=== PATIENT | male | born 1960 | race Caucasian/White ===

== ENCOUNTER 2022-11-08 20:50 | Inpatient (IN) | payer OTHER, SELFPAY ==
[2022-11-08] VITALS (20 sets, daily range): BP systolic 112–135; BP diastolic 86–90; PULSE 88–111; RESP 9–20; TEMP 36.7; O2SAT 94; BMI 31.0
--- NOTE | 2022-11-08 21:04 | ECG_ITS ---
The [facility] Test Date: 2022-11-08 Pat Name: JOCELYNN DANG Department: Room: - Gender: Male Manager Asset: : 1960 Requested By: SHAHRZAD NUNEZ Order Number: [id number] Reading MD: SHAHRZAD NUNEZ Measurements Intervals [place] Rate: 98 P: 52 LA: 148 QRS: -84 QRSD: 116 T: 73 QT: 344 QTc: 399 Interpretive Statements 1100 Sinus rhythm 2450 Right bundle branch block 2630 Left anterior fascicular block 9150 abnormal ECG No previous ECG available for comparison Electronically Signed On 11-09-2022 6:59:31 EDT by SHAHRZAD NUNEZ
--- NOTE | 2022-11-08 21:04 | XR_ITS ---
The [address] [address] Patient Name: JOCELYNN DANG MRN: [id number] date: 1960 Sex: M Assigned Patient Location: ED.MAIN Current Patient Location: ER Accession/Order Number: [id number] Exam Date: 11/08/2022 19:20 Report Date: 11/08/2022 21:54 At the request of: SUDARSHAN JARVIS Procedure: XR chest 1V EXAMINATION: XR chest 1V, , 11/08/2022 7:20 PM EDT INDICATION: CP HISTORY: Ordering Provider Reason for Exam: CP Technologist Note: Additional: COMPARISON: None. TECHNIQUE: Chest x-ray: One view. FINDINGS: No pneumothorax, pleural effusion or focal airspace consolidation. Heart is normal in size. Bony thorax is unremarkable. XR/XR chest 1V IMPRESSION: No acute cardiopulmonary process. Electronically authenticated by: YAKOV GALEAS Date: 11/08/2022 21:54
--- NOTE | 2022-11-08 21:05 | ED_ITS ---
HPI - Chest Pain General Chief Complaint: Chest Pain Stated Complaint: CHEST PAIN Time Seen by Provider: 11/08/22 20:56 History of Present Illness HPI narrative: 61-year-old male presents to the emergency department for chest pain. It started forty-five minutes ago and it's across his chest and it doesn't seem to radiate. He was out in the garage doing some minor work when it started. He didn't have any nitroglycerin at home and doesn't take an aspirin every day. He had two cardiac stents placed in two thousand eleven. His last stress test was in 2020. The pressure has been continuous and he is not short of breath. No back pain. Related Data Home Medications Medication Instructions Recorded Confirmed diclofenac sodium 75 mg mg PO 11/08/22 tablet,delayed release ezetimibe 10 mg tablet mg 11/08/22 metoprolol tartrate 50 mg tablet mg 11/08/22 rosuvastatin 5 mg tablet (Crestor) 5 mg PO DAILY 11/08/22 11/08/22 tamsulosin 0.4 mg capsule mg PO 11/08/22 venlafaxine 150 mg mg PO 11/08/22 capsule,extended release 24 hr Allergies Allergy/AdvReac Type Severity Reaction Status Date / Time No Known Drug Allergies Allergy Verified 11/08/22 21:07 Review of Systems ROS Narrative A ten point review of systems is negative except as noted above. The last time he had chest pain with three or four months ago. [facility] Social History Smoking status: Current every day smoker Exam Narrative Exam Narrative: Nurses note and vital signs reviewed and patient is not hypoxic. General: The patient appears well and in no apparent distress. Patient is resting comfortably on cart. Skin: Warm, dry, no pallor noted. There is no rash noted. Head: Normocephalic, atraumatic Eye: Normal conjunctiva, no drainage Ears, Nose, Mouth, and Throat: oral mucosa is moist. Nares patent. Cardiovascular: Regular Rate and Rhythm Respiratory: Patient is in no distress, no accessory muscle use, lungs are clear to auscultation, no wheezing, rales or rhonchi Back: non-tender GI: soft and nontender Musculoskeletal: The patient has no evidence of calf tenderness, no pitting edema, symmetrical pulses noted bilaterally Neurological: A&O, normal speech Psychiatric: Cooperative Constitutional Vital Signs, click to edit/add: Last Vital Signs Temp 98.1 F 11/08/22 20:58 Pulse 91 H 11/08/22 23:22 Resp 17 11/08/22 23:22 BP 114/88 11/08/22 23:22 Pulse Ox 94 L 11/08/22 21:06 O2 Del Method Room Air 11/08/22 20:58 Course Vital Signs Vital signs: Vital Signs Temperature 98.1 F 11/08/22 20:58 Pulse Rate 108 H 11/08/22 20:58 Respiratory Rate 14 11/08/22 20:58 Blood Pressure 135/90 11/08/22 20:58 Pulse Oximetry 94 L 11/08/22 20:58 Oxygen Delivery Method Room Air 11/08/22 20:58 Temperature 98.1 F 11/08/22 20:58 Pulse Rate 91 H 11/08/22 23:22 Respiratory Rate 17 11/08/22 23:22 Blood Pressure 114/88 11/08/22 23:22 Pulse Oximetry 94 L 11/08/22 21:06 Oxygen Delivery Method Room Air 11/08/22 20:58 MDM - Chest Pain MDM Narrative Medical decision making narrative: the patient's initial troponin was 27 and the repeat 51. he has been having intermittent pain here but EKG shows no acute findings. Case discussed with Dr. Calhoun and the patient will be admitted here. Findings are discussed with the patient. Differential Diagnosis Differential diagnosis: Likely pneumothorax, unstable angina pectoris, atypical chest pain, st elevation myocardial infarction, costochondritis and chest pain Lab Data Attestation: I reviewed the patient's lab results. Labs: Lab Results 11/08/22 11/08/22 Range/Units 21:24 22:30 WBC 10.6 (4.0-11.0) 10^3/uL RBC 5.45 (4.70-6.10) 10^6/uL Hgb 17.0 (14.0-18.0) g/dL Hct 49.7 (42.0-54.0) % MCV 91.2 (80.0-94.0) fL MCH 31.2 (25.9-34.0) pg MCHC 34.2 (29.9-35.2) g/dL RDW 12.1 (11.0-15.0) % Plt Count 177 (150-450) 10^3/uL MPV 10.1 (9.5-13.5) fL Neut % (Auto) 66.7 (43.0-75.0) % Lymph % (Auto) 26.0 (20.5-60.0) % Rice % (Auto) 5.0 (1.7-12.0) % Eos % (Auto) 1.4 (0.9-7.0) % Baso % (Auto) 0.6 (0.2-2.0) % Neut # (Auto) 7.1 H (1.4-6.5) 10^3/uL Lymph # (Auto) 2.8 (1.2-3.8) 10^3/uL Rice # (Auto) 0.5 (0.3-0.8) 10^3/uL Eos # (Auto) 0.2 (0.0-0.7) 10^3/uL Baso # (Auto) 0.1 (0.0-0.1) 10^3/uL Abs Immat Gran (auto) 0.03 (0.00-0.03) 10^3/uL Imm/Tot Granulo (auto) 0.3 (0.0-0.5) % Sodium 138 (136-145) mmol/L Potassium 4.0 (3.5-5.1) mmol/L Chloride 104 (98-107) mmol/L Carbon Dioxide 28.9 (21.0-32.0) mmol/L Anion Gap 9.1 BUN 14.0 (7.0-18.0) mg/dL Creatinine 0.96 (0.70-1.30) mg/dL Est GFR ( Amer) >60 (>=60) Est GFR (Non-Af Amer) >60 (>=60) BUN/Creatinine Ratio 14.6 Glucose 207 H (74-106) mg/dL Calcium 9.6 (8.5-10.1) mg/dL Troponin I High Sens 27.0 51.3 (4.0-76.1) pg/mL Imaging Data Chest x-ray: Radiologist's impression: Procedure: XR chest 1V EXAMINATION: XR chest 1V, , 11/08/2022 7:20 PM EDT INDICATION: CP HISTORY: Ordering Provider Reason for Exam: CP Technologist Note: Additional: COMPARISON: None. TECHNIQUE: Chest x-ray: One view. FINDINGS: No pneumothorax, pleural effusion or focal airspace consolidation. Heart is normal in size. Bony thorax is unremarkable. IMPRESSION: No acute cardiopulmonary process. Electronically authenticated by: YAKOV GALEAS Date: 11/08/2022 21:54 Heart Score History: Highly Suspicious ECG: NS Repolarization Age: >45-<65 years Risk Factors: >3 Risk Factors/ HX of CAD:2 Troponin: <Normal Limit Total Heart Score Recommendations & Risks:: 6 Discharge Plan Discharge Chief Complaint: Chest Pain Clinical Impression: Chest pain Patient Disposition: Admitted as Observation Time of Disposition Decision: 00:37 Condition: Good Prescriptions / Home Meds: No Action venlafaxine 150 mg capsule,extended release 24hr PO tamsulosin 0.4 mg capsule PO metoprolol tartrate 50 mg tablet diclofenac sodium 75 mg tablet,delayed release (DR/EC) PO ezetimibe 10 mg tablet rosuvastatin [Crestor] 5 mg tablet 5 mg PO DAILY Referrals: Physician,Non-Staff, MD [Physician] - 1 week
[2022-11-08 21:31] LABS: Basophils Absolute Auto 0.1 10^3/uL (0.0-0.1); Basophils Percent Auto 0.6 % (0.2-2.0); Eosinophils Absolute Auto 0.2 10^3/uL (0.0-0.7); Eosinophils Percent Auto 1.4 % (0.9-7.0); Hematocrit 49.7 % (42.0-54.0); Immature Granulocytes Abs Auto 0.03 10^3/uL (0.00-0.03); Immature Granulocytes Pct Auto 0.3 % (0.0-0.5); Lymphocytes Absolute Auto 2.8 10^3/uL (1.2-3.8); Mean Corpuscular HGB Conc 34.2 g/dL (29.9-35.2); Mean Corpuscular Hemoglobin 31.2 pg (25.9-34.0); Mean Corpuscular Volume 91.2 fL (80.0-94.0); Mean Platelet Volume 10.1 fL (9.5-13.5); Monocytes Absolute Auto 0.5 10^3/uL (0.3-0.8); Neutrophils Absolute Auto 7.1 10^3/uL (1.4-6.5); Neutrophils Percent Auto 66.7 % (43.0-75.0); Platelet Count 177 10^3/uL (150-450); Red Blood Count 5.45 10^6/uL (4.70-6.10); Red Cell Distribution Width 12.1 % (11.0-15.0); White Blood Count 10.6 10^3/uL (4.0-11.0)
--- NOTE | 2022-11-08 21:33 | PC.NURSE ---
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 states he has had similar episodes but has not had one in about 3 month. 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 2 cardiac stents in 2010. denies nausea, vomiting and any recent illness. chest pain does not radiate. ekg obtained and given to physician
[2022-11-08] MEDS: ASPIRIN 81 MG TAB.CHEW 324 MG PO (21:39)
[2022-11-08] MEDS: NITROGLYCERIN 0.4 MG BOTTLE PO (21:41)
[2022-11-08 21:54] LABS: Anion Gap 9.1; BUN Creatinine Ratio 14.6; Calcium 9.6 mg/dL (8.5-10.1); Carbon Dioxide 28.9 mmol/L (21.0-32.0); Chloride 104 mmol/L (98-107); Estimated GFR (African America >60 (>=60); Estimated GFR (Non-African Ame >60 (>=60); Glucose 207 mg/dL (74-106); Sodium 138 mmol/L (136-145)
[2022-11-08 23:10] LABS: Troponin I High Sensitivity 51.3 pg/mL (4.0-76.1)
[2022-11-09] VITALS (13 sets, daily range): BP systolic 95–131; BP diastolic 62–84; PULSE 69–93; RESP 16–18; TEMP 36.4–36.7; O2SAT 93–94; BMI 30.6
--- NOTE | 2022-11-09 02:32 | P.PN_ITS ---
Progress Note: Subjective Subjective Interval history: CC: Retrosternal pressure-like chest pain not associated with exertion HPI:: This is a very pleasant 61 years old male with known history of coronary artery disease, status post PCI and stents in 2010 who presents with above complaints. Patient stating that he has been working in the garage, but not lifting anything heavy when he developed above-mentioned symptoms. On presentation to emergency room patient found to have elevated troponin which continued to rise not dramatically. Patient's pain currently controlled. Patient stating that he is followed by his speech language pathologist travel and doing a stress test as scheduled. According to the patient all stress test has been normal. Patient stating that he is compliant with his medical regimen. ER physician discussed the case over the phone with Dr. Calhoun, cardiology who recommended hospital stay, continue monitoring with consultation in the morning and decision regarding stress test Exam Narrative Exam Narrative: ROS: 1.General: no fever, chills, not in distress 2.HEENT: no CARLOS, no blurry vision, no swallow problems, no nasal congestion, no sore throat 3.Pulmonary: no cough, SOB, wheezes 4.CVS: See above 5.GI: no nausea, vomiting or diarrhea, no abdominal pain, no constipation, no hematemesis or hematochezia 6.: no renal colic, no hematuria, urinary frequency or urgency 7.Extremities: no edema 8.Neurological: no dizziness, vertigo, double or blurry vision, no no focal weakness, no paresthesia, no swallow or speech problems 9.Musculosceletal: no joint pains, no joint swelling, no back pain 10.Dermatological: no skin rashes, no lesions, no pruritus 11.Hematological: no bleeding, no hx/o clots 12.Endocrinological: no heat/cold intolerance, no hx/o diabetes 13.Psychiatric: no suicidal or homicidal thoughts Physical Exam: Not in distress, pleasant, lucid, cooperative, Head - atraumatic, eyes - pupils equal, round, reactive to light, extra ocular movement intact, MMM Neck - supple, thyroid not enlarged, LN not palpated Lungs - clear to auscultation, no dullness on percussion CVS - heart sounds S1, S2, no additional murmurs gallop, regular rate and rhythm Gastrointestinal?abdomen is soft, non-tender, non-distended, no organomegaly, positive bowel sounds Extremities no clubbing, cyanosis or edema Neurological?cranial nerve II?XII grossly intact, no meningeal signs, no cerebellar signs, no sensory deficit Musculoskeletal - joints, no effusions, ROM preserved Dermatological - the skin dry, warm, no rashes Psychiatric?patient is AAO X3, patient has normal affect Constitutional Vital Signs, click to edit/add: Last Vital Signs Temp 98.0 F 11/09/22 01:40 Pulse 93 H 11/09/22 02:00 Resp 18 11/09/22 01:40 BP 131/84 11/09/22 01:40 Pulse Ox 94 L 11/09/22 01:40 O2 Del Method Room Air 11/09/22 01:40 Progress Note: Objective Labs Labs: Short CBC 11/08/22 Range/Units 21:24 WBC 10.6 (4.0-11.0) 10^3/uL Hgb 17.0 (14.0-18.0) g/dL Hct 49.7 (42.0-54.0) % Plt Count 177 (150-450) 10^3/uL BMP 11/08/22 21:24 Sodium 138 Potassium 4.0 Chloride 104 Carbon Dioxide 28.9 BUN 14.0 Creatinine 0.96 Glucose 207 H Calcium 9.6 Progress Note: A&P Assessment and Plan (1) Chest pain: Assessment and Plan: CAD - patient's condition is guarded and requires admission to telemetry floor for close monitoring and medical management - continue to trend Man to r/u possibility of acute coronary event - will make sure that patient is on at least moderate potency dose of Atorvastatin, full dose of EC ASA (for now), BBs and ACEI if not contraindicated - will order an ECHO to look for wall motion abnormalities and evaluate valvular structures - Follow-up with Dr. Calhoun in the morning. I am going to keep patient n.p.o. in case stress test going to be ordered (2) CAD (coronary artery disease): Assessment and Plan: See above (3) History of PTCA: Assessment and Plan: As above (4) Dyslipidemia: Assessment and Plan: Started on statin Plan END: As the provider for the telehealth service, I attest that I introduced myself to the patient, provided my credentials, disclosed by location and determined that based on a review of the patient's chart and discussion with members of the patient's treatment team, telemedicine via real-time, 2 way, and interactive audio and video platform is an appropriate and effective means of providing the service. ?The patient and I mutually agree this visit is appropriate for telemedicine. ?The virtual encounter was taken place from? [place], [place]. ?The encounter took approximately 35 minutes. ?The nurse was present during the entire time and I was able to move the stethoscope in appropriate directions. ?T he patient was evaluated at the Hospital ? Portions of this note may be dictated using [employer] voice recognition software. Variances in spelling and vocabulary are possible and unintentional. Not all e rrors may be caught and/or corrected. Please notify the author if any discrepancies are noted and/or if the meaning of any statement is unclear.? ? Patient verbally consented for treatment via video visit with patient currently located at the [facility] and provider located in [place]. Telemedicine Attestation Telemedicine Attestation I conducted this encounter from [[place]] via secure live, [id number] video conference with the patient, located at [facility] with [chest pain]. Prior to the interview, the risks and benefits of telemedicine were discussed with the patient and verbal consent was obtained.
[2022-11-09 06:34] LABS: Alanine Aminotransferase 49 U/L (16-63); Albumin Globulin Ratio 1.1; Albumin Level 3.3 g/dL (3.4-5.0); Alkaline Phosphatase 111 U/L (46-116); Anion Gap 8.5; Aspartate Amino Transferase 38 U/L (15-37); BUN Creatinine Ratio 16.3; Bilirubin Total 0.3 mg/dL (0.2-1.0); Calcium 8.8 mg/dL (8.5-10.1); Carbon Dioxide 27.4 mmol/L (21.0-32.0); Chloride 106 mmol/L (98-107); Estimated GFR (African America >60 (>=60); Estimated GFR (Non-African Ame >60 (>=60); Globulin 2.9 g/dL; Glucose 243 mg/dL (74-106); Potassium 3.9 mmol/L (3.5-5.1); Sodium 138 mmol/L (136-145); Total Protein 6.2 g/dL (6.4-8.2)
[2022-11-09 06:35] LABS: Chol HDL Ratio 3.8; Cholesterol 114 mg/dL (<=200); HDL Cholesterol 30 mg/dL (40-60); Triglycerides 356 mg/dL (<=150); VLDL CHOLESTEROL 71.2 mg/dL
[2022-11-09 07:23] LABS: Troponin I High Sensitivity 373.5 pg/mL (4.0-76.1)
--- NOTE | 2022-11-09 07:56 | P.HP_ITS ---
H&P: HPI History of Present Illness Chief complaint: CHEST PAIN Narrative: Patient with a head of coronary artery disease, status post stenting 12 years ago, had recurrence of his chest pain that was similar to then. Pressure type chest pain with diaphoresis, no shortness of breath no radiation of pain. In the room he does state maybe a little bit of shortness of breath is now persisting. Patient was admitted for work-up and treatment of same Review of Systems ROS Constitutional Denies: fever Eyes Denies: change in vision Cardiovascular Reports: chest pain and palpitations Respiratory Reports: shortness of breath Gastrointestinal Denies: abdominal pain Genitourinary Denies: painful urination Musculoskeletal Denies: back pain [facility] Medical History (Updated 11/09/22 @ 02:38 by Christopher Pepper MD) Hernia ?K46.9 - Unspecified abdominal hernia without obstruction or gangrene (ICD- 10) Surgical History (Updated 11/09/22 @ 02:38 by Christopher Pepper MD) History of appendectomy ?Z90.49 - Acquired absence of other specified parts of digestive tract (ICD- 10) History of colon resection ?Z90.49 - Acquired absence of other specified parts of digestive tract (ICD- 10) History of heart artery stent ?Z95.5 - Presence of coronary angioplasty implant and graft (ICD-10) Family History (Updated 11/09/22 @ 01:38 by Samantha Elizabeth) Grandmother Family history of hypertension Mother Family history of hypertension Social History (Updated 11/09/22 @ 01:46 by Samantha Elizabeth) Within the past year, how often did you have a drink containing alcohol: monthly or less Within the past year, how many standard drinks containing alcohol did you have on a typical day: 1 or 2 Within the past year, how often did you have six or more drinks on one occasion: never Total score: 0 Score interpretation: A score less than 4 is consistent with normal alcohol consumption. 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 Highest level of school completed/degree received: GED or equivalent Are you now , , , , never or living with a partner: In a typical week, how many times do you talk on the telephone with family, friends, or neighbors: 3 or more times per week How often do you get together with friends or relatives: 3 or more times per week How often do you attend faith or christian services: 1-3 times per year Do you belong to any clubs or organizations such as faith groups unions, fraternal or athletic groups, or school groups: no Total score: 2 Score interpretation: A score of greater than or equal to 2 indicates the lowest level of social isolation. Little interest or pleasure in doing things: not at all Feeling down, depressed, or hopeless: not at all Feel stressed/tense/nervous/anxious/difficulty sleeping: not at all Life stressors: recent of family or friend Life stressor details: Son 1 yr ago Due to disability, difficulty making decisions: No Do you think of yourself as: straight/heterosexual Gender Identity: male Meds Home Medications and Allergies Home Medications Medication Instructions Recorded Confirmed Type diclofenac sodium 75 mg 75 mg PO Q12H PRN pain 11/08/22 11/09/22 History tablet,delayed release ezetimibe 10 mg tablet 10 mg PO DAILY 11/08/22 11/09/22 History metoprolol tartrate 50 mg tablet 50 mg PO DAILY 11/08/22 11/09/22 History rosuvastatin 5 mg tablet (Crestor) 5 mg PO DAILY 11/08/22 11/09/22 History tamsulosin 0.4 mg capsule 0.4 mg PO DAILY 11/08/22 11/09/22 History venlafaxine 150 mg 150 mg PO DAILY 11/08/22 11/09/22 History capsule,extended release 24 hr Allergies Allergy/AdvReac Type Severity Reaction Status Date / Time No Known Drug Allergies Allergy Verified 11/08/22 21:07 Exam Constitutional Vital Signs, click to edit/add: Last Vital Signs Temp 97.5 F L 11/09/22 07:28 Pulse 82 11/09/22 07:28 Resp 16 11/09/22 07:28 BP 116/73 11/09/22 07:28 Pulse Ox 94 L 11/09/22 07:28 O2 Del Method Room Air 11/09/22 07:28 Documenting provider has reviewed patient's vital signs: yes Common normals: no apparent distress Chest Common normals: inspection of chest normal Respiratory Common normals: normal respiratory effort, no retractions and clear to auscultation bilaterally Cardio Common normals: regular rate, regular rhythm and no murmurs GI Common normals: Normal to inspection, nondistended, normoactive bowel sounds present Results Labs Labs: Short CBC 11/08/22 Range/Units 21:24 WBC 10.6 (4.0-11.0) 10^3/uL Hgb 17.0 (14.0-18.0) g/dL Hct 49.7 (42.0-54.0) % Plt Count 177 (150-450) 10^3/uL BMP 11/08/22 11/09/22 21:24 05:40 Sodium 138 138 Potassium 4.0 3.9 Chloride 104 106 Carbon Dioxide 28.9 27.4 BUN 14.0 14.0 Creatinine 0.96 0.86 Glucose 207 H 243 H Calcium 9.6 8.8 Liver Function 11/09/22 Range/Units 05:40 Total Bilirubin 0.3 (0.2-1.0) mg/dL AST 38 H (15-37) U/L ALT 49 (16-63) U/L Alkaline Phosphatase 111 (46-116) U/L Albumin 3.3 L (3.4-5.0) g/dL Assessment and Plan Assessment and Plan (1) Chest pain: (2) CAD (coronary artery disease): (3) History of PTCA: (4) Dyslipidemia: Plan Sinus tachycardia with chest pain, pressure type with diaphoresis-history of stenting 12 years ago, similar pain to previous, third troponin is positive, so NSTEMI - start patient on heparin drip, maintain nitroglycerin topically, patient already received an aspirin, increase beta-tomeka to twice daily, discussed case with cardiology who agreed to accept patient for transfer. If has any recurrence of pain he will need to be transferred straight to the [facility]. Hypercholesterolemia with hypertriglyceridemia-maintain current medications Hypertension-maintain medication but increase beta-tomeka to twice daily Hyperglycemia-not on currently on any medications for that. Monitor daily- Bed not likely available later today. With an acute NSTEMI, starting intensive medical therapy, change patient to inpatient status
[2022-11-09] MEDS: NITROGLYCERIN 2% 1 GRAM PACKET 1 GM TD ×2 (08:26→13:34)
[2022-11-09] MEDS: HEPARIN SODIUM (PORCINE) 5,000 UNIT/ML VIAL 4000 UNIT IV (08:29)
[2022-11-09] MEDS: HEPARIN SODIUM,PORCINE/D5W 25,000 UNIT/500 ML IV.SOLN 20 UNIT IV (08:30)
[2022-11-09 08:41] LABS: Troponin I High Sensitivity 417.6 pg/mL (4.0-76.1)
[2022-11-09] MEDS: METOPROLOL TARTRATE 50 MG TABLET PO (09:19)
--- NOTE | 2022-11-09 09:46 | PC.NURSE ---
educated patient and to immediately notify staff if he feels any chest pain. that patient will be transferred directly to the screedman/laborer if he begins having symptoms. patient voiced understanding.
[2022-11-09 11:04] LABS: INR 1.03; Prothrombin Time 10.9 sec (9.0-11.6)
[2022-11-09 11:08] LABS: Troponin I High Sensitivity 429.2 pg/mL (4.0-76.1)
[2022-11-09 11:53] LABS: Partial Thromboplastin Time 62.2 sec (22.3-36.2)
--- NOTE | 2022-11-09 14:19 | PC.NURSE ---
called report to [facility] to nurse barlow. patient going to room 3174 and chart picker is at 1510 by [employer].
[2022-11-09 14:30] LABS: Troponin I High Sensitivity 365.9 pg/mL (4.0-76.1)
[2022-11-09 14:34] LABS: PTT Heparin Monitor 45.4 sec (39.5-54.2)
[2022-11-09] MEDS: ACETAMINOPHEN 500 MG TABLET 1000 MG PO (15:01)
== END 2022-11-09 16:14 | disposition short-term general hospital (02) | DRG 282 ==
LOC: ER 11-09 00:37 → MS 11-09 01:00
PROVIDERS: Admitting Provider Internal Medicine; Emergency Provider Emergency Medicine; PCP Family Medicine; Visit Provider Family Medicine
DX: I21.4 Non-ST elevation (NSTEMI) myocardial infarction (principal); I10 Essential (primary) hypertension; R00.0 Tachycardia, unspecified; I25.10 Atherosclerotic heart disease of native coronary artery without angina pectoris; E78.2 Mixed hyperlipidemia; F17.200 Nicotine dependence, unspecified, uncomplicated; R73.9 Hyperglycemia, unspecified; I25.2 Old myocardial infarction; Z95.5 Presence of coronary angioplasty implant and graft; Z90.49 Acquired absence of other specified parts of digestive tract; Z79.899 Other long term (current) drug therapy; Z82.49 Family history of ischemic heart disease and other diseases of the circulatory system
CPT/HCPCS: 36415; 71045; 80048; 80053; 80061; 84484; 85025; 85610; 85730; 93005; 96365; 96366; 96376; 99285; Q3014

== ENCOUNTER 2022-12-09 18:04 | Outpatient (OUT) | payer OTHER, SELFPAY ==
--- NOTE | 2022-12-09 | US_ITS ---
The [address] [address] Patient Name: JOCELYNN DANG MRN: [id number] date: 1960 Sex: M Assigned Patient Location: US Current Patient Location: Accession/Order Number: [id number] Exam Date: 12/09/2022 18:00 Report Date: 12/10/2022 00:27 At the request of: SHAHRZAD NUNEZ Procedure: US right upper quadrant EXAMINATION: US right upper quadrant HISTORY: UNSPECIFIED ABDOMINAL PAIN R10.9 ; right upper quadrant pain COMPARISON: Ultrasound right upper quadrant 02/21/2022 TECHNIQUE: Transabdominal evaluation of the right upper quadrant. FINDINGS: LIVER: Fatty infiltration. Color Doppler demonstrates patent hepatic veins. PORTAL VEIN: Duplex Doppler demonstrates normal hepatopetal flow pattern with flow velocity averaging 28 cm/s. GALLBLADDER: No visible gallstones, wall thickening, or pericholecystic free fluid. Negative sonographic Fuchs's sign. BILIARY: No abnormal dilation or stones. Common bile duct diameter is within normal limits. PANCREASE: No visible mass, abnormal atrophy, or duct dilation. KIDNEY: Contains a nonobstructing 13 mm stone. Size: 12.6 x 5.3 x 6.7 cm US/US right upper quadrant IMPRESSION: 1. No acute right upper quadrant findings to account for patient's symptoms. 2. Fatty infiltration of liver. 3. Grossly stable nonobstructing right nephrolithiasis. Electronically authenticated by: ALVARADO CLARK Date: 12/10/2022 00:27
== END 2022-12-09 18:05 | disposition home or self-care (01) ==
LOC: US 18:04
PROVIDERS: PCP Family Medicine; Visit Provider Family Medicine
DX: R10.9 Unspecified abdominal pain (principal); N20.0 Calculus of kidney
CPT/HCPCS: 76705

== ENCOUNTER 2022-12-19 09:33 | Outpatient (OUT) | payer OTHER, SELFPAY ==
--- NOTE | 2022-12-19 | CT_ITS ---
[address] [address] Patient Name: JOCELYNN DANG MRN: [id number] date: 1960 Sex: M Assigned Patient Location: LAB Current Patient Location: LAB Accession/Order Number: [id number] Exam Date: 12/19/2022 10:20 Report Date: 12/19/2022 16:21 At the request of: EVAN LARA Procedure: CT angio abdomen pelvis EXAM: CT angio abdomen pelvis HISTORY: I71.40 ABDOMINAL AORTIC ANEURYSM, WITHOUT RUPTURE COMPARISON: 01/24/2022 TECHNIQUE: CTA was performed through the abdomen and pelvis with intravenous contrast. Multiplanar reformats were performed. Dose reduction techniques were achieved by using automated exposure control and/or adjustment of mA and/or kV according to patient size and/or use of iterative reconstruction technique. FINDINGS: Lung bases: Lung bases are clear. No pleural effusion. GI upper: Unremarkable. Liver: Hepatic steatosis. Normal size and contour. Gallbladder: No significant abnormality. No cholelithiasis. Biliary system: No intra or extrahepatic biliary ductal dilatation. Spleen: Normal size. Pancreas: Unremarkable. Adrenal glands: Normal adrenal glands. Kidneys/ureters: Normal contours. No hydronephrosis. No nephrolithiasis or ureterolithiasis. Lymph Nodes: No lymphadenopathy. Small bowel: No wall thickening or dilatation. Colon: No wall thickening or dilatation. There are colonic diverticulosis without evidence of acute diverticulitis. Appendix: No findings of appendicitis. Peritoneal cavity: No free fluid or pneumoperitoneum. Lower : Prostatomegaly, measuring 4.6 cm, containing coarse calcification. Correlation with PSA is recommended. Bones: No acute bony abnormality. Soft tissues: No acute finding. Additional findings: None. VASCULAR FINDINGS: CTA ABDOMEN PELVIS: Aorta: Stable infrarenal abdominal aortic aneurysm measuring 3 cm with intraluminal thrombus. No evidence of dissection, or occlusion. No significant stenosis. Right renal artery: No evidence of aneurysm, dissection, or occlusion. No significant stenosis. Left renal artery: There are 2 renal arteries. No evidence of aneurysm, dissection, or occlusion. No significant stenosis. Celiac artery: No evidence of aneurysm, dissection, or occlusion. No significant stenosis. Superior mesenteric artery: No evidence of aneurysm, dissection, or occlusion. No significant stenosis. Inferior mesenteric artery: No evidence of aneurysm, dissection, or occlusion. No significant stenosis. PELVIC ARTERIES: Right: Common iliac artery: Measures 1.9 cm with intraluminal thrombus, resulting in 20-30 % stenosis, unchanged. No evidence of dissection, or occlusion. No significant stenosis. External iliac artery: No evidence of aneurysm, dissection, or occlusion. No significant stenosis. Internal iliac artery: No evidence of aneurysm, dissection, or occlusion. No significant stenosis. Left: Common iliac artery: No evidence of aneurysm, dissection, or occlusion. No significant stenosis. External iliac artery: No evidence of aneurysm, dissection, or occlusion. No significant stenosis. Internal iliac artery: No evidence of aneurysm, dissection, or occlusion. No significant stenosis. CT/CT angio abdomen pelvis IMPRESSION: 1. Stable infrarenal abdominal aortic aneurysm measuring 3 cm with intraluminal thrombus. Unchanged 1.9 cm right common iliac artery ectasia with intraluminal thrombus, resulting in 20-30% stenosis. No evidence of dissection, or occlusion. 2. No acute abnormality. Electronically authenticated by: SANDIE LEWIS Date: 12/19/2022 16:21
[2022-12-19 10:32] LABS: Estimated GFR (African America >60 (>=60); Estimated GFR (Non-African Ame >60 (>=60)
== END 2022-12-19 09:34 | disposition home or self-care (01) ==
LOC: LAB 09:34
PROVIDERS: PCP Family Medicine; Visit Provider Internal Medicine Interventional Cardiology
DX: Z01.812 Encounter for preprocedural laboratory examination (principal); I71.40 Abdominal aortic aneurysm, without rupture, unspecified; I71.43 Infrarenal abdominal aortic aneurysm, without rupture
CPT/HCPCS: 36415; 74174; 82565

== ENCOUNTER 2023-04-19 16:22 | Outpatient (OUT) | payer OTHER, SELFPAY ==
--- NOTE | 2023-04-19 16:26 | XR_ITS ---
The [address] [address] Patient Name: JOCELYNN DANG MRN: [id number] date: 1960 Sex: M Assigned Patient Location: [facility] Current Patient Location: Accession/Order Number: [id number] Exam Date: 04/19/2023 16:30 Report Date: 04/20/2023 07:10 At the request of: SHAHRZAD NUNEZ Procedure: XR cervical spine 5V EXAMINATION: XR cervical spine 5V HISTORY: Radiculopathy, Cervical Region M54.12 COMPARISON: No relevant comparison available. FINDINGS: BONES: Normal alignment with no acute fracture or spondylolisthesis. Mild to moderate degenerative spondylosis and facet osteoarthropathy most significant C5-C7 DISC SPACES: Moderate disc space narrowing C5-C7 with endplate sclerosis PARASPINOUS: Negative. No paraspinous abnormality is seen. OTHER: Negative. XR/XR cervical spine 5V IMPRESSION: Moderate degenerative changes C5-C7 Electronically authenticated by: ANMOL KHAN Date: 04/20/2023 07:10
--- OUTSIDE RECORDS SUMMARY | 2023-04-19 16:28 | XMS_ITS | CCD ---
Author Name Unknown Address [address] [facility] [address] [place] [address] Organization [facility] Care Team Providers Care Oracle Etl Developer Name Role Phone SANJUANITA, DR MARKHAM Admitting Unavailable SANJUANITA, DR MARKHAM Attending Unavailable SANJUANITA, DR MARKHAM Primary Care Unavailable SANJUANITA, DR MARKHAM Consulting Unavailable AMBER, DR ALVARADO Kee Consulting Unavailable SELWYN UPTON Consulting Unavailable LIZZIE JONES Admitting Unavailable LIZZIE JONES Attending Unavailable SANJUANITA, DR MARKHAM Primary Care Unavailable AMBER, DR ALVARADO Kee Consulting Unavailable LIZZIE JONES Consulting Unavailable SANJUANITA, DR MARKHAM Admitting Unavailable SANJUANITA, DR MARKHAM Attending Unavailable SANJUANITA, DR MARKHAM Primary Care Unavailable ELTASHREYAS, DR GORDON Admitting Unavailable ELTAHAWAngelia, DR GORDON Attending Unavailable SANJUANITA, DR MARKHAM Primary Care Unavailable SANJUANITA, DR MARKHAM Consulting Unavailable ELTAHAWY, DR GORDON Consulting Unavailable ZIEBER, DR ALVARADO Kee Consulting Unavailable SANJUANITA, DR MARKHAM Admitting Unavailable SANJUANITA, DR MARKHAM Attending Unavailable SANJUANITA, DR MARKHAM Primary Care Unavailable SANJUANITA, DR MARKHAM Consulting Unavailable BILL, DR ANMOL Barron Consulting Unavailable SANJUANITA, DR MARKHAM Admitting Unavailable SANJUANITA, DR MARKHAM Attending Unavailable SANJUANITA, DR MARKHAM Primary Care Unavailable SANJUANITA, DR MARKHAM Consulting Unavailable MINNIE COY Consulting Unavailable SANJUANITA, DR MARKHAM Admitting Unavailable SANJUANITA, DR MARKHAM Attending Unavailable SANJUANITA, DR MARKHAM Primary Care Unavailable SANJUANITA, DR MARKHAM Consulting Unavailable BILL, DR ANMOL Barron Consulting Unavailable ELTAYLOR MITCHELL Attending Unavailable AMALIA JONES Referring UnavailAMALIA Ulloa Referring Unavailabl GRACIELA Rodriguez Referring Unavailable GRACIELA ROBB Referring Unavailable SHAHRZAD NUNEZ Referring Unavailable ANDREIA, HANI Admitting Unavailable GRACIELA ROBB Attending Unavailable TAYLOR BONDS Attending Unavailable Problems Active Problems Problem Classification Problem Date Documented Date Episodic/Chronic Acute myocardial infarction (2 sources) Non-ST elevation (NSTEMI) myocardial infarction; Translations: [Non-ST elevation (NSTEMI) myocardial infarction] Onset: 11-09-2022 Chronic Coronary atherosclerosis and other heart disease (8 sources) Atherosclerotic heart disease of douglas coronary artery without angina pectoris; Translations: [Atherosclerotic heart disease of douglas coronary artery with other forms of angina pectoris] Onset: 01-24-2022 Chronic Essential hypertension (2 sources) Essential (primary) hypertension; Translations: [Essential (primary) hypertension] Onset: 11-05-2021 Chronic Unclassified (4 sources) ABDOMINAL AA W/O RUPTURE UNSPCIFIED; Translations: [ABDOMINAL AA W/O RUPTURE UNSPCIFIED] Onset: 01-28-2022 Unclassified (1 source) Abdominal aortic aneurysm, without rupture, unspecified; Translations: [Abdominal aortic aneurysm, without rupture, unspecified] Onset: 03-29-2023 Past or Other Problems Problem Classification Problem Date Documented Da te Episodic/Chronic Other connective tissue disease (4 sources) Pain in left hand; Translations: [PAIN IN LEFT HAND] Onset: 08-12-2021 Episodic Unclassified (1 source) ABDOMINAL AA W/O RUPTURE UNSPCIFIED; Translations: [ABDOMINAL AA W/O RUPTURE UNSPCIFIED] Onset: 01-24-2022 Unclassified (1 source) Abdominal aortic aneurysm, without rupture, unspecified; Translations: [Abdominal aortic aneurysm, without rupture, unspecified] Onset: 03-29-2023 Results Test Name Value Interpretation Reference Range Facility Office Visiton 03-29-2023 Follow-up visit [id number] Jocelynn Auguste 1960 M Date Provider Department Center 03/29/2023 271-TAYLOR BONDS [facility] Leidy Llamas Family History Problem Relation Age of Onset Coronary artery disease Mother Other Mother Hypertension Mother Coronary artery disease Sister Other Sister Hypertension Sister Family Status - Relation Status Age at Mother Sister Level of Service:89022 NE OFFICE/OUTPATIENT ESTABLISHED MOD MDM 30 MIN Normal [facility] Office Visiton 11-26-2022 Follow-up visit [id number] Jocelynn Auguste 1960 M Date Provider Department Center 11/26/2022 Sukhjinder-TAYLOR BONDS [facility] Leidy Hos Family History Problem Relation Age of Onset Coronary artery disease Mother Other Mother Hypertension Mother Coronary artery disease Sister Other Sister Hypertension Sister Family Status - Relation Status Age at Mother Sister Level of Service:21528 NE OFFICE/OUTPATIENT ESTABLISHED MOD MDM 30-39 MIN Normal [facility] 30on 11-11-2022 30 The patient is Moderately Stable - Low risk of patient condition declining or worsening The patient's goals for the shift include comfort The clinical goals for the shift include vss Normal [facility] ANTI-XA (HEPARIN LEVEL)on HEPARIN UNFRACTIONATED (U/ML) IN PPP BY CHROMOGENIC METHOD <0.10 Invalid Interpretation Code 0.3-0.7 [facility] Comment on above: Order Comment: Check anti-Xa level every 6 hours while on heparin infusion, or per protocol. Result Comment: [place] roxaban and Apixaban will interfere with the anti Xa assay used to monitor UFH and LMWH. Performed By: #### L [id number] #### [facility] ([facility]) [address] [place] [address] HEPARIN UNFRACTIONATED (U/ML) IN PPP BY CHROMOGENIC METHOD <0.10 Invalid Interpretation Code 0.3-0.7 [facility] Comment on above: Order Comment: Check anti-Xa level every 6 hours while on heparin infusion, or per protocol. Result Comment: [place] roxaban and Apixaban will interfere with the anti Xa assay used to monitor UFH and LMWH. Performed By: #### L [id number] #### [facility] ([facility]) [address] [place] [address] BASIC METABOLIC PANELon 10-0 Anion gap [Moles/Vol] 10 mmol/L Normal 7-20 [facility] Comment on above: Performed By: #### L [id number] #### [facility] ([facility]) [address] [place] [address] Calcium [Mass/Vol] 8.8 mg/dL Normal 8.6-10.3 [facility] Comment on above: Performed By: #### L [id number] #### [facility] ([facility] [address] [place] [address] Chloride [Moles/Vol] 105 mmol/L Normal 98-107 [facility] Comment on above: Performed By: #### L [id number] #### [facility] ([facility]) [address] [place] [address] CO2 [Moles/Vol] 26 mmol/L Normal 21-31 [facility] Comment on above: Performed By: #### L [id number] #### [facility] ([facility]) [address] [address] Creatinine [Mass/Vol] 0.75 mg/dL Normal 0.70-1.30 [facility] Comment on above: Performed By: #### L [id number] #### [facility] ([facility]) [address] [place] [address] GLOMERULAR FILTRATION RATE ML/MIN/1.73 SQ M.PREDICTED 102.7 mL/min/1.73m*2 Normal >60.0 [facility] Comment on above: Result Comment: The [facility]???s estimated glomerular filtration rate (eGFR) will no longer include consideration of race in its calculation. The National Kidney Foundation???s eGFR Task Force developed new recommendations for the estimation of the glomerular filtration rate in the [place] They recommend immediate implementation of the new equation refit without the race variable in all laboratories because the calculation does not include race. In addition to not including race in the calculation and reporting, it included diversity in its development, and has acceptable performance characteristics and potential consequences that do not disproportionately affect any one group of individuals. Performed By: #### L [id number] #### [facility] ([facility]) [address] [place] [address] Glucose [Mass/Vol] 171 mg/dL High 70-100 [facility] Comment on above: Performed By: #### L [id number] #### [facility] ([facility]) [address] [facility] [place] [address] Potassium [Moles/Vol] 3.7 mmol/L Normal 3.5-5.1 [facility] Comment on above: Performed By: #### L [id number] #### [facility] ([facility]) [address] [place] [address] Sodium [Moles/Vol] 137 mmol/L Normal 136-145 [facility] Comment on above: Performed By: #### L [id number] #### [facility] ([facility]) [address] [place] [address] Urea nitrogen [Mass/Vol] 11 mg/dL Normal 7-25 [facility] Comment on above: Performed By: #### L [id number] #### [facility] ([facility]) [address] [place] [address] UREA NITROGEN/CREATININ E (MASS RATIO) IN SER/PLAS 14.7 Normal [facility] Comment on above: Performed By: #### L [id number] #### [facility] ([facility]) [address] [place] [address] LIPID PANELon 11-11-2022 CHOL/HDL 5.0 mg/dL Normal [facility] Comment on above: Performed By: #### L [id number] #### [facility] ([facility]) [address] [place] [address] Cholesterol [Mass/Vol] 131 mg/dL Normal 120-200 [facility] Comment on above: Performed By: #### L [id number] #### [facility] ([facility]) [address] [place] [address] CHOLESTEROL IN LDL (MG/DL) IN SERUM OR PLASMA BY CALCULATION Normal [facility] Comment on above: Result Comment: Calc ulated LDL invalid, triglycerides >400 mg/dl Performed By: #### L [id number] #### [facility] ([facility]) [address] [place] [address] Magnesium [Mass/Vol] 853 mg/dL High 40-149 [facility] Comment on above: Result Comment: TRIG LYCERIDE REFERENCE RANGE: 20 YEARS AND OLDER CARDIOVASCULAR RISK LESS THAN 150 mg/dL LOW RISK 150 TO 199 mg/dL BORDERLINE RISK 200 mg/dL AND GREATER HIGH RISK Performed By: #### L [id number] #### [facility] ([facility]) [address] [place] [address] Magnesium [Mass/Vol] 26 mg/dL Normal 23-92 [facility] Comment on above: Performed By: #### L [id number] #### [facility] ([facility]) [address] [place] [address] NON HDL CHOL. (LDL+VLDL) 105 Normal [facility] Comment on above: Performed By: #### L [id number] #### [facility] ([facility]) [address] [place] [address] TOTAL VLDL-C 171 mg/dL High 0-40 [facility] Comment on above: Performed By: #### L [id number] #### [facility] ([facility]) [address] [place] [address] Letter (Out)on 11-11-2022 Letter (Out) [id number] Jocelynn Auguste 1960 Date Provider Department [place] 11/11/2022 [id number], GENERIC PRO*INIT None Family History Problem Relation Age of Onset Coronary artery disease Mother Other Mother Hypertension Mother Coronary artery disease Sister Other Sister Hypertension Sister Family Status - Relation Status Age at Mother Sister Normal [facility] MAGNESIUMon 11-11-2022 Magnesium [Mass/Vol] 1.7 mg/dL Low 1.9-2.7 [facility] Comment on above: Performed By: #### L [id number] #### [facility] ([facility]) [address] [place] [address] 30on 11-10-2022 30 The patient is Moderately Stable - Low risk of patient condition declining or worsening The patient's goals for the shift include comfort The clinical goals for the shift include vss Normal [facility] 30 The patient is Moderately Stable - Low risk of patient condition declining or worsening The patient's goals for the shift include comfort The clinical goals for the shift include vss Over the shift, the patient did make progress toward the following goals. Problem: Pain - Adult Goal: Verbalizes/displays adequate comfort level or baseline comfort level 11/10/2022835 by Aníbal Lucas RN Outcome: Progressing 11/09/20221838 by Aníbal Lucas RN Outcome: Progressing Problem: Safety - Adult Goal: Free from fall injury 11/10/2022835 by Aníbal Lucas RN Outcome: Progressing 11/09/20221838 by Aníbal Lucas RN Outcome: Progressing Problem: Discharge Planning Goal: Discharge to home or other facility with appropriate resources 11/10/2022835 by Aníbal Lucas RN Outcome: Progressing 11/09/20221838 by Aníbal Lucas RN Outcome: Progressing Problem: Chronic Conditions and Co-morbidities Goal: Patient's chronic conditions and co-morbidity symptoms are monitored and maintained or improved 11/10/2022835 by Aníbal Lucas RN Outcome: Progressing 11/09/20221838 by Aníbal Lucas RN Outcome: Progressing Normal [facility] CBCon 11-10-2022 Erythrocyte distribution width (RBC) [Ratio] 12.6 % Normal 11.5-15.0 [facility] Comment on above: Performed By: #### L [id number] #### [facility] ([facility]) [address] [place] [address] ERYTHROCYTE MEAN CORPUSCULAR HEMOGLOBIN CONCENTRATION (G/DL) BY AUTOMATED 34.2 g/dL Normal 32.0-35.0 [facility] Comment on above: Performed By: #### L [id number] #### [facility] ([facility]) [address] [place] [address] Hematocrit (Bld) [Volume fraction] 46.5 % Normal 39.0-55.0 [facility] Comment on above: Performed By: #### L [id number] #### [facility] ([facility]) [address] [place] [address] Hemoglobin (Bld) [Mass/Vol] 15.9 g/dL Normal 13.0-17.0 [facility] Comment on above: Performed By: #### L [id number] #### [facility] ([facility]) [address] [place] [address] MCH (RBC) [Entitic mass] 31.2 pg Normal 27.0-33.0 [facility] Comment on above: Performed By: #### L [id number] #### [facility] ([facility]) [address] [place] [address] MCV (RBC) [Entitic vol] 91.2 fL Normal 82.0-98.0 [facility] Comment on above: Performed By: #### L [id number] #### [facility] ([facility]) [address] [place] [address] PLATELETS (10*3/UL) IN BLOOD AUTOMATED COUNT 190 10*3/uL Normal 150-400 [facility] Comment on above: Performed By: #### L [id number] #### [facility] ([facility]) [address] [place] [address] RBC (Bld) [#/Vol] 5.10 10*6/uL Normal 4.20-5.70 [facility] Comment on above: Performed By: #### L [id number] #### [facility] ([facility]) [address] [place] [address] WBC (Bld) [#/Vol] 7.15 10*3/uL Normal 4.00-10.60 [facility] Comment on above: Performed By: #### L [id number] #### [facility] ([facility]) [address] [place] [address] CONSULTon 11-10-2022 CONSULT --- Attestation signed by Zack Calhoun MD at 11/10/2022 9:36 PM By using the attestations below, the signing clinician agrees that I have read and verify that the documentation has been personally reviewed by me and ensure that the documentation accurately reflects the encounter. GC: I personally saw this patient on the day of the encounter, performed the ferreira portion(s) of the service and participated in the management and confirm the resident's documentation. Please note there may be an additional personal documentation from me. Pt underwent Cath for NSTEMI and is s/p PCI. Adv compliance to meds and tobacco cessation. Ct GDMT Reason for consult: NSTEMI Subjective Jocelynn Auguste is a 61 y.o. male presented to [facility] for chest pain, he was working in his garage, [employer] when he experienced the chest pain, patient had elevated troponins and transferred to [facility]. Patient has Hx of CAD with PCI and stent in 2010. Other risk factor include active smoking, hyperlipidemia, hypertension, PVD. EKG shows no ischemic changes, troponin peaked at 0.19, starting to go down 0.10 today The following portions of the chart were reviewed this encounter and updated as appropriate: Tobacco Allergies Problems Med Hx Surg Hx Fam Hx Past Medical History: Diagnosis Date Coronary artery disease Hyperlipidemia Hypertension Sinusitis Sleep apnea TIA (transient ischemic attack) Past Surgical History: Procedure Laterality Date APPENDECTOMY CHOLECYSTECTOMY CORONARY STENT PLACEMENT RCA in SARY FINGER SURGERY SHOULDER SURGERY N/A Current Facility-Administered Medications: acetaminophen (Tylenol) tablet 650 mg, 650 mg, oral, q6h PRN, Amalia Jones MD, 650 mg at 11/09/222025 aspirin EC tablet 81 mg, 81 mg, oral, q AM, Amalia Jones MD, 81 mg at 11/10/2228 bisacodyl (Dulcolax) suppository 10 mg, 10 mg, rectal, Daily PRN, Amalia Jones MD [START ON 11/11/2022] clopidogrel (Plavix) tablet 75 mg, 75 mg, oral, Daily, Annita Spence ezetimibe (Zetia) tablet 10 mg, 10 mg, oral, Daily, Amalia Jones MD, 10 mg at 11/10/22927 heparin (porcine) injection 5,000 Units, 5,000 Units, subcutaneous, q8h DANYA, Annita Spence hydrOXYzine pamoate (Vistaril) capsule 25 mg, 25 mg, oral, BID PRN, Amalia Jones MD melatonin tablet 5 mg, 5 mg, oral, Nightly PRN, Amalia Jones MD metoprolol tartrate (Lopressor) tablet 50 mg, 50 mg, oral, Daily, Amalia Jones MD, 50 mg at 11/10/22927 morphine injection 2 mg, 2 mg, intravenous, q6h PRN, Amalia Jones MD nitroglycerin (Nitrostat) SL tablet 0.4 mg, 0.4 mg, sublingual, q5 min PRN, Amalia Jones MD ondansetron ODT (Zofran-ODT) disintegrating tablet 4 mg, 4 mg, oral, q8h PRN OR ondansetron HCl (PF) (Zofran) injection 4 mg, 4 mg, intravenous, q6h PRN, Amalia Jones MD pantoprazole (ProtoNix) EC tablet 40 mg, 40 mg, oral, Daily, Amalia Jones MD, 40 mg at 11/10/22 05 rosuvastatin (Crestor) tablet 40 mg, 40 mg, oral, Daily, Amalia Jones MD, 40 mg at 11/10/22927 tamsulosin (Flomax) 24 hr capsule 0.4 mg, 0.4 mg, oral, Daily with evening meal, Amalia Jones MD venlafaxine XR (Effexor-XR) 24 hr capsule 150 mg, 150 mg, oral, Nightly, Amalia Jones MD, 150 mg at 11/09/222025 Family History Problem Relation Name Age of Onset Coronary artery disease Mother Other (CABG) Mother Hypertension Mother Coronary artery disease Sister Other (CABG) Sister Hypertension Sister Review of Systems Review of Systems Constitutional: Negative for activity change, appetite change, fever and unexpected weight change. HENT: Negative for congestion and sinus pain. Eyes: Negative for visual disturbance. Respiratory: Positive for chest tightness and shortness of breath. Negative for cough. Cardiovascular: Negative for chest pain and leg swelling. Gastrointestinal: Negative for abdominal pain, constipation, diarrhea and nausea. Genitourinary: Negative for difficulty urinating. Musculoskeletal: Negative for arthralgias and myalgias. Neurological: Negative for dizziness, light-headedness and headaches. Hematological: Negative for adenopathy. Psychiatric/Behavioral: Negative. Objective Vitals: 11/10/22 1237 11/10/22 1452 11/10/22 1453 11/10/22 1600 BP: 121/82 (!) 115/93 Pulse: 63 62 Resp: 19 19 Temp: 36.2 ???C (97.2 ???F) TempSrc: Temporal SpO2: 96% 97% 97% Weight: Height: Physical Exam Physical Exam Constitutional: General: He is not in acute distress. HENT: Mouth/Throat: Mouth: Mucous membranes are moist. Eyes: General: No scleral icterus. Cardiovascular: Rate and Rhythm: Normal rate and regular rhythm. Pulmonary: Effort: Pulmonary e (more content not included)... Normal [facility] HEPARIN LEVELon 11-10-2022 HEPARIN UNFRACTIONATED (U/ML) IN PPP BY CHROMOGENIC METHOD 0.45 IU/mL Normal 0.3-0.7 [facility] Comment on above: Order Comment: Check anti-Xa level every 6 hours while on heparin infusion, or per protocol. Result Comment: [place] roxaban and Apixaban will interfere with the anti Xa assay used to monitor UFH and LMWH. Performed By: #### L [id number] #### [facility] ([facility]) [address] [place] [address] HEPARIN UNFRACTIONATED (U/ML) IN PPP BY CHROMOGENIC METHOD 0.43 IU/mL Normal 0.3-0.7 [facility] Comment on above: Order Comment: Check anti-Xa level every 6 hours while on heparin infusion, or per protocol. Result Comment: [place] roxaban and Apixaban will interfere with the anti Xa assay used to monitor UFH and LMWH. Performed By: #### L [id number] #### [facility] ([facility]) [address] [place] [address] HEPARIN UNFRACTIONATED (U/ML) IN PPP BY CHROMOGENIC METHOD 0.33 IU/mL Normal 0.3-0.7 [facility] Comment on above: Order Comment: Check anti-Xa level every 6 hours while on heparin infusion, or per protocol. Result Comment: [place] roxaban and Apixaban will interfere with the anti Xa assay used to monitor UFH and LMWH. Performed By: #### L [id number] #### [facility] ([facility]) [address] [place] [address] HPon 11-10-2022 HP H&P reviewed. The patient was examined and there are no changes to the H&P. Will proceed with coronary angiogram for NSTEMI. Normal [facility] TROPONIN Ion 11-10-2022 Troponin I.cardiac [Mass/Vol] 0.10 ng/mL High 0.00-0.04 [facility] Comment on above: Performed By: #### L [id number] #### [facility] ([facility]) [address] [place] [address] 30on 11-09-2022 30 The patient is Moderately Stable - Low risk of patient condition declining or worsening The patient's goals for the shift include comfort The clinical goals for the shift include vss Normal [facility] 30 The patient is Moderately Stable - Low risk of patient condition declining or worsening The patient's goals for the shift include The clinical goals for the shift include Over the shift, the patient did make progress toward the following goals. Problem: Pain - Adult Goal: Verbalizes/displays adequate comfort level or baseline comfort level Outcome: Progressing Problem: Safety - Adult Goal: Free from fall injury Outcome: Progressing Problem: Discharge Planning Goal: Discharge to home or other facility with appropriate resources Outcome: Progressing Problem: Chronic Conditions and Co-morbidities Goal: Patient's chronic conditions and co-morbidity symptoms are monitored and maintained or improved Outcome: Progressing Normal [facility] APTTon 11-09-2022 ACTIVATED PARTIAL THROMBOPLASTIN TIME IN PPP BY COAGULATION ASSAY 33.8 Seconds Normal 25.0-35.0 [facility] Comment on above: Order Comment: Basel ine aPTT before initiating heparin infusion. Result Comment: Clin ical significance of the APTT is questionable in the presence of heparin. Performed By: #### L [id number] #### [facility] ([facility]) [address] [place] [address] B-TYPE NATRIURETIC PEPTIDEon 11-09-2022 Natriuretic peptide B (Bld) [Mass/Vol] 14 pg/mL Normal 0-100 [facility] Comment on above: Performed By: #### L [id number] #### [facility] ([facility]) [address] [place] [address] CBC WITH AUTO DIFFERENTIALon 11-09-2022 Basophils (Bld) [#/Vol] 0.06 10*3/uL Normal 0.00-0.20 [facility] Comment on above: Performed By: #### L [id number] #### [facility] ([facility]) [address] [place] [address] Basophils/100 WBC (Bld) 0.9 % Normal 0.0-1.0 [facility] Comment on above: Performed By: #### L [id number] #### [facility] ([facility]) [address] [place] [address] Eosinophils (Bld) [#/Vol] 0.21 10*3/uL Normal 0.00-0.50 [facility] Comment on above: Performed By: #### L [id number] #### [facility] ([facility]) [address] [place] [address] Eosinophils/100 WBC (Bld) 3.2 % Normal 0.0-6.0 [facility] Comment on above: Performed By: #### L [id number] #### [facility] ([facility]) [address] [place] [address] Erythrocyte distribution width (RBC) [Ratio] 12.5 % Normal 11.5-15.0 [facility] Comment on above: Performed By: #### L [id number] #### [facility] ([facility]) [address] [place] [address] ERYTHROCYTE MEAN CORPUSCULAR HEMOGLOBIN CONCENTRATION (G/DL) BY AUTOMATED 34.3 g/dL Normal 32.0-35.0 [facility] Comment on above: Performed By: #### L [id number] #### [facility] ([facility]) [address] [place] [address] Hematocrit (Bld) [Volume fraction] 47.5 % Normal 39.0-55.0 [facility] Comment on above: Performed By: #### L [id number] #### [facility] ([facility]) [address] [place] [address] Hemoglobin (Bld) [Mass/Vol] 16.3 g/dL Normal 13.0-17.0 [facility] Comment on above: Performed By: #### L [id number] #### [facility] ([facility]) [address] [place] [address] Immature granulocytes (Bld) [#/Vol] 0.01 10*3/uL Normal 0.00-0.20 [facility] Comment on above: Performed By: #### L [id number] #### [facility] ([facility]) [address] [place] [address] Immature granulocytes/100 WBC (Bld) 0.2 % Normal 0.0-1.0 [facility] Comment on above: Performed By: #### L [id number] #### [facility] ([facility]) [address] [place] [address] Lymphocytes (Bld) [#/Vol] 2.58 10*3/uL Normal 1.20-4.00 [facility] Comment on above: Performed By: #### L [id number] #### [facility] ([facility]) [address] [place] [address] Lymphocytes/100 WBC (Bld) 39.3 % Normal 20.0-45.0 [facility] Comment on above: Performed By: #### L [id number] #### [facility] ([facility]) [address] [place] [address] MCH (RBC) [Entitic mass] 30.7 pg Normal 27.0-33.0 [facility] Comment on above: Performed By: #### L [id number] #### [facility] ([facility]) [address] [place] [address] MCV (RBC) [Entitic vol] 89.5 fL Normal 82.0-98.0 [facility] Comment on above: Performed By: #### L [id number] #### [facility] ([facility]) [address] [place] [address] Monocytes (Bld) [#/Vol] 0.39 10*3/uL Normal 0.10-1.00 [facility] Comment on above: Performed By: #### L [id number] #### [facility] ([facility]) [address] [place] [address] Monocytes/100 WBC (Bld) 5.9 % Normal 5.0-12.0 [facility] Comment on above: Performed By: #### L [id number] #### [facility] ([facility]) [address] [place] [address] Neutrophils (Bld) [#/Vol] 3.31 10*3/uL Normal 1.60-7.60 [facility] Comment on above: Performed By: #### L [id number] #### [facility] ([facility]) [address] [place] [address] Neutrophils/100 WBC (Bld) 50.5 % Normal 40.0-72.0 [facility] Comment on above: Performed By: #### L [id number] #### [facility] ([facility] [address] [place] [address] NRBC (PER 100 WBCS) BY AUTOMATED COUNT 0.0 % Normal 0 [facility] Comment on above: Performed By: #### L [id number] #### [facility] ([facility]) [address] [place] [address] PLATELETS (10*3/UL) IN BLOOD AUTOMATED COUNT 182 10*3/uL Normal 150-400 [facility] Comment on above: Performed By: #### L [id number] #### [facility] ([facility]) [address] [place] [address] RBC (Bld) [#/Vol] 5.31 10*6/uL Normal 4.20-5.70 [facility] Comment on above: Performed By: #### L [id number] #### [facility] ([facility]) [address] [place] [address] WBC (Bld) [#/Vol] 6.56 10*3/uL Normal 4.00-10.60 [facility] Comment on above: Performed By: #### L [id number] #### [facility] ([facility]) [address] [place] [address] COMPREHENSIVE METABOLIC PANE Vincent 11-09-2022 Albumin [Mass/Vol] 4.1 g/dL Normal 3.5-5.7 [facility] Comment on above: Performed By: #### L [id number] #### [facility] ([facility]) [address] [place] [address] ALP [Catalytic activity/Vol] 104 U/L Normal 34-104 [facility] Comment on above: Performed By: #### L [id number] #### [facility] ([facility]) [address] [place] [address] ALT [Catalytic activity/Vol] 35 U/L Normal 7-52 [facility] Comment on above: Performed By: #### L [id number] #### [facility] ([facility]) [address] [place] [address] Anion gap [Moles/Vol] 13 mmol/L Normal 7-20 [facility] Comment on above: Performed By: #### L [id number] #### [facility] ([facility]) [address] [place] [address] Performed By: #### L [id number] #### [facility] ([facility]) [address] [place] [address] AST [Catalytic activity/Vol] 39 U/L Normal 13-39 [facility] Comment on above: Performed By: #### L [id number] #### [facility] ([facility]) [address] [place] [address] Bilirubin [Mass/Vol] 0.6 mg/dL Normal 0.3-1.0 [facility] Comment on above: Performed By: #### L [id number] #### [facility] ([facility]) [address] [place] [address] Calcium [Mass/Vol] 9.3 mg/dL Normal 8.6-10.3 [facility] Comment on above: Performed By: #### L [id number] #### [facility] ([facility]) [address] [place] [address] Performed By: #### L [id number] #### [facility] ([facility]) [address] [place] [address] Chloride [Moles/Vol] 104 mmol/L Normal 98-107 [facility] Comment on above: Performed By: #### L [id number] #### [facility] ([facility]) [address] [place] [address] Performed By: #### L [id number] #### [facility] ([facility]) [address] [place] [address] CO2 [Moles/Vol] 24 mmol/L Normal 21-31 [facility] Comment on above: Performed By: #### L [id number] #### [facility] ([facility]) [address] [place] [address] Performed By: #### L [id number] #### [facility] ([facility]) [address] [place] [address] Creatinine [Mass/Vol] 0.68 mg/dL Low 0.70-1.30 [facility] Comment on above: Performed By: #### L [id number] #### [facility] ([facility]) [address] [facility] [place] [address] Performed By: #### L [id number] #### [facility] ([facility]) [address] [facility] [place] [address] GLOMERULAR FILTRATION RATE ML/MIN/1.73 SQ M.PREDICTED 105.8 mL/min/1.73m*2 Normal >60.0 [facility] Comment on above: Result Comment: The [facility]???s estimated glomerular filtration rate (eGFR) will no longer include consideration of race in its calculation. The [employer]???s eGFR Task Force developed new recommendations for the estimation of the glomerular filtration rate in the [place] They recommend immediate implementation of the new equation refit without the race variable in all laboratories because the calculation does not include race. In addition to not including race in the calculation and reporting, it included diversity in its development, and has acceptable performance characteristics and potential consequences that do not disproportionately affect any one group of individuals. Performed By: #### L [id number] #### [facility] ([facility]) [address] [place] [address] Performed By: #### L [id number] #### [facility] ([facility]) [address] [place] [address] Glucose [Mass/Vol] 130 mg/dL High 70-100 [facility] Comment on above: Performed By: #### L [id number] #### [facility] ([facility]) [address] [place] [address] Performed By: #### L [id number] #### [facility] ([facility]) [address] [place] [address] Potassium [Moles/Vol] 3.8 mmol/L Normal 3.5-5.1 [facility] Comment on above: Performed By: #### L [id number] #### [facility] ([facility]) [address] [place] [address] Performed By: #### L [id number] #### [facility] ([facility]) [address] [place] [address] Protein [Mass/Vol] 6.2 g/dL Normal 6.0-8.3 [facility] Comment on above: Performed By: #### L [id number] #### [facility] ([facility]) [address] [place] [address] Sodium [Moles/Vol] 137 mmol/L Normal 136-145 [facility] Comment on above: Performed By: #### L [id number] #### [facility] ([facility]) [address] [place] [address] Performed By: #### L [id number] #### [facility] ([facility]) [address] [place] [address] Urea nitrogen [Mass/Vol] 13 mg/dL Normal 7-25 [facility] Comment on above: Performed By: #### L [id number] #### [facility] ([facility]) [address] [place] [address] Performed By: #### L [id number] #### [facility] ([facility]) [address] [place] [address] UREA NITROGEN/CREATININ E (MASS RATIO) IN SER/PLAS 19.1 Normal [facility] Comment on above: Performed By: #### L [id number] #### [facility] ([facility]) [address] [place] [address] Performed By: #### L [id number] #### [facility] ([facility]) [address] [place] [address] MAGNESIUMon 11-09-2022 Magnesium [Mass/Vol] 1.6 mg/dL Low 1.9-2.7 [facility] Comment on above: Performed By: #### L [id number] #### [facility] ([facility]) [address] [place] [address] PROTIME-INRon 11-09-2022 INR IN PPP BY COAGULATION ASSAY 0.95 Normal 0.90-1.10 [facility] Comment on above: Result Comment: ACCC P RECOMMENDED INR FOR WARFARIN THERAPY CONDITION INR PROPHYLAXIS OF VENOUS THROMBOSIS 2-3 (HIGH-RISK SURGERY) TREATMENT OF VENOUS THROMBOSIS 2-3 TREATMENT OF PULMONARY EMBOLISM 2-3 PREVENTION OF SYSTEMIC EMBOLISM: 2-3 ACUTE MYOCARDIAL INFARCTION TISSUE HEART VALVES VALVULAR HEART DISEASE ATRIAL FIBRILLATION RECURRENT SYSTEMIC EMBOLISM MECHANICAL HEART VALVE 2.5-3.5 FROM: ORAL ANTICOAGULANTS. MECHANISM OF ACTION, CLINICAL EFFECTIVENESS, AND OPTIMAL THERAPEUTIC RANGE. CHEST 1995;108:231S-246S. Performed By: #### L [id number] #### [facility] ([facility]) [address] [place] [address] PROTHROMBIN TIME (PT) IN PPP BY COAGULATION ASSAY 12.7 Seconds Normal 12.3-14.8 [facility] Comment on above: Performed By: #### L [id number] #### [facility] ([facility]) [address] [place] [address] TROPONIN Ion 11-09-2022 Troponin I.cardiac [Mass/Vol] 0.19 ng/mL Critically high 0.00-0.04 [facility] Comment on above: Result Comment: M-TR OPONIN INITIAL CRITICAL HIGH; RESPUN AND RETESTED Performed By: #### L [id number] #### [facility] [address] [place] [address] US SINGLE QUAD RT UPPERon US SINGLE QUAD RT UPPER EXAM: US SINGLE QUAD RT UPPER EXAM DATE: 02/21/2022 5:51 AM MST COMPARISON: CTA abdomen and pelvis 01/24/2022 INDICATION: Right upper quadrant pain TECHNIQUE: Limited ultrasound of the right upper quadrant of abdomen was performed. Images were reviewed on a separate workstation. FINDINGS: Hepatic parenchyma is echogenic to adjacent renal cortex. Hepatic length measures 16.4 cm. Focal fatty sparing is noted at the gallbladder fossa. Gallbladder is normally distended. No intraluminal echogenic abnormality seen. No gallbladder wall thickening or pericholecystic fluid noted. Gallbladder wall measures 1.7 mm. Sonographic Fuchs's sign is absent. No intrahepatic or extrahepatic biliary ductal dilatation noted. CBD measures 5 mm. Portal vein is patent with hepatopetal flow. Pancreas is obscured by bowel gas; visualized portions are unremarkable. Right kidney measures 11.3 x 7.3 x 6.4 cm; renal cortex measures 1.4 cm. No hydronephrosis noted. Renal cyst measures 1.3 x 1.2 x 1.3 cm. Echogenic area with twinkle artifact measures 0.9 x 0.6 x 0.9 cm. No free fluid noted in the right upper abdomen. IMPRESSION: 1. Hepatic steatosis with area of focal fatty sparing at the gallbladder fossa. 2. No gallstones or bile duct dilation. Sonographic Fuchs's sign is absent. 3. Right renal cyst and nonobstructive renal calculus. Electronically authenticated by: MINNIE COY Date: 2022-02-21 17:41 Normal [facility] CTA ABD/PELVIS WO W CONon CTA ABD/PELVIS WO W CON EXAMINATION: CTA ABD/PELVIS WO W CON HISTORY: Abdominal aortic aneurysm COMPARISON: Ultrasound abdominal aorta 01/03/2022, CTA abdomen/pelvis/lower extremity runoff 12/21/2020 TECHNIQUE: Axial, Coronal, and Sagittal CT images without and with IV contrast. Multi-planar/3-D imaging to optimize visualization of vascular anatomy. Dose reduction techniques were achieved by using automated exposure control and/or adjustment of mA and/or kV according to patient size and/or use of iterative reconstruction technique. FINDINGS: AORTA/VASCULAR: Fusiform dilation of the distal abdominal aorta, 3.5 x 2.9 cm. Dilation of the common iliac arteries, 1.8 cm bilaterally. CELIAC ARTERY: Normal celiac vessels. SMA: Normal mesenteric vessels. RENAL ARTERIES: Normal renal vessels. LUNG BASES: No visible pulmonary or pleural disease. LIVER: No enlargement, atrophy, abnormal density, or significant focal lesion. BILIARY: No visible dilatation or calcification. PANCREAS: No lesion, fluid collection, ductal dilatation, or atrophy. SPLEEN: No enlargement or focal lesion. ADRENALS: No mass or enlargement. KIDNEYS: A few small benign-appearing cysts and small nonobstructing kidney stones. BOWEL/MESENTERY: No visible mass, obstruction, or bowel wall thickening. Prior sigmoid resection and anastomosis. Small diverticula along the length of colon without acute inflammatory changes. RETROPERITONEUM: No mass or adenopathy. LYMPH NODES: No adenopathy. URINARY BLADDER: No visible focal wall thickening, lesion, or calculus. PELVIC ORGANS: No visible mass. Pelvic organs appropriate for patient age. ABDOMINAL WALL: No mass or hernia. BONES: L5-S1 marked degenerative disc disease. No bony lesion or fracture. OTHER: Negative. IMPRESSION: 1. Infrarenal fusiform abdominal aortic aneurysm. Direct comparison to prior CTA abdomen 12/21/2020 shows slight increase in size, 3.5 x 2.9 cm today versus 3.2 x 2.6 cm on prior study. 2. Nonobstructing nephrolithiasis. 3. Colonic diverticulosis. Electronically authenticated by: ALVARADO CLARK Date: 2022-01-26 07:57 Normal [facility] CBC AUTO DIFFon 01-24-2022 BASO # 0.0 103/ul Normal 0.0-0.1 [facility] Comment on above: Performed By: #### C BC #### [facility] [address] [place] [address] Dr. Pee Lomax Basophils/100 WBC (Bld) 0.5 % Normal 0.2-2.0 [facility] Comment on above: Performed By: #### C BC #### [facility] [address] [address] [address] Pee Lomax EO # 0.2 103/ul Normal 0.0-0.7 [facility] Comment on above: Performed By: #### C BC #### [facility] [address] [address] [address] Pee Lomax Eosinophils/100 WBC (Bld) 2.2 % Normal 0.9-7.0 [facility] Comment on above: Performed By: #### C BC #### [facility] [address] [address] [address] Pee Lomax Erythrocyte distribution width (RBC) [Ratio] 11.9 % Normal 11.0-15.0 [facility] Comment on above: Performed By: #### C BC #### [facility] [address] [place] [address] Dr. Pee Lomax Hematocrit (Bld) [Volume fraction] 48.4 % Normal 42.0-54.0 [facility] Comment on above: Performed By: #### C BC #### [facility] [address] [place] [address] Dr. Pee Lomax Hemoglobin (Bld) [Mass/Vol] 16.7 g/dL Normal 14.0-18.0 [facility] Comment on above: Performed By: #### C BC #### [facility] [address] [place] [address] Dr. Pee Lomax IG # 0.01 10e3/ul Normal 0.00-0.03 [facility] Comment on above: Performed By: #### C BC #### [facility] [address] [place] [address] Dr. Pee Lomax IG % 0.1 % Normal 0.0-0.5 [facility] Comment on above: Performed By: #### C BC #### [facility] [address] [place] [address] Dr. Pee Lomax LYMPH # 2.7 103/ul Normal 1.2-3.8 [facility] Comment on above: Performed By: #### C BC #### [facility] [address] [place] [address] Dr. Pee Lomax Lymphocytes/100 WBC (Bld) 36.1 % Normal 20.5-60.0 [facility] Comment on above: Performed By: #### C BC #### [facility] [address] [place] [address] Dr. Pee Lomax MANUAL DIFF REQ NO Normal [facility] Comment on above: Performed By: #### C BC #### [facility] [address] [place] [address] Dr. Pee Lomax MCH (RBC) [Entitic mass] 31.5 pg Normal 25.9-34.0 [facility] Comment on above: Performed By: #### C BC #### [facility] [address] [address] [address] Pee Lomax MCHC (RBC) [Mass/Vol] 34.5 g/dL Normal 29.9-35.2 [facility] Comment on above: Performed By: #### C BC #### [facility] [address] [address] [address] Pee Lomax MCV (RBC) [Entitic vol] 91.3 fL Normal 80.0-94.0 [facility] Comment on above: Performed By: #### C BC #### [facility] [address] [place] [address] Dr. Pee Lomax MONO # 0.4 103/ul Normal 0.3-0.8 [facility] Comment on above: Performed By: #### C BC #### [facility] [address] [place] [address] Dr. Pee Lomax Monocytes/100 WBC (Bld) 5.6 % Normal 1.7-12.0 [facility] Comment on above: Performed By: #### C BC #### [facility] [address] [place] [address] Dr. Pee Lomax NEUT # 4.1 103/ul Normal 1.4-6.5 [facility] Comment on above: Performed By: #### C BC #### [facility] [address] [place] [address] Dr. Pee Lomax Neutrophils/100 WBC (Bld) 55.5 % Normal 43.0-75.0 [facility] Comment on above: Performed By: #### C BC #### [facility] [address] [place] [address] Dr. Pee Lomax Platelet mean volume (Bld) [Entitic vol] 9.3 fL Critically low 9.5-13.5 [facility] Comment on above: Performed By: #### C BC #### [facility] [address] [place] [address] Dr. Pee Lomax PLT 206 103/ul Normal 150-450 [facility] Comment on above: Performed By: #### C BC #### [facility] [address] [address] [address] Pee Lomax RBC 5.30 106/ul Normal 4.70-6.10 [facility] Comment on above: Performed By: #### C BC #### [facility] [address] [address] [address] Pee Lomax WBC 7.4 103/ul Normal 4.0-11.0 [facility] Comment on above: Performed By: #### C BC #### [facility] [address] [address] [address] Pee Lomax LIPID PROFILEon 01-24-2022 CHOL-HDL RATIO NORM SEE BELOW Normal [facility] Comment on above: Result Comment: 3.3 - 4.4 LOW RISK 4.4 - 7.1 AVERAGE RISK 7.1 - 11.0 MODERATE RISK >11.0 HIGH RISK Performed By: #### L IPID #### [facility] [address] [place] [address] Dr. Pee Lomax Cholesterol [Mass/Vol] 93 mg/dL Normal <=200 [facility] Comment on above: Performed By: #### L IPID #### [facility] [address] [place] [address] Dr. Pee Lomax Cholesterol in HDL [Mass/Vol] 34 mg/dL Critically low 40-60 [facility] Comment on above: Performed By: #### L IPID #### [facility] [address] [address] [address] Pee Lomax Cholesterol in LDL [Mass/Vol] 33.4 mg/dL Normal [facility] Comment on above: Performed By: #### L IPID #### [facility] [address] [place] [address] Dr. Pee Lomax Cholesterol.total/ Cholesterol in HDL [Mass ratio] 2.7 {ratio} Normal [facility] Comment on above: Performed By: #### L IPID #### [facility] [address] [place] [address] Dr. Pee Lomax HDL NORMAL > or = 60 mg/dl - LO W CARDIOVASCULAR RISK <40 mg/dl - HIGH CARDIOVASCULAR RISK Normal [facility] Comment on above: Performed By: #### L IPID #### [facility] [address] [place] [address] Dr. Pee Lomax LDL CALC NORMAL SEE BELOW Normal [facility] Comment on above: Result Comment: <100 mg/dl OPTIMAL 100 - 129 mg/dl NEAR OR ABOVE OPTIMAL 130 - 159 mg/dl BORDERLINE HIGH 160 - 189 mg/dl HIGH >190 mg/dl VERY HIGH Performed By: #### L IPID #### [facility] [address] [address] [address] Pee Lomax Triglyceride [Mass/Vol] 128 mg/dL Normal <=150 [facility] Comment on above: Performed By: #### L IPID #### [facility] [address] [place] [address] Dr. Pee Lomax VLDL CALC 25.6 mg/dL Normal [facility] Comment on above: Performed By: #### L IPID #### [facility] [address] [place] [address] Dr. Pee Lomax PROF 14(COMP METB)on 022 Albumin [Mass/Vol] 3.4 g/dL Normal 3.4-5.0 [facility] Comment on above: Performed By: #### C MP #### [facility] [address] [place] [address] Dr. Pee Lomax Albumin/Globulin [Mass ratio] 1.0 {ratio} Normal [facility] Comment on above: Performed By: #### C MP #### [facility] [address] [place] [address] Dr. Pee Lomax ALP [Catalytic activity/Vol] 115 U/L Normal 46-116 [facility] Comment on above: Performed By: #### C MP #### [facility] [address] [place] [address] Dr. Pee Lomax ALT [Catalytic activity/Vol] 21 U/L Normal 16-63 [facility] Comment on above: Performed By: #### C MP #### [facility] [address] [address] [address] Pee Lomax Anion gap [Moles/Vol] 7.6 mmol/L Normal [facility] Comment on above: Performed By: #### C MP #### [facility] [address] [place] [address] Dr. Pee Lomax AST [Catalytic activity/Vol] 23 U/L Normal 15-37 [facility] Comment on above: Performed By: #### C MP #### [facility] [address] [address] [address] Pee Lomax Bilirubin [Mass/Vol] 0.4 mg/dL Normal 0.2-1.0 [facility] Comment on above: Performed By: #### C MP #### [facility] [address] [place] [address] Dr. Pee Lomax Calcium [Mass/Vol] 8.7 mg/dL Normal 8.5-10.1 [facility] Comment on above: Performed By: #### C MP #### [facility] [address] [place] [address] Dr. Pee Lomax Chloride [Moles/Vol] 106 mmol/L Normal 98-107 [facility] Comment on above: Performed By: #### C MP #### [facility] [address] [place] [address] Dr. Pee Lomax CO2 [Moles/Vol] 29.5 mmol/L Normal 21.0-32.0 [facility] Comment on above: Performed By: #### C MP #### [facility] [address] [address] [address] Pee Lomax Creatinine [Mass/Vol] 0.84 mg/dL Normal 0.70-1.30 [facility] Comment on above: Performed By: #### C MP #### [facility] [address] [place] [address] Dr. Pee Lomax EGFR-AF WALLISIAN >60 Normal >=60 [facility] Comment on above: Performed By: #### C MP #### [facility] [address] [place] [address] Dr. Pee Lomax EGFR-NON AF WALLISIAN >60 Normal >=60 [facility] Comment on above: Performed By: #### C MP #### [facility] [address] [address] [address] Pee Lomax Globulin (S) [Mass/Vol] 3.4 g/dL Normal [facility] Comment on above: Performed By: #### C MP #### [facility] [address] [address] [address] Pee Lomax Glucose [Mass/Vol] 112 mg/dL Critically high 74-106 [facility] Comment on above: Performed By: #### C MP #### [facility] [address] [address] [address] Pee Lomax Potassium [Moles/Vol] 4.1 mmol/L Normal 3.5-5.1 [facility] Comment on above: Performed By: #### C MP #### [facility] [address] [address] [address] Pee Lomax Protein [Mass/Vol] 6.8 g/dL Normal 6.4-8.2 [facility] Comment on above: Performed By: #### C MP #### [facility] [address] [address] [address] Pee Lomax Sodium [Moles/Vol] 139 mmol/L Normal 136-145 [facility] Comment on above: Performed By: #### C MP #### [facility] [address] [address] [address] Pee Lomax Urea nitrogen [Mass/Vol] 8.0 mg/dL Normal 7.0-18.0 [facility] Comment on above: Performed By: #### C MP #### [facility] [address] [address] [address] Pee Lomax Urea nitrogen/Creatinin e [Mass ratio] 9.5 mg/mg Normal [facility] Comment on above: Performed By: #### C MP #### [facility] [address] [address] [address] Pee Lomax US ABD AORTA SCREENINGon US ABD AORTA SCREENING EXAM: US ABD AORTA SCREENING HISTORY: Abdominal aortic aneurysm without rupture. TECHNIQUE: Ultrasound was performed of the abdominal aorta. COMPARISON: CTA abdominal aorta with lower extremity runoff 12/21/2020 FINDINGS: AORTA: Fusiform dilation of the distal aorta, approximately 4.1 x 3.6 cm in diameter. OTHER: Dilated common iliac arteries, 1.7 cm bilaterally. IMPRESSION: 1. Fusiform aneurysmal dilation of the distal abdominal aorta, estimated to be 4.1 cm in diameter (3.2 cm in maximum diameter on prior CT study). Evaluation is slightly limited by body habitus. Consider follow-up CTA abdomen and pelvis for direct comparison to prior study. Electronically authenticated by: ALVARADO CLARK Date: 2022-01-05 07:33 Normal [facility] MRI HAND LT WO CONon 022 MRI HAND LT WO CON EXAM: MRI HAND LT WO CON. HISTORY: Left hand pain. The third digit gets stuck in flexion. The patient felt a pop at the third MCP joint when grabbing a handle to step into a truck. COMPARISON: Left hand x-rays from 08/04/2021. TECHNIQUE: Multiplanar and multisequence imaging of the left hand was performed without contrast. FINDINGS: Motion artifact degrades evaluation on this study with series repeated. There is no acute fracture or dislocation. Mild degenerative change/osteoarthritis involves the first, second and third metacarpophalangeal joints with joint space narrowing, spurring and mild subarticular cystic change. There is also mild stent change of the IP joint of the thumb and moderate degenerative change of the first carpometacarpal joint seen on the edge of the [id number] for this study. A small to moderate amount of fluid tracks along the extensor digitorum tendon of the middle finger centered at the level of the third metacarpal head. This is consistent with mild to moderate tenosynovitis. There is intermediate signal and irregularity of the extensor digitorum tendon of the middle finger in this area consistent with mild tendinopathy and fraying. No well-defined flexor or extensor tendon tear is identified. There is no cystic or solid soft tissue mass in the hand. No focal muscle edema is identified. IMPRESSION: 1. A [id number] amount of fluid tracks along the extensor digitorum tendon of the middle finger most pronounced at the level of the third metacarpal head consistent with mild to moderate tenosynovitis. 2. There appears to be mild tendinopathy and fraying of the extensor digitorum tendon of the third finger in this area with no well-defined tendon tear. 3. No acute bony abnormality in the hand. 4. There is mild degenerative change/osteoarthritis involving the first, second and third metacarpophalangeal joints. Electronically authenticated by: SELWYN UPTON Date: 2021-08-13 12:04 Normal [facility] XR FOREIGN BODY EYEon 2021 XR FOREIGN BODY EYE EXAMINATION: XR FOREIGN BODY EYE HISTORY: Foreign body in eye COMPARISON: No relevant comparison available. FINDINGS: ORBITS: Negative for a metallic foreign body. OTHER: Negative. IMPRESSION: 1. No metallic foreign body within the orbits. Electronically authenticated by: ALVARADO CLARK Date: 2021-08-12 10:41 Normal [facility] Encounters Encounter Date Encounter Type Care Provider Facility Start: 03-29-2023 End: 03-29-2023 ambulatory [facility] Start: 11-26-2022 End: 11-26-2022 ambulatory [facility] Start: 11-10-2022 Evaluation and management of inpatient [facility] Start: 11-10-2022 Evaluation and management of inpatient GRACIELA [facility] Start: 11-10-2022 Evaluation and management of inpatient AMALIA M [facility] Start: 11-09-2022 Evaluation [facility] management [facility] Start: 11-09-2022 End: 11-11-2022 Evaluation and management of inpatient SHAHRZAD NUNEZ [facility] Start: 02-21-2022 End: 02-22-[address] SHAHRZAD NUNEZ Facility:[facility] Start: 01-24-2022 End: 01-25-[address] TAYLOR BONDS Facility:[facility] Start: 01-03-2022 End: 01-04-2022 ambulatory LIZZIE JONES Facility:[facility] Start: 08-12-2021 End: 08-13-[address] SHAHRZAD NUNEZ Facility:[facility] Start: 08-04-2021 End: 08-05-[address] SHAHRZAD NUNEZ Facility:[facility] Start: 07-14-2021 End: 07-15-[address] SHAHRZAD NUNEZ Facility:[facility] Payers Date Payer Category Payer Unknown [id number] 2.16.84 [id number] 1960 Unknown [id number] 2.16.84 [id number] 1960 Unknown [id number] 2.16.84 [id number] 1960 Unknown [id number] 2.16.84 [id number] 1960 Unknown [id number] 2.16.84 [id number] 1960 Unknown [id number] 2.16.84 [id number] 1960 Unknown [id number] 2.16.84 [id number] 1959 Private Health Insurance [id number] Clinical Notes 07-14-2021 to 03-29-2023 Note Date & Type Note Facility 03-29-2023 Note [facility] Note Chief Complaint: Patient here for 4 mo follow up CAD, AAA, PAD, hypertension, and dyslipidemia. Had CTA in Dec 2022. C/o intermittent chest pain with deep breath. 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 HPI: Jocelynn Auguste is a 62 y.o. male with a history of coronary artery disease, prior PCI/stent placement and recent non-ST elevation myocardial infarction. He is here in posthospital follow-up. He is doing very well and has no cardiovascular complaints. He has no bleeding or bruising from the radial access site. Update 03/29/2023: No angina. Has some intermittent chest discomfort with deep breaths. Also complaining of epigastric/mid abdominal discomfort on and off. Unrelated to exertion. Cardiology ROS: Review of Systems Cardiovascular: Positive for chest pain (intermittent, with inspiration). Musculoskeletal: Positive for neck pain. Neurological: Positive for loss of balance. All other systems reviewed and are negative. Past Medical History He has a past medical history of Coronary artery disease, Hyperlipidemia, Hypertension, Sinusitis, Sleep apnea, and TIA (transient ischemic attack). Surgical History He has a past surgical history that includes Shoulder surgery (N/A); Appendectomy; Cholecystectomy; Coronary stent placement; Finger surgery; and Cardiac catheterization. Social History He reports that he has quit smoking. His smoking use included cigarettes. He has never used smokeless tobacco. He reports current alcohol use. Drug use questions deferred to the physician. Family History Family History Problem Relation Name Age of Onset Coronary artery disease Mother Other (CABG) Mother Hypertension Mother Coronary artery disease Sister Other (CABG) Sister Hypertension Sister Allergies Patient has no known allergies. Medications Current Outpatient Medications: clopidogrel (Plavix) 75 mg tablet, Take 1 tablet (75 mg) by mouth in the morning. Do not start before November 12, 2022., Disp: 90 tablet, Rfl: 1 ezetimibe (Zetia) 10 mg tablet, Take 1 tablet by mouth in the morning., Disp: , Rfl: metoprolol succinate XL (Toprol-XL) 50 mg 24 hr tablet, Take 1 tablet (50 mg) by mouth in the morning. Do not crush or chew. Do not start before November 12, 2022., Disp: 90 tablet, Rfl: 1 nitroglycerin (Nitrostat) 0.4 mg SL tablet, Place 1 tablet (0.4 mg) under the tongue every 5 (five) minutes if needed for chest pain., Disp: 30 tablet, Rfl: 0 pantoprazole (ProtoNix) 40 mg EC tablet, Take 1 tablet (40 mg) by mouth if needed each day (acid reflux/heartburn) for up to 96 doses. Do not crush, chew, or split. (Patient not taking: Reported on 11/26/2022), Disp: 30 tablet, Rfl: 0 rosuvastatin (Crestor) 40 mg tablet, Take 1 tablet (40 mg) by mouth in the morning., Disp: 90 tablet, Rfl: 1 tamsulosin (Flomax) 0.4 mg 24 hr capsule, Take 1 tablet by mouth in the morning., Disp: , Rfl: venlafaxine XR (Effoxor-XR) 150 mg 24 hr capsule, Take 1 tablet by mouth in the morning., Disp: , Rfl: Last Recorded Vitals BP 117/82 (BP Location: Left arm, Patient Position: Sitting) Pulse 94 Ht 1.753 m (5' 9 ) Wt 93.9 kg (207 lb) SpO2 94% BMI 30.57 kg/m??? Physical Examination: GENERAL: alert and oriented x3, well developed, in no acute distress. HEAD: atraumatic, normocephalic. EYES: PIPPA, EOMI. NECK: trachea midline, no JVD present, no carotid bruits present. CARDIAC: S1, S2 present. RRR. No murmur, rubs, or gallops. RESPIRATORY: CTAB, no increased effort of breathing, no rales, rhonchi, or wheezing. ABDOMEN: soft, nontender, nondistended. EXTREMITIES: no lower extremity edema, peripheral pulses are 2+ bilaterally. No rash/skin discoloration present. NEURO: strength/sensation equal and symmetric in bilateral upper and lower extremities. PSYCH: appropriate mood, affect, and judgement. CTA abdominal aorta 01/26/2022: Impression: #1 infrarenal fusiform abdominal aortic aneurysm. Direct comparison to prior CTA 12/21/2020 shows slight increase in size 3.5 x 2.9 cm today versus 3.2 x 2.6 cm on prior study 2. Nonobstructive nephrolithiasis 3. Colonic diverticulosis PROCEDURE PHYSICIAN: Leonardo Mares MD 11/10/2022 Clinical Presentation: 61 y.o. Male with history of Hypertension, hyperlipidemia, former smoker, CAD status post prior PCI RCA 2010. Patient is admitted with chest pain and diagnosed with NSTEMI. He is referred for coronary angiogram. Final Impression: 1) Coronary angiogram shows severe stenosis of the mid RCA with adjacent in-stent restenosis of the previously placed stents. 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 2) Successful PCI proximal RCA with Papyrus 5.0 x 15 mm covered stent. 3) Successful PCI mid RCA with a Synergy 3.5 x 30 mm drug-eluting stent, post-dilated with a 4.0 mm noncompliant balloon. Plan: 1) optimal med therapy for secondary prevention CAD s/ (more content not included)... [facility] 11-26-2022 Note [facility] Note Chief Complaint: Patient here for follow up [facility] for NSTEMI and PCI. He is doing well s/p intervention. 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 Wants to know if he still needs this. Denies chest pain and SOB. HPI: Jocelynn Auguste is a 61 y.o. male With a history of coronary artery disease, prior PCI/stent placement and recent non-ST elevation myocardial infarction. He is here in posthospital follow-up. He is doing very well and has no cardiovascular complaints. He has no bleeding or bruising from the radial access site. 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 Past Medical History He has a past medical history of Coronary artery disease, Hyperlipidemia, Hypertension, Sinusitis, Sleep apnea, and TIA (transient ischemic attack). Surgical History He has a past surgical history that includes Shoulder surgery (N/A); Appendectomy; Cholecystectomy; Coronary stent placement; and Finger surgery. Social History He reports that he has quit smoking. His smoking use included cigarettes. He has never used smokeless tobacco. He reports current alcohol use. Drug use questions deferred to the physician. Family History Family History Problem Relation Name Age of Onset Coronary artery disease Mother Other (CABG) Mother Hypertension Mother Coronary artery disease Sister Other (CABG) Sister Hypertension Sister Allergies Patient has no known allergies. Medications Current Outpatient Medications: aspirin 81 mg EC tablet, Take 1 tablet (81 mg) by mouth in the morning., Disp: 30 tablet, Rfl: 0 clopidogrel (Plavix) 75 mg tablet, Take 1 tablet (75 mg) by mouth in the morning. Do not start before November 12, 2022., Disp: 90 tablet, Rfl: 1 ezetimibe (Zetia) 10 mg tablet, Take 1 tablet by mouth in the morning., Disp: , Rfl: metoprolol succinate XL (Toprol-XL) 50 mg 24 hr tablet, Take 1 tablet (50 mg) by mouth in the morning. Do not crush or chew. Do not start before November 12, 2022., Disp: 90 tablet, Rfl: 1 nitroglycerin (Nitrostat) 0.4 mg SL tablet, Place 1 tablet (0.4 mg) under the tongue every 5 (five) minutes if needed for chest pain., Disp: 30 tablet, Rfl: 0 pantoprazole (ProtoNix) 40 mg EC tablet, Take 1 tablet (40 mg) by mouth if needed each day (acid reflux/heartburn) for up to 96 doses. Do not crush, chew, or split., Disp: 30 tablet, Rfl: 0 rosuvastatin (Crestor) 40 mg tablet, Take 1 tablet (40 mg) by mouth in the morning., Disp: 90 tablet, Rfl: 1 tamsulosin (Flomax) 0.4 mg 24 hr capsule, Take 1 tablet by mouth in the morning., Disp: , Rfl: venlafaxine XR (Effoxor-XR) 150 mg 24 hr capsule, Take 1 tablet by mouth in the morning., Disp: , Rfl: Last Recorded Vitals BP 136/82 (BP Location: Left arm, Patient Position: Sitting) Pulse 77 Ht 1.753 m (5' 9 ) Wt 95.3 kg (210 lb) SpO2 95% BMI 31.01 kg/m??? Physical Examination: GENERAL: alert and oriented x3, well developed, in no acute distress. HEAD: atraumatic, normocephalic. EYES: PIPPA, EOMI. NECK: trachea midline, no JVD present, no carotid bruits present. CARDIAC: S1, S2 present. RRR. No murmur, rubs, or gallops. RESPIRATORY: CTAB, no increased effort of breathing, no rales, rhonchi, or wheezing. ABDOMEN: soft, nontender, nondistended. EXTREMITIES: no lower extremity edema, peripheral pulses are 2+ bilaterally. No rash/skin discoloration present. NEURO: strength/sensation equal and symmetric in bilateral upper and lower extremities. PSYCH: appropriate mood, affect, and judgement. CTA abdominal aorta 01/26/2022: Impression: #1 infrarenal fusiform abdominal aortic aneurysm. Direct comparison to prior CTA 12/21/2020 shows slight increase in size 3.5 x 2.9 cm today versus 3.2 x 2.6 cm on prior study 2. Nonobstructive nephrolithiasis 3. Colonic diverticulosis PROCEDURE PHYSICIAN: Leonardo Mares MD Clinical Presentation: 61 y.o. Male with history of Hypertension, hyperlipidemia, former smoker, CAD status post prior PCI RCA 2010. Patient is admitted with chest pain and diagnosed with NSTEMI. He is referred for coronary angiogram. Final Impression: 1) Coronary angiogram shows severe stenosis of the mid RCA with adjacent in-stent restenosis of the previously placed stents. 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 2) Successful PCI proximal RCA with Papyrus 5.0 x 15 mm covered stent. 3) Successful PCI mid RCA with a Synergy 3.5 x 30 mm drug-eluting stent, post-dilated with a 4.0 mm noncompliant balloon. Plan: 1) optimal med therapy for secondary prevention CAD s/p PCI and NSTEMI 2) Aspi (more content not included)... [facility] 11-11-2022 Note ------ Attestation signed by Zack Calhoun MD at 11/12/2022 9:21 AM By using the attestations below, the signing clinician agrees that I have read and verify that the documentation has been personally reviewed by me and ensure that the documentation accurately reflects the encounter. GC: I personally saw this patient on the day of the encounter, performed the ferreira portion(s) of the service and participated in the management and confirm the resident's documentation. Please note there may be an additional personal documentation from me. ------ Subjective No chest pain, SOB, palpitations, Patient di dwalk in the hallways without any difficulty. Objective Patient Vitals for the past 24 hrs: BP Temp Temp src Pulse Resp SpO2 Weight 11/11/22 0910 119/76 36.2 ???C (97.2 ???F) Temporal 80 -- 98 % -- 11/11/22 0409 109/69 -- -- 86 17 -- 82.1 kg (181 lb) 11/11/22 0000 95/63 -- -- 80 17 -- -- 11/10/22 2115 106/71 36.3 ???C (97.3 ???F) Temporal 78 15 -- -- 11/10/22 1600 (!) 115/93 36.2 ???C (97.2 ???F) Temporal 62 19 -- -- 11/10/22 1453 -- -- -- -- -- 97 % -- 11/10/22 1452 121/82 -- -- 63 19 97 % -- Physical Exam Constitutional: General: He is not in acute distress. HENT: Mouth/Throat: Mouth: Mucous membranes are moist. Eyes: General: No scleral icterus. Cardiovascular: Rate and Rhythm: Normal rate and regular rhythm. Pulmonary: Effort: Pulmonary effort is normal. Breath sounds: Normal breath sounds. Abdominal: Palpations: Abdomen is soft. Tenderness: There is no abdominal tenderness. Musculoskeletal: Cervical back: Normal range of motion. Right lower leg: No edema. Left lower leg: No edema. Lymphadenopathy: Cervical: No cervical adenopathy. Skin: Coloration: Skin is not jaundiced. Neurological: General: No focal deficit present. Mental Status: He is alert and oriented to person, place, and time. Psychiatric: Mood and Affect: Mood normal. Lab Results Component Value Date NA 137 11/11/2022 K 3.7 11/11/2022 CL 105 11/11/2022 ANIONGAP 10 11/11/2022 BUN 11 11/11/2022 CREATININE 0.75 11/11/2022 CALCIUM 8.8 11/11/2022 MG 1.7 (L) 11/11/2022 Lab Results Component Value Date BILITOT 0.6 11/09/2022 ALKPHOS 104 11/09/2022 AST 39 11/09/2022 ALT 35 11/09/2022 PROT 6.2 11/09/2022 ALBUMIN 4.1 11/09/2022 Lab Results Component Value Date WBC 7.15 11/10/2022 RBC 5.10 11/10/2022 HGB 15.9 11/10/2022 HCT 46.5 11/10/2022 MCV 91.2 11/10/2022 MCH 31.2 11/10/2022 MCHC 34.2 11/10/2022 RDW 12.6 11/10/2022 NEUTOPHILPCT 50.5 11/09/2022 LYMPHOPCT 39.3 11/09/2022 MONOPCT 5.9 11/09/2022 EOSPCT 3.2 11/09/2022 BASOPCT 0.9 11/09/2022 NEUTROABS 3.31 11/09/2022 LYMPHSABS 2.58 11/09/2022 MONOSABS 0.39 11/09/2022 EOSABS 0.21 11/09/2022 BASOSABS 0.06 11/09/2022 PLT 190 11/10/2022 NRBC 0.0 11/09/2022 No results found for this or any previous visit from the past 1 day. Assessment/Plan NSTEMI s/p Lt heart cath stent to proximal RCA and Mid RCA Patient tolerating guideline directed medical therapy, vitals are stable, telemetry reviewed. continue Plavix and actually had DAPT for 1 year Continue to monitor on telemetry Referral to cardiac rehab Counselled for smoking cessation, He tried Nictotine patches and Chantix in the past without but unsuccesssful. No objection to discharge. 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 male who came from home with past medical history of CAD, s/p stent in 2010, AGAPITO, on CPAP, hyperlipidemia, hypertension and BPH presented to to [facility] as a transfer from [facility] for NSTEMI. Patient reports that last night he was working in the garage and developed precordial chest pain that would not go away. He denies any diaphoresis or increased shortness of breath. He came to ER for evaluation and was found to have significantly elevated troponins that were trending up. Cardiology service at [facility] was reached out and they wanted patient to be transferred here for cardiac catheterization. Patient denies any chest pain or shortness of breath right now. Troponin returned .1 upon admission. He was maintained on heparin infusion. He was taking for [facility] on 11/10 which revealed the following: Final Impression: 1) Coronary angiogram shows severe stenosis of the mid RCA with adjacent in-stent restenosis of the previously placed stents. 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 2) Successful PCI proximal RCA with Papyrus 5.0 x 15 mm covered stent. 3) Successful PCI mid RCA with a Synergy 3.5 x 30 mm drug-eluting stent, post-dilated with a 4.0 mm noncompliant balloon. Plan: 1) optimal med therapy for secondary prevention CAD s/p PCI and NSTEMI 2) Aspirin 81 mg daily long-term 3) plavix 75 mg daily for at least 1 year or long-term for DAPT 4) high intensity statin therapy and ezetimibe as tolerated 5) LVEDP is elevated consistent with acute HFpEF. Consider adding spironolactone or other therapy as tolerated for HFpEF 6) referral to cardiac rehabilitation CT surgery were consulted regarding RCA aneurysm. They felt no further intervention was necessary beyond the covered stent. Patientw as discharged home on Aspirin/plavix and high intesnity statin. He will require close follow up with cardiology team. Dear Dr. Sanjuanita MD, Jocelynn is advised to follow up with you within 1-2 weeks. Follow-up with: Cardiology Scheduled appointments: Future Appointments Date Time Provider Department Center 11/26/2022 11:45 AM Taylor Bonds MD [facility] Your medication list START taking these medications Instructions Last Dose Given Next Dose Due clopidogrel 75 mg tablet Commonly known as: Plavix Start taking on: November 12, 2022 Take 1 tablet (75 mg) by mouth in the morning. Do not start before November 12, 2022. metoprolol succinate XL 50 mg 24 hr tablet Commonly known as: Toprol-XL Start taking on: November 12, 2022 Take 1 tablet (50 mg) by mouth in the morning. Do not crush or chew. Do not start before November 12, 2022. nitroglycerin 0.4 mg SL tablet Commonly known as: Nitrostat Place 1 tablet (0.4 mg) under the tongue every 5 (five) minutes if needed for chest pain. pantoprazole 40 mg EC tablet Commonly known as: ProtoNix Take 1 tablet (40 mg) by mouth if needed each day (acid reflux/heartburn) for up to 96 doses. Do not crush, chew, or split. CHANGE how you take these medications Instructions Last Dose Given Next Dose Due rosuvastatin 40 mg tablet Commonly known as: Crestor What changed: Another medication with the same name was removed. Continue taking this medication, and follow the directions you see here. Take 1 tablet (40 mg) by mouth in the morning. CONTINUE taking these medications Instructions Last Dose Given Next Dose Due aspirin 81 mg EC tablet Take 1 tablet (81 mg) by mouth in the morning. ezetimibe 10 mg tablet Commonly known as: Zetia tamsulosin 0.4 mg 24 hr capsule Commonly known as: Flomax venlafaxine XR 150 mg 24 hr capsule Commonly known as: Effexor-XR STOP taking these medications diclofenac 75 mg EC tablet Commonly known as: Voltaren metoprolol tartrate 50 mg tablet Commonly known as: Lopressor Where to Get Your Medications These medications were sent to [facility] [address] [place] [address] [address] [facility] [place] [address], [facility] [address] aspirin 81 mg EC tablet clopidogrel 75 mg tablet metoprolol succinate XL 50 mg 24 hr tablet nitroglycerin 0.4 mg SL tablet pantoprazole 40 mg EC tablet rosuvastatin 40 mg tablet Jocelynn has No Known Allergies. Disposition: Home or Self Care Discharge Condition: Stable Code Status: Full Code Diagnostic Results Hematology: Results from last 7 days Lab Units 11/10/22 0539 11/09/22 1815 WBC AUTO 10*3/uL 7.15 6.56 HEMOGLOBIN g/dL 15.9 16.3 HEMATOCRIT % 46.5 47.5 MCV fL 91.2 89.5 PLATELETS AUTO 10*3/uL 190 182 I (more content not included)... [facility] 11-10-2022 Note Interventional Cardi ology Coronary angiogram showed large proximal RCA aneurysm and severe stenosis mid RCA Both treated with PCI: Papyrus covered stent for proximal RCA and Synergy SARY for mid RCA. Findings reviewed with Cardiac surgery. Procedure was IVUS guided See my procedure report under the cardiology tab for my full recommendations. Discharge on aspirin and plavix DAPT, high intensity statin, etc. Refer to cardiac rehab Leonardo Mares MD [place] [facility] 11-10-2022 Note [facility] Cardiothoracic Surgery Consultation Reason for consultation: Proximal RCA aneurysm History of Present Illness: Jocelynn Auguste is a 61 y.o. male with PMH of CAD s/p RCA SARY stenting in 2010, AGAPITO on CPAP, HLD, HTN, BPH, TIA and PSH of appendectomy, sigmoidectomy with primary anastomosis who presented as a transfer from [place] for NSTEMI. Pt reports that he was working in his garage and developed dull chest pain which went away, but returned the next day. Pt denies increased SOB, but does report diaphoresis. Pt presented to ER for evaluation and was found to have elevated troponin. Pt was transferred to [facility] for cardiac catheretization. Intra-procedure, pt was found to have mid RCA stenosis, proximal RCA aneurysm, mid and distal LAD stenosis. Pt underwent stenting of mid RCA and covered stenting of proximal RCA aneurysm. Pt is currently resting comfortably in PACU. EF is 55% without any regurgitation in any of the valves. Troponin downtrending from 0.19 to 0.1, BNP 14. Review of Systems Constitutional: Negative for chills and fever. HENT: Negative for sneezing and sore throat. Respiratory: Positive for chest tightness (now resolved). Negative for shortness of breath. Cardiovascular: Positive for chest pain (now resolved). Gastrointestinal: Negative for abdominal pain, diarrhea, nausea and vomiting. Genitourinary: Negative for dysuria. Musculoskeletal: Negative for neck pain. Neurological: Negative for headaches. Past Medical History: Diagnosis Date Coronary artery disease Hyperlipidemia Hypertension Sinusitis Sleep apnea TIA (transient ischemic attack) Past Surgical History: Procedure Laterality Date APPENDECTOMY CHOLECYSTECTOMY CORONARY STENT PLACEMENT RCA in SARY FINGER SURGERY SHOULDER SURGERY N/A No Known Allergies Current Facility-Administered Medications: acetaminophen (Tylenol) tablet 650 mg, 650 mg, oral, q6h PRN, Amalia M Zhukivska, MD, 650 mg at 11/09/222025 aspirin EC tablet 81 mg, 81 mg, oral, q AM, Amalia Jones MD, 81 mg at 11/10/22 0928 bisacodyl (Dulcolax) suppository 10 mg, 10 mg, rectal, Daily PRN, Amalia Jones MD ezetimibe (Zetia) tablet 10 mg, 10 mg, oral, Daily, Amalia Jones MD, 10 mg at 11/10/22 0928 fentaNYL (Sublimaze) injection, , , PRN, Leonardo Mares MD, 25 mcg at 11/10/22 1341 heparin (porcine) injection 6,500 Units, 70 Units/kg, intravenous, Once, Amalia Jones MD heparin (porcine) injection, , , PRN, Leonardo Mares MD, 4,700 Units at 11/10/22 1341 heparin infusion 100 units/mL in D5W, 0-28 Units/kg/hr, intravenous, Continuous, Amalia Jones MD, Last Rate: 14 mL/hr at 11/10/22 1117, 15 Units/kg/hr at 11/10/22 1117 heparin irrigation 2 units/mL in NS, , , PRN, Leonardo Mares MD, 2,000 mL at 11/10/22 1334 hydrOXYzine pamoate (Vistaril) capsule 25 mg, 25 mg, oral, BID PRN, Amalia Jones MD lidocaine PF (Xylocaine) 10 mg/mL (1 %) injection, , , PRN, Leonardo Mares MD, 10 mL at 11/10/22 1334 melatonin tablet 5 mg, 5 mg, oral, Nightly PRN, Amalia Jones MD metoprolol tartrate (Lopressor) tablet 50 mg, 50 mg, oral, Daily, Amalia Jones MD, 50 mg at 11/10/22 0928 midazolam (Versed) injection, , , PRN, Leonardo Mares MD, 1 mg at 11/10/22 1341 morphine injection 2 mg, 2 mg, intravenous, q6h PRN, Amalia Jones MD nitroglycerin (Nitrostat) SL tablet 0.4 mg, 0.4 mg, sublingual, q5 min PRN, Amalia Jones MD nitroglycerin 100 mcg/mL 25ml CVL soln, , , PRN, Leonardo Mares MD, 100 mcg at 11/10/22 1336 ondansetron ODT (Zofran-ODT) disintegrating tablet 4 mg, 4 mg, oral, q8h PRN OR ondansetron HCl (PF) (Zofran) injection 4 mg, 4 mg, intravenous, q6h PRN, Amalia Jones MD pantoprazole (ProtoNix) EC tablet 40 mg, 40 mg, oral, Daily, Amalia Jones MD, 40 mg at 11/10/22 0520 rosuvastatin (Crestor) tablet 40 mg, 40 mg, oral, Daily, Amalia Jones MD, 40 mg at 11/10/22 0928 sodium chloride 0.9 % infusion, , , Continuous PRN, Leonardo Mares MD, Last Rate: 50 mL/hr at 11/10/22 1334, 50 mL/hr at 11/10/22 1334 tamsulosin (Flomax) 24 hr capsule 0.4 mg, 0.4 mg, oral, Daily with evening meal, Amalia Jones MD venlafaxine XR (Effexor-XR) 24 hr capsule 150 mg, 150 mg, oral, Nightly, Amalia Jones MD, 150 mg at 11/09/22 2026 verapamil (Isoptin) injection, , , PRN, Leonardo Mares MD, 1.25 mg at 11/10/22 1336 Social History Socioeconomic History Marital status: Spouse name: Not on file Number of children: Not on file Years of education: Not on file Highest education level: Not on file Occupational History Not on file Tobacco Use Smoking status: Former Types: Cigarettes Smokeless tobacco: Never Substance and Sexual Activity Alcohol use: Yes Drug use: Defer Sexual activity: Not on file Other Topics Concern Not on file Social History Narrative Not on file S (more content not included)... [facility] 11-10-2022 Note Patient: Jocelynn Auguste Procedure Information Date/Time: 11/10/22 1212 Procedure: Coronary angiography Location: [facility] / [facility] (Cath) Providers: Leonardo Mares MD Clinical information reviewed: Tobacco Allergies Problems Med Hx Surg Hx Fam Hx Physical Exam Airway Mallampati: III Cardiovascular Rhythm: regular Rate: normal Dental Pulmonary Abdominal Anesthesia Plan ASA 3 other (Conscious sedation.) Additional Equipment Requests [facility] 11-10-2022 Note Hospital Medicine Daily Progress Note - 11/10/2022 8:18 AM; Room: [address] [place] [address] Admission: 11/09/2022 5:47 PM; Length of stay: 1 days THE HOSPITALIST TEAM PREFERS TO USE [email or web address] CHAT FOR COMMUNICATION 7AM-7PM. IF I DO NOT RESPOND WITHIN 15 MINUTES, PLEASE PAGE ME/CALL THROUGH THE CHANNEL TURNER. FROM 7PM-7AM, PLEASE PAGE [phone](COVR) Code Status: Full Code Discharge Destination: home Discharge planning: Anticipate tomorrow, observing overnight s/p stent Overview Patient is seen for evaluation and management of chest pain, CAD. Subjective Jocelynn Auguste was seen and examined at bedside. No current nursing concerns or overnight events. Patient denies CP, SOB, N/V/D/C, fever, chills, or abdominal pain. RCA aneurysm noted on cath. CT surgery w no plans to intervene beyond covered stent that was placed. Physical Exam Visit Vitals BP 107/76 Pulse 68 Temp 36.3 ???C (97.3 ???F) (Temporal) Resp 16 Intake/Output Summary (Last 24 hours) at 11/10/2022 0818 Last data filed at 11/10/2022 0512 Gross per 24 hour Intake 782.83 ml Output -- Net 782.83 ml Physical Exam Vitals and nursing note reviewed. Constitutional: Appearance: Normal appearance. He is normal weight. HENT: Head: Normocephalic. Nose: Nose normal. Mouth/Throat: Mouth: Mucous membranes are moist. Eyes: Pupils: Pupils are equal, round, and reactive to light. Cardiovascular: Rate and Rhythm: Normal rate and regular rhythm. Pulses: Normal pulses. Heart sounds: Normal heart sounds. No murmur heard. No friction rub. No gallop. Pulmonary: Effort: Pulmonary effort is normal. Breath sounds: Normal breath sounds. Abdominal: General: Abdomen is flat. Bowel sounds are normal. Palpations: Abdomen is soft. Musculoskeletal: General: Normal range of motion. Cervical back: Normal range of motion. Skin: General: Skin is warm. Capillary Refill: Capillary refill takes less than 2 seconds. Neurological: General: No focal deficit present. Mental Status: He is alert and oriented to person, place, and time. Psychiatric: Mood and Affect: Mood normal. Behavior: Behavior normal. Judgment: Judgment normal. Estimated body mass index is 30.7 kg/m??? as calculated from the following: Height as of this encounter: 1.753 m (5' 9 ). Weight as of this encounter: 94.3 kg (207 lb 14.3 oz). Active Inpatient Problems Principal Problem: NSTEMI (non-ST elevated myocardial infarction) ([facility]) Active Problems: Coronary atherosclerosis Assessment and Plan NSTEMI RCA aneurysm CAD, s/p stent in 2010 AGAPITO, on CPAP Hyperlipidemia Hypertension BPH Went for cath today. Coronary angiogram shows severe stenosis of the mid RCA with adjacent in-stent restenosis of the previously placed stents. 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 - Successful PCI proximal RCA with Papyrus 5.0 x 15 mm covered stent. - Successful PCI mid RCA with a Synergy 3.5 x 30 mm drug-eluting stent, post-dilated with a 4.[address] surgery with no further plans. Continue current medications. Anticipate DC tomorrow VTE Prophylaxis: Heparin subcutaneous Scheduled Meds aspirin, 81 mg, oral, q AM ezetimibe, 10 mg, oral, Daily heparin (porcine), 70 Units/kg, intravenous, Once metoprolol tartrate, 50 mg, oral, Daily pantoprazole, 40 mg, oral, Daily rosuvastatin, 40 mg, oral, Daily tamsulosin, 0.4 mg, oral, Daily with evening meal venlafaxine XR, 150 mg, oral, Nightly heparin, 0-28 Units/kg/hr, Last Rate: 15 Units/kg/hr (11/10/22 0512) sodium chloride, 75 mL/hr, Last Rate: 75 mL/hr (11/10/22 0512) Pertinent Investigations Hematology: Results from last 7 days Lab Units 11/10/22 0539 11/09/22 1815 WBC AUTO 10*3/uL 7.15 6.56 HEMOGLOBIN g/dL 15.9 16.3 HEMATOCRIT % 46.5 47.5 MCV fL 91.2 89.5 PLATELETS AUTO 10*3/uL 190 182 INR -- 0.95 Chemistry: Results from last 7 days Lab Units 11/09/22 1815 SODIUM mmol/L 137 137 POTASSIUM mmol/L 3.8 3.8 CHLORIDE mmol/L 104 104 CO2 mmol/L 24 24 BUN mg/dL 13 13 CREATININE mg/dL 0.68* 0.68* GLUCOSE mg/dL 130* 130* MAGNESIUM mg/dL 1.6* CALCIUM mg/dL 9.3 9.3 Results from last 7 days Lab Units 11/09/22 1815 AST U/L 39 ALT U/L 35 ALK PHOS U/L 104 BILIRUBIN TOTAL mg/dL 0.6 Historical Values: (Includes values prior to this admission) No results found for: PREALBUMIN, TSH, T3FREE, FREET4, CORTISOL, FEV1, OZK3NBC, DLCO, RVSP, HDL, LDL No results found for: FIYDXHKX82, IRON, TIBC, C3, C4, BENSON, CANCA, ASO, PSA, CEA, CA125, CA199, AFP, CA153 Imaging Electrocardiogram, 12-lead Normal sinus rhythm Left axis deviation Right bundle branch block Inferior infarct , age undetermined Abnormal ECG When compared with ECG of 25-FEB-2010 13:08, Aberrant conduction is no longer Present Right bundle branch block is now Present Inferior infarct is now Present Discharge Planning Di (more content not included)... [facility] 11-09-2022 Note Hospital Medicine History and Physical 11/09/2022 7:33 PM THE HOSPITALIST TEAM PREFERS TO USE [email or web address] CHAT FOR COMMUNICATION 7AM-7PM. IF I DO NOT RESPOND WITHIN 15 MINUTES, PLEASE PAGE ME/CALL THROUGH THE CHANNEL TURNER. FROM 7PM-7AM, PLEASE PAGE [phone](COVR) Chief Complaint No chief complaint on file. History of Present Illness Jocelynn Auguste is an 61 y.o. male who came from home with past medical history of CAD, s/p stent in 2010, AGAPITO, on CPAP, hyperlipidemia, hypertension and BPH presented to to [facility] as a transfer from [facility] for NSTEMI. Patient reports that last night he was working in the garage and developed precordial chest pain that would not go away. He denies any diaphoresis or increased shortness of breath. He came to ER for evaluation and was found to have significantly elevated troponins that were trending up. Cardiology service at [facility] was reached out and they wanted patient to be transferred here for cardiac catheterization. Patient denies any chest pain or shortness of breath right now. His only complaint is headache. Denies abdominal pain. No nausea or vomiting. Patient is compliant with taking his home medications. Patient is onheparin drip and he will be kept n.p.o. after midnight for cath. Review of System and Physical Exam Temp: [36.3 ???C (97.3 ???F)] 36.3 ???C (97.3 ???F) Heart Rate: [65] 65 Resp: [15] 15 BP: (109)/(74) 109/74 Physical Exam Constitutional: Appearance: Normal appearance. HENT: Head: Normocephalic. Eyes: Conjunctiva/sclera: Conjunctivae normal. Cardiovascular: Rate and Rhythm: Normal rate and regular rhythm. Heart sounds: Normal heart sounds. No murmur heard. Pulmonary: Effort: Pulmonary effort is normal. No respiratory distress. Breath sounds: Normal breath sounds. No wheezing, rhonchi or rales. Abdominal: General: Abdomen is flat. Palpations: Abdomen is soft. Tenderness: There is no abdominal tenderness. Musculoskeletal: General: No swelling. Right lower leg: No edema. Left lower leg: No edema. Skin: Findings: No rash. Neurological: General: No focal deficit present. Mental Status: He is alert and oriented to person, place, and time. Psychiatric: Mood and Affect: Mood normal. Behavior: Behavior normal. Thought Content: Thought content normal. Judgment: Judgment normal. Review of Systems as mentioned in HPI Problem List Patient Active Problem List Diagnosis Date Noted NSTEMI (non-ST elevated myocardial infarction) ([facility]) 11/09/2022 Abdominal aortic aneurysm (AAA) 3.0 cm to 5.5 cm in diameter in male ([facility]) 2021 PVD (peripheral vascular disease) ([facility]) 2021 Stented coronary artery 11/05/2021 HTN (hypertension) 11/05/2021 Sleep apnea in adult 11/05/2021 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 We will continue heparin drip, recheck troponin, BNP, Follow-up on EKG Cardiology is consulted and they plan cardiac cath tomorrow Cardiac diet, n.p.o. after midnight Normal saline at 75 ml/h for 12 hours We will resume patient's home medications Protonix 40 mg p.o. daily for GI prophylaxis. EPC cuffs VTE Prophylaxis: IV heparin ----- Focus of this inpatient stay will remain on problems that need acute care setting for care. We will review available studies and will order additional labs, imaging and other studies as appropriate. As needed medicines are ordered as appropriate. VTE Prophylaxis will be ordered as appropriate. Please see above for management plan for individual hospital problems. Home medications are reviewed and will be continued as appropriate. Patient will be continued to be followed during this hospital stay by a member of [facility]. Past Medical History Past Medical History: Diagnosis Date Coronary artery disease Hyperlipidemia Hypertension Sinusitis Sleep apnea TIA (transient ischemic attack) Past Surgical History Past Surgical History: Procedure Laterality Date APPENDECTOMY CHOLECYSTECTOMY CORONARY STENT PLACEMENT RCA in SARY FINGER SURGERY SHOULDER SURGERY N/A Social History Social History Socioeconomic History Marital status: Spouse name: Not on file Number of children: Not on file Years of education: Not on file Highest education level: Not on file Occupational History Not on file Tobacco Use Smoking status: Former Types: Cigarettes Smokeless tobacco: Never Substance and Sexual Activity Alcohol use: Yes Drug use: Defer Sexual activity: Not on file Other (more content not included)... [facility] 08-05-2021 Note PROCEDURE: XR HAND L T MIN 3V COMPARISON: 07/14/2021 HISTORY: Pain of left hand FINDINGS: BONES:No fracture, acute abnormality, or significant arthropathy. SOFT TISSUES:Negative. No visible soft tissue swelling. EFFUSION:None visible. OTHER: Negative. IMPRESSION: No acute radiographic abnormality Electronically authenticated by: ANMOL KHAN Date: 2021-08-05 07:20 [facility] 07-14-2021 Note PROCEDURE: XR HAND L T MIN 3V COMPARISON: None. HISTORY: Pain of left hand FINDINGS: BONES:No acute fracture or dislocation. Degenerative changes most significant along the third distal interphalangeal joint with joint space narrowing and marginal osteophyte formation SOFT TISSUES:Dorsal hand soft tissue swelling EFFUSION:None visible. OTHER: A ring obscures the fourth proximal phalanx IMPRESSION: Soft tissue swelling, no acute fracture Electronically authenticated by: ANMOL KHAN Date: 2021-07-14 20:54 [facility] Summary Purpose Family History No Family History Records FoundNo Family History Records Found Advance Directives No Advanced Directives Records FoundNo Advanced Directives Records Found Additional Source Comments (unrecognized sect ion and content) No Status Records FoundNo Status Records Found INFORMATION SOURCE (unrecogn ized section and content) DATE CREATED AUTHOR 02/21/2022 [facility] DATE CREATED AUTHOR AUTHOR'S ORGANIZ ATION 04/07/2023 [facility] FOR RECORDS PERTAINING TO PATIENTS WHO ARE OR HAVE BEEN ENROLLED IN A CHEMICAL DEPENDENCY/SUBSTANCEABUSE PROGRAM, SOME INFORMATION MAY BE OMITTED. This clinical summary was aggregated from multiple sources. Caution should be exercised in using it in the provision of clinical care. This summary normalizes information from multiple sources, and as a consequence, information in this document may materially change the coding, format and clinical context of patient data. In addition, data may be omitted in some cases. CLINICAL DECISIONS SHOULD BE BASED ON THE PRIMARY CLINICAL RECORDS. [employer] provides no warranty or guarantee of the accuracy or completeness of information in this document.
== END 2023-04-19 16:23 | disposition home or self-care (01) ==
LOC: RAD 16:23
PROVIDERS: PCP Family Medicine; Visit Provider Family Medicine
DX: M54.12 Radiculopathy, cervical region (principal)
CPT/HCPCS: 72050

== ENCOUNTER 2023-04-20 07:59 | Outpatient (OUT) | payer OTHER, SELFPAY ==
--- NOTE | 2023-04-20 | PCN_ITS ---
CARDIAC STRESS TEST Requesting Physician: Ancelmo Gann M.D. Procedure Date: 04/20/2023 ADENOSINE LEXISCAN STRESS TEST REASON FOR TEST: CAD. At baseline, the patient was noted to have a resting heart rate of 58 beats per minute with a blood pressure of 134/80 mm/Hg. Following the infusion of Lexiscan, the patient?s heart rate was a peak of 90 beats per minute, with peak blood pressure 134/82 mm/Hg. At baseline, the EKG was noted to be sinus rhythm with evidence of right bundle branch block and Q-waves noted in the inferior leads and poor R-wave progression. With infusion, there was no evidence of any AV block seen and no evidence of ST segment changes suggestive of ischemia was noted. No arrhythmias were seen during the test. CONCLUSION: 1. No EKG evidence suggestive of ischemia seen. 2. Nuclear perfusion imaging to be dictated separately by Radiology. [facility]
--- OUTSIDE RECORDS SUMMARY | 2023-04-20 08:03 | XMS_ITS | CCD ---
Author Name Unknown Address [address] 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; Translations: [Atherosclerotic heart disease of qagan tayagung[place] coronary artery with other forms of angina [...] Range Facility Office Visiton 03-29-2023 Follow-up visit [id number] Jocelynn Auguste 1960 M Date Provider Department Center 03/29/2023 271-[facility] Leidy Llamas Family History Problem Relation Age of Onset Coronary artery disease Mother Other Mother Hypertension Mother Coronary artery disease Sister Other Sister Hypertension Sister Family Status - Relation Status Age at Mother Sister Level of Service:86805 OR OFFICE/OUTPATIENT ESTABLISHED MOD MDM 30 MIN Normal [facility] Office Visiton 11-26-2022 Follow-up visit [id number] Jocelynn Auguste 1960 M Date Provider Department Center 11/26/2022 Sukhjinder-[facility] Leidy [facility] Family History Problem Relation Age of Onset Coronary artery disease Mother Other Mother Hypertension Mother Coronary artery disease Sister Other Sister Hypertension Sister Family Status - Relation Status Age at Mother Sister Level of Service:04340 OR OFFICE/OUTPATIENT ESTABLISHED MOD MDM 30-39 MIN Normal [facility] 30on 11-11-2022 30 The patient is Moderately Stable - Low risk of patient condition declining or worsening The patient's goals for the shift include comfort The clinical goals for the shift include vss Normal [facility] ANTI-XA (HEPARIN LEVEL)on HEPARIN UNFRACTIONATED (U/ML) IN PPP BY CHROMOGENIC METHOD <0.10 Invalid Interpretation Code 0.3-0.7 [facility] Comment on above: Order Comment: Check anti-Xa level every 6 hours while on heparin infusion, or per protocol. Result Comment: Hunt roxaban and Apixaban will interfere with the anti Xa assay used to monitor UFH and LMWH. Performed By: #### L [id number] #### [facility] ([facility]) [address] [place] [address] HEPARIN UNFRACTIONATED (U/ML) IN PPP BY CHROMOGENIC METHOD <0.10 Invalid Interpretation Code 0.3-0.7 [facility] Comment on above: Order Comment: Check anti-Xa level every 6 hours while on heparin infusion, or per protocol. Result Comment: Elizabeth roxaban and Apixaban will interfere with the anti Xa assay used to monitor UFH and LMWH. Performed By: #### L [id number] #### [facility] ([facility]) [address] [place] [address] BASIC METABOLIC PANELon 10-0 Anion gap [Moles/Vol] 10 mmol/L Normal 7-20 [facility] Comment on above: Performed By: #### L [id number] #### [facility] ([facility]) [address] [place] [address] Calcium [Mass/Vol] 8.8 mg/dL Normal 8.6-10.3 [facility] Comment on above: Performed By: #### L [id number] #### [facility] ([facility]) [address] [place] [address] Chloride [Moles/Vol] 105 mmol/L Normal 98-107 [facility] Comment on above: Performed By: #### L [id number] #### [facility] ([facility]) [address] [place] [address] CO2 [Moles/Vol] 26 mmol/L Normal 21-31 [facility] Comment on above: Performed By: #### L [id number] #### [facility] ([facility]) [address] [place] [address] Creatinine [Mass/Vol] 0.75 mg/dL Normal 0.70-1.30 [facility] Comment on above: Performed By: #### L [id number] #### [facility] ([facility]) [address] [place] [address] GLOMERULAR FILTRATION RATE ML/MIN/1.73 SQ M.PREDICTED 102.7 mL/min/1.73m*2 Normal >60.0 [facility] Comment on above: Result Comment: The [facility]???s estimated glomerular filtration rate (eGFR) will [...] group of individuals. Performed By: #### L [id number] #### [facility] ([facility]) [address] [place] [address] Glucose [Mass/Vol] 171 mg/dL High 70-100 [facility] Comment on above: Performed By: #### L [id number] #### [facility] ([facility]) [address] [place] [address] Potassium [Moles/Vol] 3.7 mmol/L Normal 3.5-5.1 [facility] Comment on above: Performed By: #### L [id number] #### [facility] ([facility]) [address] [place] [address] Sodium [Moles/Vol] 137 mmol/L Normal 136-145 [facility] Comment on above: Performed By: #### L [id number] #### [facility] ([facility]) [address] [place] [address] Urea nitrogen [Mass/Vol] 11 mg/dL Normal 7-25 [facility] Comment on above: Performed By: #### L [id number] #### [facility] ([facility]) [address] [place] [address] UREA NITROGEN/CREATININ E (MASS RATIO) IN SER/PLAS 14.7 Normal [facility] Comment on above: Performed By: #### L [id number] #### [facility] ([facility]) [address] [facility] [place] [address] LIPID PANELon 11-11-2022 CHOL/HDL 5.0 mg/dL Normal [facility] Comment on above: Performed By: #### L [id number] #### [facility] ([facility]) [address] [place] [address] Cholesterol [Mass/Vol] 131 mg/dL Normal 120-200 [facility] Comment on above: Performed By: #### L [id number] #### [facility] ([facility]) [address] [place] [address] CHOLESTEROL IN LDL (MG/DL) IN SERUM OR PLASMA BY CALCULATION Normal [facility] Comment on above: Result Comment: Calc ulated LDL invalid, triglycerides >400 mg/dl Performed By: #### L [id number] #### [facility] ([facility]) [address] [place] [address] Magnesium [Mass/Vol] 853 mg/dL High 40-149 [facility] Comment on above: Result Comment: TRIG LYCERIDE REFERENCE RANGE: 20 YEARS AND OLDER CARDIOVASCULAR RISK LESS THAN 150 mg/dL LOW RISK 150 TO 199 mg/dL BORDERLINE RISK 200 mg/dL AND GREATER HIGH RISK Performed By: #### L [id number] #### [facility] ([facility]) [address] [place] [address] Magnesium [Mass/Vol] 26 mg/dL Normal 23-92 [facility] Comment on above: Performed By: #### L [id number] #### [facility] ([facility]) [address] [place] [address] NON HDL CHOL. (LDL+VLDL) 105 Normal [facility] Comment on above: Performed By: #### L [id number] #### [facility] ([facility]) [address] [place] [address] TOTAL VLDL-C 171 mg/dL High 0-40 [facility] Comment on above: Performed By: #### L [id number] #### [facility] ([facility]) [address] [place] [address] Letter (Out)on 11-11-2022 Letter (Out) [id number] Jocelynn Auguste 1960 Date Provider Department [place] 11/11/2022 [id number], GENERIC PRO*INIT None Family History Problem Relation Age of Onset Coronary artery disease Mother Other Mother Hypertension Mother Coronary artery disease Sister Other Sister Hypertension Sister Family Status - Relation Status Age at Mother Sister Normal [facility] MAGNESIUMon 11-11-2022 Magnesium [Mass/Vol] 1.7 mg/dL Low 1.9-2.7 [facility] Comment on above: Performed By: #### L [id number] #### [facility] ([facility]) [address] [place] [address] 30on 11-10-2022 30 The patient is Moderately Stable - Low risk of patient condition declining or worsening The patient's goals for the shift include comfort The clinical goals for the shift include vss Normal [facility] 30 The patient is Moderately Stable [...] by Aníbal Lucas RN Outcome: Progressing Normal [facility] CBCon 11-10-2022 Erythrocyte distribution width (RBC) [Ratio] 12.6 % Normal 11.5-15.0 [facility] Comment on above: Performed By: #### L [id number] #### [facility] ([facility]) [address] [place] [address] ERYTHROCYTE MEAN CORPUSCULAR HEMOGLOBIN CONCENTRATION (G/DL) BY AUTOMATED 34.2 g/dL Normal 32.0-35.0 [facility] Comment on above: Performed By: #### L [id number] #### [facility] ([facility]) [address] [place] [address] Hematocrit (Bld) [Volume fraction] 46.5 % Normal 39.0-55.0 [facility] Comment on above: Performed By: #### L [id number] #### [facility] ([facility]) [address] [place] [address] Hemoglobin (Bld) [Mass/Vol] 15.9 g/dL Normal 13.0-17.0 [facility] Comment on above: Performed By: #### L [id number] #### [facility] ([facility]) [address] [place] [address] MCH (RBC) [Entitic mass] 31.2 pg Normal 27.0-33.0 [facility] Comment on above: Performed By: #### L [id number] #### [facility] ([facility]) [address] [place] [address] MCV (RBC) [Entitic vol] 91.2 fL Normal 82.0-98.0 [facility] Comment on above: Performed By: #### L [id number] #### [facility] ([facility]) [address] [place] [address] PLATELETS (10*3/UL) IN BLOOD AUTOMATED COUNT 190 10*3/uL Normal 150-400 [facility] Comment on above: Performed By: #### L [id number] #### [facility] ([facility]) [address] [place] [address] RBC (Bld) [#/Vol] 5.10 10*6/uL Normal 4.20-5.70 [facility] Comment on above: Performed By: #### L [id number] #### [facility] ([facility]) [address] [place] [address] WBC (Bld) [#/Vol] 7.15 10*3/uL Normal 4.00-10.60 [facility] Comment on above: Performed By: #### L [id number] #### [facility] ([facility]) [address] [place] [address] CONSULTon 11-10-2022 CONSULT --- Attestation signed by [...] is a 61 y.o. male presented to [facility] for chest pain, he was working in his garage, [employer] when he experienced the chest pain, patient had elevated troponins and transferred to [facility]. Patient has Hx of CAD with PCI [...] Pulmonary e (more content not included)... Normal [facility] HEPARIN LEVELon 11-10-2022 HEPARIN UNFRACTIONATED (U/ML) IN PPP BY CHROMOGENIC METHOD 0.45 IU/mL Normal 0.3-0.7 [facility] Comment on above: Order Comment: Check anti-Xa level every 6 hours while on heparin infusion, or per protocol. Result Comment: Hunt roxaban and Apixaban will interfere with the anti Xa assay used to monitor UFH and LMWH. Performed By: #### L [id number] #### [facility] ([facility]) [address] [place] [address] HEPARIN UNFRACTIONATED (U/ML) IN PPP BY CHROMOGENIC METHOD 0.43 IU/mL Normal 0.3-0.7 [facility] Comment on above: Order Comment: Check anti-Xa level every 6 hours while on heparin infusion, or per protocol. Result Comment: Elizabeth roxaban and Apixaban will interfere with the anti Xa assay used to monitor UFH and LMWH. Performed By: #### L [id number] #### [facility] ([facility]) [address] [place] [address] HEPARIN UNFRACTIONATED (U/ML) IN PPP BY CHROMOGENIC METHOD 0.33 IU/mL Normal 0.3-0.7 [facility] Comment on above: Order Comment: Check anti-Xa level every 6 hours while on heparin infusion, or per protocol. Result Comment: Elizabeth roxaban and Apixaban will interfere with the anti Xa assay used to monitor UFH and LMWH. Performed By: #### L [id number] #### [facility] ([facility]) [address] [place] [address] HPon 11-10-2022 HP H&P reviewed. The patient was examined and there are no changes to the H&P. Will proceed with coronary angiogram for NSTEMI. Normal [facility] TROPONIN Ion 11-10-2022 Troponin I.cardiac [Mass/Vol] 0.10 ng/mL High 0.00-0.04 [facility] Comment on above: Performed By: #### L [id number] #### [facility] ([facility]) [address] [place] [address] 30on 11-09-2022 30 The patient is Moderately Stable - Low risk of patient condition declining or worsening The patient's goals for the shift include comfort The clinical goals for the shift include vss Normal [facility] 30 The patient is Moderately Stable [...] and maintained or improved Outcome: Progressing Normal [facility] APTTon 11-09-2022 ACTIVATED PARTIAL THROMBOPLASTIN TIME IN PPP BY COAGULATION ASSAY 33.8 Seconds Normal 25.0-35.0 [facility] Comment on above: Order Comment: Basel ine aPTT before initiating heparin infusion. Result Comment: Clin ical significance of the APTT is questionable in the presence of heparin. Performed By: #### L [id number] #### [facility] ([facility]) [address] [place] [address] B-TYPE NATRIURETIC PEPTIDEon 11-09-2022 Natriuretic peptide B (Bld) [Mass/Vol] 14 pg/mL Normal 0-100 [facility] Comment on above: Performed By: #### L [id number] #### [facility] ([facility]) [address] [place] [address] CBC WITH AUTO DIFFERENTIALon 11-09-2022 Basophils (Bld) [#/Vol] 0.06 10*3/uL Normal 0.00-0.20 [facility] Comment on above: Performed By: #### L [id number] #### [facility] ([facility]) [address] [place] [address] Basophils/100 WBC (Bld) 0.9 % Normal 0.0-1.0 [facility] Comment on above: Performed By: #### L [id number] #### [facility] ([facility]) [address] [place] [address] Eosinophils (Bld) [#/Vol] 0.21 10*3/uL Normal 0.00-0.50 [facility] Comment on above: Performed By: #### L [id number] #### [facility] ([facility]) [address] [place] [address] Eosinophils/100 WBC (Bld) 3.2 % Normal 0.0-6.0 [facility] Comment on above: Performed By: #### L [id number] #### [facility] ([facility]) [address] [place] [address] Erythrocyte distribution width (RBC) [Ratio] 12.5 % Normal 11.5-15.0 [facility] Comment on above: Performed By: #### L [id number] #### [facility] ([facility]) [address] [place] [address] ERYTHROCYTE MEAN CORPUSCULAR HEMOGLOBIN CONCENTRATION (G/DL) BY AUTOMATED 34.3 g/dL Normal 32.0-35.0 [facility] Comment on above: Performed By: #### L [id number] #### [facility] ([facility]) [address] [place] [address] Hematocrit (Bld) [Volume fraction] 47.5 % Normal 39.0-55.0 [facility] Comment on above: Performed By: #### L [id number] #### [facility] ([facility]) [address] [place] [address] Hemoglobin (Bld) [Mass/Vol] 16.3 g/dL Normal 13.0-17.0 [facility] Comment on above: Performed By: #### L [id number] #### [facility] ([facility]) [address] [place] [address] Immature granulocytes (Bld) [#/Vol] 0.01 10*3/uL Normal 0.00-0.20 [facility] Comment on above: Performed By: #### L [id number] #### [facility] ([facility]) [address] [place] [address] Immature granulocytes/100 WBC (Bld) 0.2 % Normal 0.0-1.0 [facility] Comment on above: Performed By: #### L [id number] #### [facility] ([facility]) [address] [place] [address] Lymphocytes (Bld) [#/Vol] 2.58 10*3/uL Normal 1.20-4.00 [facility] Comment on above: Performed By: #### L [id number] #### [facility] ([facility]) [address] [place] [address] Lymphocytes/100 WBC (Bld) 39.3 % Normal 20.0-45.0 [facility] Comment on above: Performed By: #### L [id number] #### [facility] ([facility]) [address] [place] [address] MCH (RBC) [Entitic mass] 30.7 pg Normal 27.0-33.0 [facility] Comment on above: Performed By: #### L [id number] #### [facility] ([facility]) [address] [place] [address] MCV (RBC) [Entitic vol] 89.5 fL Normal 82.0-98.0 [facility] Comment on above: Performed By: #### L [id number] #### [facility] ([facility]) [address] [place] [address] Monocytes (Bld) [#/Vol] 0.39 10*3/uL Normal 0.10-1.00 [facility] Comment on above: Performed By: #### L [id number] #### [facility] ([facility]) [address] [place] [address] Monocytes/100 WBC (Bld) 5.9 % Normal 5.0-12.0 [facility] Comment on above: Performed By: #### L [id number] #### [facility] ([facility]) [address] [place] [address] Neutrophils (Bld) [#/Vol] 3.31 10*3/uL Normal 1.60-7.60 [facility] Comment on above: Performed By: #### L [id number] #### [facility] ([facility]) [address] [place] [address] Neutrophils/100 WBC (Bld) 50.5 % Normal 40.0-72.0 [facility] Comment on above: Performed By: #### L [id number] #### [facility] ([facility] [address] [place] [address] NRBC (PER 100 WBCS) BY AUTOMATED COUNT 0.0 % Normal 0 [facility] Comment on above: Performed By: #### L [id number] #### [facility] ([facility]) [address] [place] [address] PLATELETS (10*3/UL) IN BLOOD AUTOMATED COUNT 182 10*3/uL Normal 150-400 [facility] Comment on above: Performed By: #### L [id number] #### [facility] ([facility]) [address] [place] [address] RBC (Bld) [#/Vol] 5.31 10*6/uL Normal 4.20-5.70 [facility] Comment on above: Performed By: #### L [id number] #### [facility] ([facility]) [address] [place] [address] WBC (Bld) [#/Vol] 6.56 10*3/uL Normal 4.00-10.60 [facility] Comment on above: Performed By: #### L [id number] #### [facility] ([facility]) [address] [place] [address] COMPREHENSIVE METABOLIC PANE Vincent 11-09-2022 Albumin [Mass/Vol] 4.1 g/dL Normal 3.5-5.7 [facility] Comment on above: Performed By: #### L [id number] #### [facility] ([facility]) [address] [place] [address] ALP [Catalytic activity/Vol] 104 U/L Normal 34-104 [facility] Comment on above: Performed By: #### L [id number] #### [facility] ([facility]) [address] [place] [address] ALT [Catalytic activity/Vol] 35 U/L Normal 7-52 [facility] Comment on above: Performed By: #### L [id number] #### [facility] ([facility]) [address] [place] [address] Anion gap [Moles/Vol] 13 mmol/L Normal 7-20 [facility] Comment on above: Performed By: #### L [id number] #### [facility] ([facility]) [address] [place] [address] Performed By: #### L [id number] #### [facility] ([facility]) [address] [place] [address] AST [Catalytic activity/Vol] 39 U/L Normal 13-39 [facility] Comment on above: Performed By: #### L [id number] #### [facility] ([facility]) [address] [place] [address] Bilirubin [Mass/Vol] 0.6 mg/dL Normal 0.3-1.0 [facility] Comment on above: Performed By: #### L [id number] #### [facility] ([facility]) [address] [place] [address] Calcium [Mass/Vol] 9.3 mg/dL Normal 8.6-10.3 [facility] Comment on above: Performed By: #### L [id number] #### [facility] ([facility]) [address] [place] [address] Performed By: #### L [id number] #### [facility] ([facility]) [address] [place] [address] Chloride [Moles/Vol] 104 mmol/L Normal 98-107 [facility] Comment on above: Performed By: #### L [id number] #### [facility] ([facility]) [address] [place] [address] Performed By: #### L [id number] #### [facility] ([facility]) [address] [place] [address] CO2 [Moles/Vol] 24 mmol/L Normal 21-31 [facility] Comment on above: Performed By: #### L [id number] #### [facility] ([facility]) [address] [place] [address] Performed By: #### L [id number] #### [facility] ([facility]) [address] [place] [address] Creatinine [Mass/Vol] 0.68 mg/dL Low 0.70-1.30 [facility] Comment on above: Performed By: #### L [id number] #### [facility] ([facility]) [address] [facility] [place] [address] Performed By: #### L [id number] #### [facility] ([facility]) [address] [facility] [place] [address] GLOMERULAR FILTRATION RATE ML/MIN/1.73 SQ M.PREDICTED 105.8 mL/min/1.73m*2 Normal >60.0 [facility] Comment on above: Result Comment: The [facility]???s estimated glomerular filtration rate (eGFR) will [...] individuals. Performed By: #### L [id number] #### [facility] ([facility]) [address] [place] [address] Performed By: #### L [id number] #### [facility] ([facility]) [address] [place] [address] Glucose [Mass/Vol] 130 mg/dL High 70-100 [facility] Comment on above: Performed By: #### L [id number] #### [facility] ([facility]) [address] [place] [address] Performed By: #### L [id number] #### [facility] ([facility]) [address] [place] [address] Potassium [Moles/Vol] 3.8 mmol/L Normal 3.5-5.1 [facility] Comment on above: Performed By: #### L [id number] #### [facility] ([facility]) [address] [place] [address] Performed By: #### L [id number] #### [facility] ([facility]) [address] [place] [address] Protein [Mass/Vol] 6.2 g/dL Normal 6.0-8.3 [facility] Comment on above: Performed By: #### L [id number] #### [facility] ([facility]) [address] [place] [address] Sodium [Moles/Vol] 137 mmol/L Normal 136-145 [facility] Comment on above: Performed By: #### L [id number] #### [facility] ([facility]) [address] [place] [address] Performed By: #### L [id number] #### [facility] ([facility]) [address] [place] [address] Urea nitrogen [Mass/Vol] 13 mg/dL Normal 7-25 [facility] Comment on above: Performed By: #### L [id number] #### [facility] ([facility]) [address] [place] [address] Performed By: #### L [id number] #### [facility] ([facility]) [address] [place] [address] UREA NITROGEN/CREATININ E (MASS RATIO) IN SER/PLAS 19.1 Normal [facility] Comment on above: Performed By: #### L [id number] #### [facility] ([facility]) [address] [place] [address] Performed By: #### L [id number] #### [facility] ([facility]) [address] [place] [address] MAGNESIUMon 11-09-2022 Magnesium [Mass/Vol] 1.6 mg/dL Low 1.9-2.7 [facility] Comment on above: Performed By: #### L [id number] #### [facility] ([facility]) [address] [place] [address] PROTIME-INRon 11-09-2022 INR IN PPP BY COAGULATION ASSAY 0.95 Normal 0.90-1.10 [facility] Comment on above: Result Comment: ACCC [...] 1995;[id number]. Performed By: #### L [id number] #### [facility] ([facility]) [address] [place] [address] PROTHROMBIN TIME (PT) IN PPP BY COAGULATION ASSAY 12.7 Seconds Normal 12.3-14.8 [facility] Comment on above: Performed By: #### L [id number] #### [facility] ([facility]) [address] [place] [address] TROPONIN Ion 11-09-2022 Troponin I.cardiac [Mass/Vol] 0.19 ng/mL Critically high 0.00-0.04 [facility] Comment on above: Result Comment: M-TR OPONIN INITIAL CRITICAL HIGH; RESPUN AND RETESTED Performed By: #### L [id number] #### [facility] [address] [place] [address] US SINGLE QUAD RT UPPERon US SINGLE [...] by: MINNIE COY Date: 2022-02-21 17:41 Normal [facility] CTA ABD/PELVIS WO W CONon CTA ABD/PELVIS [...] ALVARADO CLARK Date: 2022-01-26 07:57 Normal [facility] CBC AUTO DIFFon 01-24-2022 BASO # 0.0 103/ul Normal 0.0-0.1 [facility] Comment on above: Performed By: #### C BC #### [facility] [address] [place] [address] Dr. Pee Lomax Basophils/100 WBC (Bld) 0.5 % Normal 0.2-2.0 [facility] Comment on above: Performed By: #### C BC #### [facility] [address] [address] [address] Pee Lomax EO # 0.2 103/ul Normal 0.0-0.7 [facility] Comment on above: Performed By: #### C BC #### [facility] [address] [address] [address] Pee Lomax Eosinophils/100 WBC (Bld) 2.2 % Normal 0.9-7.0 [facility] Comment on above: Performed By: #### C BC #### [facility] [address] [address] [address] Pee Lomax Erythrocyte distribution width (RBC) [Ratio] 11.9 % Normal 11.0-15.0 [facility] Comment on above: Performed By: #### C BC #### [facility] [address] [place] [address] Dr. Pee Lomax Hematocrit (Bld) [Volume fraction] 48.4 % Normal 42.0-54.0 [facility] Comment on above: Performed By: #### C BC #### [facility] [address] [place] [address] Dr. Pee Lomax Hemoglobin (Bld) [Mass/Vol] 16.7 g/dL Normal 14.0-18.0 [facility] Comment on above: Performed By: #### C BC #### [facility] [address] [place] [address] Dr. Pee Lomax IG # 0.01 10e3/ul Normal 0.00-0.03 [facility] Comment on above: Performed By: #### C BC #### [facility] [address] [place] [address] Dr. Pee Lomax IG % 0.1 % Normal 0.0-0.5 [facility] Comment on above: Performed By: #### C BC #### [facility] [address] [place] [address] Dr. Pee Lomax LYMPH # 2.7 103/ul Normal 1.2-3.8 [facility] Comment on above: Performed By: #### C BC #### [facility] [address] [place] [address] Dr. Pee Lomax Lymphocytes/100 WBC (Bld) 36.1 % Normal 20.5-60.0 [facility] Comment on above: Performed By: #### C BC #### [facility] [address] [place] [address] Dr. Pee Lomax MANUAL DIFF REQ NO Normal [facility] Comment on above: Performed By: #### C BC #### [facility] [address] [place] [address] Dr. Pee Lomax MCH (RBC) [Entitic mass] 31.5 pg Normal 25.9-34.0 [facility] Comment on above: Performed By: #### C BC #### [facility] [address] [address] [address] Pee Lomax MCHC (RBC) [Mass/Vol] 34.5 g/dL Normal 29.9-35.2 [facility] Comment on above: Performed By: #### C BC #### [facility] [address] [address] [address] Pee Lomax MCV (RBC) [Entitic vol] 91.3 fL Normal 80.0-94.0 [facility] Comment on above: Performed By: #### C BC #### [facility] [address] [place] [address] Dr. Pee Lomax MONO # 0.4 103/ul Normal 0.3-0.8 [facility] Comment on above: Performed By: #### C BC #### [facility] [address] [place] [address] Dr. Pee Lomax Monocytes/100 WBC (Bld) 5.6 % Normal 1.7-12.0 [facility] Comment on above: Performed By: #### C BC #### [facility] [address] [place] [address] Dr. Pee Lomax NEUT # 4.1 103/ul Normal 1.4-6.5 [facility] Comment on above: Performed By: #### C BC #### [facility] [address] [place] [address] Dr. Pee Lomax Neutrophils/100 WBC (Bld) 55.5 % Normal 43.0-75.0 [facility] Comment on above: Performed By: #### C BC #### [facility] [address] [place] [address] Dr. Pee Lomax Platelet mean volume (Bld) [Entitic vol] 9.3 fL Critically low 9.5-13.5 [facility] Comment on above: Performed By: #### C BC #### [facility] [address] [place] [address] Dr. Pee Lomax PLT 206 103/ul Normal 150-450 [facility] Comment on above: Performed By: #### C BC #### [facility] [address] [address] [address] Pee Lomax RBC 5.30 106/ul Normal 4.70-6.10 [facility] Comment on above: Performed By: #### C BC #### [facility] [address] [address] [address] Pee Lomax WBC 7.4 103/ul Normal 4.0-11.0 [facility] Comment on above: Performed By: #### C BC #### [facility] [address] [address] [address] Pee Lomax LIPID PROFILEon 01-24-2022 CHOL-HDL RATIO NORM SEE BELOW Normal [facility] Comment on above: Result Comment: 3.3 - 4.4 LOW RISK 4.4 - 7.1 AVERAGE RISK 7.1 - 11.0 MODERATE RISK >11.0 HIGH RISK Performed By: #### L IPID #### [facility] [address] [place] [address] Dr. Pee Lomax Cholesterol [Mass/Vol] 93 mg/dL Normal <=200 [facility] Comment on above: Performed By: #### L IPID #### [facility] [address] [place] [address] Dr. Pee Lomax Cholesterol in HDL [Mass/Vol] 34 mg/dL Critically low 40-60 [facility] Comment on above: Performed By: #### L IPID #### [facility] [address] [address] [address] Pee Lomax Cholesterol in LDL [Mass/Vol] 33.4 mg/dL Normal [facility] Comment on above: Performed By: #### L IPID #### [facility] [address] [place] [address] Dr. Pee Lomax Cholesterol.total/ Cholesterol in HDL [Mass ratio] 2.7 {ratio} Normal [facility] Comment on above: Performed By: #### L IPID #### [facility] [address] [place] [address] Dr. Pee Lomax HDL NORMAL > or = 60 mg/dl - LO W CARDIOVASCULAR RISK <40 mg/dl - HIGH CARDIOVASCULAR RISK Normal [facility] Comment on above: Performed By: #### L IPID #### [facility] [address] [place] [address] Dr. Pee Lomax LDL CALC NORMAL SEE BELOW Normal [facility] Comment on above: Result Comment: <100 mg/dl OPTIMAL 100 - 129 mg/dl NEAR OR ABOVE OPTIMAL 130 - 159 mg/dl BORDERLINE HIGH 160 - 189 mg/dl HIGH >190 mg/dl VERY HIGH Performed By: #### L IPID #### [facility] [address] [address] [address] Pee Lomax Triglyceride [Mass/Vol] 128 mg/dL Normal <=150 [facility] Comment on above: Performed By: #### L IPID #### [facility] [address] [place] [address] Dr. Pee Lomax VLDL CALC 25.6 mg/dL Normal [facility] Comment on above: Performed By: #### L IPID #### [facility] [address] [place] [address] Dr. Pee Lomax PROF 14(COMP METB)on 022 Albumin [Mass/Vol] 3.4 g/dL Normal 3.4-5.0 [facility] Comment on above: Performed By: #### C MP #### [facility] [address] [place] [address] Dr. Pee Lomax Albumin/Globulin [Mass ratio] 1.0 {ratio} Normal [facility] Comment on above: Performed By: #### C MP #### [facility] [address] [place] [address] Dr. Pee Lomax ALP [Catalytic activity/Vol] 115 U/L Normal 46-116 [facility] Comment on above: Performed By: #### C MP #### [facility] [address] [place] [address] Dr. Pee Lomax ALT [Catalytic activity/Vol] 21 U/L Normal 16-63 [facility] Comment on above: Performed By: #### C MP #### [facility] [address] [address] [address] Pee Lomax Anion gap [Moles/Vol] 7.6 mmol/L Normal [facility] Comment on above: Performed By: #### C MP #### [facility] [address] [place] [address] Dr. Pee Lomax AST [Catalytic activity/Vol] 23 U/L Normal 15-37 [facility] Comment on above: Performed By: #### C MP #### [facility] [address] [address] [address] Pee Lomax Bilirubin [Mass/Vol] 0.4 mg/dL Normal 0.2-1.0 [facility] Comment on above: Performed By: #### C MP #### [facility] [address] [place] [address] Dr. Pee Lomax Calcium [Mass/Vol] 8.7 mg/dL Normal 8.5-10.1 [facility] Comment on above: Performed By: #### C MP #### [facility] [address] [place] [address] Dr. Pee Lomax Chloride [Moles/Vol] 106 mmol/L Normal 98-107 [facility] Comment on above: Performed By: #### C MP #### [facility] [address] [place] [address] Dr. Pee Lomax CO2 [Moles/Vol] 29.5 mmol/L Normal 21.0-32.0 [facility] Comment on above: Performed By: #### C MP #### [facility] [address] [address] [address] Pee Lomax Creatinine [Mass/Vol] 0.84 mg/dL Normal 0.70-1.30 [facility] Comment on above: Performed By: #### C MP #### [facility] [address] [place] [address] Dr. Pee Lomax EGFR-AF NEPALESE >60 Normal >=60 [facility] Comment on above: Performed By: #### C MP #### [facility] [address] [place] [address] Dr. Pee Lomax EGFR-NON AF NEPALESE >60 Normal >=60 [facility] Comment on above: Performed By: #### C MP #### [facility] [address] [address] [address] Pee Lomax Globulin (S) [Mass/Vol] 3.4 g/dL Normal [facility] Comment on above: Performed By: #### C MP #### [facility] [address] [address] [address] Pee Lomax Glucose [Mass/Vol] 112 mg/dL Critically high 74-106 [facility] Comment on above: Performed By: #### C MP #### [facility] [address] [address] [address] Pee Lomax Potassium [Moles/Vol] 4.1 mmol/L Normal 3.5-5.1 [facility] Comment on above: Performed By: #### C MP #### [facility] [address] [address] [address] Pee Lomax Protein [Mass/Vol] 6.8 g/dL Normal 6.4-8.2 [facility] Comment on above: Performed By: #### C MP #### [facility] [address] [address] [address] Pee Lomax Sodium [Moles/Vol] 139 mmol/L Normal 136-145 [facility] Comment on above: Performed By: #### C MP #### [facility] [address] [address] [address] Pee Lomax Urea nitrogen [Mass/Vol] 8.0 mg/dL Normal 7.0-18.0 [facility] Comment on above: Performed By: #### C MP #### [facility] [address] [address] [address] Pee Lomax Urea nitrogen/Creatinin e [Mass ratio] 9.5 mg/mg Normal [facility] Comment on above: Performed By: #### C MP #### [facility] [address] [address] [address] Pee Lomax US ABD AORTA SCREENINGon [...] by: ALVARADO CLARK Date: 2022-01-05 07:33 Normal [facility] MRI HAND LT WO CONon 022 MRI [...] joint seen on the edge of the [id number]-ay-crpo for this study. A small to moderate [...] muscle edema is identified. IMPRESSION: 1. A zkwrn-qb-[id number] amount of fluid tracks along the extensor [...] SELWYN UPTON Date: 2021-08-13 12:04 Normal [facility] XR FOREIGN BODY EYEon 2021 XR FOREIGN BODY EYE EXAMINATION: XR FOREIGN BODY EYE HISTORY: Foreign body in eye COMPARISON: No relevant comparison available. FINDINGS: ORBITS: Negative for a metallic foreign body. OTHER: Negative. IMPRESSION: 1. No metallic foreign body within the orbits. Electronically authenticated by: ALVARADO CLARK Date: 2021-08-12 10:41 Normal [facility] Encounters Encounter Date Encounter Type Care Provider Facility Start: 03-29-2023 End: 03-29-2023 ambulatory [facility] Start: 11-26-2022 End: 11-26-2022 ambulatory [facility] Start: 11-10-2022 Evaluation and management of inpatient [facility] Start: 11-10-2022 Evaluation and management of inpatient GRACIELA [facility] Start: 11-10-2022 Evaluation and management of inpatient AMALIA M [facility] Start: 11-09-2022 [facility] Start: 11-09-2022 End: 11-11-2022 Evaluation and management of inpatient SHAHRZAD NUNEZ [facility] Start: 02-21-2022 End: 02-22-[address] SHAHRZAD NUNEZ Facility:[facility] Start: 01-24-2022 End: 01-25-[address] TAYLOR BONDS Facility:[facility] Start: 01-03-2022 End: 01-04-2022 ambulatory LIZZIE JONES Facility:[facility] Start: 08-12-2021 End: 08-13-[address] SHAHRZAD NUNEZ Facility:[facility] Start: 08-04-2021 End: 08-05-[address] SHAHRZAD NUNEZ Facility:[facility] Start: 07-14-2021 End: 07-15-[address] SHAHRZAD NUNEZ Facility:[facility] Payers Date Payer Category Payer Unknown [id number] 2.16.84 [id number] 1960 Unknown [id number] 2.16.84 [id number] 1960 Unknown [id number] 2.16.84 [id number] 1960 Unknown [id number] 2.16.84 [id number] 1960 Unknown [id number] 2.16.84 [id number] 1960 Unknown [id number] 2.16.84 [id number] 1960 Unknown [id number] 2.16.84 [id number] 1959 Private Health Insurance [id number] Clinical Notes 07-14-2021 to 03-29-2023 Note Date & Type Note Facility 03-29-2023 Note [facility] Card[facility] Clinic Note Chief Complaint: Patient here [...] prevention CAD s/ (more content not included)... [facility] 11-26-2022 Note [facility] Cardiology Clinic Note Chief Complaint: Patient here for follow up [facility] for NSTEMI and PCI. He is doing [...] Admission Diagnosis: NSTEMI (non-ST elevated myocardial infarction) ([facility]) [I21.4] Cardiology ROS: Review of Systems All [...] NSTEMI 2) Aspi (more content not included)... [facility] 11-11-2022 Note ------ Attestation signed by [...] objection to discharge. Katelynn Parrish Resident IM [facility] 11-11-2022 Note Hospital Medicine Discharge Summary [...] hyperlipidemia, hypertension and BPH presented to to [facility] as a transfer from [facility] for NSTEMI. Patient reports that last night he was working in the garage and developed precordial chest pain that would not go away. He denies any diaphoresis or increased shortness of breath. He came to ER for evaluation and was found to have significantly elevated troponins that were trending up. Cardiology service at [facility] was reached out and they wanted patient to be transferred here for cardiac catheterization. Patient denies any chest pain or shortness of breath right now. Troponin returned .1 upon admission. He was maintained on heparin infusion. He was taking for [facility] on 11/10 which revealed the following: Final [...] Medications These medications were sent to [facility] [address] [place] [address] [address] [facility] [place] [address], [facility] [address] aspirin 81 mg EC tablet clopidogrel 75 [...] 190 182 I (more content not included)... [facility] 11-10-2022 Note Interventional Cardi ology Coronary [...] Refer to cardiac rehab Leonardo Mares MD [place] Cardiology [facility] 11-10-2022 Note [facility] Cardiothoracic Surgery Consultation Reason for consultation: Proximal RCA aneurysm History of Present Illness: Jocelynn Auguste is a 61 y.o. male with PMH of CAD s/p RCA SARY stenting in 2010, AGAPITO on CPAP, HLD, HTN, BPH, TIA and PSH of appendectomy, sigmoidectomy with primary anastomosis who presented as a transfer from [facility] for NSTEMI. Pt reports that he was working in his garage and developed dull chest pain which went away, but returned the next day. Pt denies increased SOB, but does report diaphoresis. Pt presented to ER for evaluation and was found to have elevated troponin. Pt was transferred to [facility] for cardiac catheretization. Intra-procedure, pt was found [...] on file S (more content not included)... [facility] 11-10-2022 Note Patient: Jocelynn Auguste Procedure Information Date/Time: 11/10/22 1212 Procedure: Coronary angiography Location: [facility] / [facility] (Cath) Providers: Leonardo Mares MD Clinical information reviewed: Tobacco Allergies Problems Med Hx Surg Hx Fam Hx Physical Exam Airway Mallampati: III Cardiovascular Rhythm: regular Rate: normal Dental Pulmonary Abdominal Anesthesia Plan ASA 3 other (Conscious sedation.) Additional Equipment Requests [facility] 11-10-2022 Note Hospital Medicine Daily Progress Note - 11/10/2022 8:18 AM; Room: [address] [place] [address] Admission: 11/09/2022 5:47 PM; Length of stay: 1 days THE HOSPITALIST TEAM PREFERS TO USE dotSyntax CHAT FOR COMMUNICATION 7AM-7PM. IF I DO NOT RESPOND WITHIN 15 MINUTES, PLEASE PAGE ME/CALL THROUGH THE TREE THINNER. FROM 7PM-7AM, PLEASE PAGE [phone](COVR) Code Status: Full Code Discharge Destination: home [...] Principal Problem: NSTEMI (non-ST elevated myocardial infarction) ([facility]) Active Problems: Coronary atherosclerosis Assessment and Plan [...] for: PREALBUMIN, TSH, T3FREE, FREET4, CORTISOL, FEV1, PDM8WPO, DLCO, RVSP, HDL, LDL No results found for: [id number], IRON, TIBC, C3, C4, BENSON, CANCA, ASO, [...] Discharge Planning Di (more content not included)... [facility] 11-09-2022 Note Hospital Medicine History and Physical 11/09/2022 7:33 PM THE HOSPITALIST TEAM PREFERS TO USE dotSyntax CHAT FOR COMMUNICATION 7AM-7PM. IF I DO NOT RESPOND WITHIN 15 MINUTES, PLEASE PAGE ME/CALL THROUGH THE TREE THINNER. FROM 7PM-7AM, PLEASE PAGE [phone](COVR) Chief Complaint No chief complaint on file. History of Present Illness Jocelynn Auguste is an 61 y.o. male who came from home with past medical history of CAD, s/p stent in 2010, AGAPITO, on CPAP, hyperlipidemia, hypertension and BPH presented to to [facility] as a transfer from [facility] for NSTEMI. Patient reports that last night he was working in the garage and developed precordial chest pain that would not go away. He denies any diaphoresis or increased shortness of breath. He came to ER for evaluation and was found to have significantly elevated troponins that were trending up. Cardiology service at [facility] was reached out and they wanted patient [...] Date Noted NSTEMI (non-ST elevated myocardial infarction) ([facility]) 11/09/2022 Abdominal aortic aneurysm (AAA) 3.0 cm to 5.5 cm in diameter in male ([facility]) 2021 PVD (peripheral vascular disease) ([facility]) 2021 Stented coronary artery 11/05/2021 HTN (hypertension) [...] this hospital stay by a member of [facility]. Past Medical History Past Medical History: [...] on file Other (more content not included)... [facility] 08-05-2021 Note PROCEDURE: XR HAND L T MIN 3V COMPARISON: 07/14/2021 HISTORY: Pain of left hand FINDINGS: BONES:No fracture, acute abnormality, or significant arthropathy. SOFT TISSUES:Negative. No visible soft tissue swelling. EFFUSION:None visible. OTHER: Negative. IMPRESSION: No acute radiographic abnormality Electronically authenticated by: ANMOL KHAN Date: 2021-08-05 07:20 [facility] 07-14-2021 Note PROCEDURE: XR HAND L T [...] authenticated by: ANMOL KHAN Date: 2021-07-14 20:54 [facility] Summary Purpose Family History No Family History Records FoundNo Family History Records Found Advance Directives No Advanced Directives Records FoundNo Advanced Directives Records Found Additional Source Comments (unrecognized sect ion and content) No Status Records FoundNo Status Records Found INFORMATION SOURCE (unrecogn ized section and content) DATE CREATED AUTHOR 02/21/2022 The [facility] DATE CREATED AUTHOR AUTHOR'S ORGANIZ ATION 04/07/2023 [facility] FOR RECORDS PERTAINING TO PATIENTS WHO [...] BE BASED ON THE PRIMARY CLINICAL RECORDS. [employer] provides no warranty or guarantee of the accuracy or completeness of information in this document.
--- NOTE | 2023-04-20 08:25 | NM_ITS ---
Patient Name: JOCELYNN DANG MR#: [id number] : 1960 Exam Date: 04/20/2023 Ordering Doctor: DR EVAN LARA M.D. RADIOLOGY REPORT PROCEDURE: NM KEITH PERF SPECT REST STR COMPARISON: None. INDICATIONS: CORONARY ARTERY DISEASE TECHNIQUE: Exam Description: Stress/Rest one day protocol gated SPECT Rest Imagin.8 mCi Tc-99m Cardiolite IV on 04/20/2023 Stress Imaging 31.3 mCi Tc-99m Cardiolite IV on 04/20/2023 Exercise Protocol: 0.4 mg Lexiscan given IV Heart Rate (bpm): Rest: 58 Max: 90 PMHR: 56 Blood Pressure: Rest: 134/82 Max: 134/82 Symptoms: Rest and peak stress ECG findings were normal and the exercise portion of the study was normal per attending physician Dr. Calhoun . For more details please see separate cardiac stress test report. FINDINGS: QUALITY OF STUDY: Excellent. PERFUSION DEFECT: LOCATION: Basal inferior. Mid-inferior. Apical inferior. SIZE: Medium (3-4 segments). SEVERITY: Moderate. TYPE: Persistent. WALL MOTION: Normal. LV SIZE: Normal. 87 mL. TID / TCD: None; 0.9 LVEF: Normal. Calculated EF 57%. SUMMARY: Myocardial perfusion imaging study has ABNORMAL findings. CONCLUSION: 1. No acute or reversible ischemia 2. Diaphragm attenuation artifact versus inferior wall fixed ischemia from remote infarction 3. Normal wall motion, left ventricle volume, and ejection fraction Dictated by: Donovan Ríos M.D. on 04/21/2023 at 14:20 Approved by: Donovan Ríos M.D. on 04/21/2023 at 14:27
[2023-04-20] MEDS: REGADENOSON 0.4 MG/5 ML SYRINGE 0.400000000000000022 MG IV (10:20)
== END 2023-04-20 08:00 | disposition home or self-care (01) ==
LOC: NM 08:00
PROVIDERS: PCP Family Medicine; Visit Provider Internal Medicine Interventional Cardiology
DX: I25.10 Atherosclerotic heart disease of native coronary artery without angina pectoris (principal); I25.83 Coronary atherosclerosis due to lipid rich plaque
CPT/HCPCS: 78452; 93017; A9500; J2785

== ENCOUNTER 2023-04-24 10:23 | Outpatient (OUT) | payer OTHER, SELFPAY ==
--- OUTSIDE RECORDS SUMMARY | 2023-04-24 10:26 | XMS_ITS | CCD ---
Author Name Unknown Address [address] [place] [address] Organization [facility] Care Team Providers Care Technology Applications Consultant Name Role Phone SANJUANITA, DR MARKHAM Admitting Unavailable SANJUANITA, DR MARKHAM Attending Unavailable SANJUANITA, DR MARKHAM Primary Care Unavailable SANJUANITA, DR MARKHAM Consulting Unavailable AMBER, DR ALVARADO Kee Consulting Unavailable SELWYN [place] Consulting Unavailable LIZIZE JONES Admitting Unavailable LIZZIE JONES Attending Unavailable [...] ELTAYLOR MITCHELL Attending Unavailable AMALIA JONES Referring Unavailabl AMALIA Khoury Referring Unavailabl GRACIELA Rodriguez Referring Unavailable GRACIELA [...] disease (8 sources) Atherosclerotic heart disease of [place] coronary artery without angina pectoris; Translations: [Atherosclerotic heart disease of [place] coronary artery with other forms of angina [...] Range Facility Office Visiton 03-29-2023 Follow-up visit [id number] Jocelynn Auguste 1960 M Date Provider Department Center 03/29/2023 [facility] Leidy Llamas Family History Problem Relation Age of Onset Coronary artery disease Mother Other Mother Hypertension Mother Coronary artery disease Sister Other Sister Hypertension Sister Family Status - Relation Status Age at Mother Sister Level of Service:19618 AL OFFICE/OUTPATIENT ESTABLISHED MOD MDM 30 MIN Normal [facility] Office Visiton 11-26-2022 Follow-up visit [id number] Jocelynn Auguste 1960 M Date Provider Department Center 11/26/2022 [facility] Leidy [facility] Family History Problem Relation Age of Onset Coronary artery disease Mother Other Mother Hypertension Mother Coronary artery disease Sister Other Sister Hypertension Sister Family Status - Relation Status Age at Mother Sister Level of Service:54872 AL OFFICE/OUTPATIENT ESTABLISHED MOD MDM 30-39 MIN Normal [facility] 30on 11-11-2022 30 The patient is Moderately Stable - Low risk of patient condition declining or worsening The patient's goals for the shift include comfort The clinical goals for the shift include vss Normal [facility] ANTI-XA (HEPARIN LEVEL)on HEPARIN UNFRACTIONATED (U/ML) IN PPP BY CHROMOGENIC METHOD <0.10 Invalid Interpretation Code 0.3-0.7 [facility] Comment on above: Order Comment: Check anti-Xa level every 6 hours while on heparin infusion, or per protocol. Result Comment: Seligman roxaban and Apixaban will interfere with the anti Xa assay used to monitor UFH and LMWH. Performed By: #### L [id number] #### [facility] ([facility]) [address] [place] [address] HEPARIN UNFRACTIONATED (U/ML) IN PPP BY CHROMOGENIC METHOD <0.10 Invalid Interpretation Code 0.3-0.7 [facility] Comment on above: Order Comment: Check anti-Xa level every 6 hours while on heparin infusion, or per protocol. Result Comment: Elizabeth roxaban and Apixaban will interfere with the anti Xa assay used to monitor UFH and LMWH. Performed By: #### L [id number] #### [facility] ([facility]) [address] [place] [address] BASIC METABOLIC PANELon 10-0 Anion gap [Moles/Vol] 10 mmol/L Normal 7-20 [facility] Comment on above: Performed By: #### L [id number] #### [facility] ([facility]) [address] [place] [address] Calcium [Mass/Vol] 8.8 mg/dL Normal 8.6-10.3 [facility] Comment on above: Performed By: #### L [id number] #### [facility] [address] [place] [address] Chloride [Moles/Vol] 105 mmol/L Normal 98-107 [facility] Comment on above: Performed By: #### L [id number] #### [facility] ([facility]) [address] [place] [address] CO2 [Moles/Vol] 26 mmol/L Normal 21-31 [facility] Comment on above: Performed By: #### L [id number] #### [facility] ([facility]) [address] [place] [address] Creatinine [Mass/Vol] 0.75 mg/dL Normal 0.70-1.30 [facility] Comment on above: Performed By: #### L [id number] #### [facility] ([facility]) [address] [place] [address] GLOMERULAR FILTRATION RATE ML/MIN/1.73 SQ M.PREDICTED 102.7 mL/min/1.73m*2 Normal >60.0 [facility] Comment on above: Result Comment: The [facility]???s estimated glomerular filtration rate (eGFR) will no [...] group of individuals. Performed By: #### L [id number] #### [facility] [address] [place] [address] Glucose [Mass/Vol] 171 mg/dL High 70-100 [facility] Comment on above: Performed By: #### L [id number] #### [facility] [address] [address] Potassium [Moles/Vol] 3.7 mmol/L Normal 3.5-5.1 [facility] Comment on above: Performed By: #### L [id number] #### [facility] ([facility]) [address] [place] [address] Sodium [Moles/Vol] 137 mmol/L Normal 136-145 [facility] Comment on above: Performed By: #### L [id number] #### [facility] ([facility]) [address] [place] [address] Urea nitrogen [Mass/Vol] 11 mg/dL Normal 7-25 [facility] Comment on above: Performed By: #### L [id number] #### [facility] ([facility]) [address] [place] [address] UREA NITROGEN/CREATININ E (MASS RATIO) IN SER/PLAS 14.7 Normal [facility] Comment on above: Performed By: #### L [id number] #### [facility] ([facility]) [address] [facility] [place] [address] LIPID PANELon 11-11-2022 CHOL/HDL 5.0 mg/dL Normal [facility] Comment on above: Performed By: #### L [id number] #### [facility] ([facility]) [address] [place] [address] Cholesterol [Mass/Vol] 131 mg/dL Normal 120-200 [facility] Comment on above: Performed By: #### L [id number] #### [facility] ([facility]) [address] [place] [address] CHOLESTEROL IN LDL (MG/DL) IN SERUM OR PLASMA BY CALCULATION Normal [facility] Comment on above: Result Comment: Calc ulated LDL invalid, triglycerides >400 mg/dl Performed By: #### L [id number] #### [facility] ([facility]) [address] [place] [address] Magnesium [Mass/Vol] 853 mg/dL High 40-149 [facility] Comment on above: Result Comment: TRIG LYCERIDE REFERENCE RANGE: 20 YEARS AND OLDER CARDIOVASCULAR RISK LESS THAN 150 mg/dL LOW RISK 150 TO 199 mg/dL BORDERLINE RISK 200 mg/dL AND GREATER HIGH RISK Performed By: #### L [id number] #### [facility] ([facility]) [address] [place] [address] Magnesium [Mass/Vol] 26 mg/dL Normal 23-92 [facility] Comment on above: Performed By: #### L [id number] #### [facility] ([facility]) [address] [place] [address] NON HDL CHOL. (LDL+VLDL) 105 Normal [facility] Comment on above: Performed By: #### L [id number] #### [facility] ([facility]) [address] [place] [address] TOTAL VLDL-C 171 mg/dL High 0-40 [facility] Comment on above: Performed By: #### L [id number] #### [facility] ([facility]) [address] [place] [address] Letter (Out)on 11-11-2022 Letter (Out) [id number] Jocelynn Auguste 1960 Date Provider Department [place] 11/11/2022 [id number], GENERIC PRO*INIT None Family History Problem Relation Age of Onset Coronary artery disease Mother Other Mother Hypertension Mother Coronary artery disease Sister Other Sister Hypertension Sister Family Status - Relation Status Age at Mother Sister Normal [facility] MAGNESIUMon 11-11-2022 Magnesium [Mass/Vol] 1.7 mg/dL Low 1.9-2.7 [facility] Comment on above: Performed By: #### L [id number] #### [facility] ([facility]) [address] [place] [address] 30on 11-10-2022 30 The patient is Moderately Stable - Low risk of patient condition declining or worsening The patient's goals for the shift include comfort The clinical goals for the shift include vss Normal [facility] 30 The patient is Moderately Stable - [...] by Aníbal Lucas RN Outcome: Progressing Normal [facility] CBCon 11-10-2022 Erythrocyte distribution width (RBC) [Ratio] 12.6 % Normal 11.5-15.0 [facility] Comment on above: Performed By: #### L [id number] #### [facility] ([facility]) [address] [place] [address] ERYTHROCYTE MEAN CORPUSCULAR HEMOGLOBIN CONCENTRATION (G/DL) BY AUTOMATED 34.2 g/dL Normal 32.0-35.0 [facility] Comment on above: Performed By: #### L [id number] #### [facility] ([facility]) [address] [place] [address] Hematocrit (Bld) [Volume fraction] 46.5 % Normal 39.0-55.0 [facility] Comment on above: Performed By: #### L [id number] #### [facility] ([facility]) [address] [place] [address] Hemoglobin (Bld) [Mass/Vol] 15.9 g/dL Normal 13.0-17.0 [facility] Comment on above: Performed By: #### L [id number] #### [facility] ([facility]) [address] [place] [address] MCH (RBC) [Entitic mass] 31.2 pg Normal 27.0-33.0 [facility] Comment on above: Performed By: #### L [id number] #### [facility] ([facility]) [address] [place] [address] MCV (RBC) [Entitic vol] 91.2 fL Normal 82.0-98.0 [facility] Comment on above: Performed By: #### L [id number] #### [facility] ([facility]) [address] [place] [address] PLATELETS (10*3/UL) IN BLOOD AUTOMATED COUNT 190 10*3/uL Normal 150-400 [facility] Comment on above: Performed By: #### L [id number] #### [facility] ([facility]) [address] [place] [address] RBC (Bld) [#/Vol] 5.10 10*6/uL Normal 4.20-5.70 [facility] Comment on above: Performed By: #### L [id number] #### [facility] ([facility]) [address] [place] [address] WBC (Bld) [#/Vol] 7.15 10*3/uL Normal 4.00-10.60 [facility] Comment on above: Performed By: #### L [id number] #### [facility] ([facility]) [address] [place] [address] CONSULTon 11-10-2022 CONSULT --- Attestation signed by [...] is a 61 y.o. male presented to [facility] for chest pain, he was working in his garage, [employer] when he experienced the chest pain, patient had elevated troponins and transferred to [facility]. Patient has Hx of CAD with [...] Pulmonary e (more content not included)... Normal [facility] HEPARIN LEVELon 11-10-2022 HEPARIN UNFRACTIONATED (U/ML) IN PPP BY CHROMOGENIC METHOD 0.45 IU/mL Normal 0.3-0.7 [facility] Comment on above: Order Comment: Check anti-Xa level every 6 hours while on heparin infusion, or per protocol. Result Comment: Seligman roxaban and Apixaban will interfere with the anti Xa assay used to monitor UFH and LMWH. Performed By: #### L [id number] #### [facility] ([facility]) [address] [place] [address] HEPARIN UNFRACTIONATED (U/ML) IN PPP BY CHROMOGENIC METHOD 0.43 IU/mL Normal 0.3-0.7 [facility] Comment on above: Order Comment: Check anti-Xa level every 6 hours while on heparin infusion, or per protocol. Result Comment: Elizabeth roxaban and Apixaban will interfere with the anti Xa assay used to monitor UFH and LMWH. Performed By: #### L [id number] #### [facility] ([facility]) [address] [place] [address] HEPARIN UNFRACTIONATED (U/ML) IN PPP BY CHROMOGENIC METHOD 0.33 IU/mL Normal 0.3-0.7 [facility] Comment on above: Order Comment: Check anti-Xa level every 6 hours while on heparin infusion, or per protocol. Result Comment: Elizabeth roxaban and Apixaban will interfere with the anti Xa assay used to monitor UFH and LMWH. Performed By: #### L [id number] #### [facility] ([facility]) [address] [place] [address] HPon 11-10-2022 HP H&P reviewed. The patient was examined and there are no changes to the H&P. Will proceed with coronary angiogram for NSTEMI. Normal [facility] TROPONIN Ion 11-10-2022 Troponin I.cardiac [Mass/Vol] 0.10 ng/mL High 0.00-0.04 [facility] Comment on above: Performed By: #### L [id number] #### [facility] ([facility]) [address] [place] [address] 30on 11-09-2022 30 The patient is Moderately Stable - Low risk of patient condition declining or worsening The patient's goals for the shift include comfort The clinical goals for the shift include vss Normal [facility] 30 The patient is Moderately Stable - [...] and maintained or improved Outcome: Progressing Normal [facility] APTTon 11-09-2022 ACTIVATED PARTIAL THROMBOPLASTIN TIME IN PPP BY COAGULATION ASSAY 33.8 Seconds Normal 25.0-35.0 [facility] Comment on above: Order Comment: Basel ine aPTT before initiating heparin infusion. Result Comment: Clin ical significance of the APTT is questionable in the presence of heparin. Performed By: #### L [id number] #### [facility] ([facility]) [address] [place] [address] B-TYPE NATRIURETIC PEPTIDEon 11-09-2022 Natriuretic peptide B (Bld) [Mass/Vol] 14 pg/mL Normal 0-100 [facility] Comment on above: Performed By: #### L [id number] #### [facility] ([facility]) [address] [place] [address] CBC WITH AUTO DIFFERENTIALon 11-09-2022 Basophils (Bld) [#/Vol] 0.06 10*3/uL Normal 0.00-0.20 [facility] Comment on above: Performed By: #### L [id number] #### [facility] ([facility]) [address] [place] [address] Basophils/100 WBC (Bld) 0.9 % Normal 0.0-1.0 [facility] Comment on above: Performed By: #### L [id number] #### [facility] ([facility]) [address] [place] [address] Eosinophils (Bld) [#/Vol] 0.21 10*3/uL Normal 0.00-0.50 [facility] Comment on above: Performed By: #### L [id number] #### [facility] ([facility]) [address] [place] [address] Eosinophils/100 WBC (Bld) 3.2 % Normal 0.0-6.0 [facility] Comment on above: Performed By: #### L [id number] #### [facility] ([facility]) [address] [place] [address] Erythrocyte distribution width (RBC) [Ratio] 12.5 % Normal 11.5-15.0 [facility] Comment on above: Performed By: #### L [id number] #### [facility] ([facility]) [address] [place] [address] ERYTHROCYTE MEAN CORPUSCULAR HEMOGLOBIN CONCENTRATION (G/DL) BY AUTOMATED 34.3 g/dL Normal 32.0-35.0 [facility] Comment on above: Performed By: #### L [id number] #### [facility] ([facility]) [address] [place] [address] Hematocrit (Bld) [Volume fraction] 47.5 % Normal 39.0-55.0 [facility] Comment on above: Performed By: #### L [id number] #### [facility] ([facility]) [address] [place] [address] Hemoglobin (Bld) [Mass/Vol] 16.3 g/dL Normal 13.0-17.0 [facility] Comment on above: Performed By: #### L [id number] #### [facility] ([facility]) [address] [place] [address] Immature granulocytes (Bld) [#/Vol] 0.01 10*3/uL Normal 0.00-0.20 [facility] Comment on above: Performed By: #### L [id number] #### [facility] ([facility]) [address] [place] [address] Immature granulocytes/100 WBC (Bld) 0.2 % Normal 0.0-1.0 [facility] Comment on above: Performed By: #### L [id number] #### [facility] [address] [place] [address] Lymphocytes (Bld) [#/Vol] 2.58 10*3/uL Normal 1.20-4.00 [facility] Comment on above: Performed By: #### L [id number] #### [facility] ([facility]) [address] [place] [address] Lymphocytes/100 WBC (Bld) 39.3 % Normal 20.0-45.0 [facility] Comment on above: Performed By: #### L [id number] #### [facility] ([facility]) [address] [place] [address] MCH (RBC) [Entitic mass] 30.7 pg Normal 27.0-33.0 [facility] Comment on above: Performed By: #### L [id number] #### [facility] ([facility]) [address] [place] [address] MCV (RBC) [Entitic vol] 89.5 fL Normal 82.0-98.0 [facility] Comment on above: Performed By: #### L [id number] #### [facility] ([facility]) [address] [place] [address] Monocytes (Bld) [#/Vol] 0.39 10*3/uL Normal 0.10-1.00 [facility] Comment on above: Performed By: #### L [id number] #### [facility] ([facility]) [address] [place] [address] Monocytes/100 WBC (Bld) 5.9 % Normal 5.0-12.0 [facility] Comment on above: Performed By: #### L [id number] #### [facility] ([facility]) [address] [place] [address] Neutrophils (Bld) [#/Vol] 3.31 10*3/uL Normal 1.60-7.60 [facility] Comment on above: Performed By: #### L [id number] #### [facility] ([facility]) [address] [place] [address] Neutrophils/100 WBC (Bld) 50.5 % Normal 40.0-72.0 [facility] Comment on above: Performed By: #### L [id number] #### [facility] [address] [place] [address] NRBC (PER 100 WBCS) BY AUTOMATED COUNT 0.0 % Normal 0 [facility] Comment on above: Performed By: #### L [id number] #### [facility] ([facility]) [address] [place] [address] PLATELETS (10*3/UL) IN BLOOD AUTOMATED COUNT 182 10*3/uL Normal 150-400 [facility] Comment on above: Performed By: #### L [id number] #### [facility] ([facility]) [address] [place] [address] RBC (Bld) [#/Vol] 5.31 10*6/uL Normal 4.20-5.70 [facility] Comment on above: Performed By: #### L [id number] #### [facility] ([facility]) [address] [place] [address] WBC (Bld) [#/Vol] 6.56 10*3/uL Normal 4.00-10.60 [facility] Comment on above: Performed By: #### L [id number] #### [facility] ([facility]) [address] [place] [address] COMPREHENSIVE METABOLIC PANE Vincent 11-09-2022 Albumin [Mass/Vol] 4.1 g/dL Normal 3.5-5.7 [facility] Comment on above: Performed By: #### L [id number] #### [facility] ([facility]) [address] [place] [address] ALP [Catalytic activity/Vol] 104 U/L Normal 34-104 [facility] Comment on above: Performed By: #### L [id number] #### [facility] ([facility]) [address] [place] [address] ALT [Catalytic activity/Vol] 35 U/L Normal 7-52 [facility] Comment on above: Performed By: #### L [id number] #### [facility] ([facility]) [address] [place] [address] Anion gap [Moles/Vol] 13 mmol/L Normal 7-20 [facility] Comment on above: Performed By: #### L [id number] #### [facility] ([facility]) [address] [place] [address] Performed By: #### L [id number] #### [facility] ([facility]) [address] [place] [address] AST [Catalytic activity/Vol] 39 U/L Normal 13-39 [facility] Comment on above: Performed By: #### L [id number] #### [facility] ([facility]) [address] [place] [address] Bilirubin [Mass/Vol] 0.6 mg/dL Normal 0.3-1.0 [facility] Comment on above: Performed By: #### L [id number] #### [facility] ([facility]) [address] [place] [address] Calcium [Mass/Vol] 9.3 mg/dL Normal 8.6-10.3 [facility] Comment on above: Performed By: #### L [id number] #### [facility] ([facility]) [address] [place] [address] Performed By: #### L [id number] #### [facility] ([facility]) [address] [place] [address] Chloride [Moles/Vol] 104 mmol/L Normal 98-107 [facility] Comment on above: Performed By: #### L [id number] #### [facility] ([facility]) [address] [place] [address] Performed By: #### L [id number] #### [facility] ([facility]) [address] [place] [address] CO2 [Moles/Vol] 24 mmol/L Normal 21-31 [facility] Comment on above: Performed By: #### L [id number] #### [facility] ([facility]) [address] [place] [address] Performed By: #### L [id number] #### [facility] ([facility]) [address] [place] [address] Creatinine [Mass/Vol] 0.68 mg/dL Low 0.70-1.30 [facility] Comment on above: Performed By: #### L [id number] #### [facility] ([facility]) [address] [address] Performed By: #### L [id number] #### [facility] ([facility]) [address] [place] [address] GLOMERULAR FILTRATION RATE ML/MIN/1.73 SQ M.PREDICTED 105.8 mL/min/1.73m*2 Normal >60.0 [facility] Comment on above: Result Comment: The [facility]???s estimated glomerular filtration rate (eGFR) will no [...] individuals. Performed By: #### L [id number] #### [facility] ([facility]) [address] [place] [address] Performed By: #### L [id number] #### [facility] ([facility]) [address] [place] [address] Glucose [Mass/Vol] 130 mg/dL High 70-100 [facility] Comment on above: Performed By: #### L [id number] #### [facility] ([facility]) [address] [place] [address] Performed By: #### L [id number] #### [facility] ([facility]) [address] [place] [address] Potassium [Moles/Vol] 3.8 mmol/L Normal 3.5-5.1 [facility] Comment on above: Performed By: #### L [id number] #### [facility] ([facility]) [address] [place] [address] Performed By: #### L [id number] #### [facility] ([facility]) [address] [place] [address] Protein [Mass/Vol] 6.2 g/dL Normal 6.0-8.3 [facility] Comment on above: Performed By: #### L [id number] #### [facility] ([facility]) [address] [place] [address] Sodium [Moles/Vol] 137 mmol/L Normal 136-145 [facility] Comment on above: Performed By: #### L [id number] #### [facility] ([facility]) [address] [place] [address] Performed By: #### L [id number] #### [facility] ([facility]) [address] [place] [address] Urea nitrogen [Mass/Vol] 13 mg/dL Normal 7-25 [facility] Comment on above: Performed By: #### L [id number] #### [facility] ([facility]) [address] [place] [id number] Performed By: #### L [id number] #### [facility] ([facility]) [address] [place] [address] UREA NITROGEN/CREATININ E (MASS RATIO) IN SER/PLAS 19.1 Normal [facility] Comment on above: Performed By: #### L [id number] #### [facility] ([facility]) [address] [place] [address] Performed By: #### L [id number] #### [facility] ([facility]) [address] [place] [address] MAGNESIUMon 11-09-2022 Magnesium [Mass/Vol] 1.6 mg/dL Low 1.9-2.7 [facility] Comment on above: Performed By: #### L [id number] #### [facility] ([facility]) [address] [place] [address] PROTIME-INRon 11-09-2022 INR IN PPP BY COAGULATION ASSAY 0.95 Normal 0.90-1.10 [facility] Comment on above: Result Comment: ACCC P [...] 1995;[id number]. Performed By: #### L [id number] #### [facility] ([facility]) [address] [place] [address] PROTHROMBIN TIME (PT) IN PPP BY COAGULATION ASSAY 12.7 Seconds Normal 12.3-14.8 [facility] Comment on above: Performed By: #### L [id number] #### [facility] ([facility]) [address] [place] [address] TROPONIN Ion 11-09-2022 Troponin I.cardiac [Mass/Vol] 0.19 ng/mL Critically high 0.00-0.04 [facility] Comment on above: Result Comment: M-TR OPONIN INITIAL CRITICAL HIGH; RESPUN AND RETESTED Performed By: #### L [id number] #### [facility] [address] [place] [address] US SINGLE QUAD RT UPPERon US SINGLE [...] by: MINNIE COY Date: 2022-02-21 17:41 Normal [facility] CTA ABD/PELVIS WO W CONon CTA ABD/PELVIS [...] ALVARADO CLARK Date: 2022-01-26 07:57 Normal [facility] CBC AUTO DIFFon 01-24-2022 BASO # 0.0 103/ul Normal 0.0-0.1 [facility] Comment on above: Performed By: #### C BC #### [facility] [address] [place] [address] Dr. Pee Lomax Basophils/100 WBC (Bld) 0.5 % Normal 0.2-2.0 [facility] Comment on above: Performed By: #### C BC #### [facility] [address] [address] [address] Pee Lomax EO # 0.2 103/ul Normal 0.0-0.7 [facility] Comment on above: Performed By: #### C BC #### [facility] [address] [address] [address] Pee Lomax Eosinophils/100 WBC (Bld) 2.2 % Normal 0.9-7.0 [facility] Comment on above: Performed By: #### C BC #### [facility] [address] [address] [address] Pee Lomax Erythrocyte distribution width (RBC) [Ratio] 11.9 % Normal 11.0-15.0 [facility] Comment on above: Performed By: #### C BC #### [facility] [address] [place] [address] Dr. Pee Lomax Hematocrit (Bld) [Volume fraction] 48.4 % Normal 42.0-54.0 [facility] Comment on above: Performed By: #### C BC #### [facility] [address] [place] [address] Dr. Pee Lomax Hemoglobin (Bld) [Mass/Vol] 16.7 g/dL Normal 14.0-18.0 [facility] Comment on above: Performed By: #### C BC #### [facility] [address] [place] [address] Dr. Pee Lomax IG # 0.01 10e3/ul Normal 0.00-0.03 [facility] Comment on above: Performed By: #### C BC #### [facility] [address] [place] [address] Dr. Pee Lomax IG % 0.1 % Normal 0.0-0.5 [facility] Comment on above: Performed By: #### C BC #### [facility] [address] [place] [address] Dr. Pee Lomax LYMPH # 2.7 103/ul Normal 1.2-3.8 [facility] Comment on above: Performed By: #### C BC #### [facility] [address] [place] [address] Dr. Pee Lomax Lymphocytes/100 WBC (Bld) 36.1 % Normal 20.5-60.0 [facility] Comment on above: Performed By: #### C BC #### [facility] [address] [place] [address] Dr. Pee Lomax MANUAL DIFF REQ NO Normal [facility] Comment on above: Performed By: #### C BC #### [facility] [address] [place] [address] Dr. Pee Lomax MCH (RBC) [Entitic mass] 31.5 pg Normal 25.9-34.0 [facility] Comment on above: Performed By: #### C BC #### [facility] [address] [address] [address] Pee Lomax MCHC (RBC) [Mass/Vol] 34.5 g/dL Normal 29.9-35.2 [facility] Comment on above: Performed By: #### C BC #### [facility] [address] [address] [address] Pee Lomax MCV (RBC) [Entitic vol] 91.3 fL Normal 80.0-94.0 [facility] Comment on above: Performed By: #### C BC #### [facility] [address] [place] [address] Dr. Pee Lomax MONO # 0.4 103/ul Normal 0.3-0.8 [facility] Comment on above: Performed By: #### C BC #### [facility] [address] [place] [address] Dr. Pee Lomax Monocytes/100 WBC (Bld) 5.6 % Normal 1.7-12.0 [facility] Comment on above: Performed By: #### C BC #### [facility] [address] [place] [address] Dr. Pee Lomax NEUT # 4.1 103/ul Normal 1.4-6.5 [facility] Comment on above: Performed By: #### C BC #### [facility] [address] [place] [address] Dr. Pee Lomax Neutrophils/100 WBC (Bld) 55.5 % Normal 43.0-75.0 [facility] Comment on above: Performed By: #### C BC #### [facility] [address] [place] [address] Dr. Pee Lomax Platelet mean volume (Bld) [Entitic vol] 9.3 fL Critically low 9.5-13.5 [facility] Comment on above: Performed By: #### C BC #### [facility] [address] [place] [address] Dr. Pee Lomax PLT 206 103/ul Normal 150-450 [facility] Comment on above: Performed By: #### C BC #### [facility] [address] [address] [address] Pee Lomax RBC 5.30 106/ul Normal 4.70-6.10 [facility] Comment on above: Performed By: #### C BC #### [facility] [address] [address] [address] Pee Lomax WBC 7.4 103/ul Normal 4.0-11.0 [facility] Comment on above: Performed By: #### C BC #### [facility] [address] [address] [address] Pee Lomax LIPID PROFILEon 01-24-2022 CHOL-HDL RATIO NORM SEE BELOW Normal [facility] Comment on above: Result Comment: 3.3 - 4.4 LOW RISK 4.4 - 7.1 AVERAGE RISK 7.1 - 11.0 MODERATE RISK >11.0 HIGH RISK Performed By: #### L IPID #### [facility] [address] [place] [address] Dr. Pee Lomax Cholesterol [Mass/Vol] 93 mg/dL Normal <=200 [facility] Comment on above: Performed By: #### L IPID #### [facility] [address] [place] [address] Dr. Pee Lomax Cholesterol in HDL [Mass/Vol] 34 mg/dL Critically low 40-60 [facility] Comment on above: Performed By: #### L IPID #### [facility] [address] [address] [address] Pee Lomax Cholesterol in LDL [Mass/Vol] 33.4 mg/dL Normal [facility] Comment on above: Performed By: #### L IPID #### [facility] [address] [place] [address] Dr. Pee Lomax Cholesterol.total/ Cholesterol in HDL [Mass ratio] 2.7 {ratio} Normal [facility] Comment on above: Performed By: #### L IPID #### [facility] [address] [place] [address] Dr. Pee Lomax HDL NORMAL > or = 60 mg/dl - LO W CARDIOVASCULAR RISK <40 mg/dl - HIGH CARDIOVASCULAR RISK Normal [facility] Comment on above: Performed By: #### L IPID #### [facility] [address] [place] [address] Dr. Pee Loamx LDL CALC NORMAL SEE BELOW Normal [facility] Comment on above: Result Comment: <100 mg/dl OPTIMAL 100 - 129 mg/dl NEAR OR ABOVE OPTIMAL 130 - 159 mg/dl BORDERLINE HIGH 160 - 189 mg/dl HIGH >190 mg/dl VERY HIGH Performed By: #### L IPID #### [facility] [address] [address] [address] Pee Lomax Triglyceride [Mass/Vol] 128 mg/dL Normal <=150 [facility] Comment on above: Performed By: #### L IPID #### [facility] [address] [place] [address] Dr. Pee Lomax VLDL CALC 25.6 mg/dL Normal [facility] Comment on above: Performed By: #### L IPID #### [facility] [address] [place] [address] Dr. Pee Lomax PROF 14(COMP METB)on 022 Albumin [Mass/Vol] 3.4 g/dL Normal 3.4-5.0 [facility] Comment on above: Performed By: #### C MP #### [facility] [address] [place] [address] Dr. Pee Lomax Albumin/Globulin [Mass ratio] 1.0 {ratio} Normal [facility] Comment on above: Performed By: #### C MP #### [facility] [address] [place] [address] Dr. Pee Lomax ALP [Catalytic activity/Vol] 115 U/L Normal 46-116 [facility] Comment on above: Performed By: #### C MP #### [facility] [address] [place] [address] Dr. Pee Lomax ALT [Catalytic activity/Vol] 21 U/L Normal 16-63 [facility] Comment on above: Performed By: #### C MP #### [facility] [address] [address] [address] Pee Lomax Anion gap [Moles/Vol] 7.6 mmol/L Normal [facility] Comment on above: Performed By: #### C MP #### [facility] [address] [place] [address] Dr. Pee Lomax AST [Catalytic activity/Vol] 23 U/L Normal 15-37 [facility] Comment on above: Performed By: #### C MP #### [facility] [address] [address] [address] Pee Lomax Bilirubin [Mass/Vol] 0.4 mg/dL Normal 0.2-1.0 [facility] Comment on above: Performed By: #### C MP #### [facility] [address] [place] [address] Dr. Pee Lomax Calcium [Mass/Vol] 8.7 mg/dL Normal 8.5-10.1 [facility] Comment on above: Performed By: #### C MP #### [facility] [address] [place] [address] Dr. Pee Lomax Chloride [Moles/Vol] 106 mmol/L Normal 98-107 [facility] Comment on above: Performed By: #### C MP #### [facility] [address] [place] [address] Dr. Pee Lomax CO2 [Moles/Vol] 29.5 mmol/L Normal 21.0-32.0 [facility] Comment on above: Performed By: #### C MP #### [facility] [address] [address] [address] Pee Lomax Creatinine [Mass/Vol] 0.84 mg/dL Normal 0.70-1.30 [facility] Comment on above: Performed By: #### C MP #### [facility] [address] [place] [address] Dr. Pee Lomax EGFR-AF HAITIAN >60 Normal >=60 [facility] Comment on above: Performed By: #### C MP #### [facility] [address] [place] [address] Dr. Pee Lomax EGFR-NON AF HAITIAN >60 Normal >=60 [facility] Comment on above: Performed By: #### C MP #### [facility] [address] [address] [address] Pee Lomax Globulin (S) [Mass/Vol] 3.4 g/dL Normal [facility] Comment on above: Performed By: #### C MP #### [facility] [address] [address] [address] Pee Lomax Glucose [Mass/Vol] 112 mg/dL Critically high 74-106 [facility] Comment on above: Performed By: #### C MP #### [facility] [address] [address] [address] Pee Lomax Potassium [Moles/Vol] 4.1 mmol/L Normal 3.5-5.1 [facility] Comment on above: Performed By: #### C MP #### [facility] [address] [address] [address] Pee Lomax Protein [Mass/Vol] 6.8 g/dL Normal 6.4-8.2 [facility] Comment on above: Performed By: #### C MP #### [facility] [address] [address] [address] Pee Lomax Sodium [Moles/Vol] 139 mmol/L Normal 136-145 [facility] Comment on above: Performed By: #### C MP #### [facility] [address] [address] [address] Pee Lomax Urea nitrogen [Mass/Vol] 8.0 mg/dL Normal 7.0-18.0 [facility] Comment on above: Performed By: #### C MP #### [facility] [address] [address] [address] Pee Lomax Urea nitrogen/Creatinin e [Mass ratio] 9.5 mg/mg Normal [facility] Comment on above: Performed By: #### C MP #### [facility] [address] [address] [address] Pee Lomax US ABD AORTA SCREENINGon [...] by: ALVARADO CLARK Date: 2022-01-05 07:33 Normal [facility] MRI HAND LT WO CONon 022 MRI [...] joint seen on the edge of the gfriy-or-taig for this study. A small to moderate [...] muscle edema is identified. IMPRESSION: 1. A rejeu-vw-wwkjtecm amount of fluid tracks along the extensor [...] SELWYN UPTON Date: 2021-08-13 12:04 Normal [facility] XR FOREIGN BODY EYEon 2021 XR FOREIGN BODY EYE EXAMINATION: XR FOREIGN BODY EYE HISTORY: Foreign body in eye COMPARISON: No relevant comparison available. FINDINGS: ORBITS: Negative for a metallic foreign body. OTHER: Negative. IMPRESSION: 1. No metallic foreign body within the orbits. Electronically authenticated by: ALVARADO CLARK Date: 2021-08-12 10:41 Normal [facility] Encounters Encounter Date Encounter Type Care Provider Facility Start: 03-29-2023 End: 03-29-2023 ambulatory [facility] Start: 11-26-2022 End: 11-26-2022 ambulatory [facility] Start: 11-10-2022 Evaluation and management of inpatient [facility] Start: 11-10-2022 Evaluation and management of inpatient GRACIELA [facility] Start: 11-10-2022 Evaluation and management of inpatient AMALIA M [facility] Start: 11-09-2022 [facility] Start: 11-09-2022 End: 11-11-2022 Evaluation and management of inpatient SHAHRZAD NUNEZ [facility] Start: 02-21-2022 End: 02-22-[address] SHAHRZAD NUNEZ Facility:[facility] Start: 01-24-2022 End: 01-25-[address] TAYLOR BONDS Facility:[facility] Start: 01-03-2022 End: 01-04-2022 ambulatory LIZZIE JONES Facility:[facility] Start: 08-12-2021 End: 08-13-[address] SHAHRZAD NUNEZ Facility:[facility] Start: 08-04-2021 End: 08-05-[address] SHAHRZAD NUNEZ Facility:[facility] Start: 07-14-2021 End: 07-15-[address] SHAHRZAD NUNEZ Facility:[facility] Payers Date Payer Category Payer Unknown [id number] 2.16.84 [id number] 1960 Unknown [id number] 2.16.84 [id number] 1960 Unknown [id number] 2.16.84 [id number] 1960 Unknown [id number] 2.16.84 [id number] 1960 Unknown [id number] 2.16.84 [id number] 1960 Unknown [id number] 2.16.84 [id number] 1960 Unknown [id number] 2.16.84 [id number] 1959 Private Health Insurance [id number] Clinical Notes 07-14-2021 to 03-29-2023 Note Date & Type Note Facility 03-29-2023 Note [facility] Cardiology Clinic Note Chief Complaint: Patient here [...] prevention CAD s/ (more content not included)... [facility] 11-26-2022 Note [facility] Cardiology Clinic Note Chief Complaint: Patient here for follow up [facility] for NSTEMI and PCI. He is [...] Admission Diagnosis: NSTEMI (non-ST elevated myocardial infarction) ([facility]) [I21.4] Cardiology ROS: Review of Systems All [...] NSTEMI 2) Aspi (more content not included)... [facility] 11-11-2022 Note ------ Attestation signed by Zack [...] objection to discharge. Katelynn Parrish Resident IM [facility] 11-11-2022 Note Hospital Medicine Discharge Summary [...] hyperlipidemia, hypertension and BPH presented to to [facility] as a transfer from [facility] for NSTEMI. Patient reports that last night he was working in the garage and developed precordial chest pain that would not go away. He denies any diaphoresis or increased shortness of breath. He came to ER for evaluation and was found to have significantly elevated troponins that were trending up. Cardiology service at [facility] was reached out and they wanted patient to be transferred here for cardiac catheterization. Patient denies any chest pain or shortness of breath right now. Troponin returned .1 upon admission. He was maintained on heparin infusion. He was taking for [facility] on 11[facility]10 which revealed the following: Final [...] Medications These medications were sent to [facility] [address] [place] [address] [address] [facility] [place] [address], [facility] [address] aspirin 81 mg EC tablet clopidogrel 75 [...] 190 182 I (more content not included)... [facility] 11-10-2022 Note Interventional Cardi ology Coronary angiogram [...] Refer to cardiac rehab Leonardo Mares MD [place] Cardiology [facility] 11-10-[address] [facility] Cardiothoracic Surgery Consultation Reason for consultation: Proximal RCA aneurysm History of Present Illness: Jocelynn Auguste is a 61 y.o. male with PMH of CAD s/p RCA SARY stenting in 2010, AGAPITO on CPAP, HLD, HTN, BPH, TIA and PSH of appendectomy, sigmoidectomy with primary anastomosis who presented as a transfer from [facility] for NSTEMI. Pt reports that he was working in his garage and developed dull chest pain which went away, but returned the next day. Pt denies increased SOB, but does report diaphoresis. Pt presented to ER for evaluation and was found to have elevated troponin. Pt was transferred to [facility] for cardiac catheretization. Intra-procedure, pt was [...] on file S (more content not included)... [facility] 11-10-2022 Note Patient: Jocelynn Auguste Procedure Information Date/Time: 11/10/22 1212 Procedure: Coronary angiography Location: [facility] PEDIATRIC NEUROPSYCHOLOGIST 3 / [facility] (Cath) Providers: Leonardo Mares MD Clinical information reviewed: Tobacco Allergies Problems Med Hx Surg Hx Fam Hx Physical Exam Airway Mallampati: III Cardiovascular Rhythm: regular Rate: normal Dental Pulmonary Abdominal Anesthesia Plan ASA 3 other (Conscious sedation.) Additional Equipment Requests [facility] 11-10-2022 Note Hospital Medicine Daily Progress Note - 11/10/2022 8:18 AM; Room: [address] [place] [address] Admission: 11/09/2022 5:47 PM; Length of stay: 1 days THE HOSPITALIST TEAM PREFERS TO USE [employer] CHAT FOR COMMUNICATION 7AM-7PM. IF I DO NOT RESPOND WITHIN 15 MINUTES, PLEASE PAGE ME/CALL THROUGH THE HUMAN FACTORS ERGONOMIST. FROM 7PM-7AM, PLEASE PAGE [phone](COVR) Code Status: Full Code Discharge Destination: home [...] Principal Problem: NSTEMI (non-ST elevated myocardial infarction) ([facility]) Active Problems: Coronary atherosclerosis Assessment and Plan [...] for: PREALBUMIN, TSH, T3FREE, FREET4, CORTISOL, FEV1, GOR3MCE, DLCO, RVSP, HDL, LDL No results found for: [id number], IRON, TIBC, C3, C4, BENSON, CANCA, ASO, [...] Discharge Planning Di (more content not included)... [facility] 11-09-2022 Note Hospital Medicine History and Physical 11/09/2022 7:33 PM THE HOSPITALIST TEAM PREFERS TO USE [employer] CH[employer] FOR COMMUNICATION 7AM-7PM. IF I DO NOT RESPOND WITHIN 15 MINUTES, PLEASE PAGE ME/CALL THROUGH THE HUMAN FACTORS ERGONOMIST. FROM 7PM-7AM, PLEASE PAGE [phone](COVR) Chief Complaint No chief complaint on file. History of Present Illness Jocelynn Auguste is an 61 y.o. male who came from home with past medical history of CAD, s/p stent in 2010, AGAPITO, on CPAP, hyperlipidemia, hypertension and BPH presented to to [facility] as a transfer from [facility] for NSTEMI. Patient reports that last night he was working in the garage and developed precordial chest pain that would not go away. He denies any diaphoresis or increased shortness of breath. He came to ER for evaluation and was found to have significantly elevated troponins that were trending up. Cardiology service at [facility] was reached out and they wanted [...] Date Noted NSTEMI (non-ST elevated myocardial infarction) ([facility]) 11/09/2022 Abdominal aortic aneurysm (AAA) 3.0 cm to 5.5 cm in diameter in male ([facility]) 2021 PVD (peripheral vascular disease) ([facility]) 2021 Stented coronary artery 11/05/2021 HTN (hypertension) [...] this hospital stay by a member of [facility] Medicine. Past Medical History Past Medical History: [...] on file Other (more content not included)... [facility] 08-05-2021 Note PROCEDURE: XR HAND L T MIN 3V COMPARISON: 07/14/2021 HISTORY: Pain of left hand FINDINGS: BONES:No fracture, acute abnormality, or significant arthropathy. SOFT TISSUES:Negative. No visible soft tissue swelling. EFFUSION:None visible. OTHER: Negative. IMPRESSION: No acute radiographic abnormality Electronically authenticated by: ANMOL KHAN Date: 2021-08-05 07:20 [facility] 07-14-2021 Note PROCEDURE: XR HAND L T [...] authenticated by: ANMOL KHAN Date: 2021-07-14 20:54 [facility] Summary Purpose Family History No Family History Records FoundNo Family History Records Found Advance Directives No Advanced Directives Records FoundNo Advanced Directives Records Found Additional Source Comments (unrecognized sect ion and content) No Status Records FoundNo Status Records Found INFORMATION SOURCE (unrecogn ized section and content) DATE CREATED AUTHOR 02/21/2022 [facility] DATE CREATED AUTHOR AUTHOR'S ORGANIZ ATION 04/07/2023 [facility] FOR RECORDS PERTAINING TO PATIENTS WHO ARE [...] BE BASED ON THE PRIMARY CLINICAL RECORDS. [employer] provides no warranty or guarantee of the accuracy or [phone] information in [phone] [id number]
[2023-04-24 10:33] LABS: Basophils Absolute Auto 0.1 10^3/uL (0.0-0.1); Basophils Percent Auto 0.7 % (0.2-2.0); Eosinophils Absolute Auto 0.2 10^3/uL (0.0-0.7); Eosinophils Percent Auto 2.8 % (0.9-7.0); Hematocrit 49.8 % (42.0-54.0); Hemoglobin 16.2 g/dL (14.0-18.0); Immature Granulocytes Abs Auto 0.01 10^3/uL (0.00-0.03); Immature Granulocytes Pct Auto 0.1 % (0.0-0.5); Lymphocytes Absolute Auto 2.7 10^3/uL (1.2-3.8); Lymphocytes Percent Auto 37.6 % (20.5-60.0); Mean Corpuscular HGB Conc 32.5 g/dL (29.9-35.2); Mean Corpuscular Hemoglobin 29.7 pg (25.9-34.0); Mean Corpuscular Volume 91.2 fL (80.0-94.0); Mean Platelet Volume 9.2 fL (9.5-13.5); Monocytes Absolute Auto 0.5 10^3/uL (0.3-0.8); Monocytes Percent Auto 6.3 % (1.7-12.0); Neutrophils Absolute Auto 3.8 10^3/uL (1.4-6.5); Neutrophils Percent Auto 52.5 % (43.0-75.0); Platelet Count 217 10^3/uL (150-450); Red Blood Count 5.46 10^6/uL (4.70-6.10); White Blood Count 7.2 10^3/uL (4.0-11.0)
[2023-04-24 10:46] LABS: Estimated Average Glucose 126 mg/dL
[2023-04-24 13:33] LABS: Alanine Aminotransferase 27 U/L (16-63); Albumin Level 3.4 g/dL (3.4-5.0); Alkaline Phosphatase 104 U/L (46-116); Anion Gap 10.5; Aspartate Amino Transferase 26 U/L (15-37); BUN Creatinine Ratio 10.6; Bilirubin Total 0.3 mg/dL (0.2-1.0); Calcium 8.7 mg/dL (8.5-10.1); Carbon Dioxide 28.9 mmol/L (21.0-32.0); Chloride 106 mmol/L (98-107); Chol HDL Ratio 2.9; Cholesterol 97 mg/dL (<=200); Estimated GFR (African America >60 (>=60); Estimated GFR (Non-African Ame >60 (>=60); Free T3 1.69 pg/mL (2.18-3.98); Globulin 3.3 g/dL; Glucose 96 mg/dL (74-106); HDL Cholesterol 33 mg/dL (40-60); Potassium 4.4 mmol/L (3.5-5.1); Sodium 141 mmol/L (136-145); Thyroid Stimulating Hormone 0.847 uIU/mL (0.358-3.740); Total Protein 6.7 g/dL (6.4-8.2); Triglycerides 115 mg/dL (<=150)
== END 2023-04-24 10:24 | disposition home or self-care (01) ==
LOC: LAB 10:23
PROVIDERS: PCP Family Medicine; Visit Provider Family Medicine
DX: Z00.00 Encounter for general adult medical examination without abnormal findings (principal)
CPT/HCPCS: 36415; 80053; 80061; 83036; 84436; 84443; 84481; 85025

== ENCOUNTER 2023-05-04 17:16 | Outpatient (OUT) | payer OTHER, SELFPAY ==
--- OUTSIDE RECORDS SUMMARY | 2023-05-04 17:21 | XMS_ITS | CCD ---
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 Name Role Phone SANJUANITA, DR MARKHAM Admitting Unavailable SANJUANITA, DR MARKHAM Attending Unavailable SANJUANITA, DR MARKHAM Primary Care Unavailable SANJUANITA, DR MARKHAM Consulting Unavailable AMBER, DR ALVARADO Kee Consulting Unavailable SELWYN UPT[place] Consulting Unavailable LIZZIE JONES Admitting Unavailable LIZZIE JONES Attending Unavailable SANJUANITA, DR MARKHAM Primary Care Unavailable ZIWHIT, DR ALVARADO Kee Consulting Unavailable LIZZIE JONES Consulting Unavailable SANJUANITA, DR MARKHAM Admitting Unavailable SANJUANITA, DR MARKHAM Attending Unavailable SANJUANITA, DR MARKHAM Primary Care Unavailable ELTASHREYAS, DR GORDON Admitting Unavailable ELTASHREYAS, DR GORDON Attending Unavailable SANJUANITA, DR MARKHAM Primary Care Unavailable SANJUANITA, DR MARKHAM Consulting Unavailable ELTASHREYAS, DR GORDON Consulting Unavailable AMBER, DR ALVARADO Kee Consulting Unavailable SANJUANITA, DR [...] Unavailable BILL, DR ANMOL Barron Consulting Unavailable TAYLOR BONDS Attending Unavailable AMALIA JONES Referring Unavailabl AMALIA Khoury Referring Unavailabl e GRACIELA ROBB Referring Unavailable GRACIELA ROBB Referring Unavailable SHAHRZAD NUNEZ Referring Unavailable MARY BOSWELL Admitting Unavailable GRACIELA ROBB Attending Unavailable TAYLOR [...] Test Name Value Interpretation Reference Range Facility 36on 04-28-2023 36 Regarding stress darren t from 04/20/2023: MD Darline Christina MA Please let the patient know that his stress test showed no ischemia. His ejection fraction is normal. 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 Thank you Patient informed. I told him I'd give results to [facility]. Normal [facility] Office Visiton 03-29-2023 Follow-up visit [id number] Jocelynn Auguste 1960 M Date Provider Department Center 03/29/2023 [facility] Leidy Llamas Family History Problem Relation Age of Onset Coronary artery disease Mother Other Mother Hypertension Mother Coronary artery disease Sister Other Sister Hypertension Sister Family Status - Relation Status Age at Mother Sister Level of Service:00698 NE OFFICE/OUTPATIENT ESTABLISHED MOD MDM 30 MIN Normal [facility] Office Visiton 11-26-2022 Follow-up visit [id number] Jocelynn Auguste 1960 M Date Provider Department Center 11/26/2022 [facility] Leidy Hos Family History Problem Relation Age of Onset Coronary artery disease Mother Other Mother Hypertension Mother Coronary artery disease Sister Other Sister Hypertension Sister Family Status - Relation Status Age at Mother Sister Level of Service:48281 NE OFFICE/OUTPATIENT ESTABLISHED MOD MDM 30-39 MIN Normal [facility] 30on 11-11-2022 30 The patient is Moderately Stable - Low risk of patient condition declining or worsening The patient's goals for the shift include comfort The clinical goals for the shift include vss Normal [facility] ANTI-XA (HEPARIN LEVEL)on HEPARIN UNFRACTIONATED (U/ML) IN PPP BY CHROMOGENIC METHOD <0.10 Invalid Interpretation Code 0.3-0.7 [facility] Comment on above: Order Comment: Check anti-Xa level every 6 hours while on heparin infusion, or per protocol. Result Comment: [place] roxaban and Apixaban will interfere with the anti Xa assay used to monitor UFH and LMWH. Performed By: #### L [id number] #### [facility] ([facility]) [address] [place] [address] HEPARIN UNFRACTIONATED (U/ML) IN PPP BY CHROMOGENIC METHOD <0.10 Invalid Interpretation Code 0.3-0.7 [facility] Comment on above: Order Comment: Check anti-Xa level every 6 hours while on heparin infusion, or per protocol. Result Comment: [place] roxaban and Apixaban will interfere with the anti Xa assay used to monitor UFH and LMWH. Performed By: #### L [id number] #### [facility] ([facility]) [address] [place] [address] BASIC METABOLIC PANELon 10-0 Anion gap [Moles/Vol] 10 mmol/L Normal 7-20 [facility] Comment on above: Performed By: #### L [id number] #### [facility] ([facility] [address] [place] [address] Calcium [Mass/Vol] 8.8 mg/dL Normal 8.6-10.3 [facility] Comment on above: Performed By: #### L [id number] #### [facility] ([facility]) [address] [place] [address] Chloride [Moles/Vol] 105 mmol/L Normal 98-107 [facility] Comment on above: Performed By: #### L [id number] #### [facility] ([facility]) [address] [place] [address] CO2 [Moles/Vol] 26 mmol/L Normal 21-31 [facility] Comment on above: Performed By: #### L [id number] #### [facility] ([facility]) [address] [place] [address] Creatinine [Mass/Vol] 0.75 mg/dL Normal 0.70-1.30 [facility] Comment on above: Performed By: #### L [id number] #### [facility] ([facility]) [address] [place] [address] GLOMERULAR FILTRATION RATE ML/MIN/1.73 SQ M.PREDICTED 102.7 mL/min/1.73m*2 Normal >60.0 [facility] Comment on above: Result Comment: [facility]???s estimated glomerular filtration rate (eGFR) will no [...] group of individuals. Performed By: #### L [id number] #### [facility] ([facility]) [address] [place] [address] Glucose [Mass/Vol] 171 mg/dL High 70-100 [facility] Comment on above: Performed By: #### L [id number] #### [facility] ([facility]) [address] [place] [address] Potassium [Moles/Vol] 3.7 mmol/L Normal 3.5-5.1 [facility] Comment on above: Performed By: #### L [id number] #### [facility] ([facility]) [address] [place] [address] Sodium [Moles/Vol] 137 mmol/L Normal 136-145 [facility] Comment on above: Performed By: #### L [id number] #### [facility] ([facility]) [address] [place] [address] Urea nitrogen [Mass/Vol] 11 mg/dL Normal 7-25 [facility] Comment on above: Performed By: #### L [id number] #### [facility] ([facility]) [address] [place] [address] UREA NITROGEN/CREATININ E (MASS RATIO) IN SER/PLAS 14.7 Normal [facility] Comment on above: Performed By: #### L [id number] #### [facility] ([facility]) [address] [place] [address] LIPID PANELon 11-11-2022 CHOL/HDL 5.0 mg/dL Normal [facility] Comment on above: Performed By: #### L [id number] #### [facility] ([facility]) [address] [place] [address] Cholesterol [Mass/Vol] 131 mg/dL Normal 120-200 [facility] Comment on above: Performed By: #### L [id number] #### [facility] ([facility]) [address] [place] [address] CHOLESTEROL IN LDL (MG/DL) IN SERUM OR PLASMA BY CALCULATION [facility] Comment on above: Result Comment: Calc ulated LDL invalid, triglycerides >400 mg/dl Performed By: #### L [id number] #### [facility] ([facility]) [address] [place] [address] Magnesium [Mass/Vol] 853 mg/dL High 40-149 [facility] Comment on above: Result Comment: TRIG LYCERIDE REFERENCE RANGE: 20 YEARS AND OLDER CARDIOVASCULAR RISK LESS THAN 150 mg/dL LOW RISK 150 TO 199 mg/dL BORDERLINE RISK 200 mg/dL AND GREATER HIGH RISK Performed By: #### L [id number] #### [facility] ([facility] [address] [place] [address] Magnesium [Mass/Vol] 26 mg/dL Normal 23-92 [facility] Comment on above: Performed By: #### L [id number] #### [facility] ([facility]) [address] [place] [address] NON HDL CHOL. (LDL+VLDL) 105 Normal [facility] Comment on above: Performed By: #### L [id number] #### [facility] ([facility] [address] [place] [address] TOTAL VLDL-C 171 mg/dL High 0-40 [facility] Comment on above: Performed By: #### L [id number] #### [facility] ([facility]) [address] [place] [address] Letter (Out)on 11-11-2022 Letter (Out) [id number] Jocelynn Auguste 1960 M Date Provider Department Center 11/11/2022 [id number], GENERIC PRO*INIT None Family History Problem Relation Age of Onset Coronary artery disease Mother Other Mother Hypertension Mother Coronary artery disease Sister Other Sister Hypertension Sister Family Status - Relation Status Age at Mother Sister Normal [facility] MAGNESIUMon 11-11-2022 Magnesium [Mass/Vol] 1.7 mg/dL Low 1.9-2.7 [facility] Comment on above: Performed By: #### L [id number] #### [facility] ([facility] [address] [place] [address] 30on 11-10-2022 30 The patient is Moderately Stable - Low risk of patient condition declining or worsening The patient's goals for the shift include comfort The clinical goals for the shift include vss Normal [facility] 30 The patient is Moderately Stable - [...] by Aníbal Lucas RN Outcome: Progressing Normal [facility] CBCon 11-10-2022 Erythrocyte distribution width (RBC) [Ratio] 12.6 % Normal 11.5-15.0 [facility] Comment on above: Performed By: #### L [id number] #### [facility] ([employer]) [address] [place] [address] ERYTHROCYTE MEAN CORPUSCULAR HEMOGLOBIN CONCENTRATION (G/DL) BY AUTOMATED 34.2 g/dL Normal 32.0-35.0 [facility] Comment on above: Performed By: #### L [id number] #### [facility] ([employer]) [address] [place] [address] Hematocrit (Bld) [Volume fraction] 46.5 % Normal 39.0-55.0 [facility] Comment on above: Performed By: #### L [id number] #### [facility] ([employer]) [address] [place] [address] Hemoglobin (Bld) [Mass/Vol] 15.9 g/dL Normal 13.0-17.0 [facility] Comment on above: Performed By: #### L [id number] #### [facility] ([facility]) [address] [place] [address] MCH (RBC) [Entitic mass] 31.2 pg Normal 27.0-33.0 [facility] Comment on above: Performed By: #### L [id number] #### [facility] ([facility]) [address] [place] [address] MCV (RBC) [Entitic vol] 91.2 fL Normal 82.0-98.0 [facility] Comment on above: Performed By: #### L [id number] #### [facility] ([facility]) [address] [place] [address] PLATELETS (10*3/UL) IN BLOOD AUTOMATED COUNT 190 10*3/uL Normal 150-400 [facility] Comment on above: Performed By: #### L [id number] #### [facility] ([facility]) [address] [place] [address] RBC (Bld) [#/Vol] 5.10 10*6/uL Normal 4.20-5.70 [facility] Comment on above: Performed By: #### L [id number] #### [facility] ([facility]) [address] [place] [address] WBC (Bld) [#/Vol] 7.15 10*3/uL Normal 4.00-10.60 [facility] Comment on above: Performed By: #### L [id number] #### [facility] ([facility]) [address] [place] [address] CONSULTon 11-10-2022 CONSULT --- Attestation signed by [...] is a 61 y.o. 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 Patient has Hx of CAD [...] AM, Amalia Jones MD, 81 mg at 11/10/22927 bisacodyl (Dulcolax) suppository 10 mg, 10 mg, [...] Daily, Amalia Jones MD, 40 mg at 11/10/22519 rosuvastatin (Crestor) tablet 40 mg, 40 mg, [...] Pulmonary e (more content not included)... Normal [facility] HEPARIN LEVELon 11-10-2022 HEPARIN UNFRACTIONATED (U/ML) IN PPP BY CHROMOGENIC METHOD 0.45 IU/mL Normal 0.3-0.7 [facility] Comment on above: Order Comment: Check anti-Xa level every 6 hours while on heparin infusion, or per protocol. Result Comment: [place] roxaban and Apixaban will interfere with the anti Xa assay used to monitor UFH and LMWH. Performed By: #### L [id number] #### [facility] ([facility]) [address] [place] [address] HEPARIN UNFRACTIONATED (U/ML) IN PPP BY CHROMOGENIC METHOD 0.43 IU/mL Normal 0.3-0.7 [facility] Comment on above: Order Comment: Check anti-Xa level every 6 hours while on heparin infusion, or per protocol. Result Comment: [place] roxaban and Apixaban will interfere with the anti Xa assay used to monitor UFH and LMWH. Performed By: #### L [id number] #### [facility] ([facility]) [address] [place] [address] HEPARIN UNFRACTIONATED (U/ML) IN PPP BY CHROMOGENIC METHOD 0.33 IU/mL Normal 0.3-0.7 [facility] Comment on above: Order Comment: Check anti-Xa level every 6 hours while on heparin infusion, or per protocol. Result Comment: [place] roxaban and Apixaban will interfere with the anti Xa assay used to monitor UFH and LMWH. Performed By: #### L [id number] #### [facility] ([facility]) [address] [place] [address] HPon 11-10-2022 HP H&P reviewed. The patient was examined and there are no changes to the H&P. Will proceed with coronary angiogram for NSTEMI. Normal [facility] TROPONIN Ion 11-10-2022 Troponin I.cardiac [Mass/Vol] 0.10 ng/mL High 0.00-0.04 [facility] Comment on above: Performed By: #### L [id number] #### [facility] ([facility]) [address] [place] [address] 30on 11-09-2022 30 The patient is Moderately Stable - Low risk of patient condition declining or worsening The patient's goals for the shift include comfort The clinical goals for the shift include vss Normal [facility] 30 The patient is Moderately Stable - [...] and maintained or improved Outcome: Progressing Normal [facility] APTTon 11-09-2022 ACTIVATED PARTIAL THROMBOPLASTIN TIME IN PPP BY COAGULATION ASSAY 33.8 Seconds Normal 25.0-35.0 [facility] Comment on above: Order Comment: Basel ine aPTT before initiating heparin infusion. Result Comment: Clin ical significance of the APTT is questionable in the presence of heparin. Performed By: #### L [id number] #### [facility] ([facility]) [address] [place] [address] B-TYPE NATRIURETIC PEPTIDEon 11-09-2022 Natriuretic peptide B (Bld) [Mass/Vol] 14 pg/mL Normal 0-100 [facility] Comment on above: Performed By: #### L [id number] #### [facility] ([facility]) [address] [place] [address] BASIC METABOLIC PANELon Anion gap [Moles/Vol] 13 mmol/L Normal 7-20 [facility] Comment on above: Performed By: #### L [id number] #### [facility] ([facility] [address] [facility] [address] Calcium [Mass/Vol] 9.3 mg/dL Normal 8.6-10.3 [facility] Comment on above: Performed By: #### L [id number] #### [facility] ([facility] [address] [place] [address] Chloride [Moles/Vol] 104 mmol/L Normal 98-107 [facility] Comment on above: Performed By: #### L [id number] #### [facility] ([facility]AKER) [address] [place] [address] CO2 [Moles/Vol] 24 mmol/L Normal 21-31 [facility] Comment on above: Performed By: #### L [id number] #### [facility] ([facility] [address] [place] [address] Creatinine [Mass/Vol] 0.68 mg/dL Low 0.70-1.30 [facility] Comment on above: Performed By: #### L [id number] #### [facility] ([facility]) [address] [place] [address] GLOMERULAR FILTRATION RATE ML/MIN/1.73 SQ M.PREDICTED 105.8 mL/min/1.73m*2 Normal >60.0 [facility] Comment on above: Result Comment: [facility]???s estimated glomerular filtration rate (eGFR) will no [...] group of individuals. Performed By: #### L [id number] #### [facility] ([facility]) [address] [place] [address] Glucose [Mass/Vol] 130 mg/dL High 70-100 [facility] Comment on above: Performed By: #### L [id number] #### [facility] ([facility]) [address] [place] [address] Potassium [Moles/Vol] 3.8 mmol/L Normal 3.5-5.1 [facility] Comment on above: Performed By: #### L [id number] #### [facility] ([facility]) [address] [place] [address] Sodium [Moles/Vol] 137 mmol/L Normal 136-145 [facility] Comment on above: Performed By: #### L [id number] #### [facility] ([facility]) [address] [place] [address] Urea nitrogen [Mass/Vol] 13 mg/dL Normal 7-25 [facility] Comment on above: Performed By: #### L [id number] #### [facility] ([facility]) [address] [place] [address] UREA NITROGEN/CREATININ E (MASS RATIO) IN SER/PLAS 19.1 Normal [facility] Comment on above: Performed By: #### L [id number] #### [facility] ([facility]) [address] [place] [address] CBC WITH AUTO DIFFERENTIALon 11-09-2022 Basophils (Bld) [#/Vol] 0.06 10*3/uL Normal 0.00-0.20 [facility] Comment on above: Performed By: #### L [id number] #### [facility] ([facility]) [address] [facility] [place] [address] Basophils/100 WBC (Bld) 0.9 % Normal 0.0-1.0 [facility] Comment on above: Performed By: #### L [id number] #### [facility] ([facility]) [address] [place] [address] Eosinophils (Bld) [#/Vol] 0.21 10*3/uL Normal 0.00-0.50 [facility] Comment on above: Performed By: #### L [id number] #### [facility] ([facility]) [address] [place] [address] Eosinophils/100 WBC (Bld) 3.2 % Normal 0.0-6.0 [facility] Comment on above: Performed By: #### L [id number] #### [facility] ([facility]) [address] [place] [address] Erythrocyte distribution width (RBC) [Ratio] 12.5 % Normal 11.5-15.0 [facility] Comment on above: Performed By: #### L [id number] #### [facility] ([facility]) [address] [place] [address] ERYTHROCYTE MEAN CORPUSCULAR HEMOGLOBIN CONCENTRATION (G/DL) BY AUTOMATED 34.3 g/dL Normal 32.0-35.0 [facility] Comment on above: Performed By: #### L [id number] #### [facility] ([facility]ER) [address] [place] [address] Hematocrit (Bld) [Volume fraction] 47.5 % Normal 39.0-55.0 [facility] Comment on above: Performed By: #### L [id number] #### [facility] ([facility]ER) [address] [place] [address] Hemoglobin (Bld) [Mass/Vol] 16.3 g/dL Normal 13.0-17.0 [facility] Comment on above: Performed By: #### L [id number] #### [facility] ([facility] [address] [place] [address] Immature granulocytes (Bld) [#/Vol] 0.01 10*3/uL Normal 0.00-0.20 [facility] Comment on above: Performed By: #### L [id number] #### [facility] ([facility]) [address] [facility] [place] [address] Immature granulocytes/100 WBC (Bld) 0.2 % Normal 0.0-1.0 [facility] Comment on above: Performed By: #### L [id number] #### [facility] ([facility]) [address] [place] [address] Lymphocytes (Bld) [#/Vol] 2.58 10*3/uL Normal 1.20-4.00 [facility] Comment on above: Performed By: #### L [id number] #### [facility] ([facility] [address] [place] [address] Lymphocytes/100 WBC (Bld) 39.3 % Normal 20.0-45.0 [facility] Comment on above: Performed By: #### L [id number] #### [facility] ([facility] [address] [place] [address] MCH (RBC) [Entitic mass] 30.7 pg Normal 27.0-33.0 [facility] Comment on above: Performed By: #### L [id number] #### [facility] ([facility]) [address] [place] [address] MCV (RBC) [Entitic vol] 89.5 fL Normal 82.0-98.0 [facility] Comment on above: Performed By: #### L [id number] #### [facility] ([facility]) [address] [place] [address] Monocytes (Bld) [#/Vol] 0.39 10*3/uL Normal 0.10-1.00 [facility] Comment on above: Performed By: #### L [id number] #### [facility] ([facility]) [address] [facility] [place] [address] Monocytes/100 WBC (Bld) 5.9 % Normal 5.0-12.0 [facility] Comment on above: Performed By: #### L [id number] #### [facility] ([facility]) [address] [place] [address] Neutrophils (Bld) [#/Vol] 3.31 10*3/uL Normal 1.60-7.60 [facility] Comment on above: Performed By: #### L [id number] #### [facility] ([facility]) [address] [place] [address] Neutrophils/100 WBC (Bld) 50.5 % Normal 40.0-72.0 [facility] Comment on above: Performed By: #### L [id number] #### [facility] ([facility]) [address] [place] [address] NRBC (PER 100 WBCS) BY AUTOMATED COUNT 0.0 % Normal 0 [facility] Comment on above: Performed By: #### L [id number] #### [facility] ([facility]) [address] [place] [address] PLATELETS (10*3/UL) IN BLOOD AUTOMATED COUNT 182 10*3/uL Normal 150-400 [facility] Comment on above: Performed By: #### L [id number] #### [facility] ([facility]) [address] [place] [address] RBC (Bld) [#/Vol] 5.31 10*6/uL Normal 4.20-5.70 [facility] Comment on above: Performed By: #### L [id number] #### [facility] ([facility]) [address] [place] [address] WBC (Bld) [#/Vol] 6.56 10*3/uL Normal 4.00-10.60 [facility] Comment on above: Performed By: #### L [id number] #### [facility] ([facility]) [address] [place] [address] COMPREHENSIVE METABOLIC PANE Vincent 11-09-2022 Albumin [Mass/Vol] 4.1 g/dL Normal 3.5-5.7 [facility] Comment on above: Performed By: #### L [id number] #### [facility] ([facility]) [address] [place] [address] ALP [Catalytic activity/Vol] 104 U/L Normal 34-104 [facility] Comment on above: Performed By: #### L [id number] #### [facility] ([facility]) [address] [place] [address] ALT [Catalytic activity/Vol] 35 U/L Normal 7-52 [facility] Comment on above: Performed By: #### L [id number] #### [facility] ([facility]) [address] [place] [address] AST [Catalytic activity/Vol] 39 U/L Normal 13-39 [facility] Comment on above: Performed By: #### L [id number] #### [facility] ([facility]) [address] [place] [address] Bilirubin [Mass/Vol] 0.6 mg/dL Normal 0.3-1.0 [facility] Comment on above: Performed By: #### L [id number] #### [facility] ([facility]) [address] [place] [address] Protein [Mass/Vol] 6.2 g/dL Normal 6.0-8.3 [facility] Comment on above: Performed By: #### L [id number] #### [facility] ([employer]) [address] [place] [address] MAGNESIUMon 11-09-2022 Magnesium [Mass/Vol] 1.6 mg/dL Low 1.9-2.7 [facility] Comment on above: Performed By: #### L [id number] #### [facility] ([facility] [address] [place] [address] PROTIME-INRon 11-09-2022 INR IN PPP BY COAGULATION ASSAY 0.95 Normal 0.90-1.10 [facility] Comment on above: Result Comment: ACCC P [...] 1995;[id number]. Performed By: #### L [id number] #### [facility] ([employer]) [address] [place] [address] PROTHROMBIN TIME (PT) IN PPP BY COAGULATION ASSAY 12.7 Seconds Normal 12.3-14.8 [facility] Comment on above: Performed By: #### L [id number] #### [facility] ([employer]) [address] [place] [address] TROPONIN Ion 11-09-2022 Troponin I.cardiac [Mass/Vol] 0.19 ng/mL Critically high 0.00-0.04 [facility] Comment on above: Result Comment: ANNALEE BAKER INITIAL CRITICAL HIGH; RESPUN AND RETESTED Performed By: #### L [id number] #### [facility] ([facility]) [address] [place] [address] US SINGLE QUAD RT UPPERon US SINGLE [...] by: MINNIE COY Date: 2022-02-21 17:41 Normal [facility] CTA ABD/PELVIS WO W CONon CTA [...] ALVARADO CLARK Date: 2022-01-26 07:57 Normal [facility] CBC AUTO DIFFon 01-24-2022 BASO # 0.0 103/ul Normal 0.0-0.1 [facility] Comment on above: Performed By: #### C BC #### [facility] [address] [address] [address] Pee Lomax Basophils/100 WBC (Bld) 0.5 % Normal 0.2-2.0 [facility] Comment on above: Performed By: #### C BC #### [facility] [address] [place] [address] Dr. Pee Lomax EO # 0.2 103/ul Normal 0.0-0.7 [facility] Comment on above: Performed By: #### C BC #### [facility] [address] [place] [address] Dr. Pee Lomax Eosinophils/100 WBC (Bld) 2.2 % Normal 0.9-7.0 [facility] Comment on above: Performed By: #### C BC #### [facility] [address] [place] [address] Dr. Pee Lomax Erythrocyte distribution width (RBC) [Ratio] 11.9 % Normal 11.0-15.0 [facility] Comment on above: Performed By: #### C BC #### [facility] [address] [place] [address] Dr. Pee Lomax Hematocrit (Bld) [Volume fraction] 48.4 % Normal 42.0-54.0 [facility] Comment on above: Performed By: #### C BC #### [facility] [address] [place] [address] Dr. Pee Lomax Hemoglobin (Bld) [Mass/Vol] 16.7 g/dL Normal 14.0-18.0 [facility] Comment on above: Performed By: #### C BC #### [facility] [address] [place] [address] Dr. Pee Lomax IG # 0.01 10e3/ul Normal 0.00-0.03 [facility] Comment on above: Performed By: #### C BC #### [facility] [address] [place] [address] Dr. Pee Lomax IG % 0.1 % Normal 0.0-0.5 [facility] Comment on above: Performed By: #### C BC #### [facility] [address] [place] [address] Dr. Pee Lomax LYMPH # 2.7 103/ul Normal 1.2-3.8 [facility] Comment on above: Performed By: #### C BC #### [facility] [address] [address] [address] Pee Lomax Lymphocytes/100 WBC (Bld) 36.1 % Normal 20.5-60.0 [facility] Comment on above: Performed By: #### C BC #### [facility] [address] [address] [address] Pee Lomax MANUAL DIFF REQ NO Normal [facility] Comment on above: Performed By: #### C BC #### [facility] [address] [place] [address] Dr. Pee Lomax MCH (RBC) [Entitic mass] 31.5 pg Normal 25.9-34.0 [facility] Comment on above: Performed By: #### C BC #### [facility] [address] [place] [address] Dr. Pee Lomax MCHC (RBC) [Mass/Vol] 34.5 g/dL Normal 29.9-35.2 [facility] Comment on above: Performed By: #### C BC #### [facility] [address] [place] [address] Dr. Pee Lomax MCV (RBC) [Entitic vol] 91.3 fL Normal 80.0-94.0 [facility] Comment on above: Performed By: #### C BC #### [facility] [address] [place] [address] Dr. Pee Lomax MONO # 0.4 103/ul Normal 0.3-0.8 [facility] Comment on above: Performed By: #### C BC #### [facility] [address] [place] [address] Dr. Pee Lomax Monocytes/100 WBC (Bld) 5.6 % Normal 1.7-12.0 [facility] Comment on above: Performed By: #### C BC #### [facility] [address] [place] [address] Dr. Pee Lomax NEUT # 4.1 103/ul Normal 1.4-6.5 [facility] Comment on above: Performed By: #### C BC #### [facility] [address] [place] [address] Dr. Pee Lomax Neutrophils/100 WBC (Bld) 55.5 % Normal 43.0-75.0 [facility] Comment on above: Performed By: #### C BC #### [facility] [address] [place] [address] Dr. Pee Lomax Platelet mean volume (Bld) [Entitic vol] 9.3 fL Critically low 9.5-13.5 [facility] Comment on above: Performed By: #### C BC #### [facility] [address] [place] [address] Dr. Pee Lomax PLT 206 103/ul Normal 150-450 [facility] Comment on above: Performed By: #### C BC #### [facility] [address] [place] [address] Dr. Pee Lomax RBC 5.30 106/ul Normal 4.70-6.10 [facility] Comment on above: Performed By: #### C BC #### [facility] [address] [place] [address] Dr. Pee Lomax WBC 7.4 103/ul Normal 4.0-11.0 [facility] Comment on above: Performed By: #### C BC #### [facility] [address] [place] [address] Dr. Pee Lomax LIPID PROFILEon 01-24-2022 CHOL-HDL RATIO NORM SEE BELOW Normal [facility] Comment on above: Result Comment: 3.3 - 4.4 LOW RISK 4.4 - 7.1 AVERAGE RISK 7.1 - 11.0 MODERATE RISK >11.0 HIGH RISK Performed By: #### L IPID #### [facility] [address] [place] [address] Dr. Pee Lomax Cholesterol [Mass/Vol] 93 mg/dL Normal <=200 [facility] Comment on above: Performed By: #### L IPID #### [facility] [address] [place] [address] Dr. Pee Lomax Cholesterol in HDL [Mass/Vol] 34 mg/dL Critically low 40-60 [facility] Comment on above: Performed By: #### L IPID #### [facility] [address] [address] [address] Pee Lomax Cholesterol in LDL [Mass/Vol] 33.4 mg/dL Normal [facility] Comment on above: Performed By: #### L IPID #### [facility] [address] [address] [address] Pee Lomax Cholesterol.total/ Cholesterol in HDL [Mass ratio] 2.7 {ratio} Normal [facility] Comment on above: Performed By: #### L IPID #### [facility] [address] [address] [address] Pee Lomax HDL NORMAL > or = 60 mg/dl - LO W CARDIOVASCULAR RISK <40 mg/dl - HIGH CARDIOVASCULAR RISK Normal [facility] Comment on above: Performed By: #### L IPID #### [facility] [address] [place] [address] Dr. Pee Lomax LDL CALC NORMAL SEE BELOW Normal [facility] Comment on above: Result Comment: <100 mg/dl OPTIMAL 100 - 129 mg/dl NEAR OR ABOVE OPTIMAL 130 - 159 mg/dl BORDERLINE HIGH 160 - 189 mg/dl HIGH >190 mg/dl VERY HIGH Performed By: #### L IPID #### [facility] [address] [place] [address] Dr. Pee Lomax Triglyceride [Mass/Vol] 128 mg/dL Normal <=150 [facility] Comment on above: Performed By: #### L IPID #### [facility] [address] [place] [address] Dr. Pee Lomax VLDL CALC 25.6 mg/dL Normal [facility] Comment on above: Performed By: #### L IPID #### [facility] [address] [address] [address] Pee Lomax PROF 14(COMP METB)on 022 Albumin [Mass/Vol] 3.4 g/dL Normal 3.4-5.0 [facility] Comment on above: Performed By: #### C MP #### [facility] [address] [place] [address] Dr. Pee Lomax Albumin/Globulin [Mass ratio] 1.0 {ratio} Normal [facility] Comment on above: Performed By: #### C MP #### [facility] [address] [address] [address] Pee Lomax ALP [Catalytic activity/Vol] 115 U/L Normal 46-116 [facility] Comment on above: Performed By: #### C MP #### [facility] [address] [address] [address] Pee Lomax ALT [Catalytic activity/Vol] 21 U/L Normal 16-63 [facility] Comment on above: Performed By: #### C MP #### [facility] [address] [address] [address] Pee Lomax Anion gap [Moles/Vol] 7.6 mmol/L Normal [facility] Comment on above: Performed By: #### C MP #### [facility] [address] [place] [address] Dr. Pee Lomax AST [Catalytic activity/Vol] 23 U/L Normal 15-37 [facility] Comment on above: Performed By: #### C MP #### [facility] [address] [place] [address] Dr. Pee Lomax Bilirubin [Mass/Vol] 0.4 mg/dL Normal 0.2-1.0 [facility] Comment on above: Performed By: #### C MP #### [facility] [address] [address] [address] Pee Lomax Calcium [Mass/Vol] 8.7 mg/dL Normal 8.5-10.1 [facility] Comment on above: Performed By: #### C MP #### [facility] [address] [address] [address] Pee Lomax Chloride [Moles/Vol] 106 mmol/L Normal 98-107 [facility] Comment on above: Performed By: #### C MP #### [facility] [address] [address] [address] Pee Lomax CO2 [Moles/Vol] 29.5 mmol/L Normal 21.0-32.0 [facility] Comment on above: Performed By: #### C MP #### [facility] [address] [address] [address] Pee Lomax Creatinine [Mass/Vol] 0.84 mg/dL Normal 0.70-1.30 [facility] Comment on above: Performed By: #### C MP #### [facility] [address] [address] [address] Pee Lomax EGFR-AF JORDANIAN >60 Normal >=60 [facility] Comment on above: Performed By: #### C MP #### [facility] [address] [address] [address] Pee Lomax EGFR-NON AF JORDANIAN >60 Normal >=60 [facility] Comment on above: Performed By: #### C MP #### [facility] [address] [address] [address] Pee Lomax Globulin (S) [Mass/Vol] 3.4 g/dL Normal [facility] Comment on above: Performed By: #### C MP #### [facility] [address] [address] [address] Pee Lomax Glucose [Mass/Vol] 112 mg/dL Critically high 74-106 [facility] Comment on above: Performed By: #### C MP #### [facility] [address] [address] [address] Pee Lomax Potassium [Moles/Vol] 4.1 mmol/L Normal 3.5-5.1 [facility] Comment on above: Performed By: #### C MP #### [facility] [address] [address] [address] Pee Lomax Protein [Mass/Vol] 6.8 g/dL Normal 6.4-8.2 [facility] Comment on above: Performed By: #### C MP #### [facility] [address] [place] [address] Dr. Pee Lomax Sodium [Moles/Vol] 139 mmol/L Normal 136-145 [facility] Comment on above: Performed By: #### C MP #### [facility] [address] [address] [address] Pee Lomax Urea nitrogen [Mass/Vol] 8.0 mg/dL Normal 7.0-18.0 [facility] Comment on above: Performed By: #### C MP #### [facility] [address] [address] [address] Pee Lomax Urea nitrogen/Creatinin e [Mass ratio] 9.5 mg/mg Normal [facility] Comment on above: Performed By: #### C MP #### [facility] [address] [address] [address] Pee Lomax US ABD AORTA SCREENINGon [...] by: ALVARADO CLARK Date: 2022-01-05 07:33 Normal [facility] MRI HAND LT WO CONon 022 [...] joint seen on the edge of the [id number]-aw-mdmn for this study. A small to moderate [...] muscle edema is identified. IMPRESSION: 1. A auodp-ba-jvfumpqo amount of fluid tracks along the extensor [...] SELWYN UPTON Date: 2021-08-13 12:04 Normal [facility] XR FOREIGN BODY EYEon 2021 XR FOREIGN BODY EYE EXAMINATION: XR FOREIGN BODY EYE HISTORY: Foreign body in eye COMPARISON: No relevant comparison available. FINDINGS: ORBITS: Negative for a metallic foreign body. OTHER: Negative. IMPRESSION: 1. No metallic foreign body within the orbits. Electronically authenticated by: ALVARADO CLARK Date: 2021-08-12 10:41 Normal [facility] Encounters Encounter Date Encounter Type Care Provider Facility Start: 03-29-2023 End: 03-29-2023 ambulatory [facility] Start: 11-26-2022 End: 11-26-2022 ambulatory [facility] Start: 11-10-2022 Evaluation and management of inpatient [facility] Start: 11-10-2022 Evaluation and management of inpatient [facility] Start: 11-10-2022 Evaluation and management of inpatient AMALIA JONES [facility] Start: 11-09-2022 Evaluation and management of inpatient AMALIA Eduardo ROBERT [facility] Start: 11-09-2022 End: 11-11-2022 Evaluation and management of inpatient SHAHRZAD NUNEZ [facility] Start: 02-21-2022 End: 02-22-[address] SHAHRZAD NUNEZ Facility:[facility] Start: 01-24-2022 End: 01-25-[address] TAYLOR BONDS Facility:[facility] Start: 01-03-2022 End: 01-04-2022 ambulatory LIZZIE JONES Facility:[facility] Start: 08-12-2021 End: 08-13-[address] SHAHRZAD NUNEZ Facility:[facility] Start: 08-04-2021 End: 08-05-[address] SHAHRZAD NUNEZ Facility:[facility] Start: 07-14-2021 End: 07-15-[address] SHAHRZAD NUNEZ Facility:[facility] Payers Date Payer Category Payer Unknown [id number] 2.16.84 [id number] 1960 Unknown [id number] 2.16.84 [id number] 1960 Unknown [id number] 2.16.84 [id number] 1960 Unknown [id number] 2.16.84 [id number] 1960 Unknown [id number] 2.16.84 [id number] 1960 Unknown [id number] 2.16.84 [id number] 1960 Unknown [id number] 2.16.84 [id number] 1959 Private Health Insurance [id number] Clinical Notes 07-14-2021 to 03-29-2023 Note Date & Type Note Facility 03-29-2023 Note [facility] Note Chief Complaint: Patient [...] prevention CAD s/ (more content not included)... [facility] 11-26-2022 Note [facility] Note Chief Complaint: Patient here for follow up [facility] for NSTEMI and PCI. He [...] Admission Diagnosis: NSTEMI (non-ST elevated myocardial infarction) (CMS/[facility]) [I21.4] Cardiology ROS: Review [...] NSTEMI 2) Aspi (more content not included)... [facility] 11-11-2022 Note ------ Attestation signed by Zack [...] objection to discharge. 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 male who came from home with past medical history of CAD, s/p stent in 2010, AGAPITO, on CPAP, hyperlipidemia, hypertension and BPH presented to to [facility] as a transfer from [facility] for NSTEMI. Patient reports that last night he was working in the garage and developed precordial chest pain that would not go away. He denies any diaphoresis or increased shortness of breath. He came to ER for evaluation and was found to have significantly elevated troponins that were trending up. Cardiology service at [facility] was reached out and they wanted patient to be transferred here for cardiac catheterization. Patient denies any chest pain or shortness of breath right now. Troponin returned .1 upon admission. He was maintained on heparin infusion. He was taking for [facility] on 11/10 which revealed the following: [...] Medications These medications were sent to [facility] - [place], [place] - [address] [place] [address] [place] [address], [facility] [address] aspirin 81 mg EC tablet clopidogrel 75 [...] 190 182 I (more content not included)... [facility] 11-10-2022 Note Interventional Cardi ology Coronary angiogram [...] Refer to cardiac rehab Leonardo Mares MD [place] Cardiology [facility] 11-10-2022 Note [facility] Cardiothoracic Surgery Consultation Reason for consultation: Proximal RCA aneurysm History of Present Illness: Jocelynn Auguste is a 61 y.o. male with PMH of CAD s/p RCA SARY stenting in 2010, AGAPITO on CPAP, HLD, HTN, BPH, TIA and PSH of appendectomy, sigmoidectomy with primary anastomosis who presented as a transfer from [place] for NSTEMI. Pt reports that he was working in his garage and developed dull chest pain which went away, but returned the next day. Pt denies increased SOB, but does report diaphoresis. Pt presented to ER for evaluation and was found to have elevated troponin. Pt was transferred to [facility] for cardiac catheretization. Intra-procedure, pt [...] 150 mg, 150 mg, oral, Nightly, Amalia Alesha Jones MD, 150 mg at 11/09/222025 verapamil (Isoptin) injection, , , PRN, Leonardo [...] on file S (more content not included)... [facility] 11-10-2022 Note Patient: Jocelynn Auguste Procedure Information Date/Time: 11/10/22 1212 Procedure: Coronary angiography Location: [facility] MEAT TEAM MEMBER 3 / [facility] (Cath) Providers: Leonardo Mares MD Clinical information reviewed: Tobacco Allergies Problems Med Hx Surg Hx Fam Hx Physical Exam Airway Mallampati: III Cardiovascular Rhythm: regular Rate: normal Dental Pulmonary Abdominal Anesthesia Plan ASA 3 other (Conscious sedation.) Additional Equipment Requests [facility] 11-10-2022 Note Hospital Medicine Daily Progress Note - 11/10/2022 8:18 AM; Room: [address] [place] [address] Admission: 11/09/2022 5:47 PM; Length of stay: 1 days THE HOSPITALIST TEAM PREFERS TO USE [employer] CHAT FOR COMMUNICATION 7AM-7PM. IF I DO NOT RESPOND WITHIN 15 MINUTES, PLEASE PAGE ME/CALL THROUGH THE PRODUCTION GEAR CUTTER. FROM 7PM-7AM, PLEASE PAGE [phone](COVR) Code Status: Full Code Discharge Destination: home [...] Principal Problem: NSTEMI (non-ST elevated myocardial infarction) ([facility]) Active Problems: Coronary atherosclerosis [...] heparin, 0-28 Units/kg/hr, Last Rate: 15 Units/kg/hr (11/10/22511) sodium chloride, 75 mL/hr, Last Rate: 75 mL/hr (11/10/22511) Pertinent Investigations Hematology: Results from last 7 [...] for: PREALBUMIN, TSH, T3FREE, FREET4, CORTISOL, FEV1, GMD7CVJ, DLCO, RVSP, HDL, LDL No results found for: [id number], IRON, TIBC, C3, C4, BENSON, CANCA, ASO, [...] Discharge Planning Di (more content not included)... [facility] 11-09-2022 Note Hospital Medicine History and Physical 11/09/2022 7:33 PM THE HOSPITALIST TEAM PREFERS TO USE [employer] CH[employer] FOR COMMUNICATION 7AM-7PM. IF I DO NOT RESPOND WITHIN 15 MINUTES, PLEASE PAGE ME/CALL THROUGH THE PRODUCTION GEAR CUTTER. FROM 7PM-7AM, PLEASE PAGE [phone](COVR) Chief Complaint No chief complaint on file. History of Present Illness Jocelynn Auguste is an 61 y.o. male who came from home with past medical history of CAD, s/p stent in 2010, AGAPITO, on CPAP, hyperlipidemia, hypertension and BPH presented to to [facility] as a transfer from [facility] for NSTEMI. Patient reports that last night he was working in the garage and developed precordial chest pain that would not go away. He denies any diaphoresis or increased shortness of breath. He came to ER for evaluation and was found to have significantly elevated troponins that were trending up. Cardiology service at [facility] was reached out and they [...] Date Noted NSTEMI (non-ST elevated myocardial infarction) ([facility]) 11/09/2022 Abdominal aortic aneurysm (AAA) 3.0 cm to 5.5 cm in diameter in male ([facility]) 2021 PVD (peripheral vascular disease) ([facility]) 2021 Stented coronary artery [...] this hospital stay by a member of [facility]. Past Medical History Past Medical History: [...] on file Other (more content not included)... [facility] 08-05-2021 Note PROCEDURE: XR HAND L T MIN 3V COMPARISON: 07/14/2021 HISTORY: Pain of left hand FINDINGS: BONES:No fracture, acute abnormality, or significant arthropathy. SOFT TISSUES:Negative. No visible soft tissue swelling. EFFUSION:None visible. OTHER: Negative. IMPRESSION: No acute radiographic abnormality Electronically authenticated by: ANMOL KHAN Date: 2021-08-05 07:20 [facility] 07-14-2021 Note PROCEDURE: XR HAND L [...] authenticated by: ANMOL KHAN Date: 2021-07-14 20:54 [facility] Summary Purpose Family History No Family History Records FoundNo Family History Records Found Advance Directives No Advanced Directives Records FoundNo Advanced Directives Records Found Additional Source Comments (unrecognized sect ion and content) No Status Records FoundNo Status Records Found INFORMATION SOURCE (unrecogn ized section and content) DATE CREATED AUTHOR 02/21/2022 [facility] DATE CREATED AUTHOR RITESH KULKARNIIZ ATLEI 04/30/2023 [facility] FOR RECORDS PERTAINING TO PATIENTS WHO [...] BE BASED ON THE PRIMARY CLINICAL RECORDS. [email or web address]. provides no warranty or guarantee of the accuracy or completeness of information in this document.
--- NOTE | 2023-05-04 17:23 | XR_ITS ---
The [address] [address] Patient Name: JOCELYNN DANG MRN: [id number] date: 1960 Sex: M Assigned Patient Location: [facility] Current Patient Location: Accession/Order Number: [id number] Exam Date: 05/04/2023 17:28 Report Date: 05/05/2023 07:59 At the request of: SHAHRZAD NUNEZ Procedure: XR lumbar spine 2-3V EXAMINATION: XR lumbar spine 2-3V HISTORY: other specified dorsopathies lumbar region M53.86 ; lumbar pain; right leg radiculopathy COMPARISON: CT abdomen pelvis 12/19/2022 FINDINGS: BONES: Mild left convex curvature lumbar spine. No fracture or spondylolisthesis. Moderate degenerative facet arthropathy L4-5, L5-S1. DISC SPACES: Moderate narrowing L3-4, L4-5. Marked narrowing L5-S1. PARASPINOUS: Negative. No paraspinous abnormality is seen. OTHER: Negative. XR/XR lumbar spine 2-3V IMPRESSION: 1. Grossly stable multilevel degenerative changes, greatest at L5-S1. 2. No appreciable acute abnormality. Electronically authenticated by: ALVARADO CLARK Date: 05/05/2023 07:59
== END 2023-05-04 17:17 | disposition home or self-care (01) ==
LOC: RAD 17:18
PROVIDERS: PCP Family Medicine; Visit Provider Family Medicine
DX: M53.86 Other specified dorsopathies, lumbar region (principal); M51.36 Other intervertebral disc degeneration, lumbar region
CPT/HCPCS: 72100

== ENCOUNTER 2023-05-13 16:09 | Outpatient (RCR) | payer OTHER, SELFPAY | END 2023-06-26 16:33 | disposition home or self-care (01) | LOC: PT 16:09 | PROVIDERS: PCP Family Medicine; Visit Provider Family Medicine | DX: M51.36 Other intervertebral disc degeneration, lumbar region (principal); M54.50 Low back pain, unspecified; M25.551 Pain in right hip | CPT/HCPCS: 97010; 97014; 97035; 97110; 97140; 97161 ==

== ENCOUNTER 2023-05-17 08:24 | Outpatient (OUT) | payer OTHER, SELFPAY ==
--- NOTE | 2023-05-17 | MR_ITS ---
The [place] [id number] Patient Name: JOCELYNN DANG MRN: [id number] date: 1960 Sex: M Assigned Patient Location: MRI Current Patient Location: MRI Accession/Order Number: [id number] Exam Date: 05/17/2023 08:48 Report Date: 05/17/2023 10:00 At the request of: SHAHRZAD NUNEZ Procedure: MR lumbar spine wo con MR lumbar spine wo con, 05/17/2023 8:48 AM EDT INDICATION: M51.36, Other intervertebral disc degeneration, lumbar regio COMPARISON: Prior CT angiography of abdomen dated 12/20/2019 TECHNIQUE: Multiplanar, multisequential MRI images of lumbar spine were obtained without contrast. FINDINGS: For dictation purposes, the lowest complete disc space in the lumbar spine considered as L5-S1. There is normal physiologic lumbar lordosis. The vertebral height is preserved. The conus medullaris is at the level of L1. No signal abnormality within the visualized spinal cord is noted. No neural foraminal narrowing or canal stenoses at the level of T12-L1, L1-L2 and L2-L3 is noted. At the level of L3-4, there are disc bulge with superimposed right lateral and neuroforaminal disc protrusion with moderate to severe right and moderate left neuroforaminal narrowing and moderate canal stenosis. At the level of L4-5, there are grade 1 anterolisthesis uncovering disc with mild bilateral neuroforaminal narrowing and severe canal stenosis. At the level of L5-S1, there are mild retrolisthesis disc bulge with superimposed left lateral annular fissure and extrusion with inferior migration with mild bilateral neuroforaminal narrowing and no canal stenosis. The left S1 nerve root is in close contact with the disc bulge in the lateral recess. The paraspinal muscles are unremarkable. Incidental note of infrarenal abdominal aortic aneurysm measuring 3.5 x 2.8 cm. MR/MR lumbar spine wo con IMPRESSION: Moderate degenerative changes of lumbar spine in particular at L4-L5 and L5-S1. Infrarenal abdominal aortic aneurysm. Electronically authenticated by: TRINH BAGLEY Date: 05/17/2023 10:00
== END 2023-05-17 08:25 | disposition home or self-care (01) ==
LOC: MRI 08:24
PROVIDERS: PCP Family Medicine; Visit Provider Family Medicine
DX: M51.36 Other intervertebral disc degeneration, lumbar region (principal); I71.43 Infrarenal abdominal aortic aneurysm, without rupture
CPT/HCPCS: 72148

== ENCOUNTER 2024-04-14 13:51 | Outpatient (OUT) | payer OTHER, SELFPAY ==
--- NOTE | 2024-04-14 14:04 | CT_ITS ---
The [address] [address] Patient Name: JOCELYNN DANG MRN: [id number] date: 1960 Sex: M Assigned Patient Location: LAB Current Patient Location: Accession/Order Number: [id number] Exam Date: 04/15/2024 14:14 Report Date: 04/15/2024 14:24 At the request of: EVAN LARA MD Procedure: CT angio abdomen pelvis CT of the abdomen and pelvis TECHNIQUE: Axial imaging with 2-D reconstruction.100 cc of Omni 350. The CT exam was performed using one or more the following dose reduction techniques: Automated exposure control, adjustment of the MA and/or Kv according to patient size, or use of the iterative reconstruction technique. COMPARISON: 12/19/2022 History: Yearly follow-up assessment for abdominal aortic aneurysm LIMITATIONS: None LOWER THORAX Unremarkable LIVER: Hepatic steatosis GALLBLADDER: No gallbladder abnormality identified. BILE DUCTS: No dilatation SPLEEN: Unremarkable PANCREAS: Unremarkable ADRENAL GLANDS: Unremarkable KIDNEYS:Tiny right renal cyst unchanged. Mild left pelvocaliectasis unchanged. No obstruction. AORTA: Stable fusiform infrarenal abdominal aortic aneurysm measuring up to 3 cm. Intramural thrombus present. No dissection. No occlusion. No significant stenosis. Patent right renal artery. 2 renal arteries on the left present. Both are patent. Celiac artery patent. Superior mesenteric artery patent. Inferior mesenteric artery patent. Right common iliac artery measures up to 19 mm containing intramural thrombus, unchanged. Left common iliac artery patent. The internal and external iliac arteries are patent. RETROPERITONEUM: No significant retroperitoneal abnormalities identified. MESENTERY:Unremarkable SMALL BOWEL: The small bowel loops are nondistended. APPENDIX: The appendix is normal. COLON: Diverticulosis. Moderate stool. Partial distal colon resection changes. URINARY BLADDER: Urinary bladder is unremarkable. REPRODUCTIVE SYSTEM: Similar prostatomegaly. Coarse calcifications. PNEUMOPERITONEUM: None PERITONEAL FLUID:None BONY STRUCTURES: Degenerative change. ABDOMINAL WALL: Unremarkable CT/CT angio abdomen pelvis IMPRESSION: Stable fusiform infrarenal abdominal aortic aneurysm measuring up to 3 cm. This contains unchanged intramural thrombus. Unchanged 1.9 cm right common iliac artery ectasia and intraluminal thrombus. No new acute findings. Impression dictated by: Rojelio Garber M.D.04/15/2024 2:24 PM Dictation Location: [place] [address] Electronically authenticated by: [id number] Y Date: 04/15/2024 14:24
[2024-04-14 14:11] LABS: Estimated GFR (African America >60 (>=60 mL/min/1.73m^2); Estimated GFR (Non-African Ame >60 (>=60 mL/min/1.73m^2)
== END 2024-04-14 13:52 | disposition home or self-care (01) ==
LOC: LAB 13:52
PROVIDERS: PCP Family Medicine; Visit Provider Internal Medicine Interventional Cardiology
DX: Z01.812 Encounter for preprocedural laboratory examination (principal); I71.40 Abdominal aortic aneurysm, without rupture, unspecified
CPT/HCPCS: 36415; 74174; 82565; Q9967

== ENCOUNTER 2024-09-09 11:21 | Outpatient (OUT) | payer OTHER, SELFPAY ==
--- OUTSIDE RECORDS SUMMARY | 2024-07-06 03:51 | XMS_ITS ---
Author Organization The [facility] in [place] Address [address] [place] [address] Care Team Providers Care Sound Effects Manager Name Role Phone Chema Gann Primary Care Provider REASON FOR VISIT labs due Encounters Encounter Location Date Provider Diagnosis [facility] [address] [place] [address] 07/06/2024 Chema Gann Dyslipidemia E78.5 ; Hypothyroidism, unspecified E03.9 and CAD (coronary artery disease) I25.10 Assessments Encounter Date Diagnosis (ICD Code) Assessment Notes Treatment Notes Treatment Clinical Notes Section Notes 07/06/2024 Dyslipidemia (ICD-10 - E78.5) 07/06/2024 Hypothyroidism, unspecified (ICD-10 - E03.9) 07/06/2024 CAD (coronary artery disease) (ICD-10 - I25.10) Plan Of Treatment Pending Test Test Name Order Date COMPREHENSIVE METABOLIC PROFILE WITH GFR 07/06/2024 OCCULT BLOOD, FECAL, IMMUNOASSAY 025 CBC W/AUTO DIFF 07/06/2024 GLYCOHEMOGLOBIN A1C 07/06/2024 THYROID PANEL (T4/TSH/FREE T3) PSA, SCREENING 07/06/2024 Lipid Panel 07/06/2024 Progress Notes * Robbie DANGDOB:1960 ( 63 yo M)Acc No.[id number]:07/06/2024 Patient: Alf Robbie WILDER :1960 A ge:63 Y S ex:Male Address:[address] [place] [address], [place], [address] Subjective: * Chief Complaints: * L abs due * Medical History: * Surgical History: * Hospitalization/Major Diagno stic Procedure: * Medications: Objective: * Vitals: * Physical Examination: Assessment: * Assessment: 1. D yslipidemia - E78.5 (Primary) 2 . H ypothyroidism, unspecified - E03.9? 3. C AD (coronary artery disease) - I25.10 Plan: * Treatment: 2. H ypothyroidism, unspecified L AB: COMPREHENSIVE METABOLIC PROFILE WITH GFR L AB: OCCULT BLOOD, FECAL, IMMUNOASSAY L AB: CBC W/AUTO DIFF L AB: GLYCOHEMOGLOBIN A1C L AB: THYROID PANEL (T4/TSH/FREE T3) L AB: PSA, SCREENING L AB: Lipid Panel 3. C AD (coronary artery disease) L AB: COMPREHENSIVE METABOLIC PROFILE WITH GFR L AB: OCCULT BLOOD, FECAL, IMMUNOASSAY L AB: CBC W/AUTO DIFF L AB: GLYCOHEMOGLOBIN A1C L AB: THYROID PANEL (T4/TSH/FREE T3) L AB: PSA, SCREENING L AB: Lipid Panel * Procedure Codes: * true * Date: Generated for Guilherme france/Keturah/eTjanetsmitting on: 0 09/09/2024 11:23 AM EDT
--- OUTSIDE RECORDS SUMMARY | 2024-08-16 11:30 | XMS_ITS ---
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 DO NOT EXCEED A TOTAL OF 3 DOSES IN 15 MINUTES. Sublingual for 5 Days Active Pantoprazole Sodium 40 MG TAKE 1 TABLET BY MOUTH EVERY DAY for 90 PRN Active Ondansetron 4 MG 1 tablet on the tong ue and allow to dissolve Orally qid for 5 days 03/29/2024 Active Tamsulosin HCl 0.4 MG 1 capsule Orally O nce a day for 90 days Active Rosuvastatin Calcium 5 MG 1 tablet Orall y Once a day Active Levsin/SL 0.125 MG 1 tablet under the tongue and allow to dissolve as needed Sublingual AC and HS 04/14/2023 Active Ezetimibe 10 MG TAKE 1 TABLET BY LUCIO TH EVERY DAY for 90 days Active Metoprolol Succinate ER 50 MG TAKE 1 TABLET BY MOUTH EVERY DAY FOR 30 DAYS for 90 days Active Diclofenac Sodium 75 MG TAKE 1 TABLET BY MOUTH TWICE A DAY NEEDED for 30 Active Cytomel 5 MCG 2 tablet on an empty stomach Orally Once a day for 30 days 04/27/2023 Active Aspirin Adult Low Strength 81 MG TAKE ONE TABLET BY MOUTH EVERY MORNING Oral for 30 Days Active Clopidogrel Bisulfate 75 MG TAKE 1 TABLE T BY MOUTH EVERY DAY FOR 90 DAYS for 90 Active Venlafaxine HCl ER 150 MG TAKE 1 CAPSULE BY MOUTH EVERY DAY WITH FOOD FOR 30 DAYS for 90 days Active predniSONE 20 MG 3 tablets Orally Onc e a day for 5 days 04/06/2024 Active tiZANidine HCl 4 MG TAKE 2 TABLETS BY [facility] AT BEDTIME for 90 Active Social History Tobacco Use: Social History Observation Description Date Details (start date - stop date) Current Smoker NA - NA Tobacco Use/Smoking Question Answer Notes Patient is a current every day smoker AUDIT-C (Standard) Question Answer Notes Did you have a drink contain ing alcohol in the past year? Yes How often did you have a dri nk containing alcohol in the past year? Never (0 point) How many drinks did you have on a typical day when you were drinking in the past year? 1 or 2 drinks (0 point) How often did you have six o r more drinks on one occasion in the past year? 2 to 4 times a month (2 points) Points 2 Interpretation Negative Vital Signs Blood pressure systolic 122 mm Hg 08/17/19 25 Blood pressure diastolic 80 mm Hg 025 Height 69 in 08/16/2024 Weight 195 lbs 08/16/2024 BMI 28.79 kg/m2 08/16/2024 Encounters Encounter Location Date Provider Diagnosis [address] [address] 08/16/2024 Chema Gann Erythema nodosum L52 Assessments Encounter Date Diagnosis (ICD Code) Assessment Notes Treatment Notes Treatment Clinical Notes Section Notes 08/16/2024 Erythema nodosum (ICD-10 - L52) Plan Of Treatment Medication Medication Name Sig Start Date Stop Date Notes predniSONE 20 MG 3 tablets Orally Once a day for 5 days Progress Notes * Robbie DANGDOB:1960 ( 63 yo M)Acc No.[id number]:08/16/2024 Progress Note Patient: Robbie BLISS Provider: Cameron Gann ([facility])MD :1960 A ge:63 Y S ex:Male Date:08/16/2024 Address:[address] [place], [place] [id number] Check In:03:19 PM ESTCheck O ut:03:59 PM EST Subjective: * Chief Complaints: * L eg issue * HPI: G eneral: Legs - acting up - erythema - some caor - - prednisone helps it. * ROS: E ENT: hearing changes d enies. v isual changes d enies.?non-healing mouth sores d enies. s wollen glands or neck lumps d enies. h oarseness d enies. s ore throat d enies. d ifficulty swallowing d enies. n ose bleeds d enies. n kaity congestion d enies. e ar ache d enies. e ar discharge?denies. r inging in ears d enies. l ight sensitivity d enies. e ye pain d enies. b lurring d enies. e ye irritation d enies. d ouble vision d enies.?vision loss d enies. G eneral/Constitutional: Sweats: D enies. F atigue d enies. S leep problems d enies. A norexia d enies. M alaise d enies. W eight loss d enies.?Fatigue or Weakness d enies. F ever or Chills d enies. C ardiovascular: Shortness of Breath w/lying flat d enies. L ightheadedness/dizziness d enies. C hest tightness/ heavy pressure d enies. S welling of legs, ankles, or feet d enies. W aking up with shortness of breath d enies. C hest pain denies. P alpitations d enies. W eight gain d enies. R espiratory: Chronic or frequent cough d enies. C oughing up blood?denies. D ifficulty breathing d enies. P roductive cough d enies. S noring?denies. S hortness of breath that awakens from sleep (PND) d enies. C hest pain d enies. S putum production d enies. W heezing d enies. M usculoskeletal: Joint pain d enies. J oint Fluid d enies. B ack pain d enies. K nee pain d enies. N brandin pain d enies. J oint Stiffness d enies. M uscle cramps d enies. W eakness of muscles d enies. A rthritis d enies. M uscle aches d enies. P ain in shoulder(s) d enies. S wollen joints d enies. * Active Problem List G47.30 Sleep apnea Modified On:11/16/2022 Status:confirmed M17.9 Degenerative arthrit is of right knee Modified On:11/16/2022 Status:confirmed G54.0 Thoracic outlet synd levi Modified On:11/16/2022 Status:confirmed N52.9 Impotence Modified On:11/16/2022 Status:confirmed K57.90 Diverticular disease Modified On:11/16/2022 Status:confirmed M50.20 Herniated cervical d isc without myelopathy Modified On:11/16/2022 Status:confirmed M17.9 Degenerative joint d isease of left knee Modified On:11/16/2022 Status:confirmed E78.00 Hypercholesteremia Modified On:11/16/2022 Status:confirmed R07.9 Chest pain Modified On:11/26/2022 Status:confirmed F41.9 Anxiety Modified On:11/16/2022 Status:confirmed Z98.61 Coronary angioplasty status Modified On:11/16/2022 Status:confirmed I25.10 Coronary artery dise ase Modified On:04/20/2023 Status:confirmed I21.4 Non-ST elevation (NS DOM) myocardial infarction Modified On:11/16/2022 Status:confirmed I25.10 CAD (coronary artery disease) Modified On:11/20/2022 Status:confirmed Z98.61 History of PTCA Modified On:11/20/2022 Status:confirmed E78.5 Dyslipidemia Modified On:04/20/2023 Status:confirmed I71.40 Abdominal aortic ane urysm, without rupture, unspecified Modified On:11/30/2022 Status:confirmed K76.0 Fatty (change of) li meng, not elsewhere classified Modified On:04/20/2023/U Status:confirmed A08.4 Viral gastroenteriti s Modified On:04/14/2023U Status:confirmed M54.12 Cervical radiculopat hy Modified On:04/14/2023/U Status:confirmed E03.9 Hypothyroidism, unsp ecified Modified On:04/27/2023/U Status:confirmed M53.86 Low back derangement syndrome Modified On:05/03/2023/U Status:confirmed M51.36 Other intervertebral disc degeneration, lumbar region Modified On:05/05/2023/U Status:confirmed K52.9 Gastroenteritis Modified On:03/29/2024U Status:confirmed * Medical History: * Surgical History: L eft Heart Cath 11/10/2022Hernia repair sinus colon resection left rotator cuff, Dr. Barajas 06/30/17 * Hospitalization/Major Diagno stic Procedure: s ee above * Family History: F ather: , diagnosed with Unspecified heart disease. M other: , diagnosed with Unspecified essential hypertension, Unspecified heart disease. B riner(s): alive, cirrohsis of liver. S ister(s): alive, Brain Aneurysm. S on(s): alive, 1 son from Aneurysm.?Daughter(s): alive. 1 brother(s) , 3 sister(s) - healthy. 2 son(s) , 1 daughter(s) - healthy. . * Social History: T obacco Use: T obacco Use/Smoking P atient is a c urrent every day smoker D rug/Alcohol: A SHARMAINE-C (Standard) D id you have a drink containing alcohol in the past year? Y es H ow often did you have a drink containing alcohol in the past year? N ever (0 point) H ow many drinks did you have on a typical day when you were drinking in the past year? 1 or 2 drinks (0 point) H ow often did you have six or more drinks on one occasion in the past year? 2 to 4 times a month (2 points) P oints 2 I nterpretation N egative * Medications: T akingAspirin Adult Low Strength(Aspirin) 81 MG Tablet Delayed Release TAKE ONE TABLET BY MOUTH EVERY MORNING Oral Clopidogrel Bisulfate 75 MG Tablet TAKE 1 TABLET BY MOUTH EVERY DAY FOR 90 DAYS Cytomel(Liothyronine Sodium) 5 MCG Tablet 2 tablet on an empty stomach Orally Once a day Diclofenac Sodium 75 MG Tablet Delayed Release TAKE 1 TABLET BY MOUTH TWICE A DAY NEEDED Ezetimibe 10 MG Tablet TAKE 1 TABLET BY MOUTH EVERY DAY Levsin/SL(Hyoscyamine Sulfate) 0.125 MG Tablet Sublingual 1 tablet under the tongue and allow to dissolve as needed Sublingual AC and HS Metoprolol Succinate ER 50 MG Tablet Extended Release 24 Hour TAKE 1 TABLET BY MOUTH EVERY DAY FOR 30 DAYS Nitroglycerin 0.4 MG Tablet Sublingual DISSOLVE 1 TABLET UNDER THE TONGUE EVERY 5 MINUTES NEEDED FOR CHEST PAIN. DO NOT EXCEED A TOTAL OF 3 DOSES IN 15 MINUTES. Sublingual Ondansetron 4 MG Tablet Disintegrating 1 tablet on the tongue and allow to dissolve Orally qid Pantoprazole Sodium 40 MG Tablet Delayed Release TAKE 1 TABLET BY MOUTH EVERY DAY , Notes to Pharmacist: PRNpredniSONE 20 MG Tablet 3 tablets Orally Once a day Rosuvastatin Calcium 5 MG Tablet 1 tablet Orally Once a day Tamsulosin HCl 0.4 MG Capsule 1 capsule Orally Once a day tiZANidine HCl 4 MG Tablet TAKE 2 TABLETS BY MOUTH AT BEDTIME Venlafaxine HCl ER 150 MG Capsule Extended Release 24 Hour TAKE 1 CAPSULE BY MOUTH EVERY DAY WITH FOOD FOR 30 DAYS Taking Aspirin Adult Low Strength(Aspirin) 81 MG Tablet Delayed Release TAKE ONE TABLET BY MOUTH EVERY MORNING Oral Taking Clopidogrel Bisulfate 75 MG Tablet TAKE 1 TABLET BY MOUTH EVERY DAY FOR 90 DAYS Taking Cytomel(Liothyronine Sodium) 5 MCG Tablet 2 tablet on an empty stomach Orally Once a day Taking Diclofenac Sodium 75 MG Tablet Delayed Release TAKE 1 TABLET BY MOUTH TWICE A DAY NEEDED Taking Ezetimibe 10 MG Tablet TAKE 1 TABLET BY MOUTH EVERY DAY Taking Levsin/SL(Hyoscyamine Sulfate) 0.125 MG Tablet Sublingual 1 tablet under the tongue and allow to dissolve as needed Sublingual AC and HS Taking Metoprolol Succinate ER 50 MG Tablet Extended Release 24 Hour TAKE 1 TABLET BY MOUTH EVERY DAY FOR 30 DAYS Taking Nitroglycerin 0.4 MG Tablet Sublingual DISSOLVE 1 TABLET UNDER THE TONGUE EVERY 5 MINUTES NEEDED FOR CHEST PAIN. DO NOT EXCEED A TOTAL OF 3 DOSES IN 15 MINUTES. Sublingual Taking Ondansetron 4 MG Tablet Disintegrating 1 tablet on the tongue and allow to dissolve Orally qid Taking Pantoprazole Sodium 40 MG Tablet Delayed Release TAKE 1 TABLET BY MOUTH EVERY DAY , Notes to Pharmacist: PRNTaking predniSONE 20 MG Tablet 3 tablets Orally Once a day Taking Rosuvastatin Calcium 5 MG Tablet 1 tablet Orally Once a day Taking Tamsulosin HCl 0.4 MG Capsule 1 capsule Orally Once a day Taking tiZANidine HCl 4 MG Tablet TAKE 2 TABLETS BY MOUTH AT BEDTIME Taking Venlafaxine HCl ER 150 MG Capsule Extended Release 24 Hour TAKE 1 CAPSULE BY MOUTH EVERY DAY WITH FOOD FOR 30 DAYS DiscontinuedAmoxicillin-Pot Clavulanate 875-125 MG Tablet 1 tablet Orally every 12 hrs Azithromycin 250 MG Tablet Take 2 tablets Orally one day one; take 1 tablet daily for four days Medication List reviewed and reconciled with the patientDiscontinued Amoxicillin-Pot Clavulanate 875-125 MG Tablet 1 tablet Orally every 12 hrs Discontinued Azithromycin 250 MG Tablet Take 2 tablets Orally one day one; take 1 tablet daily for four days Medication List reviewed and reconciled with the patient * Allergies: N .K.D.A.no[Allergies Verified] Objective: * Vitals: W t:195lbs, Ht: 69 in, BP:122/80mm Hg, BMI:28.79Index, Ht-cm: 175.26 cm, Wt-k.45 kg. * Examination: P hysical Exam: GENERAL: w ell developed, well nourished, in no acute distress. HEAD: n ormocephalic/atraumatic. EYES: p upils equal, round and reactive to light, conjunctivae and sclerae normal. EARS: n o deformity or lesion of external ear, canals and TM appear normal bilaterally, TM's intact, not inflamed with normal light reflex, hearing grossly normal to conversational speech. NOSE: n o deformity, discharge, inflammation, or lesions.? MOUTH: m ucous membranes moist, normal oropharynx and posterior pharynx without lesions or exudates, tongue normal, dentition normal. NECK: n brandin supple, no masses or palpable cervical nodes, trachea midline, thyroid without nodules, masses, tenderness, or enlargement. CHEST: n o chest wall deformity, no chest wall tenderness.? LUNGS: n ormal respiratory effort and clear to auscultation, no wheezes, rales, or rhonchi, good air exchange. CARDIO: r egular rate and rhythm, normal S1 and S2, nor murmur, rub, or gallop. PULSES: n ormal capillary refill. ABDOMEN: s oft, non-distended, non-tender, no masses. MUSCULOSKELETAL: n o deformity or scoliosis noted, normal range of motion, joints normal, no erythema, edema, effusion, or ecchymosis. EXTREMITY: n o clubbing, cyanosis, edema, or deformity with normal ROM in both upper and lower bilateral extremities. NEUROLOGIC: g rossly normal. SKIN: n o rashes, ulcerations, or suspicious lesions. LYMPH NODES: n o cervical adenopathy, nodes normal. MENTAL STATUS: a lert and oriented x3, normal mood and affect. Assessment: * Assessment: 1. E rythema nodosum - L52 (Primary) Plan: * Treatment: * Procedure Codes: * Preventive Medicine: Screenings/Counseling: B CA ACTION PLAN Above Normal BMI Follow-up D ietary management education, guidance, and counseling * * Sign off status: Completed Visit Status: C HK (Check Out) true * Provider: Cameron Gann ([facility])MD Date: 0 08/16/2024 Generated for Printi edilma/Keturah/eTransmitting on: 0 09/09/2024 11:23 AM EDT History and Physical Notes * HPI (History of Present Illness) Category Sub-Category Detail Notes Category Not es General Legs - acting u p - erythema - some caor - - prednisone helps it Examination Category Sub-Category Detail Notes Category Not es Physical Exam GENERAL: well developed, well nourished, in no acute distress HEAD: normocephalic/atraum atic EYES: pupils equal, round and reactive to light, conjunctivae and sclerae normal EARS: no deformity or lesi on of external ear, canals and TM appear normal bilaterally, TM's intact, not inflamed with normal light reflex, hearing grossly normal to conversational speech NOSE: no deformity, discha rge, inflammation, or lesions MOUTH: mucous membranes zaria st, normal oropharynx and posterior pharynx without lesions or exudates, tongue normal, dentition normal NECK: neck supple, no mass es or palpable cervical nodes, trachea midline, thyroid without nodules, masses, tenderness, or enlargement CHEST: no chest wall deform ity, no chest wall tenderness LUNGS: normal respiratory e ffort and clear to auscultation, no wheezes, rales, or rhonchi, good air exchange CARDIO: regular rate and rhy thm, normal S1 and S2, nor murmur, rub, or gallop PULSES: normal capillary ref ill ABDOMEN: soft, non-distended, non-tender, no masses RECTAL: MUSCULOSKELETAL: no deformity or scol iosis noted, normal range of motion, joints normal, no erythema, edema, effusion, or ecchymosis EXTREMITY: no clubbing, cyanosi s, edema, or deformity with normal ROM in both upper and lower bilateral extremities NEUROLOGIC: grossly normal SKIN: no rashes, ulceratio ns, or suspicious lesions LYMPH NODES: no cervical adenopat hy, nodes normal MENTAL STATUS: alert and oriented x 3, normal mood and affect
--- OUTSIDE RECORDS SUMMARY | 2024-09-09 11:23 | XMS_ITS | Clinical Summary ---
Author Organization [facility] Address [address] 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
--- OUTSIDE RECORDS SUMMARY | 2024-09-09 11:23 | XMS_ITS | CCD ---
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 all extremities except if noted. Abdomen: Inspection and Palpation: non distended or tender and soft. Musculoskeletal: Inspection: no joint tenderness or swelling. Neurologic: Gait: normal gait. Psychiatric: Mental Status: alert and normal affect. Skin: Inspection and Palpation: warm and dry. Allergies: No Known Allergies Outpatient Medications: Current Outpatient Medications Medication Instructions aspirin 81 mg, oral, Daily RT clopidogrel (PLAVIX) 75 mg, oral, Daily Cytomel 5 mcg, oral, Daily diclofenac (VOLTAREN) 75 mg, oral, 2 times daily ezetimibe (Zetia) 10 mg tablet 1 tablet, oral, Daily hyoscyamine 0.125 mg SL tablet TAKE 1 TABLET UNDER THE TONGUE AND ALLOW TO DISSOLVE NEEDED EVERY 6 HOURS metoprolol succinate XL (TOPROL-XL) 50 mg, oral, Daily, Do not crush or chew. nitroglycerin (NITROSTAT) 0.4 mg, sublingual, Every 5 min PRN ondansetron ODT (ZOFRAN-ODT) 4 mg, oral, Every 8 hours PRN pantoprazole (PROTONIX) 40 mg, oral, Daily PRN, Do not crush, chew, or split. rosuvastatin (CRESTOR) 40 mg, oral, Daily tamsulosin (Flomax) 0.4 mg 24 hr capsule 1 tablet, oral, Daily tiZANidine (ZANAFLEX) 4 mg, oral, Every 6 hours PRN venlafaxine XR (Effoxor-XR) 150 mg 24 hr capsule 1 tablet, oral, Daily Recent Labs: No visits with results within 6 Month(s) from this visit. Latest known visit with results is: Admission on 11/09/2022, Discharged on 11/11/2022 Component Date Value Anti-Xa (Heparin) 11/09/2022 0.33 aPTT 11/09/2022 33.8 Troponin I 11/09/2022 0.19 (HH) Sodium 11/09/2022 137 Potassium 11/09/2022 3.8 Chloride 11/09/2022 104 CO2 11/09/2022 24 BUN 11/09/2022 13 Creatinine 11/09/2022 0 (more content not included)... [facility] Clinical Note 08-05-2021 Note Date & Type Note Facility 08-05-2021 Note PROCEDURE: XR HAND L T MIN 3V COMPARISON: 07/14/2021 HISTORY: Pain of left hand FINDINGS: BONES:No fracture, acute abnormality, or significant arthropathy. SOFT TISSUES:Negative. No visible soft tissue swelling. EFFUSION:None visible. OTHER: Negative. IMPRESSION: No acute radiographic abnormality Electronically authenticated by: ANMOL KHAN Date: 2021-08-05 07:20 [facility] Clinical Note 07-14-2021 Note Date & Type Note Facility 07-14-2021 Note PROCEDURE: XR HAND L T [...] authenticated by: ANMOL KHAN Date: 2021-07-14 20:54 [facility] Summary Purpose Family History No Family History Records FoundNo Family History Records FoundNo Family History Records Found Advance Directives No Advanced Directives Records FoundNo Advanced Directives Records FoundNo Advanced Directives Records Found Additional Source Comments (unrecognized sect ion and content) No Status Records FoundNo Status Records FoundNo Status Records Found INFORMATION SOURCE (unrecogn ized section and content) DATE CREATED AUTHOR 02/21/2022 [facility] DATE CREATED AUTHOR AUTHOR'S ORGANIZ ATION 05/20/2024 [facility] DATE CREATED AUTHOR AUTHOR'S ORGANIZ ATION 06/23/[address] [facility] FOR RECORDS PERTAINING TO PATIENTS WHO [...] BE BASED ON THE PRIMARY CLINICAL RECORDS. [employer] provides no warranty or guarantee of the accuracy or completeness of information in this document.
--- OUTSIDE RECORDS SUMMARY | 2024-09-09 11:23 | XMS_ITS | Clinical Summary ---
Author Organization [facility] Healthcare Address [address] [place] [address] Care Team Providers Care Engine Manager Name Role Phone Unavailable Primary Care Provider Unavailabl e Social History Tobacco Use Types Packs/Day Years Used Date Smoking Tobacco: Never Assessed Sex and Gender Information Value Date Recorded Sex Assigned at Not on file Legal Sex Male 6:47 PM EDT Gender Identity Not on file Sexual Orientation Not on file Last Filed Vital Signs Vital Sign Reading Time Taken Comments Blood Pressure 130/86 06/30/2018 12:00 PM EDT Pulse - - Temperature - - Respiratory Rate - - Oxygen Saturation - - Inhaled Oxygen Concentration - - Weight 90.7 kg (200 lb) 06/30/2018 12:00 PM EDT Height 175.3 cm (5' 9 ) 06/30/2018 12:00 PM EDT Body Mass Index 29.53 06/30/2018 12:00 PM EDT Plan of Treatment Not on file Insurance [employer]
--- OUTSIDE RECORDS SUMMARY | 2024-09-09 11:23 | XMS_ITS | Patient Health Record ---
Author Organization [facility] [place] Address [address] [place] [address] Care Team Providers Care Site Reliability Engineer Name Role Phone Chema Gann Primary Care Provider Allergies No Known Allergies Results Component Value Reference Range Notes CREATININE Reviewed date:04/16/2024 09:57:26 AM Interpretation: Performing Lab: Notes/Report: [facility] , Creatinine 0.97 0.70-1.30 mg/dL Estimated GFR ( Katelyn >60 >=60 mL/min/1.73m 2 Estimated GFR (Non- Courtney >60 >=60 mL/min/1.73m 2 Performing Lab: see note ML - [facility] LB CT angio abdomen pelvis Reviewed date:04/16/2024 09:57:26 AM Interpretation: Performing Lab: Notes/Report: Source Facility: [place] [address] [place] [address] CT Scan Report Signed Patient: ROBBIE DANG MR#: [id number] : 1960 Acct:[id number] Age/Sex: 63 / M ADM Date: 04/14/24 Loc: LAB Attending Dr: Evan Lara M.D. Ordering Physician: Evan Lara M.D. Date of Service: 04/14/24 Procedure(s): CT angio abdomen pelvis Accession Number(s): [id number] cc: Ancelmo Gann M.D. The [address] [address] Patient Name: ROBBIE DANG MRN: [id number] date: 1960 Sex: M Assigned Patient Location: LAB Current Patient Location: Accession/Order Number: [id number] Exam Date: 04/15/2024 14:14 Report Date: 04/15/2024 14:24 At the request of: EVAN LARA MD Procedure: CT angio abdomen pelvis CT of the abdomen and pelvis TECHNIQUE: Axial imaging with 2-D reconstruction.100 cc of Omni 350. The CT exam was performed using one or more the following dose reduction techniques: Automated exposure control, adjustment of the MA and/or Kv according to patient size, or use of the iterative reconstruction technique. COMPARISON: 12/19/2022 History: Yearly follow-up assessment for abdominal aortic aneurysm LIMITATIONS: None LOWER THORAX Unremarkable LIVER: Hepatic steatosis GALLBLADDER: No gallbladder abnormality identified. BILE DUCTS: No dilatation SPLEEN: Unremarkable PANCREAS: Unremarkable ADRENAL GLANDS: Unremarkable KIDNEYS:Tiny right renal cyst unchanged. Mild left pelvocaliectasis unchanged. No obstruction. AORTA: Stable fusiform infrarenal abdominal aortic aneurysm measuring up to 3 cm. Intramural thrombus present. No dissection. No occlusion. No significant stenosis. Patent right renal artery. 2 renal arteries on the left present. Both are patent. Celiac artery patent. Superior mesenteric artery patent. Inferior mesenteric artery patent. Right common iliac artery measures up to 19 mm containing intramural thrombus, unchanged. Left common iliac artery patent. The internal and external iliac arteries are patent. RETROPERITONEUM: No significant retroperitoneal abnormalities identified. MESENTERY:Unremarkable SMALL BOWEL: The small bowel loops are nondistended. APPENDIX: The appendix is normal. COLON: Diverticulosis. Moderate stool. Partial distal colon resection changes. URINARY BLADDER: Urinary bladder is unremarkable. REPRODUCTIVE SYSTEM: Similar prostatomegaly. Coarse calcifications. PNEUMOPERITONEUM: None PERITONEAL FLUID:None BONY STRUCTURES: Degenerative change. ABDOMINAL WALL: Unremarkable CT/CT angio abdomen pelvis IMPRESSION: Stable fusiform infrarenal abdominal aortic aneurysm measuring up to 3 cm. This contains unchanged intramural thrombus. Unchanged 1.9 cm right common iliac artery ectasia and intraluminal thrombus. No new acute findings. Impression dictated by: Roejlio Garber M.D.04/15/2024 2:24 PM Dictation Location: [place] [address] Electronically authenticated by: [id number] Y Date: 04/15/2024 14:24 Dictated By: Rojelio Garber D.O. Signed By: 04/15/24 1427 DD/ 1424 TD/TT: Joint Creaser: [place] [address] CT Scan Report Signed Patient: ROBBIE DANG MR#: [id number] : 1960 Acct:[id number] Age/Sex: 63 / M ADM Date: 04/14/24 Loc: LAB Attending Dr: Evan Lara M.D. Ordering Physician: Evan Lara M.D. Date of Service: 04/14/24 Procedure(s): CT ang io abdomen pelvis Accession Number(s): [id number] cc: Ancelmo Gann M.D. [place] [address] Patient Name: ROBBIE DANG MRN: [id number] date: 1960 Sex: M Assigned Patient Location: LAB Current Patient Location: Accession/Order Numb er: [id number] Exam Date: 04/15/2024 14:14 Report Date: 04/15/2024 14:24 At the request of: EVAN LARA MD Procedure: CT angio abdomen pelvis CT of the abdomen an d pelvis TECHNIQUE: Axial reanna ging with 2-D reconstruction.100 cc of Omni 350. The CT exam was performed u sing one or more the following dose reduction techniques: Automated exposure control, adjustment of the MA and/or Kv according to patient size, or use of the iterative reconstruction technique. COMPARISON: 12/19/2022 History: Yearly foll ow-up assessment for abdominal aortic aneurysm LIMITATIONS: None LOWER THORAX Unremarkable LIVER: Hepatic steatosis GALLBLADDER: No gallbladder abnormality identified. BILE DUCTS: No dilatation SPLEEN: Unremarkable PANCREAS: Unremarkable ADRENAL GLANDS: Unremarkable KIDNEYS:Tiny right r enal cyst unchanged. Mild left pelvocaliectasis unchanged. No obstruction. AORTA: Stable fusifo rm infrarenal abdominal aortic aneurysm measuring up to 3 cm. Intramural throm bus present. No dissection. No occlusion. No significant stenosis . Patent right renal artery. 2 renal arteries on the left present. Both a re patent. Celiac artery patent. Superior mesenteric artery patent. Infer ior mesenteric artery patent. Right common iliac artery measures up to 19 mm containing intramural thrombus, unchanged. Left common iliac artery patent. The internal and external iliac arteries are patent. RETROPERITONEUM: No significant retroperitoneal abnormalities identified. MESENTERY:Unremarkable SMALL BOWEL: The sma ll bowel loops are nondistended. APPENDIX: The append ix is normal. COLON: Diverticulosi s. Moderate stool. Partial distal colon resection changes. URINARY BLADDER: Uri nary bladder is unremarkable. REPRODUCTIVE SYSTEM: Similar prostatomegaly. Coarse calcifications. PNEUMOPERITONEUM: None PERITONEAL FLUID:None BONY STRUCTURES: Degenerative change. ABDOMINAL WALL: Unremarkable C T/CT angio abdomen pelvis IMPRESSION: Stable fusiform infrarenal abdominal aortic aneurysm measuring up to 3 cm. This contai ns unchanged intramural thrombus. Unchanged 1.9 cm right common iliac artery ectasia and intraluminal thrombus. No new acute findings. Impression dictated by: Rojelio Garber M.D.04/15/2024 2:24 PM Dictation Location: [employer] Electronically authenticated by: [id number] Y Date: 04/15/2024 14:24 Dictated By: Earnest Garber D.O. Signed By: 04/15/24 1427 DD/ 142 TD/TT: Joint Creaser: JANELL-19, Flu A+B IH (Not ye t reviewed by provider) Interpretation: Performing Lab: Notes/Report: COVID neg FLU A neg FLU B neg Control present Reason For Referral No Information Medications Medication SIG (Take, Route, Frequency, Duration) Notes Start Date End Date Status Levsin/SL 0.125 MG 1 tablet under the tongue and allow to dissolve as needed Sublingual AC and HS 04/14/2023 Active Ezetimibe 10 MG TAKE 1 TABLET BY LUCIO TH EVERY DAY for 90 days Active Nitroglycerin 0.4 MG DISSOLVE 1 TABLET U NDER THE TONGUE EVERY 5 MINUTES NEEDED FOR CHEST PAIN. DO NOT EXCEED A TOTAL OF 3 DOSES IN 15 MINUTES. Sublingual for 5 Days Active predniSONE 20 MG 3 tablets Orally Onc e a day for 5 days 04/06/2024 Active Metoprolol Succinate ER 50 MG TAKE 1 TABLET BY MOUTH EVERY DAY FOR 30 DAYS for 90 days Active Pantoprazole Sodium 40 MG TAKE 1 TABLET BY MOUTH EVERY DAY for 90 PRN Active Ondansetron 4 MG 1 tablet on the tong ue and allow to dissolve Orally qid for 5 days 03/29/2024 Active Aspirin Adult Low Strength 81 MG TAKE ONE TABLET BY MOUTH EVERY MORNING Oral for 30 Days Active Clopidogrel Bisulfate 75 MG TAKE 1 TABLE T BY MOUTH EVERY DAY FOR 90 DAYS for 90 Active Tamsulosin HCl 0.4 MG 1 capsule Orally O nce a day for 90 days Active Rosuvastatin Calcium 5 MG 1 tablet Orall y Once a day Active Diclofenac Sodium 75 MG TAKE 1 TABLET BY MOUTH TWICE A DAY NEEDED for 30 Active Venlafaxine HCl ER 150 MG TAKE 1 CAPSULE BY MOUTH EVERY DAY WITH FOOD FOR 30 DAYS for 90 days Active Cytomel 5 MCG 2 tablet on an empty stomach Orally Once a day for 30 days 04/27/2023 Active tiZANidine HCl 4 MG TAKE 2 TABLETS BY MO UT AT BEDTIME for 90 Active Social History Tobacco Use: Social History Observation Description Date Details (start date - stop date) Current Smoker NA - NA Tobacco Use/Smoking Question Answer Notes Patient is a current every day smoker Alcohol Screen (Audit-C) Question Answer Notes Did you have a drink contain ing alcohol in the past year? Yes How often did you have 6 or more drinks on one occasion in the past year? Never (0 point) How many drinks did you have on a typical day when you were drinking in the past year? 1 or 2 drinks (0 point) How often did you have a dri nk containing alcohol in the past year? Less than monthly (1 point) Points 1 Interpretation Negative AUDIT-C (Standard) Question Answer Notes Did you [...] month (2 points) Points 2 Interpretation Negative Problems Problem Type SNOMED Code ICD Code Onset Dates Problem Status W/U Status Risk Notes Problem 84986391 Hypothyroidism, unspecified (E03.9) Active confirmed Problem 38337473 Non-ST elevation (NSTEMI) myocardial infarction (I21.4) Active confirmed Problem 782580748 Fatty (change of ) liver, not elsewhere classified (K76.0) Active confirmed Problem 36910504 Other intervertebral disc degeneration, lumbar region (M51.36) Active confirmed Problem Coronary angioplasty status (Z98.61) Active confirmed Problem Chest pain (04282400) Chest pain (R07.9) Active confirmed Problem Cervical radiculopat hy (41477043) Cervical radiculopathy (M54.12) Active confirmed Problem Dyslipidemia (356790477) Dyslipidemia (E78.5) Active confirmed Problem Coronary artery disease (92175295) CAD (coronary artery disease) (I25.10) Active confirmed Problem Anxiety (39504683) Anxiety (F41.9) Active confi rmed Problem History of percutaneous transluminal coronary angioplasty (situation) (360406501) History of PTCA (Z98.61) Active confirmed Problem Coronary artery disease (27847878) Coronary artery disease (I25.10) Active confirmed Problem Sleep apnea (01809740) 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) Active confirmed Problem Arthritis of right knee (2507111980772804) Degenerative arthritis of right knee (M17.9) Active confirmed Problem 47699675 Gastroenteritis (K52.9) Active confirmed Problem Thoracic outlet syndrome (255183794) Thoracic outlet syndrome (G54.0) Active confirmed Problem Impotence (N52.9) Active confirmed Problem Diverticular disease (619233277) Diverticular disease (K57.90) Active confirmed Problem Viral gastroenteriti s (269517467) Viral gastroenteritis (A08.4) Active confirmed Problem Displacement of cervical intervertebral disc without myelopathy (89820407) Herniated cervical disc without myelopathy (M50.20) Active confirmed Problem Degenerative joint disease of knee (765137253) Degenerative joint disease of left knee (M17.9) Active confirmed Problem hypercholesterolemia (disorder) (55663682) Hypercholesteremia (E78.00) Active confirmed Problem Disorder of sacrum (13428434) Low back derangement syndrome (M53.86) Active confirmed Problem 35829680 Abdominal aortic aneurysm, without rupture, unspecified (I71.40) Active confirmed Vital Signs Temperature 99.0 degrees Fahrenheit 04/06/2024 Blood pressure diastolic 80 mm Hg 08/16/2024 Height 69 in 08/16/2024 Blood pressure systolic 122 mm Hg 08/16/2024 Weight 195 lbs 08/16/2024 BMI 28.79 kg/m2 08/16/2024 Encounters Encounter Location Date Provider Diagnosis [address] [address] 04/06/2024 Chema Hoy Sinus congestion R09 .81 ; Body aches R52 and Acute bronchitis, unspecified organism J20.[address] [address] 03/29/2024 Chema Hoy Gastroenteritis K52. [address] [address] 08/16/2024 Chema Hoy Erythema nodosum L52 [address] [address] 04/11/2024 Chema Hoy [facility] [address] [address] 04/18/2024 Chema Hoy Sinus congestion R09 .[address] [address] 07/06/2024 Chema Hoy Dyslipidemia E78.5 ; Hypothyroidism, unspecified E03.9 and CAD (coronary artery disease) I25.[address] [address] 08/01/2024 Chema Hoy Sinus congestion R09 .81 Assessments Encounter Date Diagnosis (ICD Code) Assessment Notes Treatment Notes Treatment Clinical Notes Section Notes 03/29/2024 Gastroenteritis (ICD-10 - K52.9) Get plenty of rest. Stay hydrated by sucking on ice chips or taking small sips of water. You can also try drinking clear soda, clear broths or noncaffeinated sports drinks. Stop eating solid foods for a few hours to let your stomach settle. East back into eating by eating bland, tcpp-gm-xauqxw foods like crackers, toast, gelatin, bananas, rice and chicken. Try to avoid foods/substances including dairy products, caffeine, alcohol, nicotine and fatty or highly seasoned foods. Medications such as ibuprofen or tylenol can make your stomach more upset, so use sparingly if at all. Also avoid gpqb-tqk-toapfxf anti-diarrheal medications because it can make it harder for your body to eliminate the virus. 04/06/2024 Sinus congestion (ICD-10 - R09.81) 04/06/2024 Body aches (ICD-10 - R52) 08/16/2024 Erythema nodosum (ICD-10 - L52) 04/18/2024 Sinus congestion (ICD-10 - R09.81) 07/06/2024 Dyslipidemia (ICD-10 - E78.5) 07/06/2024 Hypothyroidism, unspecified (ICD-10 - E03.9) 08/01/2024 Sinus congestion (ICD-10 - R09.81) 07/06/2024 CAD (coronary artery disease) (ICD-10 - I25.10) 04/06/2024 Acute bronchitis, unspecified organism (ICD-10 - J20.9) Rest and drink more liquids, especially water. You may use a humidifier or vaporizer to help keep the drainage moist. Kboz-gas-adhuffe Nasal Saline may help the stuffy and runny nose. Use Ibuprofen and or Tylenol as needed for fever, chills, body aches or pain. Children 5 years old should not be given bbbd-itp-chxyjbw cough and cold medications such as guaifenesin and dextromethorphan. If you're over age 5, you may try tzng-ugc-hkwmkiy cold medications such as guaifenesin and dextromethorphan, or multi-symptom cold reliever such as Dayquil to help reduce the symptoms. Antibiotics have been prescribed. You should take these until completed and follow the directions. Antibiotics can sometimes cause upset stomach, and in rare cases, serious allergic reactions or serious gastrointestinal problems. If you start having severe abdominal pain, severe vomiting, or bloody diarrhea, you should be reevaluated by your physician or urgent care immediately. Follow up with your Primary Care Provider or return to clinic if symptoms do not improve within 3-5 days. If you develop severe symptoms such as shortness of breath, repeated vomiting, coughing up blood, or chest pain you should go to the emergency room or call 911 Plan Of Treatment Pending Test Test Name Order Date MRI Lumbar Spine w/o contrast 05/05/2023 T3 FREE, T4 FREE and TSH 04/24/2023 COMPREHENSIVE METABOLIC PROFILE WITH GFR 07/06/2024 COMPREHENSIVE METABOLIC PROFILE WITH GFR 04/19/2023 OCCULT BLOOD, FECAL, IMMUNOASSAY 024 OCCULT BLOOD, FECAL, IMMUNOASSAY 025 CBC W/AUTO DIFF 07/06/2024 CBC W/AUTO DIFF 04/19/2023 COVID-19, Flu A+B IH 04/06/2024 GLYCOHEMOGLOBIN A1C 07/06/2024 CT ABD and PELV WO W CON 12/10/2022 US ABD 12/07/2022 XR CSPINE MIN 4 VIEWS 04/14/2023 XR LSPINE 2_3 VIEWS 05/03/2023 THYROID PANEL (T4/TSH/FREE T3) THYROID PANEL (T4/TSH/FREE T3) PSA, SCREENING 07/06/2024 Lipid Panel 07/06/2024 Lipid Panel 04/19/2023 Insurance Providers Payer Name Payer Address Payer Phone Subscriber Number Group Number Insured Name Patient Relationship to Insured Coverage Start Date Coverage End Date [employer] [address] [place] [address] [id number] Minnie Dang Spouse - patient is the spouse of the insured 5 Medications Administered Medication Instructions Date of Administration Dosage Notes Kenalog-40 05/03/2023 120 mg 120 Ketorolac Tromethamine 05/03/2023 60 mg 60 Orphenadrine Citrate 05/03/2023 60 mg 60 Medical (General) History Medical History History ICD Code Chest pain R07.9 Erythema nodosum L52 Degenerative joint disease of left knee M17.9 Degenerative arthritis of right knee M17 .9 Rotator cuff tear M75.100 Edema R60.9 Diverticular disease K57.90 Incisional hernia K43.2 Umbilical hernia K42.9 Ventral hernia K43.9 Sleep apnea G47.30 Impotence N52.9 Hypercholesteremia E78.00 Thoracic outlet syndrome G54.0 Herniated cervical disc without myelopat hy M50.20 Anxiety F41.9 Kidney stone N20.0 Meningitis G03.9 Perforated ear drum, left H72.92 Surgical History Surgery Date(Month/Year) Left Heart Cath 11/10/2022 Hernia repair sinus colon resection left rotator cuff, Dr. Barajas Hospitalization History Reason Date(Month/Year) see above
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
--- OUTSIDE RECORDS SUMMARY | 2024-09-09 11:23 | XMS_ITS | Encounter Summary ---
Author Organization [facility] Address [address] [place] [address] Care Team Providers Care Crate Tier Name Role Phone Ancelmo Gann MD Primary Care Provider [phone] Reason for Visit * Reason Comments Med Refill Encounter Details Date Type Department Care Team (Late st Contact Info) Description 05/09/2022 Refill [facility] [address] [place] [phone] Taylor Bonds MD [address] [facility] [address] [facility] [place] [phone] Atherosclerotic heart disease of [place] coronary artery without angina pectoris Social History Tobacco Use Types Packs/Day Years Used Date Smoking Tobacco: Former Cigarettes Smokeless Tobacco: Never Alcohol Use Standard Drinks/Week Comments Yes 0 (1 standard drink = 0.6 oz pur e alcohol) PHQ-2 Answer Date Recorded Patient Health Questionnaire-2 Score 0 11/13/2021 Sex and Gender Information Value Date Recorded Sex Assigned at Male 11/13/2021 9:43 AM EDT Legal Sex Male 9:09 PM EDT Gender Identity Male 11/13/2021 9:43 AM EDT Sexual Orientation Heterosexual or Straight 07/2021 9:43 AM EDT documented as of this encounter Plan of Treatment Not on file documented as of this encounter Visit Diagnoses Diagnosis Atherosclerotic heart disease of [place] coronary artery without angina pectoris documented in this encounter Care Teams Crate Tier Relationship Specialty Start Date End Date Ancelmo Gann MD [address] [facility] [address] [address] PCP - General 11/05/21 documented as of this encounter
--- OUTSIDE RECORDS SUMMARY | 2024-09-09 11:23 | XMS_ITS | Encounter Summary ---
Author Organization [facility] Address [address] [place] [address] Care Team Providers Care Banking Services Clerk Name Role Phone Ancelmo Gann MD Primary Care Provider [phone] Reason for Visit * Reason Comments Med Refill Encounter Details Date Type Department Care Team (Late st Contact Info) Description 12/28/2021 Refill [facility] [address] [place] [phone] Taylor Bonds MD [address] [facility] [address] [facility] [place] [phone] Atherosclerotic heart disease of [place] coronary artery without angina pectoris Social History [...] Heterosexual or Straight 07/2021 9:43 AM EDT COVID-19 Exposure Response Date Recorded In the last 10 days, have yo u been in contact with someone who was confirmed or suspected to have Coronavirus/COVID-19? No / Unsure 12/16/2021 10:40 AM EST documented as of this encounter Plan of Treatment Not on file documented as of this encounter Visit Diagnoses Diagnosis Atherosclerotic heart disease of [place] coronary artery without angina pectoris documented in this encounter Care Teams Banking Services Clerk Relationship Specialty Start Date End Date Ancelmo Gann MD [address] [facility] [place] [id number] PCP - General 11/05/21 documented as of this encounter
--- OUTSIDE RECORDS SUMMARY | 2024-09-09 11:24 | XMS_ITS | Clinical Summary ---
Author Organization [facility] Address [address] [place] [address] Care Team Providers Care Car Head Liner Installer Name Role Phone Ancelmo Gann MD Primary Care Provider [phone] Allergies No known active allergies Medications ezetimibe (Zetia) 10 mg tablet Take 1 tablet by mouth in the morning. Active tamsulosin (Flomax) 0.4 mg 24 hr capsule Take 1 tablet by mouth in the morning. Active venlafaxine XR (Effoxor-XR) 150 mg 24 hr capsule Take 1 tablet by mouth in the morning. Active clopidogrel (Plavix) 75 mg tabletIndications:A therosclerosis of coronary artery with other form of angina pectoris, unspecified vessel or lesion type, unspecified whether [place] or transplanted heart Take 1 tablet (75 mg) by mouth in the morning. Do not start before November 12, 2022. 90 tablet 1 3 Active metoprolol succinate XL (Toprol-XL) 50 mg 24 hr tabletIndications:A therosclerosis of coronary artery with other form of angina pectoris, unspecified vessel or lesion type, unspecified whether [place] or transplanted heart Take 1 tablet (50 mg) by mouth in the morning. Do not crush or chew. Do not start before November 12, 2022. 90 tablet 1 3 Active pantoprazole (ProtoNix) 40 mg EC tabletIndications:N STEMI (non-ST elevated myocardial infarction) (CMS/HCC) Take 1 tablet (40 mg) by mouth if needed each day (acid reflux/heart burn) for up to 96 doses. Do not crush, chew, or split. 30 tablet 3 Active aspirin 81 mg EC tablet Take 81 mg by mouth in the morning. Active hyoscyamine 0.125 mg SL tablet TAKE 1 TABLET UNDER THE TONGUE AND ALLOW TO DISSOLVE NEEDED EVERY 6 HOURS 3 Active nitroglycerin (Nitrostat) 0.4 mg SL tabletIndications:N STEMI (non-ST elevated myocardial infarction) (CMS/HCC) Place 1 tablet (0.4 mg) under the tongue every 5 (five) minutes if needed for chest pain. 30 tablet 3 4 Active Cytomel 5 mcg tablet Take 5 mcg by mouth in the morning. 4 Active ondansetron ODT (Zofran-ODT) 4 mg disintegrating tablet Take 4 mg by mouth every 8 (eight) hours if needed. 5 Active diclofenac (Voltaren) 75 mg EC tablet Take 75 mg by mouth two times daily. Active tiZANidine (Zanaflex) 4 mg tablet Take 4 mg by mouth every 6 (six) hours if needed. Active rosuvastatin (Crestor) 40 mg tabletIndications:A therosclerotic heart disease of [place] coronary artery without angina pectoris TAKE 1 TABLET BY MOUTH EVERY DAY IN THE MORNING 90 tablet 3 5 Active Active Problems Problem Noted Date Diagnosed Date Cervical radiculopathy 05/19/2024 Disorder of sacrum 05/19/2024 Dyslipidemia 05/19/2024 Fatty (change of) liver, not elsewhere classifie d 05/19/2024 Gastroenteritis 05/19/2024 History of PTCA 05/19/2024 Hypothyroidism, unspecified 05/19/2024 Narrowing of intervertebral disc space Viral gastroenteritis 05/19/2024 Anxiety 11/26/2022 11/26/2022 Arthritis of right knee 11/26/2022 11/27/19 Chest pain 11/26/2022 11/26/2022 Coronary angioplasty status 11/26/202211/08 Degenerative joint disease of knee 11/26/2022 11/26/2022 Displacement of cervical int ervertebral disc without myelopathy 11/26/2022 11/26/2022 Diverticular disease 11/26/2022 11/26/2022 Impotence of organic origin 11/26/202211/08 Pure hypercholesterolemia 11/26/20222022 Thoracic outlet syndrome 11/26/2022 023 NSTEMI (non-ST elevated myocardial infarction) 1 Abdominal aortic aneurysm (A AA) 3.0 cm to 5.5 cm in diameter in male 2021 PVD (peripheral vascular disease) 2021 Stented coronary artery 11/05/2021 HTN (hypertension) 11/05/2021 Sleep apnea in adult 11/05/2021 Nontraumatic subluxation of extensor tendon at MCP joint of hand, left 11/05/2021 Tobacco dependence syndrome 01/19/2013 10/0 03/2022 Transient ischemic attack 12/22/20112022 Essential hypertension 12/22/2011 Chronic sinusitis 12/17/2011 11/09/2022 Coronary atherosclerosis 12/17/2011 023 Overview (11/09/2022): RCA SARY 02/2010 Hyperlipidemia 12/17/2011 11/09/2022 Overview (11/09/2022): TGS 526 (09/18) LDL 81 MG/DL Encounters Date Type Department Care Team Description 08/08/2024 [facility] at [address] [phone] Taylor Bonds MD Atherosclerotic heart disease of [place] coronary artery without angina pectoris from Last 3 Months Family History Medical History Relation Name Comments CABG Mother Coronary artery disease Mother Hypertension Mother CABG Sister Coronary artery disease Sister Hypertension Sister Relation Name Status Comments Mother Sister Social History Tobacco Use Types Packs/Day Years Used Date Smoking Tobacco: Every Day Cigarettes Smokeless Tobacco: Never Tobacco Cessation:Ready to Q uit: Not Asked; Counseling Given: Not Answered Alcohol Use Standard Drinks/Week Comments Yes 0 (1 standard drink = 0.6 oz pur e alcohol) occasional Humiliation, Afraid, Rape, and Kick questionnair e Answer Date Recorded Within the last year, have y ou been afraid of your partner or ex-partner? No 11/09/2022 Emotionally Abused Not on file 11/09/2022 Physically Abused Not on file 11/09/2022 Sexually Abused Not on file 11/09/2022 Overall Financial Resource Strain (CARDIA) Answe r Date Recorded How hard is it for you to pa y for the very basics like food, housing, medical care, and heating? Not hard at all 11/09/2022 PHQ-2 Answer Date Recorded Patient Health Questionnaire-2 Score 0 11/13/2021 [place] Safety & Environment Answer Date Rec orded Within the last year, have y ou been afraid of your partner or ex-partner? No 11/09/2022 Emotionally Abused Not on file 11/09/2022 Physically Abused Not on file 11/09/2022 Sexually Abused Not on file 11/09/2022 Physically or Sexually Abused Not on file Transportation Answer Date Recorded In the past 12 months, has l ack of transportation kept you from medical appointments or from getting medications? No 11/09/2022 Lack of Transportation (Non-Medical) Not on file 11/09/2022 Housing Stability Vital Sign Answer Gil e Recorded Unable to Pay for Housing in the Last Year Not o n file 11/09/2022 Number of Places Lived in the Last Year Not on f ile 11/09/2022 In the last 12 months, was t here a time when you did not have a steady place to sleep or slept in a group home (including now)? No 11/09/2022 Hunger Vital Sign Answer Date Recorded Within the past 12 months, y ou worried that your food would run out before you got the money to buy more. Never true 11/10/19 23 Ran Out of Food in the Last Year Not on file 11/09/2022 Sex and Gender Information Value Date Recorded Sex Assigned at Male 11/13/2021 9:43 AM EDT Legal Sex Male 9:09 PM EDT Gender Identity Male 11/13/2021 9:43 AM EDT Sexual Orientation Heterosexual or Straight 07/2021 9:43 AM EDT Last Filed Vital Signs Vital Sign Reading Time Taken Comments Blood Pressure 113/72 05/19/2024 8:53 AM EDT Pulse 78 05/19/2024 8:53 AM EDT Temperature 36.2 C (97.2 F) 11/11/2022 9:10 AM EDT Respiratory Rate 17 11/11/2022 4:09 AM EDT Oxygen Saturation 95% 05/19/2024 8:53 AM EDT Inhaled Oxygen Concentration - - Weight 91.2 kg (201 lb) 05/19/2024 8:53 AM EDT Height 175.3 cm (5' 9 ) 05/19/2024 8:53 AM EDT Body Mass Index 29.68 05/19/2024 8:53 AM EDT Plan of Treatment Health Maintenance Due Date Last Done Comments CT Colonography 1960 Colonoscopy 1960 Colorectal Cancer Screening 1960 FIT-DNA 1960 FIT 1960 FOBT 1960 Sigmoidoscopy 1960 Depression Screening 1972 Pneumococcal Vaccine: Pediatrics (0 to 5 Years) and At-Risk Patients (6 to 64 Years) (1 of 2 - PCV) 12/09/1979 Adult Tetanus 1982 Zoster Vaccines (1 of 2) 2010 COVID-19 Vaccine ( - 2023-2 5 season) 2023 Influenza Vaccine (#1) 2024 0, 11/09/2016 HIB Vaccines Aged Out No longer eligi ble based on patient's age to complete this topic HPV Vaccines Aged Out No longer eligi ble based on patient's age to complete this topic IPV Vaccines Aged Out No longer eligi ble based on patient's age to complete this topic Meningococcal B Vaccine Aged Out No l onger eligible based on patient's age to complete this topic Meningococcal Vaccine Aged Out No aura kerwin eligible based on patient's age to complete this topic Rotavirus Vaccines Aged Out No longer eligible based on patient's age to complete this topic Medical Devices Implanted Type Area Hide And Skin Classer Device Identifier Shelf Expiration Date Model / Serial / Lot Stent,Synergy Mr 3.50 X 38 - [id number] Implanted:Qty: 1 on 11/10/2022 by Leonardo Mares MD at [facility] Drug Eluting Stent [employer] [id number] 06/21/2024 [id number] / / [id number] Stent,Pk Papyrus,5.0/15 - [id number] Implanted:Qty: 1 on 11/10/2022 by Leonardo Mares MD at [facility] Stent [employer]ot[employer] [id number] 01/07/2023 [id number] / / [id number] Insurance [employer] Advance Directives * Full Code (Latest Code Status on File) Date Activated Date Inactivated Comments 11/09/2022 7:03 PM 11/11/2022 3:51 PM Care Teams Car Head Liner Installer Relationship Specialty Start Date End Date Ancelmo Gann MD [address] [facility] [address] [address] PCP - General 11/05/21
[2024-09-09 11:48] LABS: Hematocrit 50.3 % (42.0-54.0); Hemoglobin 17.6 g/dL (14.0-18.0); Immature Granulocytes Abs Auto 0.01 10^3/uL (0.00-0.03); Immature Granulocytes Pct Auto 0.1 % (0.0-0.5); Lymphocytes Absolute Auto 3.0 10^3/uL (1.2-3.8); Mean Corpuscular HGB Conc 35.0 g/dL (29.9-35.2); Mean Corpuscular Hemoglobin 32.1 pg (25.9-34.0); Mean Corpuscular Volume 91.6 fL (80.0-94.0); Platelet Count 185 10^3/uL (150-450); Red Blood Count 5.49 10^6/uL (4.70-6.10); White Blood Count 8.0 10^3/uL (4.0-11.0)
[2024-09-09 12:32] LABS: Alanine Aminotransferase 18 U/L (16-63); Albumin Globulin Ratio 1.0; Albumin Level 3.2 g/dL (3.4-5.0); Alkaline Phosphatase 134 U/L (46-116); Anion Gap 10.6; Aspartate Amino Transferase <5 U/L (15-37); Blood Urea Nitrogen 12.0 mg/dL (7.0-18.0); Calcium 8.7 mg/dL (8.5-10.1); Carbon Dioxide 26.2 mmol/L (21.0-32.0); Chloride 104 mmol/L (98-107); Cholesterol 312 mg/dL (<=200); Estimated GFR (African America >60 (>=60 mL/min/1.73m^2); Estimated GFR (Non-African Ame >60 (>=60 mL/min/1.73m^2); Free T3 2.20 pg/mL (2.18-3.98); Globulin 3.3 g/dL; Glucose 110 mg/dL (74-106); HDL Cholesterol 31 mg/dL (40-60); Potassium 3.8 mmol/L (3.5-5.1); Sodium 137 mmol/L (136-145); Thyroid Stimulating Hormone 0.701 uIU/mL (0.358-3.740); Total Protein 6.5 g/dL (6.4-8.2); Triglycerides 981 mg/dL (<=150); VLDL CHOLESTEROL 196.2 mg/dL
== END 2024-09-09 11:22 | disposition home or self-care (01) ==
PROVIDERS: PCP Family Medicine; Visit Provider Family Medicine
DX: E78.5 Hyperlipidemia, unspecified (principal); E03.9 Hypothyroidism, unspecified; I25.10 Atherosclerotic heart disease of native coronary artery without angina pectoris
CPT/HCPCS: 36415; 80053; 80061; 83036; 83721; 84436; 84443; 84481; 85025; G0103

== ENCOUNTER 2024-12-19 10:19 | Inpatient (IN) | payer OTHER, SELFPAY ==
--- OUTSIDE RECORDS SUMMARY | 2024-12-18 11:45 | XMS_ITS ---
Author Organization [facility] in [place] Address [address] [place] [address] Care Team Providers Care Delivery Director Name Role Phone Chema Gann Primary Care Provider Allergies No Known Allergies Results Component Value Reference Range Notes UA (Urinalysis, Dipstix only - w/o micro) (Not yet reviewed by provider) Interpretation: Performing Lab: Notes/Report: GLUCOSE - 0 - 133 MG/DL BILIRUBIN+NEG - NEG MG/DLSPECIFIC GRAVITY6.01.001 - 1.035KETONES+NEG - NEG MG/DL BLOOD, UR+PH, UR6.05 - 9UROBILNOGEN-0.2 - 1 MG/DLNITRITE-NEG - NEGESTERASE (VICKIE) -NEG - NEG MG/DLCOVID-19, Flu A+B IH Reviewed date:12/18/2024 04:41:19 PM Interpretation: Performing Lab: Notes/Report: COVID-FLU A-FLU B-Control+ REASON FOR VISIT sick- started Wednesday high fevers, all started wednesday, fevers, chills, CARLOS, ted pains, temp on wednesday 104.6, throwing up Medications Medication SIG (Take, Route, Frequency, Duration) Notes Start Date End Date Status Venlafaxine HCl ER 150 MG TAKE 1 CAPSULE BY MOUTH EVERY DAY WITH FOOD FOR 30 DAYS; Duration: 90 days ActiveVascepa 1 GM2 capsules with meals Orally Twice a day; Duration: 30 days 5ActivetiZANidine HCl 4 MGTAKE 2 TABLETS BY MOUTH AT BEDTIME; Duration: 90ActiveTamsulosin HCl 0.4 MGTAKE 1 CAPSULE BY MOUTH EVERY DAY FOR 90 DAYS; Duration: 90ActiveOndansetron 4 MG1 tablet on the tongue and allow to dissolve Orally qid15ActiveRosuvastatin Calcium 5 MG1 tablet Orally Once a day ActivepredniSONE 20 MG3 tablets Orally Once a day; Duration: 5 days04/06/2024 ActivePantoprazole Sodium 40 MGTAKE 1 TABLET BY MOUTH EVERY DAY; Duration: 90PRN ActiveOndansetron 4 MG1 tablet on the tongue and allow to dissolve Orally qid; Duration: 5 days5ActiveNitroglycerin 0.4 MGDISSOLVE 1 TABLET UNDER THE TONGUE EVERY 5 MINUTES NEEDED FOR CHEST PAIN. DO NOT EXCEED A TOTAL OF 3 DOSES IN 15 MINUTES. Sublingual; Duration: 5 DaysActiveEzetimibe 10 MG1 tablet Orally Once a day; Duration: 90 daysActiveDiclofenac Sodium 75 MGTAKE 1 TABLET BY MOUTH TWICE A DAY NEEDED; Duration: 30ActiveCytomel 5 MCG2 tablet on an empty stomach Orally Once a day; Duration: 30 days4ActiveMetoprolol Succinate ER 50 MGTAKE 1 TABLET BY MOUTH EVERY DAY FOR 30 DAYS; Duration: 90 daysActiveLevsin/SL 0.125 MG1 tablet under the tongue and allow to dissolve as needed Sublingual AC and HS4ActiveClopidogrel Bisulfate 75 MGTAKE 1 TABLET BY MOUTH EVERY DAY; Duration: 90ActiveAspirin Adult Low Strength 81 MG TAKE ONE TABLET BY MOUTH EVERY MORNING Oral; Duration: 30 DaysActive Social History Tobacco Use: Social History Observation Description Date Details (start date - stop date) Current Smoker NA - NA Tobacco Use/Smoking Question Answer Notes Patient is a current every day smoker AUDIT-C (Standard) Question Answer Notes Did you have a drink containing alcohol in the p ast year? Yes How often did you have a drink containing alcohol in the past year?Monthly or less (1 point)How many drinks did you have on a typical day when you were drinking in the past year?3 or 4 drinks (1 point)How often did you have six or more drinks on one occasion in the past year?2 to 4 times a month (2 points) Cdffre3OvxavamxouevgcSuiwjgrh Vital Signs Weight 195 lbs 12/18/2024 Height 69 in 12/18/2024 Blood pressure systolic 150 mm Hg 12/19/19 25 Blood pressure diastolic 98 mm Hg 025 Temperature 101.3 degrees Fahrenheit 025 BMI 28.79 kg/m2 12/18/2024 Encounters Encounter Location Date Provider Diagnosis [facility] [address] [place] [address] 12/18/2024 Chema Hoy Fever R50.9 and Gastroenteritis K52.9 Assessments Encounter Date Diagnosis (ICD Code) Assessment Notes Treatment Notes Treatment Clinical Notes Section Notes 12/18/2024 Fever (ICD-10 - R50.9) 12/18/2024Gastroenteritis (ICD-10 - K52.9)Get plenty of rest. Stay hydrated by sucking on ice chips or taking small sips of water. You can also try drinking clear soda, clear broths or noncaffeinated sports drinks. Stop eating solid foods for a few hours to let your stomach settle. East back into eating by eating bland, wlbf-ni-wttbyl foods like crackers, toast, gelatin, bananas, rice and chicken. Try to avoid foods/substances including dairy products, caffeine, alcohol, nicotine and fatty or highly seasoned foods. Medications such as i buprofen or tylenol can make your stomach more upset, so use sparingly if at all. Also avoid qlyi-iuu-pncasfo anti-diarrheal medications because it can make it harder for your body to eliminate the virus. Plan Of Treatment Medication Medication Name Sig Start Date Stop Date Notes Ondansetron 4 MG 1 tablet on the tongue and allo w to dissolve Orally qid 12/18/2024 Treatment Notes Assessment Notes Gastroenteritis Get plenty of rest. Stay hydrated by sucking on ice chips or taking small sips of water. You can also try drinking clear soda, clear broths or noncaffeinated sports drinks. Stop eating solid foods for a few hours to let your stomach settle. East back into eating by eating bland, gbqt-ab-kwuqfa foods like crackers, toast, gelatin, bananas, rice and chicken. Try to avoid foods/substances including dairy products, caffeine, alcohol, nicotine and fatty or highly seasoned foods. Medications such as ibuprofen or tylenol can make your stomach more upset, so use sparingly if at all. Also avoid ckfj-rcb-mjjnnur anti-diarrheal medications because it can make it harder for your body to eliminate the virus. Pending Test Test Name Order Date UA (Urinalysis, Dipstix only - w/o micro ) 12/18/2024 Medications Administered Medication Instructions Date of Administration Dosage Notes Promethazine 25mg mgKetorolac Dldwhdzfbmne91/10/587132 mg Progress Notes * Robbie DANGDOB:1960 ( 64 yo M)Acc No.[id number]:12/18/2024 UNLOCKED PROGRESS NOTE Progress Note Patient: Rbobie BLISS :?Ancelmo Lashell Gann ([facility]), MDDOB:1960???Age: 64 Y???Sex:MaleDate:12/18/2024Phone:[phone]:[address] [place], [place] [id number] In:04:29 PM ESTCheck Out:05:24 PM EST Subjective: * Chief Complaints: * 1 . sick- started Wednesday high fevers. 2. all started wednesday, fevers, chills, CARLOS, ted pains, temp on wednesday 104.6, throwing up. * HPI: ???General:? Good rom in neck + N/V - no diarrhea -? + Headache no uri symtposm. ???Gastroenteritis:?The patient complains of?symptoms of the stomach flu.?The symptoms have been present for?1-2 days.?The symptoms are?moderate.?The patient?has not been exposed to sick contacts.?Symptomatic treatment has included?OTC medication.?Associated symptoms include?abdominal pain, diarrhea, stomach cramps, nausea, vomiting, chills, fever.? * ROS: ???General/Constitutional:?Recent Weight Gain?denies.?Skin:?Rash?denies.?Cardiovascular:?Edema?denies.?Palpitations?denies.?Gastrointestinal:?Comments?See HPI for details.? * Medical History: C hest pain, Erythema nodosum, Degenerative joint disease of left knee, Degenerative arthritis of right knee, Rotator cuff tear, Edema, Diverticular disease, Incisional hernia, Umbilical hernia, Ventral hernia, Sleep apnea, Impotence, Hypercholesteremia, Thoracic outlet syndrome, Herniated cervical disc without myelopathy, Anxiety, Kidney stone, Meningitis, Perforated ear drum, left. * Surgical History: L eft Heart Cath 11/10/2022, Hernia repair , sinus , colon resection , left rotator cuff, Dr. Barajas 06/30/17. * Hospitalization/Major Diagno stic Procedure: s ee above . * Family History: F ather: , diagnosed with Heart Disease. M other: , diagnosed with Heart Disease, Hypertension. B riner(s): alive, cirrohsis of liver. S ister(s): alive, Brain Aneurysm. S on(s): alive, 1 son from Aneurysm. D sandra(s): alive. 1 brother(s) , 3 sister(s) - healthy. 2 son(s) , 1 daughter(s) - healthy. . * Social History: ???Tobacco Use:?Tobacco Use/Smoking?Patient is a?current every day smoker ???Drug/Alcohol:?AUDIT-C (Standard)?Did you have a drink containing alcohol in the past year??Yes ?How often did you have a drink containing alcohol in the past year?? Monthly or less (1 point) ?How many drinks did you have on a typical daywhen you were drinking in the past year??3 or 4 drinks (1 point) ?How often did you have six or more drinks on one occasion in the past year??2 to 4 times a month (2 points) ?Points?4 ?Interpretation?Positive * Medications: T aking Aspirin Adult Low Strength(Aspirin) 81 MG Tablet Delayed Release TAKE ONE TABLET BY MOUTH EVERY MORNING Oral , Taking Clopidogrel Bisulfate 75 MG Tablet TAKE 1 TABLET BY MOUTH EVERY DAY , Taking Cytomel(Liothyronine Sodium) 5 MCG Tablet 2 tablet on an empty stomach Orally Once a day , Taking Diclofenac Sodium 75 MG Tablet Delayed Release TAKE 1 TABLET BY MOUTH TWICE A DAY NEEDED , Taking Ezetimibe 10 MG Tablet 1 tablet Orally Once a day , Taking Levsin/SL(Hyoscyamine Sulfate) 0.125 MG Tablet Sublingual 1 tablet under the tongue and allow to dissolve as needed Sublingual AC and HS , Taking Metoprolol Succinate ER 50 MG Tablet Extended Release 24 Hour TAKE 1 TABLET BY MOUTH EVERY DAY FOR 30 DAYS , Taking Nitroglycerin 0.4 MG Tablet Sublingual DISSOLVE 1 TABLET UNDER THE TONGUE EVERY 5 MINUTES NEEDED FOR CHEST PAIN. DO NOT EXCEED A TOTAL OF 3 DOSES IN 15 MINUTES. Sublingual , Taking Ondansetron 4 MG Tablet Disintegrating 1 tablet on the tongue and allow to dissolve Orally qid , Taking Pantoprazole Sodium 40 MG Tablet Delayed Release TAKE 1 TABLET BY MOUTH EVERY DAY , Notes to Pharmacist: PRN, Taking predniSONE 20 MG Tablet 3 tablets Orally Once a day , Taking Rosuvastatin Calcium 5 MG Tablet 1 tablet Orally Once a day , Taking Tamsulosin HCl 0.4 MG Capsule TAKE 1 CAPSULE BY MOUTH EVERY DAY FOR 90 DAYS , Taking tiZANidine HCl 4 MG Tablet TAKE 2 TABLETS BY MOUTH AT BEDTIME , Taking Vascepa(Icosapent Ethyl) 1 GM Capsule 2 capsules with meals Orally Twice a day , Taking Venlafaxine HCl ER 150 MG Capsule Extended Release 24 Hour TAKE 1 CAPSULE BY MOUTH EVERY DAY WITH FOOD FOR 30 DAYS , Medication List reviewed and reconciled with the patient * Allergies: N .K.D.A. Objective: * Vitals: W t:195lbs, Ht: 69 in, BP:150/98mm Hg, Temp:101.3F, BMI:28.79Index, Ht-cm: 175.26 cm, Wt-k.45 kg. * Examination: ???General Examination: ?GENERAL APPEARANCE:? well developed, well nourished, in noacute distress.?ENT:? Normocephalic , Atraumatic.?EYES:? pupils equal, round, reactive to light and accomodations, sclera non-icteric.?EARS:? normal.?ORAL CAVITY:? mucosa moist.?THROAT:? clear.?LUNGS:? clear to auscultation bilaterally.?CARDIO:? regular rate and rhythm, S1, S2 normal, no murmurs.?ABDOMEN:? liver nontender, ___soft, no significant tenderness, liver, spleen not felt, no rebound, negative Fuchs's sign, no guarding or rigidity, no hepatosplenomegaly, no hernias present, no masses palpable, no rebound tenderness.?SKIN:? warm and dry, no suspicious lesions.?EXTREMITIES:? no clubbing, cyanosis, or edema.?NEUROLOGIC:? nonfocal, motor strength of upper/lower extremities intact , sensory exam intact.?NECK/THYROID:? neck supple, full range of motion, no cervical lymphadenopathy.? Assessment: * Assessment: 1.?Fever - R50.9 (Primary)???2.?Gastroenteritis - K52.9??? Plan: * Treatment: Start Ondansetron Tablet Disintegrating, 4 MG, 1 tablet on the tongue and allow to dissolve, Orally, qid, 20, Refills 1.?LAB: UA (Urinalysis, Dipstix only - w/o micro) (Collection Date & Time - 12/18/2024) ?LAB: COVID-19, Flu A+B IH (Collection Date & Time - 12/18/2024) 2.?Gastroenteritis?LAB: UA (Urinalysis, Dipstix only - w/o micro) (Collection Date & Time - 12/18/2024) Notes: Get plenty of rest. Stay hydrated by sucking on ice chips or taking small sips of water. Youcan also try drinking clear soda, clear broths or noncaffeinated sports drinks. Stop eating solid foods for a few hours to let your stomach settle. East back into eating by eating bland, mhji-nc-wxwhmc foods like crackers, toast, gelatin, bananas, rice and chicken. Try to avoid foods/substances including dairy products, caffeine, alcohol, nicotine and fatty or highly seasoned foods. Medications such as ibuprofen or tylenol can make your stomach more upset, so use sparingly if at all. Also qawkoyfza-agw-jcfujxr anti- diarrheal medications because it can make it harder for your body to eliminate the virus.?? * Therapeutic Injections: Ketorolac Tromethamine : 60 mg (Route: Intramuscular) given by ARLENE Hinson on left deltoid (Fever)??? Promethazine 25mg : 25 mg (Route: Intramuscular) given by ARLENE Hinson on right deltoid (Fever) * Labs: * L ab: COVID-19, Flu A+B IH (Collection Date & Time - 12/18/2024) ?ValueReference Range?COVID- * F MARINO A - * F MARINO B - * C ontrol + ?Lab: UA (Urinalysis, Dipstix only - w/o micro) (Collection Date & Time - 12/18/2024)* ?ValueReference Range?GLUCOSE-0 - 133 MG/DL * B ILIRUBIN + NEG - NEG MG/DL * S PECIFIC GRAVITY 6.0 1.001 - 1.035 * K ETONES + NEG - NEG MG/DL * B LOOD, UR + * P H, UR 6.0 5 - 9 * U ROBILNOGEN - 0.2 - 1 MG/DL * N ITRITE - NEG - NEG * E STERASE (VICKIE) - NEG - NEG MG/DL * Procedure Codes: 3 080F DIAST BP > OR = 90 MM HG, 16790 SARSCOV2 & INF A&B AMP PRB, Modifiers: QW , 3077F SYST BP > OR = 140 MM HG, 06016 URINALYSIS WO MICRO, J2550 PHENERGAN 25MG, J1885 TORADOL, PER 15 MG, 16394 THERAP.INJ. OF MED. INTRAMUSCULAR OR SUBCUTANEOUS * Preventive Medicine: ??Screenings/Counseling:?BMI ACTION PLAN?Above Normal BMI Follow-up?Dietary management education, guidance, and counseling ?TOBACCO ACTION PLAN?Patient counselled on the dangers of tobacco use and urged to quit.?. * * Electronic signature of Chema Gann MD, [id number] on 12/19/2024 at 11:32 AM EST Sign off status: PendingVisit Status:?CHK (Check Out) * Provider: Cameron Gann ([facility])MD Date: 1 02/18/2024 Generated for Printing/FaDoutor Recomendag/eTransmitting on:?12/19/2024 11:32 AM EST History and Physical Notes * HPI (History of Present Illness) CategorySub-CategoryDetailNotesCategory NotesGeneral Good rom in neck + N/V - no diarrhea - + Headache no uri symtposm GastroenteritisThe patient complains ofsymptoms of the stomach fluThe symptoms have been present for1-2 daysThe symptoms aremoderateThe patienthas not been exposed to sick contactsSymptomatic treatment has includedOTC medication Associated symptoms includeabdominal pain, diarrhea, stomach cramps, nausea, vomiting, chills, fever Examination CategorySub-CategoryDetailNotesCategory NotesGeneral ExaminationGENERAL APPEARANCE:well developed, well nourished, in no acute distressENT:Normocephalic , AtraumaticEYES:pupils equal, round, reactive to light and accomodations, sclera non-ictericEARS:normalTHROAT:clearCARDIO:regular rate and rhythm, S1, S2 normal, no murmursLUNGS:clear to auscultation bilaterallyABDOMEN:liver nontender, ___soft, no significant tenderness, liver, spleen not felt, no rebound, negative Fuchs's sign, no guarding or rigidity, no hepatosplenomegaly, no hernias present, no masses palpable, no rebound tendernessNEUROLOGIC: nonfocal, motor strength of upper/lower extremities intact , sensory exam intact SKIN:warm and dry, no suspicious lesionsEXTREMITIES:no clubbing, cyanosis, or edemaORAL CAVITY:mucosa moistNECK/THYROID:neck supple, full range of motion, no cervical lymphadenopathy
[2024-12-19] VITALS (18 sets, daily range): BP systolic 116–143; BP diastolic 67–90; PULSE 70–124; TEMP 36.6–39.3; O2SAT 91–95; BMI 29.5; BMI 28.6
--- NOTE | 2024-12-19 10:38 | CT_ITS ---
The [address] [address] Patient Name: JOCELYNN DANG MRN: [id number] date: 1960 Sex: M Assigned Patient Location: ER Current Patient Location: ER Accession/Order Number: [id number] Exam Date: 12/19/2024 11:20 Report Date: 12/19/2024 12:00 At the request of: BARRETT JENNINGS DO Procedure: CT head/brain wo con CT BRAIN WITHOUT CONTRAST: CLINICAL HISTORY: CARLOS, nausea vomiting COMPARISON: None TECHNIQUE: Contiguous axial unenhanced images were obtained through the brain. This CT exam was performed using one or more following dose reduction techniques: Automated exposure control, adjustment of the mA and/or kV according to patient size, or use of iterative reconstruction technique. FINDINGS: There is mild cortical atrophy. The ventricles are normal in size and position. There is subtle white matter hypodensity that may be minor chronic microvascular disease. There are no additional areas of abnormal attenuation. There is no hemorrhage, mass effect or extra-axial collections. There is potential empty sella. Postoperative changes are seen at the maxillary sinuses. There is minor mucosal thickening at the right maxillary sinus and possibly a trace amount of fluid at the sphenoid sinus on the left. There is an opacified inferior mastoid air cell on the right. CT/CT head/brain wo con IMPRESSION: AGE-RELATED CHANGES. NO ACUTE INTRACRANIAL FINDINGS. SINUS DISEASE. Impression dictated by: Juana Kingsley M.D. 12/19/2024 12:00 PM Dictation Location: [place] [address] Electronically authenticated by: [id number] Y Date: 12/19/2024 12:00
--- NOTE | 2024-12-19 10:52 | XR_ITS ---
The [address] [address] Patient Name: JOCELYNN DANG MRN: [id number] date: 1960 Sex: M Assigned Patient Location: ER Current Patient Location: ED.MAIN Accession/Order Number: [id number] Exam Date: 12/19/2024 11:20 Report Date: 12/19/2024 11:53 At the request of: BARRETT JENNNIGS DO Procedure: XR chest 1V PORTABLE AP ERECT CHEST 1125 hours CLINICAL HISTORY: Headaches and vomiting COMPARISON: 11/08/2022 The heart is within normal limits. There is no vascular congestion. There is coarsening of lung markings, greater at the bases. There is asymmetric groundglass opacity at the lower lung on the left. This might be soft tissue attenuation related to breast shadow however parenchymal change is not excluded. There is no other consolidation.. There is no sizable effusion or pneumothorax. The osseous structures are intact. There are anchor pins at the left humeral head. XR/XR chest 1V IMPRESSION: EQUIVOCAL GROUNDGLASS PARENCHYMAL CHANGE AT THE LEFT LUNG BASE. CLINICAL CORRELATION IS SUGGESTED AND IF WARRANTED, FOLLOW-UP 2 VIEW EXAM IS RECOMMENDED. Impression dictated by: Juana Kingsley M.D. 12/19/2024 11:53 AM Dictation Location: [place] [address] Electronically authenticated by: [id number] Y Date: 12/19/2024 11:53
[2024-12-19 11:28] LABS: Hematocrit 52.5 % (42.0-54.0); Hemoglobin 18.3 g/dL (14.0-18.0); Immature Granulocytes Abs Auto 0.04 10^3/uL (0.00-0.03); Immature Granulocytes Pct Auto 0.4 % (0.0-0.5); Lymphocytes Absolute Auto 1.0 10^3/uL (1.2-3.8); Mean Corpuscular HGB Conc 34.9 g/dL (29.9-35.2); Mean Corpuscular Hemoglobin 32.6 pg (25.9-34.0); Mean Corpuscular Volume 93.6 fL (80.0-94.0); Platelet Count 145 10^3/uL (150-450); Red Blood Count 5.61 10^6/uL (4.70-6.10); White Blood Count 10.0 10^3/uL (4.0-11.0)
[2024-12-19] MEDS: 0.9 % SODIUM CHLORIDE 2,000 ML 1000 ML IV (11:30)
--- OUTSIDE RECORDS SUMMARY | 2024-12-19 11:32 | XMS_ITS | Clinical Summary ---
Author Organization [facility] Healthcare Address [address] [place] [address] Care Team Providers Care [place] Utility Worker Name Role Phone Unavailable Primary Care Provider Unavailabl e Social History Tobacco UseTypesPacks/DayYears UsedDateSmoking Tobacco: Never AssessedSex and Gender InformationValueDate RecordedSex Assigned at BirthNot on fileLegal Sex Male04/22/2022 6:47 PM EDTGender IdentityNot on fileSexual OrientationNot on file Last Filed Vital Signs Vital SignReadingTime TakenCommentsBlood Xhjylvjq680/8605 12:00 PM EDT Pulse--Temperature--Respiratory Rate--Oxygen Saturation--Inhaled Oxygen Concentration--Nlfzhd08.7 kg (200 lb)06/30/2018 12:00 PM LDCNcsaaf297.3 cm (5' 9 )06/30/2018 12:00 PM EDTBody Mass Index29.5305 12:00 PM EDT Plan of Treatment Not on file Insurance
--- OUTSIDE RECORDS SUMMARY | 2024-12-19 11:33 | XMS_ITS | Clinical Summary ---
Author Organization [facility] Address [address] [place] [address] Phone Care Team Providers Care Material Control Supervisor Name Role Phone Ancelmo Gann MD Primary Care Provider + [phone] Social History Tobacco UseTypesPacks/DayYears UsedDateSmoking Tobacco: Never AssessedSex and Gender InformationValueDate RecordedSex Assigned at BirthNot on fileLegal Sex Male01/02/2022 10:45 AM ESTGender IdentityNot on fileSexual OrientationNot on file Plan of Treatment Not on file Care Teams Team MemberRelationshipSpecialtyStart DateEnd Date Ancelmo Gann MD [address] [facility] [place] [address] PCP - General04/10/09
--- OUTSIDE RECORDS SUMMARY | 2024-12-19 11:33 | XMS_ITS | Patient Health Record ---
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 Name Role Phone Chema Gann Primary Care Provider [phone] Allergies No Known Allergies Results Component Value [...] PM Interpretation: Performing Lab: Notes/Report: COVID-FLU A-FLU B-Control+COVID-19, Flu A+B IH Reviewed date:09/10/2024 07:57:38 PM Interpretation: Performing Lab: Notes/Report: COVIDnegFLU AnegFLU BnegControlpresentCT angio abdomen pelvis Reviewed date:04/16/2024 09:57:26 AM Interpretation: Performing Lab: Notes/Report: Source Facility: [facility]-[address] [place] [address] [place] [address] [place] Scan Report Signed Patient: ALTONROBBIE Hernández MR#: [id number] : 1960 Acct:[id number] Age/Sex: 63 / M ADM Date: 04/14/24 Loc: LAB Attending Dr: Evan Lara M.D. Ordering Physician: Evan Lara M.D. Date of Service: 04/14/24 Procedure(s): CT angio abdomen pelvis Accession Number(s): [id number] cc: Ancelmo Gann M.D. [place] [id number] Patient Name: ROBBIE DANG MRN: [id number] date: 1960 Sex: M Assigned Patient Location: LAB Current Patient Location: Accession/Order Number: [id number] Exam Date: 04/15/2024 14:14 Report Date: 04/15/2024 [...] Rojelio Garber M.D.04/15/2024 2:24 PM Dictation Location: [place] [address] Electronically authenticated by: [id number] Y Date: 04/15/2024 14:24 Dictated By: Rojelio Garber D.O. Signed By: 04/15/24 1427 DD/ 1424 TD/TT: [employer] Operator:CREATININE Reviewed date:04/16/2024 09:57:26 AM Interpretation: Performing Lab: Notes/Report: [facility] ,Creatinine0.970.70-1.30 mg/dLEstimated GFR ( Katelyn>60>=60 mL/min/1.73m 2Estimated GFR (Non- Courtney>60>=60 mL/min/1.73m 2Performing Lab:see noteML - [facility] LBTSH Reviewed date:09/10/2024 07:57:38 PM Interpretation: Performing Lab: Notes/Report: [facility] ,Thyroid Stimulating Hormone0.7010.358-3.740 uIU/mLPerforming Lab:see noteML - [facility] LBT4 Reviewed date:09/10/2024 07:57:38 PM Interpretation: Performing Lab: Notes/Report: [facility] ,T4 Thyroxine9.204.50-12.10 ug/dLPerforming Lab:see noteML - [facility] LBPSA SCREENING Reviewed date:09/10/2024 07:57:38 PM Interpretation: Performing Lab: Notes/Report: [facility] ,Prostate Specific Antigen Scrn0.31<=4.00 ng/mLPerforming Lab:see noteML - [facility] LBPROF 14(COMP METB) Reviewed date:09/10/2024 07:57:38 PM Interpretation: Performing Lab: Notes/Report: [facility] ,Awolfq655585-632 mmol/LPotassium3.83.5-5.1 mmol/VMwpotncu54189-311 mmol/LCarbon Txniurs82.221.0-32.0 mmol/LAnion Gap10.0Vpqmncl93266-373 mg/dLBlood Urea Ivhltypq12.07.0-18.0 mg/dLCreatinine0.790.70-1.30 mg/dLEstimated GFR ( Katelyn>60>=60 mL/min/1.73m 2Estimated GFR (Non- Courtney>60>=60 mL/min/1.73m 2BUN Creatinine Ratio15.1Tdwyrqo0.78.5-10.1 mg/dLBilirubin Total0.50.2-1.0 mg/dL Aspartate Amino Transferase<515-37 U/LAlanine Umhhzvjaivptbejx8304-31 U/L Alkaline Ubhmchvthhx48351-853 U/LTotal Protein6.56.4-8.2 g/dLAlbumin Level3.2 3.4-5.0 g/dLGlobulin3.3Albumin Globulin Ratio1.0Performing Lab:see noteML - [facility] LBLIPID PROFILE Reviewed date:09/10/2024 07:57:38 PM Interpretation: Performing Lab: Notes/Report: [facility] ,Jggkjxjprueyi228<=150 mg/mOKmmovejtxed804<=200 mg/dLHDL Ywpagqrlxok3039-08 mg/dL > or =60 mg/dl - LOW CARDIOVASCULAR RISK <40 mg/dl - HIGH CARDIOVASCULAR RISK VLDL YBEMFIPACBC158.2Chol HDL Ratio10.1 4.4 - 7.1 AVERAGE RISK 3.3 - 4.4 LOW RISK >11.0 HIGH RISK 7.1 - 11.0 MODERATE RISK Performing Lab:see noteML - [facility] LBGLYCOHEMOGLOBIN A1C Reviewed date:09/10/2024 07:57:38 PM Interpretation: Performing Lab: Notes/Report: [facility] ,Glycohemoglobin A1C6.14.5-6.2 % ADA RECOMMENDED LIMIT 4.0 - 6.0 > 7.0 ADA THERAPEUTIC TARGET < 7.0 ACTION SUGGESTED Estimated Average Aqxizew924Bijdnsmycf Lab:see noteML - [facility] LB FREE T3 Reviewed date:09/10/2024 07:57:38 PM Interpretation: Performing Lab: Notes/Report: [facility] ,Free T32.202.18-3.98 pg/mLPerforming Lab:see noteML - [facility] LB DIRECT LDL Reviewed date:09/10/2024 07:57:38 PM Interpretation: Performing Lab: Notes/Report: [facility] ,LDL Cholesterol Xokiyd33 130-159 mg/dl BORDERLINE HIGH 160-189 mg/dl HIGH 100-129 mg/dl NEAR OR ABOVE OPTIMAL >190 mg/dl VERY HIGH <100 mg/dl OPTIMAL Performing Lab:see noteML - [facility] LBCBC AUTO DIFF Reviewed date:09/10/2024 07:57:38 PM Interpretation: Performing Lab: Notes/Report: [facility] ,White Blood Count8.04.0-11.0 10 3/uLRed Blood Count5.494.70-6.10 10 6/uL Refmeligjn72.614.0-18.0 g/fVQzyafzpkcj63.342.0-54.0 %Mean Corpuscular Vagsgq43.6 80.0-94.0 fLMean Corpuscular Efovjupbga99.125.9-34.0 pgMean Corpuscular HGB Conc 35.029.9-35.2 g/dLRed Cell Distribution Width12.111.0-15.0 %Platelet Fwosr685 150-450 10 3/uLMean Platelet Volume9.89.5-13.5 fLNeutrophils Percent Auto52.9 43.0-75.0 %Lymphocytes Percent Auto37.920.5-60.0 %Monocytes Percent Auto6.31.7- 12.0 %Eosinophils Percent Auto2.50.9-7.0 %Basophils Percent Auto0.30.2-2.0 % Immature Granulocytes Pct Auto0.10.0-0.5 %Neutrophils Absolute Auto4.21.4-6.5 10 3/uLLymphocytes Absolute Auto3.01.2-3.8 10 3/uLMonocytes Absolute Auto0.50.3-0.8 10 3/uLEosinophils Absolute Auto0.20.0-0.7 10 3/uLBasophils Absolute Auto0.00.0- 0.1 10 3/uLImmature Granulocytes Abs Auto0.010.00-0.03 10 3/uLPerforming Lab:see noteML - [facility] Reason For Referral No Information Medications Medication SIG (Take, Route, Frequency, Duration) Notes Start Date End Date Status Ezetimibe 10 MG 1 tablet Orally Once a day; Dura tion: 90 days ActiveVenlafaxine HCl ER 150 MGTAKE 1 CAPSULE BY MOUTH EVERY DAY WITH FOOD FOR 30 DAYS; Duration: 90 daysActiveDiclofenac Sodium 75 MGTAKE 1 TABLET BY MOUTH TWICE A DAY NEEDED; Duration: 30ActiveVascepa 1 GM2 capsules with meals Orally Twice a day; Duration: 30 days5ActiveCytomel 5 MCG2 tablet on an empty stomach Orally Once a day; Duration: 30 days4ActivetiZANidine HCl 4 MGTAKE 2 TABLETS BY MOUTH AT BEDTIME; Duration: 90ActiveClopidogrel Bisulfate 75 MGTAKE 1 TABLET BY MOUTH EVERY DAY; Duration: 90ActiveTamsulosin HCl 0.4 MG TAKE 1 CAPSULE BY MOUTH EVERY DAY FOR 90 DAYS; Duration: 90ActiveAspirin Adult Low Strength 81 MGTAKE ONE TABLET BY MOUTH EVERY MORNING Oral; Duration: 30 Days ActiveRosuvastatin Calcium 5 MG1 tablet Orally Once a dayActiveOndansetron 4 MG1 tablet on the tongue and allow to dissolve Orally qid15ActivepredniSONE 20 MG3 tablets Orally Once a day; Duration: 5 days5ActivePantoprazole Sodium 40 MGTAKE 1 TABLET BY MOUTH EVERY DAY; Duration: 90PRNActiveOndansetron 4 MG1 tablet on the tongue and allow to dissolve Orally qid; Duration: 5 days 5ActiveNitroglycerin 0.4 MGDISSOLVE 1 TABLET UNDER THE TONGUE EVERY 5 MINUTES NEEDED FOR CHEST PAIN. DO NOT EXCEED A TOTAL OF 3 DOSES IN 15 MINUTES. Sublingual; Duration: 5 DaysActiveMetoprolol Succinate ER 50 MGTAKE 1 TABLET BY MOUTH EVERY DAY FOR 30 DAYS; Duration: 90 daysActiveLevsin/SL 0.125 MG 1 tablet under the tongue and allow to dissolve as needed Sublingual AC and HS 4Active Social History Tobacco Use: Social History Observation [...] drinks on one occasion in the past year?Never (0 point)How many drinks did you have on a typical day when you were drinking in the past year?1 or 2 drinks (0 point)How often did you have a drink containing alcohol in the past year?Less than monthly (1 point)Ivgnrw9Omtxnzeuhjrmae NegativeAUDIT-C (Standard) Question Answer Notes Did you have [...] to 4 times a month (2 points) Kgereu4QkogdeuxrftpgiOpivvrrs Problems Problem Type SNOMED Code ICD Code Onset Dates Problem Status W/U Status Risk Notes Problem Hypothyroidism (51576804) Hypothyroidism, unspecified (E03.9) ActiveconfirmedProblemAcute non-ST segment elevation myocardial infarction (580400732)Non-ST elevation (NSTEMI) myocardial infarction (I21.4)Active confirmedProblemFatty liver (109487887)Fatty (change of) liver, not elsewhere classified (K76.0)ActiveconfirmedProblemDegeneration of lumbar intervertebral disc (93546325)Other intervertebral disc degeneration, lumbar region (M51.36) ActiveconfirmedProblemHistory of percutaneous transluminal coronary angioplasty (situation) (954980699)Coronary angioplasty status (Z98.61)Activeconfirmed ProblemChest pain (92058161)Chest pain (R07.9)ActiveconfirmedProblemCervical radiculopathy (74595723)Cervical radiculopathy (M54.12)ActiveconfirmedProblem Dyslipidemia (873678697)Dyslipidemia (E78.5)ActiveconfirmedProblemCoronary artery disease (85658306)CAD (coronary artery disease) (I25.10)Activeconfirmed ProblemAnxiety (57601507)Anxiety (F41.9)ActiveconfirmedProblemHistory of percutaneous transluminal coronary angioplasty (situation) (615620709)History of PTCA (Z98.61)ActiveconfirmedProblemCoronary artery disease (09397230)Coronary artery disease (I25.10)ActiveconfirmedProblemSleep apnea (47560099)Sleep apnea (G47.30)ActiveconfirmedProblemArthritis of right knee (3106554423067251) Degenerative arthritis of right knee (M17.9)ActiveconfirmedProblem Gastroenteritis (86105148)Gastroenteritis (K52.9)ActiveconfirmedProblemThoracic outlet syndrome (382350785)Thoracic outlet syndrome (G54.0)Activeconfirmed ProblemErectile dysfunction (disorder) (176876675)Impotence (N52.9)Active confirmedProblemDiverticular disease (762317978)Diverticular disease (K57.90) ActiveconfirmedProblemViral gastroenteritis (060477315)Viral gastroenteritis (A08.4)ActiveconfirmedProblemImpingement syndrome of shoulder region (357659342) Shoulder impingement syndrome, right (M75.41)ActiveconfirmedProblemRadial styloid tenosynovitis (18035236)De Quervain's disease (tenosynovitis) (M65.4) ActiveconfirmedProblemDisplacement of cervical intervertebral disc without myelopathy (81956256)Herniated cervical disc without myelopathy (M50.20)Active confirmedProblemDegenerative joint disease of knee (031515920)Degenerative joint disease of left knee (M17.9)ActiveconfirmedProblemhypercholesterolemia (disorder) (26451490)Hypercholesteremia (E78.00)ActiveconfirmedProblemDisorder of sacrum (92453909)Low back derangement syndrome (M53.86)ActiveconfirmedProblem Abdominal aortic aneurysm without rupture (disorder) (19264195)Abdominal aortic aneurysm, without rupture, unspecified (I71.40)Activeconfirmed Vital Signs Temperature 101.3 degrees Fahrenheit 12/18/2024 Blood pressure vcdimzuzj28 mm Hg12/18/20249852Lukiub79 in12/18/2024lood pressure ojnxcoai120 mm Hg12/18/20244546Bbxrcm986 lbs102/18/2024BMI28.79 kg/m212/18/2024 Encounters Encounter Location Date Provider Diagnosis [facility] [address] [place] [address] 04/06/2024 Chema Hoy Sinus congestion R09 .81 ; Body aches R52 and Acute bronchitis, unspecified organism J20.9 [facility] [address] [place] [address] 12/18/2024 Chema Hoy Fever R50.9 and Gastroenteritis K52.9 [facility] [address] [place] [address] 03/29/2024 Chema Hoy Gastroenteritis K52. [address] [place] [address] [place] [address] 08/16/2024 Chema Hoy Erythema nodosum L52 [facility] [address] [place] [address] 10/23/2024 Chema Hoy Shoulder impingement syndrome, right M75.41 and De Quervain's disease (tenosynovitis) M65.4 [facility] [address] [place] [address] 09/10/2024 Chema Hoy Dyslipidemia E78.5 a nd Encounter for long-term current use of medication Z79.899 [facility] [address] [place] [address] 12/19/2024 Chema Hoy [facility] [place] [address] 04/11/[address] [facility] [place] [address]/11/2025Doug [facility]oySinus congestion [facility].81[facility] [place] [address]/29/2025Doug Hoy Dyslipidemia E78.5 ; Hypothyroidism, unspecified E03.9 and CAD (coronary artery disease) [facility]25.10[facility] [place] [address]/24/2025Doug HoySinus congestion R09.81 Assessments Encounter Date Diagnosis (ICD Code) Assessment [...] East back into eating by eating bland, cpvm-je-soljdx foods like crackers, toast, gelatin, bananas, rice and chicken. Try to avoid foods/substances including dairy products, caffeine, alcohol, nicotine and fatty or highly seasoned foods. Medications such as ibuprofen or tylenol can make your stomach more upset, so use sparingly if at all. Also avoid nzcl-yhw-qeronjb anti-diarrheal medications because it can make it harder for your body to eliminate the virus.04/18/2024Sinus congestion (ICD-10 - R09.81)07/06/2024 Hypothyroidism, unspecified (ICD-10 - E03.9)07/06/2024Dyslipidemia (ICD-10 - E78.5)04/06/2024Sinus congestion (ICD-10 - R09.81)04/06/2024ody aches (ICD-10 - R52)08/16/2024Erythema nodosum (ICD-10 - L52)10/23/2024Shoulder impingement syndrome, right (ICD-10 - M75.41)10/23/2024De Quervain's disease (tenosynovitis) (ICD-10 - M65.4)12/18/2024Fever (ICD-10 - R50.9)08/01/2024Sinus congestion (ICD- 10 - R09.81)09/10/2024Dyslipidemia (ICD-10 - E78.5)09/10/2024Encounter for long- term current use of medication (ICD-10 - Z79.899)12/18/2024Gastroenteritis (ICD- 10 - K52.9)Get plenty of rest. Stay hydrated by sucking on ice chips or taking small sips of water. You can also try drinking clear soda, clear broths or noncaffeinated sports drinks. Stop eating solid foods for a few hours to let your stomach settle. East back into eating by eating bland, apzm-hg-cjfhoz foods like crackers, toast, gelatin, bananas, rice and chicken. Try to avoid foods/substances including dairy products, caffeine, alcohol, nicotine and fatty or highly seasoned foods. Medications such as ibuprofen or tylenol can make your stomach more upset, so use sparingly if at all. Also avoid sqtz-ghf-bhnmekz anti-diarrheal medications because it can make it harder for your body to eliminate the virus.5CAD (coronary artery disease) (ICD-10 - I25.10) 5Acute bronchitis, unspecified organism (ICD-10 - J20.9)Rest and drink more liquids, especially water. You may use a humidifier or vaporizer to help keep the drainage moist. Rkpb-ptv-cpknzpx Nasal Saline may help the stuffy and runny nose. Use Ibuprofen and or Tylenol as needed for fever, chills, body aches or pain. Children 5 years old should not be given ekkb-yas-cprhhmq cough and cold medications such as guaifenesin and dextromethorphan. If you're over age 5, you may try gmcg-avt-ebwmrzo cold medications such as guaifenesin and dextromethorphan, or multi-symptom cold reliever such as Dayquil to help reduce the symptoms. Antibiotics have been prescribed. You should take these until completed and follow the directions. Antibiotics can sometimescause upset stomach, and in rare cases, serious [...] T3 FREE, T4 FREE and TSH 04/24/2023 UA (Urinalysis, Dipstix only - w/o micro ) 12/18/2024 COMPREHENSIVE METABOLIC PROFILE WITH GFR 04/19/2023 COMPREHENSIVE METABOLIC PROFILE WITH GFR 07/06/2024 OCCULT BLOOD, FECAL, IMMUNOASSAY 025 OCCULT BLOOD, FECAL, IMMUNOASSAY 024 CBC W/AUTO DIFF 07/06/2024 CBC W/AUTO DIFF 04/19/2023 GLYCOHEMOGLOBIN A1C 07/06/2024 LIPID PROFILE 09/10/2024 LIVER PROFILE 09/10/2024 CT ABD and PELV WO W CON 12/10/2022 US ABD 12/07/2022 XR CSPINE MIN 4 VIEWS 04/14/2023 XR LSPINE 2_3 VIEWS 05/03/2023 THYROID PANEL (T4/TSH/FREE T3) THYROID PANEL (T4/TSH/FREE T3) PSA, SCREENING 07/06/2024 Lipid Panel 07/06/2024 Lipid Panel 04/19/2023 Insurance Providers Payer Name Payer Address Payer Phone Subscriber Number Group Number Insured Name Patient Relationship to Insured Coverage Start Date Coverage End Date LUIS MIGUEL [facility] [address] [place] [address] [id number] Minnie Dang Spouse - patient is the spouse of the insured 5 Medications Administered Medication Instructions Date of Administration Dosage Notes Kenalog-40 fz378Uwmoszcng Ihduuqdcwepj72/25/202460 jg16Psijwwjxt Tromethamine mgKetorolac Noxyfwsspzpz47/10/202560 mgOrphenadrine Citrate ru67Tmqdqpklauav 25mg mgTriamcinolone 40 mg/ml 20 mg Medical (General) History Medical History History ICD [...] Date(Month/Year) Left Heart Cath 11/10/2022 Hernia repair sinuscolon resectionleft rotator cuff, Dr. Barajas06/30/17Hospitalization History Reason Date(Month/Year) see above
--- OUTSIDE RECORDS SUMMARY | 2024-12-19 11:33 | XMS_ITS | Clinical Summary ---
Author Organization [facility] Address [address] [place] [address] Care Team Providers Care Paper Sorter Name Role Phone Ancelmo Gann MD Primary Care Provider [phone] Allergies No known active allergies Medications MedicationSigDispense QuantityRefillsLast FilledStart DateEnd DateStatus ezetimibe (Zetia) 10 mg tablet Take 1 tablet by mouth in the morning.Active tamsulosin (Flomax) 0.4 mg 24 hr capsule Take 1 tablet by mouth in the morning.Active venlafaxine XR (Effoxor-XR) 150 mg 24 hr capsule Take 1 tablet by mouth in the morning.Active clopidogrel (Plavix) 75 mg tablet Indications:Atherosclerosis of coronary artery with other form of angina pectoris, unspecified vessel or lesiontype, unspecified whether chemehuevi or transplanted heartTake 1 tablet (75 mg) by mouth in the morning. Do not start before November 12, 2022. 90 tablet ctive metoprolol succinate XL (Toprol-XL) 50 mg 24 hr tablet Indications:Atherosclerosis of coronary artery with other form of angina pectoris, unspecified vessel or lesiontype, unspecified whether chemehuevi or transplanted heartTake 1 tablet (50 mg) by mouth in the morning. Do not crush or chew. Do not start before November. 90 tablet ctive pantoprazole (ProtoNix) 40 mg EC tablet Indications:NSTEMI (non-ST elevated myocardial infarction) (CMS/HCC)Take 1 tablet (40 mg) by mouth if needed each day (acid reflux/heartburn) for up to 96 doses. Do not crush, chew, or split. 30 tablet 11/11/2022ctive aspirin 81 mg EC tablet Take 81 mg by mouth in the morning.Active hyoscyamine 0.125 mg SL tablet TAKE 1 TABLET UNDER THE TONGUE AND ALLOW TO DISSOLVE NEEDED EVERY 6 HOURS 01/21/2023ctive nitroglycerin (Nitrostat) 0.4 mg SL tablet Indications:NSTEMI (non-ST elevated myocardial infarction) (CMS/HCC)Place 1 tablet (0.4 mg) under the tongue every 5 (five) minutes if needed for chest pain. 30 tablet ctive Cytomel 5 mcg tablet Take 5 mcg by mouth in the morning.04/27/2023ctive ondansetron ODT (Zofran-ODT) 4 mg disintegrating tablet Take 4 mg by mouth every 8 (eight) hours if needed.03/29/2024tive diclofenac (Voltaren) 75 mg EC tablet Take 75 mg by mouth two times daily.Active tiZANidine (Zanaflex) 4 mg tablet Take 4 mg by mouth every 6 (six) hours if needed.Active rosuvastatin (Crestor) 40 mg tablet Indications:Atherosclerotic heart disease of chemehuevi coronary artery without angina pectorisTAKE 1 TABLET BY MOUTH EVERY DAY IN THE MORNING 90 tablet 5Active Active Problems ProblemNoted DateDiagnosed DateCervical brsaxqahwrcub42/11/2025Disorder of uaebcy3205/19/20241352Fibcnchdgild26/11/2025Fatty (change of) liver, not elsewhere azckpriahl15/11/3534Psbacmeplpgoeyx32/11/2025History of PTCA05/19/2024 Hypothyroidism, hurjilmzwsv91/11/2025Narrowing of intervertebral disc space 05/19/2024Viral nuxglojormdodxm59/11/8905Bosusfu13rthritis of right kneehest painoronary angioplasty uuksri17egenerative joint disease of knee Displacement of cervical intervertebral disc without upicmkzedc96/19/2023 11/26/2022iverticular ulvwjih60Impotence of organic origin ure isswrzuezutosgdncghz19/19/202310/19/2023Thoracic outlet ieepvizd73/NSTEMI (non-ST elevated myocardial infarction) 11/09/2022bdominal aortic aneurysm (AAA) 3.0 cm to 5.5 cm in diameter in male 2021VD (peripheral vascular disease)2021tented coronary artery 11/05/2021HTN (hypertension)11/05/2021leep apnea in adult11/05/2021Nontraumatic subluxation of extensor tendon at MCP joint of hand, left11/05/2021Tobacco dependence ltlrksgg16Transient ischemic amcjrr9312/22/2011 11/09/2022Essential ggvwznbeawtq59hronic juttvbhjo99/08/2012 11/09/2022oronary zpnqkaglmhggxeo68 Overview (11/09/2022): RCA SARY 02/2010 Hndovlxzkldrsf70 Overview (11/09/2022): TGS 526 (09/18) LDL 81 MG/DL Family History Medical HistoryRelationNameCommentsCABGMotherCoronary artery diseaseMother HypertensionMotherCABGSisterCoronary artery diseaseSisterHypertensionSister RelationNameStatusCommentsMotherSister Social History Tobacco UseTypesPacks/DayYears UsedDateSmoking Tobacco: Every DayCigarettes Smokeless Tobacco: Never Tobacco Cessation:Ready to Q uit: Not Asked; Counseling Given: Not Answered Alcohol UseStandard Drinks/WeekCommentsYes0 (1 standard drink = 0.6 oz pure alcohol)occasionalHumiliation, Afraid, Rape, and Kick questionnaireAnswerDate RecordedWithin the last year, have you been afraid of your partner or ex-partner?No11/09/2022Emotionally AbusedNot on file11/09/2022hysically Abused Not on file11/09/2022Sexually AbusedNot on file11/09/2022Overall Financial Resource Strain (CARDIA)AnswerDate RecordedHow hard is it for you to pay for the very basics like food, housing, medical care, and heating?Not hard at all 11/09/2022HQ-2AnswerDate RecordedPatient Health Questionnaire-2 Score0 11/13/2021UT Safety & EnvironmentAnswerDate RecordedWithin the last year, have you been afraid of your partner or ex-partner?No11/09/2022Emotionally AbusedNot on file11/09/2022hysically AbusedNot on file11/09/2022Sexually AbusedNot on file11/09/2022hysically or Sexually AbusedNot on file11/09/2022Transportation AnswerDate RecordedIn the past 12 months, has lack of transportation kept you from medical appointments or from getting medications?No11/09/2022Lack of Transportation (Non-Medical)Not on file11/09/2022Housing Stability Vital Sign AnswerDate RecordedUnable to Pay for Housing in the Last YearNot on file 11/09/2022Number of Places Lived in the Last YearNot on file11/09/2022In the last 12 months, was there a time when you did not have a steady place to sleep or slept in ashelter (including now)?No11/09/2022Hunger Vital SignAnswerDate RecordedWithin the past 12 months, you worried that your food would run out before you got the money to buymore.Never true11/09/2022Ran Out of Food in the Last YearNot on file11/09/2022Sex and Gender InformationValueDate RecordedSex Assigned at EqwghYmmy14/06/2022 9:43 AM EDTLegal SxrVxrq7308/06/2021 9:09 PM EDT Gender MhqbqrpgAiqw14/06/2022 9:43 AM EDTSexual OrientationHeterosexual or Uqqmtvwf64/06/2022 9:43 AM EDT Last Filed Vital Signs Vital SignReadingTime TakenCommentsBlood Yomkucvv082/7204 8:53 AM EDT Trpwu3148 8:53 AM HCDVhrsbdoljae86.2 ??C (97.2 ??F)11/11/2022 9:10 AM EDTRespiratory Mykt8986 4:09 AM EDTOxygen Migmlpihlf79%05/19/2024 8:53 AM EDTInhaled Oxygen Concentration--Tzcwlf98.2 kg (201 lb)05/19/2024 8:53 AM EDT Cwtiut903.3 cm (5' 9 )05/19/2024 8:53 AM EDTBody Mass Index29.68005/19/2024 8:53 AM EDT Plan of Treatment Health MaintenanceDue DateLast DoneCommentsCT Ynpuiiauogjs58/31/1961Colonoscopy 1960olorectal Cancer Dxcynnlfx59/31/1961FIT-DNA1960FIT1960 FOBT1960 2079Htrksszwccmbt04/31/1961epression Ktunwrqkm24/31/1973Pneumococcal Vaccine: Pediatrics (0 to 5 Years) and At-Risk Patients (6 to 64 Years) (1 of 2 - PCV)12/09/1979Adult Xqzdfad6212/08/1982Zoster Vaccines (1 of 2)2010COVID- 19 Vaccine (1 - season)2024Influenza Vaccine (#1)2024 04/03/2019, 11/09/2016HIB VaccinesAged OutNo longer eligible based on patient's age to complete this topicHPV VaccinesAged OutNo longer eligible based on patient's age to complete this topicIPV VaccinesAged OutNo longer eligible based on patient's age to complete this topicMeningococcal B VaccineAged OutNo longer eligible based on patient's age to complete this topicMeningococcal VaccineAged OutNo longer eligible based on patient's age to complete this topicRotavirus VaccinesAged OutNo longer eligible based on patient's age to complete this topic Medical Devices ImplantedTypeAreaManufacturerDevice IdentifierShelf Expiration DateModel / Serial / Alice Atkinson 3.50 X 38 - [id number] Implanted:Qty: 1 on 11/10/2022 [facility] Eluting StentBoston [id number]/ [id number] / / [id number],Pk Papyrus,5.0/15 - [id number] Implanted:Qty: 1 on 11/10/2022 [id number] / / [id number] Insurance Advance Directives * Full Code (Latest Code Status on File) Date ActivatedDate JghnvapbzkdOfcexxec08/2/2023 7:03 PM10 3:51 PM Care Teams Team MemberRelationshipSpecialtyStart DateEnd Date Ancelmo Gann MD [address] [facility] [address] [place] [address] [facility] - General11/05/21
--- OUTSIDE RECORDS SUMMARY | 2024-12-19 11:33 | XMS_ITS | Clinical Summary ---
Author Organization [employer] [facility] tem Address [id number] 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 Name Role Phone Ancelmo Gann MD Primary Care Provider [phone] Allergies No known active allergies Medications MedicationSigDispense QuantityRefillsLast FilledStart DateEnd DateStatus venlafaxine XR (EFFEXOR-XR) 150 mg 24 hr capsule Take 150 mg by mouth daily.Active aspirin 81 mg Take 81 mg by mouth daily.Active ezetimibe (ZETIA) 10 mg tablet Take 10 mg by mouth daily.Active rosuvastatin (CRESTOR) 5 mg tablet Take 5 mg by mouth daily.Active metoprolol tartrate (LOPRESSOR) 50 mg tablet Take 50 mg by mouth 2 (two) times a day.Active tamsulosin HCl (TAMSULOSIN ORAL) Take by mouth.Active cyclobenzaprine (FLEXERIL) 10 mg tablet Take 1 tablet (10 mg total) by mouth 2 (two) times a day as needed for muscle spasms. 10 tablet 5Active ibuprofen (MOTRIN) 800 mg tablet Take 1 tablet (800 mg total) by mouth every 6 (six) hours as needed for pain. 30 tablet 5Active Social History Tobacco UseTypesPacks/DayYears UsedDateSmoking Tobacco: Some DaysCigarsSmokeless Tobacco: NeverAlcohol UseStandard Drinks/WeekCommentsNo0 (1 standard drink = 0.6 oz pure alcohol)ChildcareAnswerDate KfzvxfrmNglyxxcluXqrgnvu11/12/2019Employment AnswerDate AmkirukwMbramuysivQlpvzye45/12/2019Hunger ScreeningAnswerDate RecordedWithin the past 12 months we worried whether our food would run out before we got money to buy more.Never True06/22/2024Within the past 12 months the food we bought just didn't last and we didn't have money to get more.Never True06/22/2024Purpose - LifeAnswerDate RecordedPurpose and direction in life Gmemkni0503/21/2020ex and Gender InformationValueDate RecordedSex Assigned at BirthNot on fileLegal FdoGqpq7109/13/2014 11:30 AM EDTGender IdentityNot on file Sexual OrientationNot on file Last Filed Vital Signs Vital SignReadingTime TakenCommentsBlood Ywlzbiiz143/8706/22/2024 12:10 PM EDT Vpprn799106/22/2024 10:52 AM KOLMrmbldgvyfk90.9 ??C (98.5 ??F)06/22/2024 10:52 AM EDTRespiratory Ozeh468806/22/2024 10:52 AM EDTOxygen Okcglspkfg03%06/22/2024 12:10 PM EDTInhaled Oxygen Concentration--Tznzbs20.7 kg (200 lb)06/22/2024 10:52 AM XZLKtodng402.3 cm (5' 9 )06/22/2024 10:52 AM EDTBody Mass Index29.53006/22/2024 10:52 AM EDT Plan of Treatment Health MaintenanceDue DateLast DoneCommentsTobacco Hgwfqfwmgg28/31/1961 Depression Cvpnlcivo34/31/1973Adult BMI Follow Up Plan1978DTaP,Tdap and Td Vaccines (1 - Tdap)12/09/1979Zoster (Shingles) Vaccine (1 of 2)2010 Influenza Gnlsdds08/01/563391/, 11/09/2016Adult BMI Ylhcuyjvj47/15/2026 06/22/2024Tobacco Tfeethyuk22RSV ( or age 60+ yrs) (1 - 1-dose 75+ series)12/09/2035 Medical Devices ImplantedTypeAreaManufacturerDevice IdentifierShelf Expiration DateModel / Serial / [place] - Sna - [id number] Implanted:Qty: 1 on 06/30/2017 [facility]: GbtphcwnHvgdlio61/31/[id number] / NA / [id number] [place] - Sna - [id number] Implanted:Qty: 1 on 06/30/2017 [facility]: ExfioewwVxbevnt50/31/[id number] / NA / [id number] Insurance * Guarantor: Robbie Auguste TypeRelation to PatientDate of BirthPhone Billing AddressPersonal/ItznziJkhd63/31/1961 [address] [address] * Guarantor: Robbie Auguste TypeRelation to PatientDate of BirthPhone Billing AddressWorkers OyqnIwbb18/31/1961 [address] [address] Care Teams Team MemberRelationshipSpecialtyStart DateEnd Date Ancelmo Gann MD PCP - GeneralFamily Medicine06/22/24
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
[2024-12-19 11:46] LABS: Alanine Aminotransferase 34 U/L (16-63); Albumin Globulin Ratio 0.7; Albumin Level 3.4 g/dL (3.4-5.0); Alkaline Phosphatase 85 U/L (46-116); Anion Gap 14.7; Aspartate Amino Transferase 36 U/L (15-37); Blood Urea Nitrogen 18.0 mg/dL (7.0-18.0); Calcium 9.8 mg/dL (8.5-10.1); Carbon Dioxide 27.9 mmol/L (21.0-32.0); Chloride 95 mmol/L (98-107); Estimated GFR (African America >60 (>=60 mL/min/1.73m^2); Estimated GFR (Non-African Ame >60 (>=60 mL/min/1.73m^2); Globulin 4.6 g/dL; Glucose 130 mg/dL (74-106); Potassium 4.6 mmol/L (3.5-5.1); Sodium 133 mmol/L (136-145); Total Protein 8.0 g/dL (6.4-8.2)
[2024-12-19 11:48] LABS: Lactate/Lactic Acid 1.6 mmol/L (0.4-2.0)
[2024-12-19 11:53] LABS: SARS-CoV-2 Ag NEGATIVE (NEGATIVE)
--- NOTE | 2024-12-19 11:59 | CT_ITS ---
The [address] [address] Patient Name: JOCELYNN DANG MRN: [id number] date: 1960 Sex: M Assigned Patient Location: ER Current Patient Location: ER Accession/Order Number: [id number] Exam Date: 12/19/2024 12:08 Report Date: 12/19/2024 12:47 At the request of: BARRETT JENNINGS DO Procedure: CT chest wo con CT chest wo con 12/19/2024 12:18 PM SIGN AND SYMPTOMS: ^r/o PNA TECHNIQUE: Multidetector CT axial slices of the chest were obtained without IV contrast. Multiplanar reformats were performed and viewed on a separate workstation and reviewed to further define anatomy and possible pathology. CT was performed with one or more of the following dose reduction techniques: Automated exposure control, adjustment of the mA and/or kV according to patient size, or use of iterative reconstruction technique. COMPARISON: None.. FINDINGS: Lower neck: Thyroid gland within normal limits, no supraclavicle adenopathy. Vessels: Atherosclerotic changes thoracic aorta and coronary arteries. Mediastinum and [place]: Calcified hilar lymph nodes are present. Heart: Normal size. No pericardial effusion. Airways: Within normal limits Lungs: Airspace opacities noted posteriorly at the left lung base. Emphysematous changes are present Pleura: Within normal limits. Chest Wall: Within normal limits. Upper Abdomen: There is a 2 mm nonobstructing right renal stone. Calcified granulomas are noted in the spleen. Bones: Degenerative changes are noted in the thoracic spine. CT/CT chest wo con IMPRESSION: Airspace opacities noted posteriorly at the left lung base. Emphysematous changes are present Impression dictated by: Terry Cruz M.D. 12/19/2024 12:47 PM Dictation Location: [place] [address] Electronically authenticated by: [id number] Y Date: 12/19/2024 12:47
[2024-12-19 12:30] LABS: INR 1.14; Partial Thromboplastin Time 30.6 sec (22.3-36.2); Prothrombin Time 11.9 sec (9.0-11.6)
[2024-12-19] MEDS: VANCOMYCIN HCL 2,000 MG in 0.9 % SODIUM CHLORIDE 500 ML 250 MG IV (12:40)
--- NOTE | 2024-12-19 13:12 | ED.GENADUL1 ---
HPI HPI - General Adult General Chief complaint: Headache Stated complaint: HEADACHE Time Seen by Provider: 12/19/24 10:37 Source: patient Mode of arrival: walk-in History of Present Illness HPI narrative: Patient is a 64-year-old male, history significant for CAD, presenting to the emergency department for evaluation of a headache. Patient states he has been feeling ill and has had a headache for the last 4 days. He states he has been nauseous has had a mild cough, generally feels unwell. He was seen by his primary care physician yesterday, given some medications, however the patient still feels like he is getting worse. He does mention that he has a history of viral meningitis. The patient denies any neck pain or stiffness. He has no photophobia or changes in vision. No numbness tingling in the extremities. He denies any abdominal pain. Related Data Home Medications ?Medication ?Instructions ?Recorded ?Confirmed diclofenac sodium 75 mg 75 mg PO Q12H PRN pain 11/08/22 12/19/24 tablet,delayed release ezetimibe 10 mg tablet 10 mg PO DAILY 11/08/22 12/19/24 tamsulosin 0.4 mg capsule 0.4 mg PO DAILY 11/08/22 12/19/24 venlafaxine 150 mg 150 mg PO DAILY 11/08/22 12/19/24 capsule,extended release 24 hr clopidogrel 75 mg tablet 75 mg PO DAILY 12/19/24 12/19/24 icosapent ethyl 1 gram capsule 2 g PO BID 12/19/24 12/19/24 (Vascepa) metoprolol succinate 50 mg 50 mg PO DAILY 12/19/24 12/19/24 tablet,extended release 24 hr ondansetron 4 mg disintegrating 4 mg PO Q6H PRN nausea and vomiting 12/19/24 12/19/24 tablet rosuvastatin 40 mg tablet 40 mg PO QAM 12/19/24 12/19/24 tizanidine 4 mg tablet 8 mg PO QPM 12/19/24 12/19/24 Allergies Allergy/AdvReac Type Severity Reaction Status Date / Time No Known Drug Allergies Allergy Verified 11/08/22 21:07 Opioid HPI Opioid Management Most Recent Opioid Data: Last Pain Scale 10 Today, 10:45 Review of Systems ROS Status of ROS 10 or more systems reviewed and unremarkable except as noted in history and below PFSH PFS Medical History (Updated 12/19/24 @ 13:14 by Aries Macdonald DO) Hernia ?K46.9 - Unspecified abdominal hernia without obstruction or gangrene (ICD-10) Surgical History (Updated 11/13/22 @ 00:01 by ) History of appendectomy ?Z90.49 - Acquired absence of other specified parts of digestive tract (ICD-10) History of colon resection ?Z90.49 - Acquired absence of other specified parts of digestive tract (ICD-10) History of heart artery stent ?Z95.5 - Presence of coronary angioplasty implant and graft (ICD-10) Family History (Updated 11/09/22 @ 01:38 by Samantha Phillip) Grandmother Family history of hypertension Mother Family history of hypertension Social History (Updated 11/09/22 @ 01:46 by Samantha Phillip) Within the past year, how often did you have a drink containing alcohol: monthly or less Within the past year, how many standard drinks containing alcohol did you have on a typical day: 1 or 2 Within the past year, how often did you have six or more drinks on one occasion: never Total score: 0 Score interpretation: A score less than 4 is consistent with normal alcohol consumption. 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 Highest level of school completed/degree received: GED or equivalent Are you now , , , , never or living with a partner: In a typical week, how many times do you talk on the telephone with family, friends, or neighbors: 3 or more times per week How often do you get together with friends or relatives: 3 or more times per week How often do you attend yarsanism or latter day services: 1-3 times per year Do you belong to any clubs or organizations such as yarsanism groups unions, fraternal or athletic groups, or school groups: no Total score: 2 Score interpretation: A score of greater than or equal to 2 indicates the lowest level of social isolation. Little interest or pleasure in doing things: not at all Feeling down, depressed, or hopeless: not at all Feel stressed/tense/nervous/anxious/difficulty sleeping: not at all Life stressors: recent of family or friend Life stressor details: Son 1 yr ago Due to disability, difficulty making decisions: No Do you think of yourself as: straight/heterosexual Gender Identity: male Exam Narrative Exam Narrative: CONSTITUTIONAL: Patient appears ill, answering questions and follow commands appropriately SKIN: Was warm and mildly diaphoretic. EYES: Sclerae white. EARS, NOSE, THROAT: Dry mucous membranes. RESPIRATORY: Crackles at the left lung base. No wheezes or use of accessory muscles. On 2 L nasal cannula. CARDIOVASCULAR: Tachycardic rate and regular rhythm. There is no S3, S4, murmur, rub. GASTROINTESTINAL: Abdomen is soft, nontender, nondistended. MUSCULOSKELETAL: No peripheral edema. Full range of motion the neck without nuchal rigidity. Negative Brudzinski's sign. NEUROLOGIC: Patient is alert and oriented to person place and time with normal speech. Memory is normal and thought process is intact. Reflexes: No clonus or rigidity Sensation: sensation to light touch is intact bilaterally in upper and lower extremities. Motor: Good muscle tone. Strength is 5/5 bilaterally in the upper and lower extremities. Cerebellar: Finger to nose intact. Patient has a normal gait without ataxia. Cranial Nerves: Pupils are round, reactive to light and accommodation. Extraocular movements are intact without ptosis. No nystagmus. Facial sensation intact bilaterally to light touch in the V1, V2, V3 distribution. Facial muscle strength is normal and equal bilaterally. Hearing is normal bilaterally. Palate and uvula elevate symmetrically. Shoulder shrug strong and equal bilaterally. Tongue protrudes midline and moves symmetrically. Constitutional Vital Signs, click to edit/add: Last Vital Signs Temp 102.8 F H 12/19/24 13:02 Pulse 110 H 12/19/24 13:02 Resp 18 12/19/24 10:31 BP 116/67 12/19/24 13:02 Pulse Ox 95 12/19/24 13:02 O2 Del Method Room Air 12/19/24 12:30 O2 Flow Rate 2 12/19/24 13:02 Course Vital Signs Vital signs: Vital Signs Temperature 100.4 F 12/19/24 10:31 Pulse Rate 124 H 12/19/24 10:31 Respiratory Rate 18 12/19/24 10:31 Blood Pressure 143/90 H 12/19/24 10:31 Pulse Oximetry 95 12/19/24 10:31 Oxygen Delivery Method Room Air 12/19/24 10:31 Temperature 102.8 F H 12/19/24 13:02 Pulse Rate 110 H 12/19/24 13:02 Respiratory Rate 18 12/19/24 10:31 Blood Pressure 116/67 12/19/24 13:02 Pulse Oximetry 95 12/19/24 13:02 Oxygen Delivery Method Room Air 12/19/24 12:30 Oxygen Delivery Flow Rate 2 12/19/24 13:02 Medical Decision Making MDM Narrative Medical decision making narrative: Patient is a 64-year-old male presenting to the emergency department a 4-day history of fevers, headaches, cough, and fatigue. His vital signs on arrival were significant for hypoxia to 91%. He improved to 95% on 2 L nasal cannula. He was tachycardic with a heart rate of 124. He has a normal blood pressure. He is febrile to 102.8 ?F. His examination as noted above. Given the patient's fever, tachycardia, and hypoxia, presentation is likely secondary to community-acquired pneumonia. He does have a headache and fever, therefore I did consider viral meningitis, especially given his history of prior viral meningitis. However, he has no neck pain, stiffness, confusion, or meningeal signs - making meningitis of lower likelihood. IV was established and laboratory studies were obtained. He was given a 2 L bolus normal saline. He was given 2 g of IV ceftriaxone and IV vancomycin. He was given 1 g of oral acetaminophen. CT head independently reviewed/interpreted by myself demonstrated no acute intracranial pathology or hemorrhage. CT of the thorax demonstrated left lower lobe pulmonary infiltrates. Laboratory studies were overall unremarkable. No leukocytosis. No lactic acidosis. No evidence of acute renal injury. Mild hyponatremia. Mildly elevated hemoglobin, likely from hemoconcentration. COVID/flu swabs are negative. I did discuss the patient with hospitalist Dr. Spears who accepted the patient to his service. FINAL IMPRESSION: #Acute hypoxic respiratory failure secondary to community-acquired pneumonia DISPOSITION: Admit to the hospital CONDITION: Fair Lab Data Lab results reviewed: Yes I reviewed the patient's lab results Labs: Lab Results 12/19/24 12/19/24 Range/Units 11:05 11:07 WBC 10.0 (4.0-11.0) 10^3/uL RBC 5.61 (4.70-6.10) 10^6/uL Hgb 18.3 H (14.0-18.0) g/dL Hct 52.5 (42.0-54.0) % MCV 93.6 (80.0-94.0) fL MCH 32.6 (25.9-34.0) pg MCHC 34.9 (29.9-35.2) g/dL RDW 12.3 (11.0-15.0) % Plt Count 145 L (150-450) 10^3/uL MPV 10.0 (9.5-13.5) fL Neut % (Auto) 83.4 H (43.0-75.0) % Lymph % (Auto) 10.5 L (20.5-60.0) % Dare % (Auto) 5.6 (1.7-12.0) % Eos % (Auto) 0.0 L (0.9-7.0) % Baso % (Auto) 0.1 L (0.2-2.0) % Neut # (Auto) 8.3 H (1.4-6.5) 10^3/uL Lymph # (Auto) 1.0 L (1.2-3.8) 10^3/uL Dare # (Auto) 0.6 (0.3-0.8) 10^3/uL Eos # (Auto) 0.0 (0.0-0.7) 10^3/uL Baso # (Auto) 0.0 (0.0-0.1) 10^3/uL Abs Immat Gran (auto) 0.04 H (0.00-0.03) 10^3/uL Imm/Tot Granulo (auto) 0.4 (0.0-0.5) % PT 11.9 H (9.0-11.6) sec INR 1.14 APTT 30.6 (22.3-36.2) sec Sodium 133 L (136-145) mmol/L Potassium 4.6 (3.5-5.1) mmol/L Chloride 95 L (98-107) mmol/L Carbon Dioxide 27.9 (21.0-32.0) mmol/L Anion Gap 14.7 BUN 18.0 (7.0-18.0) mg/dL Creatinine 1.15 (0.70-1.30) mg/dL Est GFR ( Amer) >60 (>=60 mL/min/1.73m^2) Est GFR (Non-Af Amer) >60 (>=60 mL/min/1.73m^2) BUN/Creatinine Ratio 15.7 Glucose 130 H (74-106) mg/dL Lactate 1.6 (0.4-2.0) mmol/L Calcium 9.8 (8.5-10.1) mg/dL Total Bilirubin 0.8 (0.2-1.0) mg/dL AST 36 (15-37) U/L ALT 34 (16-63) U/L Alkaline Phosphatase 85 (46-116) U/L Total Protein 8.0 (6.4-8.2) g/dL Albumin 3.4 (3.4-5.0) g/dL Globulin 4.6 g/dL Albumin/Globulin Ratio 0.7 Influenza Type A Ag Negative Influenza Type B Ag Negative SARS-CoV-2 Ag (CV2AG) Negative (NEGATIVE) Imaging Data CT scan - chest: Attestation: I personally reviewed and interpreted this imaging study as follows: Radiologist's impression: ITS Impressions Head CT 12/19/24 10:38 IMPRESSION: AGE-RELATED CHANGES. NO ACUTE INTRACRANIAL FINDINGS. SINUS DISEASE. Impression dictated by: Juana Kingsley M.D. 12/19/2024 12:00 PM Dictation Location: [place] [address] Electronically authenticated by: [id number] Y Date: 12/19/2024 12:00 Chest X-Ray 12/19/24 10:52 IMPRESSION: EQUIVOCAL GROUNDGLASS PARENCHYMAL CHANGE AT THE LEFT LUNG BASE. CLINICAL CORRELATION IS SUGGESTED AND IF WARRANTED, FOLLOW-UP 2 VIEW EXAM IS RECOMMENDED. Impression dictated by: Juana Kingsley M.D. 12/19/2024 11:53 AM Dictation Location: [place] [address] Electronically authenticated by: [id number] Y Date: 12/19/2024 11:[address] 12/19/24 11:59 IMPRESSION: Airspace opacities noted posteriorly at the left lung base. Emphysematous changes are present Impression dictated by: Terry Cruz M.D. 12/19/2024 12:47 PM Dictation Location: [place] [address] Electronically authenticated by: [id number] Y Date: 12/19/2024 12:47 Discharge Plan Discharge Chief Complaint: Headache Clinical Impression: Pneumonia, Acute hypoxic respiratory failure Patient Disposition: Admitted As Inpatient Time of Disposition Decision: 13:14 Condition: Fair
[2024-12-19] MEDS: ACETAMINOPHEN 500 MG TABLET 1000 MG PO (13:19)
[2024-12-19] MEDS: DIPHENHYDRAMINE HCL 50 MG/ML VIAL IVP (13:20)
[2024-12-19] MEDS: KETOROLAC TROMETHAMINE 30 MG/ML VIAL IVP (13:20)
--- NOTE | 2024-12-19 13:42 | PM.IMHP1 ---
Internal Medicine - H&P: HPI History of Present Illness Chief complaint: Fever Narrative: Mr Auguste is a 64-year-old male with a past medical history of hyperlipidemia and CAD status post stents who presents to the hospital today of chief complaint of fever and headache. 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 He subsequently went home and states he has been sitting at home just trying to recover, he went to his family physician today and told him he should come to the hospital. He tells me his biggest complaint is a fever and a headache, he denies any issues with shortness of breath however he does endorse a cough, he is not sure if he is coughing anything up. In the emergency room he was subsequently requiring 2 L nasal cannula due to desaturating on room air, CT of the chest is performed and shows evidence of left lower lobe pneumonia. Septic workup initiated in the emergency room including blood cultures, antibiotics, and IV fluid resuscitation. Review of Systems ROS Status of ROS 10 or more systems reviewed and unremarkable except as noted in history and below [facility] Medical History (Updated 12/19/24 @ 13:48 by MARILYN HODGSON DO) Hypercholesteremia ?E78.00 - Pure hypercholesterolemia, unspecified (ICD-10) Hypertension ?I10 - Essential (primary) hypertension (ICD-10) Hernia ?K46.9 - Unspecified abdominal hernia without obstruction or gangrene (ICD-10) Surgical History (Updated 11/13/22 @ 00:01 by ) History of appendectomy ?Z90.49 - Acquired absence of other specified parts of digestive tract (ICD-10) History of colon resection ?Z90.49 - Acquired absence of other specified parts of digestive tract (ICD-10) History of heart artery stent ?Z95.5 - Presence of coronary angioplasty implant and graft (ICD-10) Family History (Updated 11/09/22 @ 01:38 by Samantha Phillip) Grandmother Family history of hypertension Mother Family history of hypertension Social History (Updated 11/09/22 @ 01:46 by Samantha Phillip) Within the past year, how often did you have a drink containing alcohol: monthly or less Within the past year, how many standard drinks containing alcohol did you have on a typical day: 1 or 2 Within the past year, how often did you have six or more drinks on one occasion: never Total score: 0 Score interpretation: A score less than 4 is consistent with normal alcohol consumption. 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 Highest level of school completed/degree received: GED or equivalent Are you now , , , , never or living with a partner: In a typical week, how many times do you talk on the telephone with family, friends, or neighbors: 3 or more times per week How often do you get together with friends or relatives: 3 or more times per week How often do you attend spiritism or latter-day services: 1-3 times per year Do you belong to any clubs or organizations such as spiritism groups unions, [employer] or athletic groups, or school groups: no Total score: 2 Score interpretation: A score of greater than or equal to 2 indicates the lowest level of social isolation. Little interest or pleasure in doing things: not at all Feeling down, depressed, or hopeless: not at all Feel stressed/tense/nervous/anxious/difficulty sleeping: not at all Life stressors: recent of family or friend Life stressor details: Son 1 yr ago Due to disability, difficulty making decisions: No Do you think of yourself as: straight/heterosexual Gender Identity: male Meds Home Medications and Allergies Home Medications ?Medication ?Instructions ?Recorded ?Confirmed ?Type diclofenac sodium 75 mg 75 mg PO Q12H PRN pain 11/08/22 12/19/24 History tablet,delayed release ezetimibe 10 mg tablet 10 mg PO DAILY 11/08/22 12/19/24 History tamsulosin 0.4 mg capsule 0.4 mg PO DAILY 11/08/22 12/19/24 History venlafaxine 150 mg 150 mg PO DAILY 11/08/22 12/19/24 History capsule,extended release 24 hr aspirin 81 mg capsule 81 mg PO DAILY 12/19/24 12/19/24 History clopidogrel 75 mg tablet 75 mg PO DAILY 12/19/24 12/19/24 History icosapent ethyl 1 gram capsule 2 g PO BID 12/19/24 12/19/24 History (Vascepa) metoprolol succinate 50 mg 50 mg PO DAILY 12/19/24 12/19/24 History tablet,extended release 24 hr ondansetron 4 mg disintegrating 4 mg PO Q6H PRN nausea and vomiting 12/19/24 12/19/24 History tablet rosuvastatin 40 mg tablet 40 mg PO QAM 12/19/24 12/19/24 History tizanidine 4 mg tablet 8 mg PO .QHS 12/19/24 12/19/24 History Allergies Allergy/AdvReac Type Severity Reaction Status Date / Time No Known Drug Allergies Allergy Verified 11/08/22 21:07 Exam Narrative Exam Narrative: General: Awake alert though somewhat lethargic after receiving medication, he is warm to touch. HEENT: head atraumatic, normocephalic, moist mucous membranes Neck: supple no masses, no lymphadenopathy, he has full range of motion of his neck, there is no nuchal rigidity, no tenderness to palpation of his posterior cervical spine. He can place his chin down to his chest without issue. CVS: regular rate and rhythm, no murmurs or gallops Respiratory: Rhonchi noted in the left lower lobe, remainder of lungs are CTA. Symmetric expansion. He did have episode of coughing with deep inspiration during this. GI: soft, nondistended, nontender, positive bowel sounds with no organomegaly Extremity: There is no peripheral edema noted, on his legs there is some darkened skin discolorations almost appear like scars. Good peripheral pulses. Neuro: AOx3, CN II-VII intact. Moves all extremities in all planes of motion. Skin: dry, warm to touch, discolorations on bilateral lower legs as mentioned above in extremities. Constitutional Vital Signs, click to edit/add: Last Vital Signs Temp 102.8 F H 12/19/24 13:02 Pulse 110 H 12/19/24 13:02 Resp 18 12/19/24 10:31 BP 116/67 12/19/24 13:02 Pulse Ox 95 12/19/24 13:02 O2 Del Method Room Air 12/19/24 12:30 O2 Flow Rate 2 12/19/24 13:02 Internal Medicine - H&P: Reslt Labs Labs: Short CBC 12/19/24 Range/Units 11:05 WBC 10.0 (4.0-11.0) 10^3/uL Hgb 18.3 H (14.0-18.0) g/dL Hct 52.5 (42.0-54.0) % Plt Count 145 L (150-450) 10^3/uL BMP 12/19/24 11:05 Sodium 133 L Potassium 4.6 Chloride 95 L Carbon Dioxide 27.9 BUN 18.0 Creatinine 1.15 Glucose 130 H Calcium 9.8 Liver Function 12/19/24 Range/Units 11:05 Total Bilirubin 0.8 (0.2-1.0) mg/dL AST 36 (15-37) U/L ALT 34 (16-63) U/L Alkaline Phosphatase 85 (46-116) U/L Albumin 3.4 (3.4-5.0) g/dL Assessment and Plan Assessment and Plan (1) Sepsis: Assessment and Plan: ? Admit to [facility], inpatient status with telemetry ? Febrile, tachycardic, evidence of infection with supplemental oxygenation requirement and pneumonia seen on CT scan ? He received 1 L fluid bolus in the emergency room, I have a second 1 L fluid bolus ordered upon arrival to the floor this will be followed by Ringer's lactate at 100 mL/h to satisfy fluid visitation guidelines per sepsis protocol ? His lactic acid was normal, he is perfusing well upon my physical exam, cap refill less than 2 seconds ? Blood cultures pending ? He received vancomycin and ceftriaxone in emergency room ? Continue ceftriaxone and azithromycin for community-acquired pneumonia, will obtain MRSA nasal swab ? Tylenol as needed for headache or fever, will also have Motrin PRN ordered ? Browder ? Morphine (2) Acute hypoxic respiratory failure: Assessment and Plan: Secondary to CAP, continue supplemental oxygenation as needed ? Baseline is room air (3) Pneumonia: Assessment and Plan: See above febrile, tachycardic and requiring supplemental oxygenation, will admit despite this. (4) CAD (coronary artery disease): Assessment and Plan: Continue home dose of Plavix (5) Dyslipidemia: Assessment and Plan: Continue home statin
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
[2024-12-19] MEDS: AZITHROMYCIN 500 MG in 0.9 % SODIUM CHLORIDE 250 ML 250 MG IV (14:53)
[2024-12-19 16:39] LABS: Glucose Urine UA NEGATIVE (NEGATIVE)
[2024-12-19 16:54] LABS: Cast Seen? SEEN #/LPF (NONE SEEN); Crystals Seen? Seen #/HPF (None Seen)
[2024-12-19 16:55] LABS: Urine Culture Indicated YES-FRMC
[2024-12-19] MEDS: ACETAMINOPHEN 325 MG TABLET 650 MG PO (17:06)
[2024-12-19] MEDS: IBUPROFEN 400 MG TABLET PO (18:44)
[2024-12-19] MEDS: ENOXAPARIN SODIUM 40 MG/0.4 ML SYRINGE SUBQ (21:28)
[2024-12-19] MEDS: TIZANIDINE HCL 4 MG TABLET 8 MG PO (21:28)
[2024-12-20] VITALS (22 sets, daily range): BP systolic 100–128; BP diastolic 55–73; PULSE 63–111; TEMP 36.4–37.6; O2SAT 90–94
--- NOTE | 2024-12-20 00:19 | PC.NURSE ---
both iv's one to right forearm and right antecubital are found out of patient. Patient sweating causing tape not to stick.
--- NOTE | 2024-12-20 00:59 | PC.NURSE ---
Iv attempt times one to left hand without success. #22 guage catheter used. Nursing Commercial Lending Relationship Manager in to attempt iv. Nothing seen to try per yeast supervisor. Er Nurse Fiorella called to attempt ultrasound guided iv.
[2024-12-20] MEDS: HYDROCODONE/ACET 5-325 MG TABLET 1 TAB PO ×4 (03:49→20:02)
[2024-12-20 05:50] LABS: Hematocrit 42.1 % (42.0-54.0); Hemoglobin 14.8 g/dL (14.0-18.0); Immature Granulocytes Abs Auto 0.01 10^3/uL (0.00-0.03); Immature Granulocytes Pct Auto 0.2 % (0.0-0.5); Lymphocytes Absolute Auto 0.6 10^3/uL (1.2-3.8); Mean Corpuscular HGB Conc 35.2 g/dL (29.9-35.2); Mean Corpuscular Hemoglobin 32.9 pg (25.9-34.0); Mean Corpuscular Volume 93.6 fL (80.0-94.0); Platelet Count 125 10^3/uL (150-450); Red Blood Count 4.50 10^6/uL (4.70-6.10); White Blood Count 6.4 10^3/uL (4.0-11.0)
[2024-12-20 06:23] LABS: Anion Gap 7.6; Blood Urea Nitrogen 15.0 mg/dL (7.0-18.0); Calcium 8.6 mg/dL (8.5-10.1); Carbon Dioxide 28.0 mmol/L (21.0-32.0); Chloride 102 mmol/L (98-107); Estimated GFR (African America >60 (>=60 mL/min/1.73m^2); Estimated GFR (Non-African Ame >60 (>=60 mL/min/1.73m^2); Glucose 102 mg/dL (74-106); Magnesium 1.9 mg/dL (1.8-2.4); Potassium 3.6 mmol/L (3.5-5.1); Sodium 134 mmol/L (136-145)
[2024-12-20] MEDS: CLOPIDOGREL BISULFATE 75 MG TABLET PO (08:07)
[2024-12-20] MEDS: METOPROLOL SUCCINATE 50 MG TAB.ER.24H PO (08:07)
[2024-12-20] MEDS: SOD PHOSPHATE,MONOBASIC-DIBAS 30 MMOL in 0.9 % SODIUM CHLORIDE 250 ML 43.333 MMOL IV (08:08)
[2024-12-20] MEDS: EZETIMIBE 10 MG TABLET PO (08:08)
[2024-12-20] MEDS: VENLAFAXINE HCL ER 150 MG CAPSULE PO (08:08)
[2024-12-20] MEDS: TAMSULOSIN HCL 0.4 MG CAPSULE PO (08:08)
--- NOTE | 2024-12-20 11:09 | MR_ITS ---
The [address] [address] Patient Name: JOCELYNN DANG MRN: [id number] date: 1960 Sex: M Assigned Patient Location: [place] Current Patient Location: [place] Accession/Order Number: [id number] Exam Date: 12/20/2024 12:10 Report Date: 12/20/2024 14:31 At the request of: MARILYN HODGSON DO Procedure: MR head/brain wo/w con MR head/brain wo/w con 12/20/2024 1:24 PM SIGN AND SYMPTOMS: Severe headache, history of meningitis ^rule out meningitis, headache \S.br\ PROTOCOL: Multiplanar multisequence MR images of the brain were obtained with and without IV contrast CONTRAST: 19 mL of intravenous to moderate COMPARISON: None. FINDINGS: Extra axial spaces: Age appropriate. Hemorrhage: None. Ventricular system: Within normal limits. Basal cisterns: Within normal limits and not effaced. Cerebral parenchyma: T2 and FLAIR hyperintense foci are noted in the periventricular and subcortical white matter. Midline shift: None.. Cerebellum: Within normal limits. Brainstem: Within normal limits. OTHER: Calvarium: Normal marrow signal. Vascular system: Satisfactory flow voids within the anterior and posterior circulation. Visualized Paranasal sinuses: Polypoid mucosal thickening is noted in the right maxillary sinus. Mucosal thickening is also noted in the left sphenoid sinus. There is a small right mastoid effusion. Visualized Orbits: Within normal limits. Visualized upper cervical spine: Within normal limits. Sella and skull base: Within normal limits. MR/MR head/brain wo/w con IMPRESSION: No acute intracranial pathology as a postcontrast enhancement. Chronic microvascular ischemic changes are noted. There is mucosal thickening in the maxillary sinuses with a small right mastoid effusion. Impression dictated by: Terry Cruz M.D. 12/20/2024 2:31 PM Dictation Location: [place] [address] Electronically authenticated by: [id number] Y Date: 12/20/2024 14:31
--- NOTE | 2024-12-20 11:09 | CT_ITS ---
The [address] [address] Patient Name: JOCELYNN DANG MRN: [id number] date: 1960 Sex: M Assigned Patient Location: MS Current Patient Location: Accession/Order Number: [id number] Exam Date: 12/20/2024 11:22 Report Date: 12/20/2024 12:22 At the request of: MARILYN HODGSON DO Procedure: CT angio neck CTA OF THE HEAD AND NECK WITH CONTRAST CLINICAL DATA: Headaches COMPARISON: None Spiral images were obtained through the head and neck following 100 mL of Omnipaque 350. Sagittal and coronal MIP as well as 3-D volume rendered reconstructions of the carotid arteries and [place] reviewed. Stenosis is evaluated using NASCET criteria. This CT exam was performed using one or more following dose reduction techniques: Automated exposure control, adjustment of the mA and/or kV according to patient size, or use of iterative reconstruction technique. There is minor plaque at the aortic arch. The proximal great vessels are unremarkable. The proximal vertebral arteries are tortuous. The left is dominant. No vertebral stenosis or dissection is seen. There is minor plaque at the carotid bifurcation on the right, without associated luminal narrowing. There is no carotid plaque or stenosis on the left. There are small bilateral hypodense thyroid nodules. Degenerative changes are visualized at the spine, greater distally. The upper imaged lungs show obstructive lung disease. The distal vertebral, basilar and posterior cerebral arteries show no significant findings. There is minimal right carotid siphon plaque. No luminal narrowing is identified. The anterior and middle cerebral arteries are patent. The A1 segment on the left is slightly smaller in caliber than right. There is no focal stenosis or suspected thrombosis. No aneurysms are seen. CT/CT angio neck IMPRESSION: NO SIGNIFICANT VASCULAR FINDINGS. Impression dictated by: Juana Kingsley M.D. 12/20/2024 12:22 PM Dictation Location: [place] [address] Electronically authenticated by: [id number] Y Date: 12/20/2024 12:22
--- NOTE | 2024-12-20 11:09 | CT_ITS ---
The [address] [address] Patient Name: JOCELYNN DANG MRN: [id number] date: 1960 Sex: M Assigned Patient Location: MS Current Patient Location: Accession/Order Number: [id number] Exam Date: 12/20/2024 11:22 Report Date: 12/20/2024 12:22 At the request of: MARILYN HODGSON DO Procedure: CT angio neck CTA OF THE HEAD AND NECK WITH CONTRAST CLINICAL DATA: Headaches COMPARISON: None Spiral images were obtained through the head and neck following 100 mL of Omnipaque 350. Sagittal and coronal MIP as well as 3-D volume rendered reconstructions of the carotid arteries and [place] reviewed. Stenosis is evaluated using NASCET criteria. This CT exam was performed using one or more following dose reduction techniques: Automated exposure control, adjustment of the mA and/or kV according to patient size, or use of iterative reconstruction technique. There is minor plaque at the aortic arch. The proximal great vessels are unremarkable. The proximal vertebral arteries are tortuous. The left is dominant. No vertebral stenosis or dissection is seen. There is minor plaque at the carotid bifurcation on the right, without associated luminal narrowing. There is no carotid plaque or stenosis on the left. There are small bilateral hypodense thyroid nodules. Degenerative changes are visualized at the spine, greater distally. The upper imaged lungs show obstructive lung disease. The distal vertebral, basilar and posterior cerebral arteries show no significant findings. There is minimal right carotid siphon plaque. No luminal narrowing is identified. The anterior and middle cerebral arteries are patent. The A1 segment on the left is slightly smaller in caliber than right. There is no focal stenosis or suspected thrombosis. No aneurysms are seen. CT/CT angio head IMPRESSION: NO SIGNIFICANT VASCULAR FINDINGS. Impression dictated by: Juana Kingsley M.D. 12/20/2024 12:22 PM Dictation Location: [place] [address] Electronically authenticated by: [id number] Y Date: 12/20/2024 12:22
--- NOTE | 2024-12-20 13:43 | CM.NOTE ---
Rounds made with Dr. Spears, discussed plan of care with pt and pt's . Pt still complaining of headache after taking PRN pain medication. Pt will have MRI/CTA today. No discharge today.
--- NOTE | 2024-12-20 13:56 | PM.PN ---
Progress Note: Subjective Subjective Interval history: Seen and evaluated this morning, he is currently wearing an ice pack on the anterior aspect of his scalp, his is present at bedside. He reports very minimal resolution of his headache pain, the [employer] seems to have helped him the most which is uncharacteristic for headaches. I was notified of his head pain this morning. Did discuss my concerns with the about getting further imaging today as his headache has not resolved in roughly 24 hours. He does have a history of headaches however he says this is the worst has ever been. He describes the headache as a sharp stabbing sensation in the right anterolateral aspect of his scalp. He says it is worse with movement. He denies any neck pain. Had a discussion with the this morning, he does have a history of viral meningitis at [facility] couple years ago which was diagnosed after an LP, I did discuss that that was on the differential for his headache today, planning for a CTA of the head and neck to rule out aneurysm versus dissection, MRI with and without contrast to rule out meningitis. Patient and the were agreeable for this. I did discuss with the that if there is any evidence of meningitis he will likely need transfer to [place] where they have access to specialist who can perform an LP and also infectious disease and neurology. She was agreeable for this but hopeful that it is not anything serious. Exam Narrative Exam Narrative: General: Awake alert, has an ice pack on his head, appears uncomfortable but is not as warm to the touch as was yesterday. He is much more awake and alert than he was yesterday in the ER. HEENT: head atraumatic, normocephalic, moist mucous membranes, pupils equal and reactive Neck: His neck remains supple, full cervical exam performed again today, is very similar to yesterday and that he has full range of motion of his neck, there is no nuchal rigidity, no tenderness to palpation of his posterior cervical spine. He is moving his head and neck in all planes including rotation right and left, sidebend right and left, and extension flexion. CVS: regular rate and rhythm, no murmurs or gallops Respiratory: Slight rhonchi noted this morning still. GI: soft, nondistended, nontender, positive bowel sounds with no organomegaly Extremity: There is no peripheral edema noted, on his legs there is some darkened skin discolorations almost appear like scars. Good peripheral pulses. Neuro: AOx3, CN II-VII intact. Moves all extremities in all planes of motion. Skin: dry, warm to touch, discolorations on bilateral lower legs as mentioned above in extremities. Constitutional Vital Signs, click to edit/add: Last Vital Signs Temp 98.0 F 12/20/24 11:43 Pulse 80 12/20/24 13:15 Resp 18 12/20/24 11:43 BP 128/73 12/20/24 11:43 Pulse Ox 94 L 12/20/24 13:15 O2 Del Method Room Air 12/20/24 13:15 O2 Flow Rate 2 12/19/24 19:48 Progress Note: Objective Labs Labs: Short CBC 12/20/24 Range/Units 05:00 WBC 6.4 (4.0-11.0) 10^3/uL Hgb 14.8 (14.0-18.0) g/dL Hct 42.1 (42.0-54.0) % Plt Count 125 L (150-450) 10^3/uL BMP 12/20/24 05:00 Sodium 134 L Potassium 3.6 Chloride 102 Carbon Dioxide 28.0 BUN 15.0 Creatinine 0.85 Glucose 102 Calcium 8.6 Urine 12/19/24 Range/Units 16:00 Urine Color Yellow (YELLOW) Urine Clarity Sl cloudy (CLEAR) Urine pH 6.0 (5.0-9.0) Ur Specific [place] >=1.030 A (1.005-1.025) Urine Protein 100 A (NEG/TRACE) mg/dL Urine Glucose (UA) Negative (NEGATIVE) mg/dL Progress Note: A&P Assessment and Plan (1) Sepsis: Assessment and Plan: ? He was febrile, tachycardic, hypoxic secondary to pneumonia on presentation ?Sepsis protocol followed on admission ? Lactic acid normal ? Blood cultures still pending ? Continue with ceftriaxone and azithromycin ? MRSA nasal swab was performed this morning and sent to [facility], pending results ?Continue to rotate Tylenol and Motrin as ordered, [employer] and morphine added today for headache. He does report some resolution with the [employer]. (2) Acute hypoxic respiratory failure: Assessment and Plan: ? Secondary pneumonia, see above (3) Pneumonia: (4) CAD (coronary artery disease): Assessment and Plan: Continue home dose of Plavix (5) Dyslipidemia: Assessment and Plan: Continue home statin (6) Headache: Assessment and Plan: ? Further advanced imaging performed today after further discussion with the and the patient ? CTA head and neck performed today, no evidence of dissection or aneurysm ? MRI brain with and without contrast ordered today, results are not back yet. ? He may have undiagnosed migraines after further discussion with the Plan ? DVT prophylaxis addressed ? Regular diet ? Full code
[2024-12-20] MEDS: AZITHROMYCIN 250 MG TABLET 500 MG PO (14:07)
[2024-12-20] MEDS: PANTOPRAZOLE SODIUM 40 MG TABLET.DR PO (14:07)
[2024-12-20] MEDS: MORPHINE SULFATE 4 MG/ML VIAL IV (15:52)
[2024-12-20] MEDS: KETOROLAC TROMETHAMINE 30 MG/ML VIAL 15 MG IVP (17:13)
[2024-12-20] MEDS: ENOXAPARIN SODIUM 40 MG/0.4 ML SYRINGE SUBQ (21:08)
[2024-12-20] MEDS: TIZANIDINE HCL 4 MG TABLET 8 MG PO (21:08)
[2024-12-21] VITALS (21 sets, daily range): BP systolic 91–129; BP diastolic 53–79; PULSE 63–108; TEMP 36.6–38.1; O2SAT 90–94
[2024-12-21] MEDS: HYDROCODONE/ACET 5-325 MG TABLET 1 TAB PO ×3 (04:47→16:26)
[2024-12-21 05:29] LABS: Hematocrit 39.6 % (42.0-54.0); Hemoglobin 14.2 g/dL (14.0-18.0); Mean Corpuscular HGB Conc 35.9 g/dL (29.9-35.2); Mean Corpuscular Hemoglobin 32.6 pg (25.9-34.0); Mean Corpuscular Volume 90.8 fL (80.0-94.0); Platelet Count 113 10^3/uL (150-450); Red Blood Count 4.36 10^6/uL (4.70-6.10); White Blood Count 5.0 10^3/uL (4.0-11.0)
[2024-12-21 05:35] LABS: Anion Gap 9.2; Blood Urea Nitrogen 10.0 mg/dL (7.0-18.0); Calcium 8.5 mg/dL (8.5-10.1); Carbon Dioxide 27.3 mmol/L (21.0-32.0); Chloride 99 mmol/L (98-107); Estimated GFR (African America >60 (>=60 mL/min/1.73m^2); Estimated GFR (Non-African Ame >60 (>=60 mL/min/1.73m^2); Glucose 85 mg/dL (74-106); Magnesium 1.7 mg/dL (1.8-2.4); Potassium 3.5 mmol/L (3.5-5.1); Sodium 132 mmol/L (136-145)
[2024-12-21] MEDS: PANTOPRAZOLE SODIUM 40 MG TABLET.DR PO (05:53)
--- NOTE | 2024-12-21 07:30 | PC.NURSE ---
face sheet and order faxed to [facility]
--- NOTE | 2024-12-21 09:45 | CM.NOTE ---
Rounds made with Dr. Spears, pt continues to c/o headache. [facility] will consult on pt today for further recommendations. Pt is on RA, will have walk test prior to discharge. Discussed with pt possible discharge after teleneuro consult. Pt will f/u with PCP and neuro for continued headaches.
[2024-12-21] MEDS: EZETIMIBE 10 MG TABLET PO (10:33)
[2024-12-21] MEDS: CLOPIDOGREL BISULFATE 75 MG TABLET PO (10:33)
[2024-12-21] MEDS: METOPROLOL SUCCINATE 50 MG TAB.ER.24H PO (10:34)
[2024-12-21] MEDS: VENLAFAXINE HCL ER 150 MG CAPSULE PO (10:36)
[2024-12-21] MEDS: TAMSULOSIN HCL 0.4 MG CAPSULE PO (10:36)
--- NOTE | 2024-12-21 11:12 | PM.DS1 ---
DS: Providers Provider Date of admission: 12/19/24 14:01 Primary care physician: Ancelmo Gann MD Consults: 12/20/24 Consult to [facility] Routine Reason for consultation: intractable headache Has provider been notified: No Discharging clinician: MARILYN HODGSON Anticipated date of discharge: 12/21/24 DS: Diagnosis Discharge Diagnosis (1) Sepsis: (2) Acute hypoxic respiratory failure: (3) Pneumonia: (4) CAD (coronary artery disease): (5) Dyslipidemia: (6) Headache: DS: Summary Hospital Course Hospital Course: Mr Auguste is a 64-year-old male who was admitted to the hospital the afternoon of December 19 with a chief complaint of not feeling well, headache, and difficulty breathing. He was subsequently found to have community-acquired pneumonia with right lower lobe infiltrate seen on chest CT, he was started on antibiotics ceftriaxone and azithromycin and admitted to the hospital. He received IV fluids and cultures per sepsis protocol. He did receive various medications for his headache including but not limited to Tylenol, Advil, Toradol, [place], and morphine. None of these seem to offer much relief but his home dose of tizanidine seem to offer him the most relief. Given the nature of his headache. I spoke with the , there is a family history for a arzola aneurysm, CTA of the head and neck were performed and showed no evidence of any aneurysm or dissection. He has also had viral meningitis a couple years ago, MRI of the head was performed with contrast and did show no signs of any meningeal enhancement, mass or tumor. The patient's shortness of breath had improved with IV antibiotics and fluids, his headache improved with muscle relaxers. He does have these headaches often, I consulted neurology for guidance for maintenance of these headaches in the outpatient setting. The plan initially on the was to discharge in the hospital after neurology consultation however neurology felt it would be best to empirically treat him for viral meningitis based on his history of this. ? The recommendations were to give a migraine cocktail and empirically treat ? She was given dexamethasone 4 mg 1 time last evening and a dose of Zofran. Will be kept in the hospital to initiate acyclovir 10 mg/kg every 8 hour with anticipation of PICC line placement and DC tomorrow. Time Spent with Patient Time attestation: Total time spent providing and/or coordinating discharge services: Exam Narrative Exam Narrative: General: Awake alert, He continues to look better this AM HEENT: head atraumatic, normocephalic, moist mucous membranes, pupils equal and reactive Neck: His neck remains supple, full cervical exam performed again today, is very similar to yesterday and that he has full range of motion of his neck, there is no nuchal rigidity, no tenderness to palpation of his posterior cervical spine. He is moving his head and neck in all planes including rotation right and left, sidebend right and left, and extension flexion. CVS: regular rate and rhythm, no murmurs or gallops Respiratory: Slight rhonchi noted this morning still. GI: soft, nondistended, nontender, positive bowel sounds with no organomegaly Extremity: There is no peripheral edema noted, on his legs there is some darkened skin discolorations almost appear like scars. Good peripheral pulses. Neuro: AOx3, CN II-VII intact. Moves all extremities in all planes of motion. Skin: dry, warm to touch, discolorations on bilateral lower legs as mentioned above in extremities. Constitutional Vital Signs, click to edit/add: Last Vital Signs Temp 98.3 F 12/21/24 08:14 Pulse 85 12/21/24 10:00 Resp 18 12/21/24 08:14 BP 122/77 12/21/24 08:14 Pulse Ox 90 L 12/21/24 08:14 O2 Del Method Room Air 12/21/24 08:14 O2 Flow Rate 2 12/19/24 19:48 DS: Data Data Completed and Pending Labs on day of discharge: Labs from last 24 hours 12/21/24 05:11 WBC 5.0 RBC 4.36 L Hgb 14.2 Hct 39.6 L MCV 90.8 MCH 32.6 MCHC 35.9 H RDW 12.4 Plt Count 113 L MPV 9.9 Sodium 132 L Potassium 3.5 Chloride 99 Carbon Dioxide 27.3 Anion Gap 9.2 BUN 10.0 Creatinine 0.66 L Est GFR ( Amer) >60 Est GFR (Non-Af Amer) >60 BUN/Creatinine Ratio 15.2 Glucose 85 Calcium 8.5 Phosphorus 2.1 L Magnesium 1.7 L C-Reactive Protein 13.67 H Preliminary micro results at discharge 12/19/24 16:00 Urine Culture - Preliminary Urine,Clean Catch Pending - Specimen sent to [facility] Discharge Plan Discharge Condition: Fair Discharge Medications: New azithromycin 250 mg Tablet 500 mg PO QD@1500 2 Days Qty: 2 0RF guaifenesin [Mucinex] 600 mg Tablet Extended Release 12hr 600 mg PO Q12H Qty: 14 0RF ibuprofen 400 mg Tablet 400 mg PO Q6H PRN (Reason: Pain) 10 Days Qty: 40 0RF amoxicillin-pot clavulanate [Augmentin] 500-125 mg tablet 1 tab PO Q12H Qty: 4 0RF Continued venlafaxine 150 mg capsule,extended release 24hr 150 mg PO DAILY tamsulosin 0.4 mg capsule 0.4 mg PO DAILY diclofenac sodium 75 mg tablet,delayed release (DR/EC) 75 mg PO Q12H PRN (Reason: pain) ezetimibe 10 mg tablet 10 mg PO DAILY clopidogrel 75 mg tablet 75 mg PO DAILY icosapent ethyl [Vascepa] 1 gram capsule 2 g PO BID metoprolol succinate 50 mg tablet extended release 24 hr 50 mg PO DAILY ondansetron 4 mg tablet,disintegrating 4 mg PO Q6H PRN (Reason: nausea and vomiting) rosuvastatin 40 mg tablet 40 mg PO QAM aspirin 81 mg capsule 81 mg PO DAILY tizanidine 4 mg tablet 8 mg PO .QHS 10 Days Qty: 30 0RF Print Language: Romansh
[2024-12-21] MEDS: MAGNESIUM SULFATE IN WATER 4 GM/100 ML PIGGYBACK IV (11:15)
[2024-12-21] MEDS: SOD PHOSPHATE,MONOBASIC-DIBAS 30 MMOL in 0.9 % SODIUM CHLORIDE 250 ML 43.333 MMOL IV (11:15)
[2024-12-21] MEDS: TIZANIDINE HCL 4 MG TABLET 8 MG PO ×2 (14:15→21:21)
[2024-12-21] MEDS: AZITHROMYCIN 250 MG TABLET 500 MG PO (14:16)
--- NOTE | 2024-12-21 15:52 | PC.NURSE ---
teleneuro consult completed
[2024-12-21] MEDS: DEXAMETHASONE SOD PHOS 4 MG/ML VIAL IV (17:26)
[2024-12-21] MEDS: ENOXAPARIN SODIUM 40 MG/0.4 ML SYRINGE SUBQ (21:20)
[2024-12-22] VITALS (9 sets, daily range): BP systolic 105–138; BP diastolic 67–85; PULSE 58–113; TEMP 36.6; O2SAT 92–94
[2024-12-22 05:43] LABS: Anion Gap 8.2; Blood Urea Nitrogen 8.0 mg/dL (7.0-18.0); Calcium 8.2 mg/dL (8.5-10.1); Carbon Dioxide 28.4 mmol/L (21.0-32.0); Chloride 103 mmol/L (98-107); Estimated GFR (African America >60 (>=60 mL/min/1.73m^2); Estimated GFR (Non-African Ame >60 (>=60 mL/min/1.73m^2); Glucose 227 mg/dL (74-106); Magnesium 2.4 mg/dL (1.8-2.4); Potassium 3.6 mmol/L (3.5-5.1); Sodium 136 mmol/L (136-145)
[2024-12-22] MEDS: PANTOPRAZOLE SODIUM 40 MG TABLET.DR PO (05:50)
[2024-12-22] MEDS: CLOPIDOGREL BISULFATE 75 MG TABLET PO (08:40)
[2024-12-22] MEDS: EZETIMIBE 10 MG TABLET PO (08:40)
[2024-12-22] MEDS: TAMSULOSIN HCL 0.4 MG CAPSULE PO (08:40)
[2024-12-22] MEDS: VENLAFAXINE HCL ER 150 MG CAPSULE PO (08:40)
[2024-12-22] MEDS: METOPROLOL SUCCINATE 50 MG TAB.ER.24H PO (08:40)
--- NOTE | 2024-12-22 09:05 | CM.NOTE ---
Rounds made with Dr. Spears, discussed recommendations from neurology to treat for meningitis. Pt informed of need for PICC placement and antibiotic therapy for 2 weeks, pt in agreement. Notified Chandan Parker for PICC placement and updated SW for home antibiotic therapy.
--- NOTE | 2024-12-22 09:34 | SWNOTE1 ---
SW received a message from Case management and pt will need IV anbx, 3 x daily for 2 weeks. SW to call and find out company. SW called , Minnie, and updated her about the IV antibiotics. She does not have a preference on company and she is on her way in. SW did explain to her that HH does not come every day. SW explained they would do an initial start of care and teach her how to do the IV anbx at home and then come every few days to make sure it is going well. in agreement. In past Home IV has to be set by 1:00pm for discharge the next day. SW to send referral to [facility] as they have a quick response and also work with [employer] often.
--- NOTE | 2024-12-22 10:04 | SWNOTE1 ---
Referral sent to [facility]. Referral included face sheet, ED note, H&P, provider notes, labs, and insurance card.
--- NOTE | 2024-12-22 10:22 | XR_ITS ---
The [address] [address] Patient Name: JOCELYNN DANG MRN: [id number] date: 1960 Sex: M Assigned Patient Location: MS Current Patient Location: [place] Accession/Order Number: [id number] Exam Date: 12/22/2024 10:32 Report Date: 12/22/2024 10:57 At the request of: MARILYN HODGSON DO Procedure: XR chest 1V PORTABLE AP ERECT CHEST 1030 hours CLINICAL HISTORY: PICC PLACEMENT COMPARISON: CT 12/19/2024 There is a new right-sided PICC line with tip overlying the distal superior vena cava. The heart is within normal limits. There is no vascular congestion. The lungs are hyperinflated. There is continued mild atelectatic and/or infiltrative change at the left base. No new consolidation is seen. There is no effusion or pneumothorax. The osseous structures are intact. XR/XR chest 1V IMPRESSION: PICC LINE PLACEMENT, DESCRIBED. NO POSTPROCEDURE PNEUMOTHORAX. RESIDUAL LEFT BASILAR PARENCHYMAL CHANGE. Impression dictated by: Juana Kingsley M.D. 12/22/2024 10:57 AM Dictation Location: [place] [address] Electronically authenticated by: [id number] Y Date: 12/22/2024 10:57
--- NOTE | 2024-12-22 10:25 | PM.PN ---
Progress Note: Subjective Subjective Interval history: Seen and evaluated this morning, patient was sitting up in bed, he looks very well overall, he says his headache is essentially a 1 out of 10. He reports sleeping all night. He was updated on the neurology consult recommendations from last evening, patient is agreeable for PICC line. Spoke with the around 10:15 in the morning on December 22 and fully updated her on the plan as well regarding PICC line and acyclovir every 8 hours for total of 14 days. She is agreeable. Exam Narrative Exam Narrative: General: Awake alert, reports feeling the best he has felt in some time HEENT: head atraumatic, normocephalic, moist mucous membranes, pupils equal and reactive Neck: His neck remains supple, full cervical exam performed again today, is very similar to yesterday and that he has full range of motion of his neck, there is no nuchal rigidity, no tenderness to palpation of his posterior cervical spine. He is moving his head and neck in all planes including rotation right and left, sidebend right and left, and extension flexion. CVS: regular rate and rhythm, no murmurs or gallops Respiratory: Lungs are clear to auscultation bilateral, rhonchi heard on presentation have improved and are now resolved GI: soft, nondistended, nontender, positive bowel sounds with no organomegaly Extremity: There is no peripheral edema noted, on his legs there is some darkened skin discolorations almost appear like scars. Good peripheral pulses. Neuro: AOx3, CN II-VII intact. Moves all extremities in all planes of motion. Skin: dry, warm to touch, discolorations on bilateral lower legs as mentioned above in extremities. Constitutional Vital Signs, click to edit/add: Last Vital Signs Temp 97.8 F 12/22/24 08:00 Pulse 71 12/22/24 09:46 Resp 18 12/22/24 08:00 BP 138/85 12/22/24 08:00 Pulse Ox 93 L 12/22/24 08:10 O2 Del Method Room Air 12/22/24 08:10 O2 Flow Rate 2 12/19/24 19:48 Progress Note: Objective Labs Labs: [facility] 12/22/24 05:11 Sodium 136 Potassium 3.6 Chloride 103 Carbon Dioxide 28.4 BUN 8.0 Creatinine 0.71 Glucose 227 H Calcium 8.2 L Progress Note: A&P Assessment and Plan (1) Sepsis: Assessment and Plan: ? Secondary to pneumonia ? He had been on ceftriaxone and azithromycin, he will be discharged from the hospital today to continue his pneumonia treatment with Augmentin and azithromycin ? MRSA nasal swab is still pending at the time of this discharge note today (2) Acute hypoxic respiratory failure: Assessment and Plan: Resolved (3) Pneumonia: Assessment and Plan: Resolved (4) CAD (coronary artery disease): Assessment and Plan: Continue Plavix (5) Dyslipidemia: Assessment and Plan: Continue home statin (6) Headache: Assessment and Plan: ? Neurology consult placed yesterday, recommended giving a migraine cocktail and treating empirically for viral meningitis based on his intractable headache and history of viral meningitis a couple years ago ? Initiated acyclovir IV infusion, 10 mg/kg every 8 hours for total of 14 days ? He also received 1 dose of 4 mg dexamethasone IV push and Zofran last evening ? Headache is resolved this morning Plan He will be formally discharged in the hospital today, please refer to discharge summary dictated yesterday for his hospitalization summary.
--- NOTE | 2024-12-22 10:40 | CM.NOTE ---
Form completed for Home antibiotic therapy for infusion company and signed by Dr. Spears. Pt will use [facility] for teaching and infusion therapy.
--- NOTE | 2024-12-22 10:40 | SWNOTE1 ---
LIZZETTE received a message back from Julia at [facility] and they are able to accept and will be looking at start of care between 8 & 9am. LIZZETTE did call [facility] and let them know a referral will be coming and provided them with name and that [facility] has accepted already. SW to send referral once script is complete.
--- NOTE | 2024-12-22 10:56 | SWNOTE1 ---
Referral sent to [facility]. Referral included face sheet, H&P, med list, insurance card, PICC line information, labs, and prescription.
--- NOTE | 2024-12-22 12:40 | CM.NOTE ---
Spoke with Kassy in pharmacy about Acylovir dosing. Kassy called the infusion pharmacist and everything is taken care of with dosing. Script from Dr. Spears dose not need to be adjusted. Pt will receive next dose with Nadia at 8am on 12/23. Updated RN pt able to discharge to home. Awaiting neuro f/u, no call back from [facility] neurology, will call pt at home with appointment.
--- NOTE | 2024-12-22 13:11 | SWNOTE1 ---
SW received call back from Danie at [facility] adn they did need script signed and diagnosis and a physician note from today. SW had CM place date and diagnosis on script and then faxed updated script and physician note to [facility]. Our pharmacist Kassy is going to speak with [facility] pharmacist Serge. CM spoke with our pharmacist Kassy and everything is good for pt to be discharged. SW call Danie at [facility] and he confirmed they have everything they need and will deliver meds tonight. Pt had [address] Spears is alright with pt missing 3rd dose today and being discharged, see CM note. LIZZETTE updated pt's that she will get a call from [facility] in regards to meds being delivered. LIZZETTE also let pt's know that the drugs and supplies will be covered 100% once pt meets his $2,200 out of pocket. She voiced understanding. LIZZETTE also let her know it will be [facility] services coming in to the home to educate. They will be in tomorrow morning between 8&9 and they will call her to schedule. LIZZETTE let pt's know that both phone numbers will be listed on his discharge paperwork. She voiced understanding and no further questions. Pt is all set for discharge. LIZZETTE faxed PICC line information, dc med rec, physician note from today, prescription, and CRF to [facility].
--- NOTE | 2024-12-22 13:20 | PC.NURSE ---
discharge instructions given to and pt. both verbalize understanding. taken to exit via wheelchair with belongings. discharged to private vehicle.
--- NOTE | 2024-12-22 16:35 | NUTR.NU ---
Pt w/increased nutrient requirements d/t PNA, sepsis. PO intakes of regular diet in-house are consistently 100%. No dietary concerns at this time. Will continue to follow PRN.
--- NOTE | 2024-12-25 11:55 | CM.DCFOLLOWU ---
Person spoke with: patient How are you feeling?well How is your pain?none Did you understand your discharge instructions?yes Do you have any questions about your discharge instructions?no Were you given any prescriptions at discharge?yes Were you able to get your prescriptions filled?yes, IV antibiotic was delivered and going well. HH came in as well. Do you understand how to take your medications as ordered?yes Do you have any questions about your follow up appointment and do you plan to keep your follow up appointment? no questions, confirmed follow up today with Dr. Gann Is there anything else that you would like to discuss?no Questions/Comments/Concerns/Other: none
== END 2024-12-22 13:19 | disposition home health service (06) | DRG 871 ==
LOC: ER 13:43 → MS 14:03
PROVIDERS: Admitting Provider Internal Medicine; Emergency Provider Student in an Organized Health Care Education/Training Program; PCP Family Medicine; Visit Provider Internal Medicine
DX: A41.9 Sepsis, unspecified organism (principal); J18.9 Pneumonia, unspecified organism; J96.01 Acute respiratory failure with hypoxia; R51.9 Headache, unspecified; R50.9 Fever, unspecified; E78.00 Pure hypercholesterolemia, unspecified; F17.200 Nicotine dependence, unspecified, uncomplicated; I25.10 Atherosclerotic heart disease of native coronary artery without angina pectoris; Z90.49 Acquired absence of other specified parts of digestive tract; Z95.5 Presence of coronary angioplasty implant and graft; Z86.61 Personal history of infections of the central nervous system; I10 Essential (primary) hypertension; Z63.4 Disappearance and death of family member; Z79.82 Long term (current) use of aspirin; Z79.899 Other long term (current) drug therapy; Z79.02 Long term (current) use of antithrombotics/antiplatelets
CPT/HCPCS: 36415; 36569; 70450; 70496; 70498; 70553; 71045; 71250; 80048; 80053; 81001; 83605; 83735; 84100; 85025; 85027; 85610; 85730; 86140; 87040; 87081; 87086; 87804; 87811; 94761; 96365; 96367; 96375; 99285; 99406; A9575; J0133; J0456; J0696; J1100; J1200; J1650; J1885; J2270; J2405; J3373; J3475; Q9967

== ENCOUNTER 2025-01-20 20:16 | Emergency (ER) | payer OTHER, SELFPAY ==
--- OUTSIDE RECORDS SUMMARY | 2024-12-25 05:30 | XMS_ITS ---
Author Organization [facility] in [place] Address [address] [place] [address] Care Team Providers Care Hay Stacker Name Role Phone Chema Gann Primary Care Provider REASON FOR VISIT [facility] Cameron/Justo-12/21-Pneumonia Encounters Encounter Location Date Provider Diagnosis [address] [address] 12/25/2024 Chema Gann Plan Of Treatment No Information Progress Notes * ALTON Robbie HernándezDOB:1960 ( 64 yo M)Acc No.[id number]:12/25/2024 UNLOCKED PROGRESS NOTE Progress Note Patient: Robbie BLISS :?Ancelmo Gann ([facility]), MDDOB:1960???Age: 64 Y???Sex:MaleDate:12/25/2024Phone:[phone]:[address] [place], [place] [address] Subjective: * Chief Complaints: * 1 . [facility] D/C-12/21-Pneumonia. * Medical History: Objective: * Vitals: Assessment: Plan: * Treatment: * * Electronic signature of Chema Gann MD, [phone] on 01/20/2025 at 09:38 PM EST Sign off status: PendingVisit Status:?CANCPHONE (Cancelled Phone) * Provider: Cameron HardingUN[facility]MD Janelle Date: 02/25/2024 Generated for Printing/Faxing/eTransmitting on:?01/20/2025 09:38 PM EST
--- OUTSIDE RECORDS SUMMARY | 2025-01-12 13:00 | XMS_ITS | Encounter Summary ---
[id number] [address] [place] [address] Care Team Providers Care Heating Mechanic Name Role Phone Ancelmo Gann MD Primary Care Provider [phone] Reason for Visit * ReasonCommentsNew PatientPatient is here today as a new patient hospital follow up for DX: Headache; Meningitis Encounter Details DateTypeDepartmentCare Team (Latest Contact Info)Hgyiynlztja69/05/2025 1:00 PM ESTOffice Visit [facility] [place] [address] [place] [address] Khris Nash, PAOneliaC [address] [facility] [address] [place] [address] Viral meningitis (Primary Dx) Social History Tobacco UseTypesPacks/DayYears UsedDateSmoking Tobacco: Some DaysCigarsSmokeless Tobacco: NeverAlcohol UseStandard Drinks/WeekCommentsNo0 (1 standard drink = 0.6 oz pure alcohol)PHQ-2AnswerDate RecordedTotal Mmpxi061/05/2025AUDIT-CAnswerDate RecordedQ1: How often do you have a drink containing alcohol?Monthly or less 01/12/2025Q2: How many drinks containing alcohol do you have on a typical day when you are drinking?1 or Q3: How often do you have six or more drinks on one occasion?Less than /05/2025ChildcareAnswerDate Recorded PilnoixypRflbcdj38/12/2019EmploymentAnswerDate RecordedEmploymentUnknown 07/20/2018Hunger ScreeningAnswerDate RecordedWithin the past 12 months we worried whether our food would run out before we got money to buy more.Never True01/12/2025Within the past 12 months the food we bought just didn't last and we didn't have money to get more.Never True01/12/2025Purpose - LifeAnswerDate RecordedPurpose and direction in iotvVupfdwu72/11/2021ex and Gender Information ValueDate RecordedSex Assigned at BirthNot on fileLegal FpoJiah7509/13/2014 11:30 AM EDTGender IdentityNot on fileSexual OrientationNot on filedocumented as of this encounter Last Filed Vital Signs Vital SignReadingTime TakenCommentsBlood Qebaamvn316/8401/12/2025 12:50 PM EST Apffp233801/12/2025 12:50 PM ESTTemperature--Respiratory Rate--Oxygen Saturation-- Inhaled Oxygen Concentration--Sxxfhv10.2 kg (201 lb)01/12/2025 12:50 PM EST Uxtfqj819.3 cm (5' 9 )01/12/2025 12:50 PM ESTBody Mass Index29.6801/12/2025 12:50 PM ESTdocumented in this encounter Functional Status * AUDIT-C ScoreAnswerDate of CwdtsodzwcMwexqa522/05/2025 12:51 PM Sidra Samuels CMA * QuestionAnswerDate of AssessmentAuthorQ1: How often do you have a drink containing alcohol?Monthly or less01/12/2025 12:51 PM Sidra Samuels CMAQ2: How many drinks containing alcohol do you have on a typical day when you are drinking?1 or 12:51 PM Sidra Samuels CMAQ3: How often do you have six or more drinks on one occasion?Less than monthly 01/12/2025 12:51 PM Sidra Samuels CMA documented as of this encounter Plan of Treatment Not on file documented as of this encounter Visit Diagnoses Diagnosis Viral meningitis- Primary Unspecified viral meningitis documented in this encounter Additional Health Concerns AssessmentNoted TimePHQ-9 Depression Total Score: 12:51 PM EST documented as of this encounter Care Teams Team MemberRelationshipSpecialtyStart DateEnd Date Ancelmo Gann MD PCP - GeneralFamily Medicine06/22/24documented as of this encounter
--- OUTSIDE RECORDS SUMMARY | 2025-01-18 09:48 | XMS_ITS ---
Author Organization [facility] in [place] Address [address] [place] [address] Care Team Providers Care Real Estate Broker Name Role Phone Chema Gann Primary Care Provider Encounters Encounter Location Date Provider Diagnosis Electronic Health Records [address] [place] [address] 01/18/2025 Chema Gann Plan Of Treatment No Information Progress Notes * Robbie DANGDOB:1960 ( 64 yo M)Acc No.[id number]:01/18/2025 Patient:?Robbie DANG :1960???Age:64 Y???Sex:MalePhone:[phone] Address:[address] [place] [address], [address] Subjective: * Chief Complaints: * * Medical History: * Surgical History: * Hospitalization/Major Diagno stic Procedure: * Medications: Objective: * Vitals: * Physical Examination: ??? Assessment: Plan: * Treatment: * Procedure Codes: * Preventive Medicine: ??Screenings/Counseling:?TOBACCO ACTION PLAN?Patient counselled on the dangers of tobacco use and urged to quit.? 12/18/2024 * true * Date:?Generated for Printing/Faxing/eTransmitting on:?01/20/2025 09:38 PM EST
--- OUTSIDE RECORDS SUMMARY | 2025-01-19 03:17 | XMS_ITS ---
Author Organization [facility] in [place] Address [address] [place] [address] Care Team Providers Care Administrative Assistant Coordinator Name Role Phone Chema Gann Primary Care Provider Encounters Encounter Location Date Provider Diagnosis Electronic Health Records [address] [place] [address] 01/19/2025 Chema Gann Plan Of Treatment No Information Progress Notes * Robbie DANGDOB:1960 ( 64 yo M)Acc No.[id number]:01/19/2025 Patient:?Robbie DANG :1960???Age:64 Y???Sex:MalePhone:[phone] Address:[address] [place] [address], [address] Subjective: * Chief Complaints: * * Medical History: * Surgical History: * Hospitalization/Major Diagno stic Procedure: * Medications: Objective: * Vitals: * Physical Examination: ??? Assessment: Plan: * Treatment: * Procedure Codes: * Preventive Medicine: ??Screenings/Counseling:?TOBACCO ACTION PLAN?Patient counselled on the dangers of tobacco use and urged to quit.? 12/25/2024 * true * Date:?Generated for Printing/Faxing/eTransmitting on:?01/20/2025 09:37 PM EST
[2025-01-20 20:20] VITALS: BP 145/87; PULSE 99; TEMP 36.4; O2SAT 97; BMI 28.8
[2025-01-20 20:42] LABS: Glucose Urine UA NEGATIVE (NEGATIVE)
[2025-01-20 20:45] LABS: Hematocrit 49.7 % (42.0-54.0); Hemoglobin 17.1 g/dL (14.0-18.0); Immature Granulocytes Abs Auto 0.04 10^3/uL (0.00-0.03); Immature Granulocytes Pct Auto 0.3 % (0.0-0.5); Lymphocytes Absolute Auto 3.5 10^3/uL (1.2-3.8); Mean Corpuscular HGB Conc 34.4 g/dL (29.9-35.2); Mean Corpuscular Hemoglobin 33.0 pg (25.9-34.0); Mean Corpuscular Volume 95.9 fL (80.0-94.0); Platelet Count 198 10^3/uL (150-450); Red Blood Count 5.18 10^6/uL (4.70-6.10); White Blood Count 12.9 10^3/uL (4.0-11.0)
[2025-01-20 20:48] LABS: Cast Seen? NONE SEEN #/LPF (NONE SEEN); Crystals Seen? None Seen #/HPF (None Seen); Urine Culture Indicated NO
[2025-01-20] MEDS: KETOROLAC TROMETHAMINE 30 MG/ML VIAL 15 MG IVP (20:53)
[2025-01-20] MEDS: 0.9 % SODIUM CHLORIDE 1,000 ML 1000 ML IV (20:53)
[2025-01-20 21:01] LABS: Alanine Aminotransferase 33 U/L (16-63); Albumin Globulin Ratio 1.2; Albumin Level 3.8 g/dL (3.4-5.0); Alkaline Phosphatase 113 U/L (46-116); Anion Gap 5.0; Aspartate Amino Transferase 26 U/L (15-37); Blood Urea Nitrogen 6.0 mg/dL (7.0-18.0); Calcium 9.1 mg/dL (8.5-10.1); Carbon Dioxide 31.6 mmol/L (21.0-32.0); Chloride 104 mmol/L (98-107); Estimated GFR (African America >60 (>=60 mL/min/1.73m^2); Estimated GFR (Non-African Ame >60 (>=60 mL/min/1.73m^2); Globulin 3.1 g/dL; Glucose 172 mg/dL (74-106); Potassium 3.6 mmol/L (3.5-5.1); Sodium 137 mmol/L (136-145); Total Protein 6.9 g/dL (6.4-8.2)
--- OUTSIDE RECORDS SUMMARY | 2025-01-20 21:37 | XMS_ITS | Clinical Summary ---
Author Organization [facility] Address [address] [place] [address] Care Team Providers Care Cullet Trucker Name Role Phone Unavailable Primary Care Provider Unavailabl e Social History Tobacco UseTypesPacks/DayYears UsedDateSmoking Tobacco: Never AssessedSex and Gender InformationValueDate RecordedSex Assigned at BirthNot on fileLegal Sex Male04/22/2022 6:47 PM EDTGender IdentityNot on fileSexual OrientationNot on file Last Filed Vital Signs Vital SignReadingTime TakenCommentsBlood Bbpmtjlb380/8605 12:00 PM EDT Pulse--Temperature--Respiratory Rate--Oxygen Saturation--Inhaled Oxygen Concentration--Ydskvx38.7 kg (200 lb)06/30/2018 12:00 PM MGHFshcvt145.3 cm (5' 9 )06/30/2018 12:00 PM EDTBody Mass Index29.5305 12:00 PM EDT Plan of Treatment Not on file Insurance [facility] [place] Address: [facility] [id number] [place] [id number]
--- OUTSIDE RECORDS SUMMARY | 2025-01-20 21:37 | XMS_ITS | Clinical Summary ---
Author Organization [facility] Address [id number] [address] [place] [address] Care Team Providers Care Sponge Buffer Name Role Phone Ancelmo Gann MD Primary Care Provider [phone] Allergies No known active allergies Medications MedicationSigDispense [...] as needed for pain. 30 tablet 5Active clopidogreL (PLAVIX) 75 mg tablet TAKE 1 TABLET BY MOUTH EVERY DAY; Duration: 90Active diclofenac (VOLTAREN) 75 mg EC tablet Take 1 tablet (75 mg total) by mouth 2 (two) times a day as needed.Active Active Problems No known active problems Encounters DateTypeDepartmentCare IstcRakqeenspnk08/05/2025 1:00 PM ESTOffice Visit [facility] [place] [address] Khris Nash PA-C Viral meningitis (Primary Dx)01/12/20258496Rywyfz87/18/2025Telephone [facility] [address] [facility] [address] [place] [address] [facility] Follow-up12/21/2024 7:39 AM EST - 12/24/2024 12:57 PM [facility] [address] [place] [address] Discharge Disposition: Telemedicine Dischargefrom Last 3 Months Social History Tobacco UseTypesPacks/DayYears UsedDateSmoking Tobacco: Some DaysCigarsSmokeless Tobacco: NeverAlcohol UseStandard Drinks/WeekCommentsNo0 (1 standard drink = 0.6 oz pure alcohol)PHQ-2AnswerDate RecordedTotal Irjuu99303/15/2024UDIT-CAnswerDate RecordedQ1: How often do you have a drink containing alcohol?Monthly or less 01/12/2025Q2: How many drinks containing alcohol do you have on a typical day when you are drinking?1 or Q3: How often do you have six or more drinks on one occasion?Less than jwvzqss1501/12/2025hildcareAnswerDate Recorded NgboakfyxPohytqm83/12/2019EmploymentAnswerDate RecordedEmploymentUnknown 07/20/2018Hunger ScreeningAnswerDate RecordedWithin the past 12 months we worried whether our food would run out before we got money to buy more.Never True01/12/2025Within the past 12 months the food we bought just didn't last and we didn't have money to get more.Never True01/12/2025Purpose - LifeAnswerDate RecordedPurpose and direction in mllzCkgwqvl61/11/2021ex and Gender Information ValueDate RecordedSex Assigned at BirthNot on fileLegal PitTxxh8709/13/2014 11:30 AM EDTGender IdentityNot on fileSexual OrientationNot on file Last Filed Vital Signs Vital SignReadingTime TakenCommentsBlood Ovyhdbke906/8412 12:50 PM EST Mablf386101/12/2025 12:50 PM XCJPuihfzejimv53.9 ??C (98.5 ??F)06/22/2024 10:52 AM EDTRespiratory Hnzs804406/22/2024 10:52 AM EDTOxygen Welnfbqnxf40%06/22/2024 12:10 PM EDTInhaled Oxygen Concentration--Qcsyah51.2 kg (201 lb)01/12/2025 12:50 PM HIFMrjsby804.3 cm (5' 9 )01/12/2025 12:50 PM ESTBody Mass Index29.6801/12/2025 12:50 PM EST Plan of Treatment Health MaintenanceDue DateLast DoneCommentsTobacco Mmaqsccnzp54/31/1961Adult BMI Follow Up Plan1978DTaP,Tdap and Td Vaccines (1 - Tdap)12/09/1979Zoster (Shingles) Vaccine (1 of 2)2010Influenza Xojpyej90/01/022794/, 11/09/2016Adult BMI Jlmqqlgkv33Depression Cqoxhpuko61/05/2026 01/12/2025Tobacco Iqssykyuk92RSV ( or age 60+ yrs) (1 - 1-dose 75+ series)12/09/2035 Medical Devices ImplantedTypeAreaManufacturerDevice IdentifierShelf Expiration DateModel / Serial / LotSpeedgilbert - Sna - [id number] Implanted:Qty: 1 [facility]/30/2017 [facility]: ZecxouezQpnxytx29/31/[id number]-3116HOM-5 / NA / [id number] [place] - Nayely - [id number] Implanted:Qty: 1 on 06/30/2017 [facility]: UtahtzqcXorlouw82/31/[id number] / NA / [id number] Insurance * Guarantor: Robbie Auguste TypeRelation to PatientDate of BirthPhone Billing AddressPersonal/ZaxeigWwca14/31/1961 [address] [address] * Guarantor: Robbie Auguste TypeRelation to PatientDate of BirthPhone Billing AddressWorkers RyygRina47/31/1961 [address] [address] Care Teams Team MemberRelationshipSpecialtyStart DateEnd Ancelmo Gann MD [facility]CP [facility]06/22/24
--- OUTSIDE RECORDS SUMMARY | 2025-01-20 21:38 | XMS_ITS | Encounter Summary ---
Author Organization [facility] Address [id number] [address] [place] [address] Care Team Providers Care Egg Factory Worker Name Role Phone Ancelmo Gann MD Primary Care Provider [phone] Encounter Details DateTypeDepartmentCare Team (Latest Contact Info)Rbvxuqrhfkk41/05/2025Travel Social History Tobacco UseTypesPacks/DayYears UsedDateSmoking Tobacco: Some DaysCigarsSmokeless Tobacco: NeverAlcohol UseStandard Drinks/WeekCommentsNo0 (1 standard drink = 0.6 oz pure alcohol)PHQ-2AnswerDate RecordedTotal Trgam10203/15/2024UDIT-CAnswerDate RecordedQ1: How often do you have a drink containing alcohol?Monthly or less 01/12/2025Q2: How many drinks containing alcohol do you have on a typical day when you are drinking?1 or Q3: How often do you have six or more drinks on one occasion?Less than lppvsre6901/12/2025hildcareAnswerDate Recorded AqztwotyaQqlssrw84/12/2019EmploymentAnswerDate RecordedEmploymentUnknown 07/20/2018Hunger ScreeningAnswerDate RecordedWithin the past 12 months we worried whether our food would run out before we got money to buy more.Never True01/12/2025Within the past 12 months the food we bought just didn't last and we didn't have money to get more.Never True01/12/2025Purpose - LifeAnswerDate RecordedPurpose and direction in edreBbhwkrk62/11/2021Sex and Gender Information ValueDate RecordedSex Assigned at BirthNot on fileLegal MgnKhet6209/13/2014 11:30 AM EDTGender IdentityNot on fileSexual OrientationNot on filedocumented as of this encounter Functional Status * AUDIT-C ScoreAnswerDate of ShhgzcjtqtPcfsgs898/05/2025 12:51 PM Sidra Samuels CMA * QuestionAnswerDate of AssessmentAuthorQ1: How often do you have a drink containing alcohol?Monthly or less01/12/2025 12:51 PM Sidar Samuels CMAQ2: How many drinks containing alcohol do you have on a typical day when you are drinking?1 or 12:51 PM Sidra Samuels CMAQ3: How often do you have six or more drinks on one occasion?Less than monthly 01/12/2025 12:51 PM Sidra Samuels CMA documented as of this encounter Plan of Treatment Not on file documented as of this encounter Visit Diagnoses Not on filedocumented in this encounter Additional Health Concerns AssessmentNoted TimePHQ-9 Depression Total Score: 12:51 PM EST documented as of this encounter Care Teams Team MemberRelationshipSpecialtyStart DateEnd Ancelmo Gann MD PCP - GeneralFamily Medicine06/22/24documented as of this encounter
--- OUTSIDE RECORDS SUMMARY | 2025-01-20 21:38 | XMS_ITS | Patient Health Record ---
Author Organization [facility] [place] Address [address] [place] [address] Care Team Providers Care Energy Administrator Name Role Phone Chema Gann Primary Care Provider Allergies No Known Allergies Results Component Value Reference Range Notes UA (Urinalysis, Dipstix only - w/o micro) Reviewed date:12/19/2024 07:28:30 PM Interpretation: Performing Lab: Notes/Report: GLUCOSE - 0 - 133 MG/DL BILIRUBIN+NEG - NEG MG/DLSPECIFIC GRAVITY6.01.001 - 1.035KETONES+NEG - NEG MG/DL BLOOD, UR+PH, UR6.05 - 9UROBILNOGEN-0.2 - 1 MG/DLNITRITE-NEG - NEGESTERASE (VICKIE) -NEG - NEG MG/DLCOVID-19, Flu A+B IH Reviewed date:12/18/2024 04:41:19 PM Interpretation: Performing Lab: Notes/Report: COVID-FLU A-FLU B-Control+DIRECT LDL Reviewed date:09/10/2024 07:57:38 PM Interpretation: Performing Lab: Notes/Report: [facility] ,LDL Cholesterol Ongvvx02 <100 mg/dl OPTIMAL 100-129 mg/dl NEAR OR ABOVE OPTIMAL 130-159 mg/dl BORDERLINE HIGH 160-189 mg/dl HIGH >190 mg/dl VERY HIGH Performing Lab:see noteML - [facility] LBCBC AUTO DIFF Reviewed date:12/19/2024 07:28:30 PM Interpretation: Performing Lab: Notes/Report: [facility] ,White Blood Count10.04.0-11.0 10 3/uLRed Blood Count5.614.70-6.10 10 6/uL Wotqbdapoj00.314.0-18.0 g/hGEzwxdqppwh64.542.0-54.0 %Mean Corpuscular Vjhkxj60.6 80.0-94.0 fLMean Corpuscular Vinzovnewi51.625.9-34.0 pgMean Corpuscular HGB Conc 34.929.9-35.2 g/dLRed Cell Distribution Width12.311.0-15.0 %Platelet Bgxyy634 150-450 10 3/uLMean Platelet Hyosjb01.09.5-13.5 fLNeutrophils Percent Auto83.4 43.0-75.0 %Lymphocytes Percent Auto10.520.5-60.0 %Monocytes Percent Auto5.61.7- 12.0 %Eosinophils Percent Auto0.00.9-7.0 %Basophils Percent Auto0.10.2-2.0 % Immature Granulocytes Pct Auto0.40.0-0.5 %Neutrophils Absolute Auto8.31.4-6.5 10 3/uLLymphocytes Absolute Auto1.01.2-3.8 10 3/uLMonocytes Absolute Auto0.60.3-0.8 10 3/uLEosinophils Absolute Auto0.00.0-0.7 10 3/uLBasophils Absolute Auto0.00.0- 0.1 10 3/uLImmature Granulocytes Abs Auto0.040.00-0.03 10 3/uLPerforming Lab:see noteML - [facility] LBINFLUENZA A AND B AG Reviewed date:12/19/2024 07:28:30 PM Interpretation: Performing Lab: Notes/Report: [facility] ,Influenza Virus A AntigenNegative Negative for Flu A protein antigen. Infection due to Flu A cannot be ruled out. Flu A antigen in the sample may be below the detection limit of the test. Influenza Virus B AntigenNegative Negative for Flu B protein antigen. Infection due to Flu B cannot be ruled out. Flu B antigen in the sample may be below the detection limit of the test. Performing Lab:see noteML - [facility] LBUA RANDOM W or MICROSCOPIC Reviewed date:12/19/2024 07:28:30 PM Interpretation: Performing Lab: Notes/Report: [facility] ,Color UrineYELLOWYELLOWClarity UrineSL CLOUDYCLEARSpecific Munday Urine>=1.030 1.005-1.025pH Urine6.05.0-9.0Protein Jvcfo058XVJ/TRACE mg/dLGlucose Urine UA NEGATIVENEGATIVE mg/dLBilirubin UrineNEGATIVENEGATIVEKetones Tsige48JKINSVEW mg/dLBlood UrineSMALLNEGATIVENitrite UrineNEGATIVENEGATIVEUrobilinogen Urine1.0 0.2-1.0 EU/dLLeukocyte Esterase UrineNEGATIVENEGATIVEWBC Urine0-2NONE SEEN #/HPF RBC Urine0-20-2 #/HPFBacteria UrineSMALLNONE SEEN #/HPFMucus UrineMODERATENONE SEENSquamous Epithelial Cell UrineFEWNONE/RARE #/LPFCrystals Seen?SeenNone Seen #/HPFAmorphous Sediment UrineMODERATECast Seen?SEENNONE SEEN #/LPFFine Granular Casts UrineFEWUrine Culture IndicatedYES-FRMCPerforming Lab:see noteML - [facility] LBBlood Culture 1 Reviewed date:12/25/2024 01:53:31 PM Interpretation: Performing Lab: Notes/Report: RIGHT AC [facility] ,Blood Culture 1See Below For Report Blood Culture 1 NG5D NO GROWTH AT 5 DAYS.^NO GROWTH AT 5 DAYS. Performing Lab:see noteML - [facility] LBBlood Culture 2 Reviewed date:12/25/2024 01:53:31 PM Interpretation: Performing Lab: Notes/Report: LEFT HAND [facility] ,Blood Culture 2See Below For Report Blood Culture 2 NG5D NO GROWTH AT 5 DAYS.^NO GROWTH AT 5 DAYS. Performing Lab:see noteML - [facility] VCZINN-QvC-9 Ag* Reviewed date:12/19/2024 07:28:30 PM Interpretation: Performing Lab: Notes/Report: [facility] ,SARS-CoV-2 AgNEGATIVENEGATIVE This test has not been FDA cleared or approved, but has been authorized by the FDA under an Emergency Use Authorization (EUA) for use by authorized laboratories certified under CLIA that meet the requirements to perform moderate or high complexity testing. This test has been authorized only for the detection of proteins from SARS-CoV-2, not for any other viruses or pathogens. The emergency use of this test is authorized for the duration of the declaration that circumstances exist justifying the authorization of emergency use of in vitro diagnostic tests for detection and/or diagnosis of Covid-19 under section 564(b)(1) of the Act, 21 U.S.C. 360bbb-3(b)(1), unless the declaration is terminated or authorization is revoked sooner. Performing Lab:see noteML - [facility] LBUrine Culture - [facility] Reviewed date:12/21/2024 02:42:19 PM Interpretation: Performing Lab: Notes/Report: [facility] ,Urine Culture - FRMCSee Below For Report Urine Culture - [facility]MC [facility] RESULT^[facility] RESULT Urine Culture - FRMCSEEN SEE SCANNED REPORT, NORMAL^SEE SCANNED REPORT, NORMAL Urine Culture - [facility] RESULT^[facility] RESULT Performing Lab:see noteML - [facility] LBCT chest wo con Reviewed date:12/19/2024 07:28:30 PM Interpretation: Performing Lab: Notes/Report: Source Facility: [place] [address] CT Scan Report Signed Patient: JOCELYNN DANG MR#: [id number] : 1960 Acct:[id number] Age/Sex: 64 / M ADM Date: 12/19/24 Loc: ER Attending Dr: Ordering Physician: Barrett Jennings Date of Service: 12/19/24 Procedure(s): CT chest wo con Accession Number(s): [id number] cc: Ancelmo Gann M.D. [place] [address] Patient Name: JOCELYNN DANG MRN: [id number] date: 1960 Sex: M Assigned Patient Location: ER Current Patient Location: ER Accession/Order Number: [id number] Exam Date: 12/19/2024 12:08 Report Date: 12/19/2024 12:47 At the request of: BARRETT JENNINGS DO Procedure: CT chest wo con CT chest wo con 12/19/2024 12:18 PM SIGN AND SYMPTOMS: r/o PNA TECHNIQUE: Multidetector CT axial slices of the chest were obtained without IV contrast. Multiplanar reformats were performed and viewed on a separate workstation and reviewed to further define anatomy and possible pathology. CT was performed with one or more of the following dose reduction techniques: Automated exposure control, adjustment of the mA and/or kV according to patient size, or use of iterative reconstruction technique. COMPARISON: None.. FINDINGS: Lower neck: Thyroid gland within normal limits, no supraclavicle adenopathy. Vessels: Atherosclerotic changes thoracic aorta and coronary arteries. Mediastinum and [place]: Calcified hilar lymph nodes are present. Heart: Normal size. No pericardial effusion. Airways: Within normal limits Lungs: Airspace opacities noted posteriorly at the left lung base. Emphysematous changes are present Pleura: Within normal limits. Chest Wall: Within normal limits. Upper Abdomen: There is a 2 mm nonobstructing right renal stone. Calcified granulomas are noted in the spleen. Bones: Degenerative changes are noted in the thoracic spine. CT/CT chest wo con IMPRESSION: Airspace opacities noted posteriorly at the left lung base. Emphysematous changes are present Impression dictated by: Terry Cruz M.D. 12/19/2024 12:47 PM Dictation Location: [place] [address] Electronically authenticated by: [id number] Y Date: 12/19/2024 12:47 Dictated By: Terry Cruz M.D. Signed By: 12/19/24 1250 DD/ 1247 TD/TT: Mount Loader:XR chest 1V Reviewed date:12/19/2024 07:28:30 PM Interpretation: Performing Lab: Notes/Report: Source Facility: [place] [address] [place] [address] XRay Report Signed Patient: JOCELYNN DANG MR#: [id number] : 1960 Acct:[id number] Age/Sex: 64 / M ADM Date: 12/19/24 Loc: ER Attending Dr: Ordering Physician: Barrett Jennings Date of Service: 12/19/24 Procedure(s): XR chest 1V Accession Number(s): [id number] cc: Ancelmo Gann M.D.; Barrett Jennings [place] [id number] Patient Name: JOCELYNN DANG MRN: [id number] date: 1960 Sex: M Assigned Patient Location: ER Current Patient Location: ED.MAIN Accession/Order Number: [id number] Exam Date: 12/19/2024 11:20 Report Date: 12/19/2024 11:53 At the request of: BARRETT JENNINGS DO Procedure: XR chest 1V PORTABLE AP ERECT CHEST 1125 hours CLINICAL HISTORY: Headaches and vomiting COMPARISON: 11/08/2022 The heart is within normal limits. There is no vascular congestion. There is coarsening of lung markings, greater at the bases. There is asymmetric groundglass opacity at the lower lung on the left. This might be soft tissue attenuation related to breast shadow however parenchymal change is not excluded. There is no other consolidation.. There is no sizable effusion or pneumothorax. The osseous structures are intact. There are anchor pins at the left humeral head. XR/XR chest 1V IMPRESSION: EQUIVOCAL GROUNDGLASS PARENCHYMAL CHANGE AT THE LEFT LUNG BASE. CLINICAL CORRELATION IS SUGGESTED AND IF WARRANTED, FOLLOW-UP 2 VIEW EXAM IS RECOMMENDED. Impression dictated by: Juana Kingsley M.D. 12/19/2024 11:53 AM Dictation Location: [place] [address] Electronically authenticated by: [id number] Y Date: 12/19/2024 11:53 Dictated By: Juana Kingsley M.D. Signed By: 12/19/24 1156 DD/ 1153 TD/TT: Mount Loader:CBC AUTO DIFF Reviewed date:12/20/2024 07:01:38 PM Interpretation: Performing Lab: Notes/Report: [facility] ,White Blood Count6.44.0-11.0 10 3/uLRed Blood Count4.504.70-6.10 10 6/uL Ccworqevct27.814.0-18.0 g/rVFdmshfkiwg91.142.0-54.0 %Mean Corpuscular Pjdppv71.6 80.0-94.0 fLMean Corpuscular Ysdxrttsza65.925.9-34.0 pgMean Corpuscular HGB Conc 35.229.9-35.2 g/dLRed Cell Distribution Width12.611.0-15.0 %Platelet Gsnqr932 150-450 10 3/uLMean Platelet Asuzls29.29.5-13.5 fLNeutrophils Percent Auto83.6 43.0-75.0 %Lymphocytes Percent Auto10.020.5-60.0 %Monocytes Percent Auto6.01.7- 12.0 %Eosinophils Percent Auto0.00.9-7.0 %Basophils Percent Auto0.20.2-2.0 % Immature Granulocytes Pct Auto0.20.0-0.5 %Neutrophils Absolute Auto5.31.4-6.5 10 3/uLLymphocytes Absolute Auto0.61.2-3.8 10 3/uLMonocytes Absolute Auto0.40.3-0.8 10 3/uLEosinophils Absolute Auto0.00.0-0.7 10 3/uLBasophils Absolute Auto0.00.0- 0.1 10 3/uLImmature Granulocytes Abs Auto0.010.00-0.03 10 3/uLPerforming Lab:see noteML - [facility] LBMAGNESIUM Reviewed date:12/20/2024 07:01:38 PM Interpretation: Performing Lab: Notes/Report: [facility] ,Magnesium1.91.8-2.4 mg/dLPerforming Lab:see noteML - [facility] LB PHOSPHORUS Reviewed date:12/20/2024 07:01:38 PM Interpretation: Performing Lab: Notes/Report: [facility] ,Phosphorus1.22.6-4.7 mg/dL RESULTS CALLED TO ANDREA ELIZALDE RN @BY Sandee Menard at 0628 Performing Lab:see noteML - [facility] LBPROF CHEM 8 (BAS METB) Reviewed date:12/20/2024 07:01:38 PM Interpretation: Performing Lab: Notes/Report: [facility] ,Bwnysv724828-145 mmol/LPotassium3.63.5-5.1 mmol/XZfnjkwqy76299-439 mmol/LCarbon Lgfitji53.021.0-32.0 mmol/LAnion Gap7.5Dojjnza66697-886 mg/dLBlood Urea Nitrogen 15.07.0-18.0 mg/dLCreatinine0.850.70-1.30 mg/dLEstimated GFR ( Katelyn>60 >=60 mL/min/1.73m 2Estimated GFR (Non- Courtney>60>=60 mL/min/1.73m 2BUN Creatinine Ratio17.9Gpbipwn3.68.5-10.1 mg/dLPerforming Lab:see noteML - [facility] LBCT angio head Reviewed date:12/20/2024 07:01:38 PM Interpretation: Performing Lab: Notes/Report: Source Facility: [facility]-[address] [place] [address] [place] [address] CT Scan Report Signed Patient: JOCELYNN DANG MR#: [id number] : 1960 Acct:[id number] Age/Sex: 64 / M ADM Date: 12/19/24 Loc: [place] 219-[address]: MARILYN SPEARS D.O. Ordering Physician: Marilyn Spears Date of Service: 12/20/24 Procedure(s): CT angio head Accession Number(s): [id number] cc: Ancelmo Gann M.D. [place] [address] Patient Name: JOCELYNN DANG MRN: [id number] date: 1960 Sex: M Assigned Patient Location: MS Current Patient Location: MS Accession/Order Number: [id number] Exam Date: 12/20/2024 11:22 Report Date: 12/20/2024 12:22 At the request of: MARILYN SPEARS DO Procedure: CT angio neck CTA OF THE HEAD AND NECK WITH CONTRAST CLINICAL DATA: Headaches COMPARISON: None Spiral images were obtained through the head and neck following 100 mL of Omnipaque 350. Sagittal and coronal MIP as well as 3-D volume rendered reconstructions of the carotid arteries and [place] of [place] reviewed. Stenosis is evaluated using NASCET criteria. This CT exam was performed using one or more following dose reduction techniques: Automated exposure control, adjustment of the mA and/or kV according to patient size, or use of iterative reconstruction technique. There is minor plaque at the aortic arch. The proximal great vessels are unremarkable. The proximal vertebral arteries are tortuous. The left is dominant. No vertebral stenosis or dissection is seen. There is minor plaque at the carotid bifurcation on the right, without associated luminal narrowing. There is no carotid plaque or stenosis on the left. There are small bilateral hypodense thyroid nodules. Degenerative changes are visualized at the spine, greater distally. The upper imaged lungs show obstructive lung disease. The distal vertebral, basilar and posterior cerebral arteries show no significant findings. There is minimal right carotid siphon plaque. No luminal narrowing is identified. The anterior and middle cerebral arteries are patent. The A1 segment on the left is slightly smaller in caliber than right. There is no focal stenosis or suspected thrombosis. No aneurysms are seen. CT/CT angio head IMPRESSION: NO SIGNIFICANT VASCULAR FINDINGS. Impression dictated by: Juana Kingsley M.D. 12/20/2024 12:22 PM Dictation Location: [place] [address] Electronically authenticated by: [id number] Y Date: 12/20/2024 12:22 Dictated By: Juana Kingsley M.D. Signed By: 12/20/24 1224 DD/ 1222 TD/TT: Mount Loader:MR head/brain wo/w con Reviewed date:12/20/2024 07:01:38 PM Interpretation: Performing Lab: Notes/Report: Source Facility: [facility]-[address] [place] [address] [place] [address] Magnetic Resonance Report Signed Patient: JOCELYNN DANG MR#: [id number] : 1960 Acct:[id number] Age/Sex: 64 / M ADM Date: 12/19/24 Loc: [place] 219-[address]: MARILYN SPEARS D.O. Ordering Physician: Marilyn Spears Date of Service: 12/20/24 Procedure(s): MR head/brain wo/w con Accession Number(s): [id number] cc: Ancelmo Gann M.D.; Marilyn Spears [address] [address] Patient Name: JOCELYNN DANG MRN: [id number] date: 1960 Sex: M Assigned Patient Location: MS Current Patient Location: MS Accession/Order Number: [id number] Exam Date: 12/20/2024 12:10 Report Date: 12/20/2024 14:31 At the request of: MARILYN SPEARS DO Procedure: MR head/brain wo/w con MR head/brain wo/w con 12/20/2024 1:24 PM SIGN AND SYMPTOMS: Severe headache, history of meningitis rule out meningitis, headache S.br PROTOCOL: Multiplanar multisequence MR images of the brain were obtained with and without IV contrast CONTRAST: 19 mL of intravenous to moderate COMPARISON: None. FINDINGS: Extra axial spaces: Age appropriate. Hemorrhage: None. Ventricular system: Within normal limits. Basal cisterns: Within normal limits and not effaced. Cerebral parenchyma: T2 and FLAIR hyperintense foci are noted in the periventricular and subcortical white matter. Midline shift: None.. Cerebellum: Within normal limits. Brainstem: Within normal limits. OTHER: Calvarium: Normal marrow signal. Vascular system: Satisfactory flow voids within the anterior and posterior circulation. Visualized Paranasal sinuses: Polypoid mucosal thickening is noted in the right maxillary sinus. Mucosal thickening is also noted in the left sphenoid sinus. There is a small right mastoid effusion. Visualized Orbits: Within normal limits. Visualized upper cervical spine: Within normal limits. Sella and skull base: Within normal limits. MR/MR head/brain wo/w con IMPRESSION: No acute intracranial pathology as a postcontrast enhancement. Chronic microvascular ischemic changes are noted. There is mucosal thickening in the maxillary sinuses with a small right mastoid effusion. Impression dictated by: Terry Cruz M.D. 12/20/2024 2:31 PM Dictation Location: [place] [address] Electronically authenticated by: [id number] Y Date: 12/20/2024 14:31 Dictated By: Terry Cruz M.D. Signed By: 12/20/24 1434 DD/ 143 TD/TT: Mount Loader:APRIL Reviewed date:12/21/2024 12:57:00 PM Interpretation: Performing Lab: Notes/Report: [facility] ,C Reactive Ytuhzzp98.67<=0.50 mg/dLPerforming Lab:see noteML - [facility] LBCBC AUTO DIFF (Not yet reviewed by provider) Interpretation: Performing Lab: Notes/Report: [facility] ,White Blood Count12.94.0-11.0 10 3/uLRed Blood Count5.184.70-6.10 10 6/uL Oocxxactty18.114.0-18.0 g/vWDdcnqscsqg29.742.0-54.0 %Mean Corpuscular Fwyloq47.9 80.0-94.0 fLMean Corpuscular Erjzkvqezl17.025.9-34.0 pgMean Corpuscular HGB Conc 34.429.9-35.2 g/dLRed Cell Distribution Width13.911.0-15.0 %Platelet Codwv394 150-450 10 3/uLMean Platelet Volume9.39.5-13.5 fLNeutrophils Percent Auto64.1 43.0-75.0 %Lymphocytes Percent Auto26.820.5-60.0 %Monocytes Percent Auto6.21.7- 12.0 %Eosinophils Percent Auto2.10.9-7.0 %Basophils Percent Auto0.50.2-2.0 % Immature Granulocytes Pct Auto0.30.0-0.5 %Neutrophils Absolute Auto8.31.4-6.5 10 3/uLLymphocytes Absolute Auto3.51.2-3.8 10 3/uLMonocytes Absolute Auto0.80.3-0.8 10 3/uLEosinophils Absolute Auto0.30.0-0.7 10 3/uLBasophils Absolute Auto0.10.0- 0.1 10 3/uLImmature Granulocytes Abs Auto0.040.00-0.03 10 3/uLPerforming Lab:see noteML - [facility] LBPROF 14(COMP METB) (Not yet reviewed by provider) Interpretation: Performing Lab: Notes/Report: [facility] ,Hgdtgh897041-220 mmol/LPotassium3.63.5-5.1 mmol/XSipfqbxu68552-637 mmol/LCarbon Dzwshgj60.621.0-32.0 mmol/LAnion Gap5.8Jotuchy93305-736 mg/dLBlood Urea Nitrogen 6.07.0-18.0 mg/dLCreatinine0.910.70-1.30 mg/dLEstimated GFR ( Katelyn>60 >=60 mL/min/1.73m 2Estimated GFR (Non- Courtney>60>=60 mL/min/1.73m 2BUN Creatinine Ratio6.4Cbmdizy8.18.5-10.1 mg/dLBilirubin Total0.40.2-1.0 mg/dL Aspartate Amino Ryxcgqvbird3157-47 U/LAlanine Rdjptkrgyixpljot5141-68 U/L Alkaline Dyzrybggvvz95331-840 U/LTotal Protein6.96.4-8.2 g/dLAlbumin Level3.8 3.4-5.0 g/dLGlobulin3.1Albumin Globulin Ratio1.2Performing Lab:see noteML - [facility] LBUA RANDOM W or MICROSCOPIC (Not yet reviewed by provider) Interpretation: Performing Lab: Notes/Report: [facility] ,Color UrineLT. YELLOWYELLOWClarity UrineCLEARCLEARSpecific Munday Urine<=1.005 1.005-1.025pH Urine5.55.0-9.0Protein UrineNEGATIVENEG/TRACE mg/dLGlucose Urine UANEGATIVENEGATIVE mg/dLBilirubin UrineNEGATIVENEGATIVEKetones UrineNEGATIVE NEGATIVE mg/dLBlood UrineLARGENEGATIVENitrite UrineNEGATIVENEGATIVEUrobilinogen Urine0.20.2-1.0 EU/dLLeukocyte Esterase UrineNEGATIVENEGATIVEWBC Urine0-2NONE SEEN #/HPFRBC Sbpdc71-235-2 #/HPFBacteria UrineNONE SEENNONE SEEN #/HPFMucus UrineNONE SEENNONE SEENSquamous Epithelial Cell UrineNONE SEENNONE/RARE #/LPF Crystals Seen?None SeenNone Seen #/HPFCast Seen?NONE SEENNONE SEEN #/LPFUrine Culture IndicatedNOPerforming Lab:see noteML - [facility] LBXR chest 1V Reviewed date:12/23/2024 12:59:47 PM Interpretation: Performing Lab: Notes/Report: Source Facility: [facility]-[address] [place] [address] [address] XRay Report Signed Patient: JOCELYNN DANG MR#: [id number] : 1960 Acct:[id number] Age/Sex: 64 / M ADM Date: 12/19/24 Loc: [place] 219-[address]: MARILYN SPEARS D.O. Ordering Physician: Marilyn Spears Date of Service: 12/22/24 Procedure(s): XR chest 1V Accession Number(s): [id number] cc: Ancelmo Gann M.D.; Marilyn Spears [place] [address] Patient Name: JOCELYNN DANG MRN: [id number] date: 1960 Sex: M Assigned Patient Location: OR Current Patient Location: OR Accession/Order Number: [id number] Exam Date: 12/22/2024 10:32 Report Date: 12/22/2024 10:57 At the request of: MARILYN SPEARS DO Procedure: XR chest 1V PORTABLE AP ERECT CHEST 1030 hours CLINICAL HISTORY: PICC PLACEMENT COMPARISON: CT 12/19/2024 There is a new right-sided PICC line with tip overlying the distal superior vena cava. The heart is within normal limits. There is no vascular congestion. The lungs are hyperinflated. There is continued mild atelectatic and/or infiltrative change at the left base. No new consolidation is seen. There is no effusion or pneumothorax. The osseous structures are intact. XR/XR chest 1V IMPRESSION: PICC LINE PLACEMENT, DESCRIBED. NO POSTPROCEDURE PNEUMOTHORAX. RESIDUAL LEFT BASILAR PARENCHYMAL CHANGE. Impression dictated by: Juana Kingsley M.D. 12/22/2024 10:57 AM Dictation Location: [place] [address] Electronically authenticated by: [id number] Y Date: 12/22/2024 10:57 Dictated By: Juana Kingsley M.D. Signed By: 12/22/24 1059 DD/ 1057 TD/TT: [place] Loader:PROF ALISSA Fragoso ([facility]) Reviewed date:12/23/2024 12:59:47 PM Interpretation: Performing Lab: Notes/Report: [facility] ,Ftvzkd724725-851 mmol/LPotassium3.63.5-5.1 mmol/PIzczbvxx93287-326 mmol/LCarbon Pdknkev89.421.0-32.0 mmol/LAnion Gap8.8Hxkqxww39492-793 mg/dLBlood Urea Nitrogen 8.07.0-18.0 mg/dLCreatinine0.710.70-1.30 mg/dLEstimated GFR ( Katelyn>60 >=60 mL/min/1.73m 2Estimated GFR (Non- Courtney>60>=60 mL/min/1.73m 2BUN Creatinine Ratio11.3Tbzkmll4.28.5-10.1 mg/dLPerforming Lab:see noteML - [facility] LBPHOSPHORUS Reviewed date:12/23/2024 12:59:47 PM Interpretation: Performing Lab: Notes/Report: The [facility] ,Phosphorus2.62.6-4.7 mg/dLPerforming Lab:see noteML - [facility] LB MAGNESIUM Reviewed date:12/23/2024 12:59:47 PM Interpretation: Performing Lab: Notes/Report: The [facility] ,Magnesium2.41.8-2.4 mg/dLPerforming Lab:see noteML - [facility] LB CBC no Diff (Hemogram) Reviewed date:12/21/2024 12:57:01 PM Interpretation: Performing Lab: Notes/Report: The [facility] ,White Blood Count5.04.0-11.0 10 3/uLRed Blood Count4.364.70-6.10 10 6/uL Hkfglzhtwz81.214.0-18.0 g/yQOgfejgqpju62.642.0-54.0 %Mean Corpuscular Msslep06.8 80.0-94.0 fLMean Corpuscular Kusypdrrbv60.625.9-34.0 pgMean Corpuscular HGB Conc 35.929.9-35.2 g/dLRed Cell Distribution Width12.411.0-15.0 %Platelet Gcgjt751 150-450 10 3/uLMean Platelet Volume9.99.5-13.5 fLPerforming Lab:see note - [facility] LBPROF CHEM 8 (BAS METB) Reviewed date:12/21/2024 12:57:00 PM Interpretation: Performing Lab: Notes/Report: The [facility] ,Mbxwtp910578-278 mmol/LPotassium3.53.5-5.1 mmol/RHrithcvt9740-275 mmol/LCarbon Dbwupnb86.321.0-32.0 mmol/LAnion Gap9.0Aetjwep2606-338 mg/dLBlood Urea Nitrogen 10.07.0-18.0 mg/dLCreatinine0.660.70-1.30 mg/dLEstimated GFR ( Katelyn>60 >=60 mL/min/1.73m 2Estimated GFR (Non- Courtney>60>=60 mL/min/1.73m 2BUN Creatinine Ratio15.4Stjnxoe7.58.5-10.1 mg/dLPerforming Lab:see note - [facility] LBPHOSPHORUS Reviewed date:12/21/2024 12:57:00 PM Interpretation: Performing Lab: Notes/Report: The [facility] ,Phosphorus2.12.6-4.7 mg/dLPerforming Lab:see note - [facility] LB MAGNESIUM Reviewed date:12/21/2024 12:57:00 PM Interpretation: Performing Lab: Notes/Report: The [facility] ,Magnesium1.71.8-2.4 mg/dLPerforming Lab:see note - [facility] LBCT angio neck Reviewed date:12/20/2024 07:01:38 PM Interpretation: Performing Lab: Notes/Report: Source Facility: [facility]-[address] [place] [address] [place] [address] CT Scan Report Signed Patient: JOCELYNN DANG MR#: [id number] : 1960 Acct:[id number] Age/Sex: 64 / M ADM Date: 12/19/24 Loc: [place] 219-[address]: MARILYN SPEARS D.O. Ordering Physician: Marilyn Spears Date of Service: 12/20/24 Procedure(s): CT angio neck Accession Number(s): [id number] cc: Ancelmo Gann M.D. [place] [id number] Patient Name: JOCELYNN DANG MRN: [id number] date: 1960 Sex: M Assigned Patient Location: MS Current Patient Location: Accession/Order Number: [id number] Exam Date: 12/20/2024 11:22 Report Date: 12/20/2024 12:22 At the request of: MARILYN SPEARS DO Procedure: CT angio neck CTA OF THE HEAD AND NECK WITH CONTRAST CLINICAL DATA: Headaches COMPARISON: None Spiral images were obtained through the head and neck following 100 mL of Omnipaque 350. Sagittal and coronal MIP as well as 3-D volume rendered reconstructions of the carotid arteries and [place] of [place] reviewed. Stenosis is evaluated using NASCET criteria. This CT exam was performed using one or more following dose reduction techniques: Automated exposure control, adjustment of the mA and/or kV according to patient size, or use of iterative reconstruction technique. There is minor plaque at the aortic arch. The proximal great vessels are unremarkable. The proximal vertebral arteries are tortuous. The left is dominant. No vertebral stenosis or dissection is seen. There is minor plaque at the carotid bifurcation on the right, without associated luminal narrowing. There is no carotid plaque or stenosis on the left. There are small bilateral hypodense thyroid nodules. Degenerative changes are visualized at the spine, greater distally. The upper imaged lungs show obstructive lung disease. The distal vertebral, basilar and posterior cerebral arteries show no significant findings. There is minimal right carotid siphon plaque. No luminal narrowing is identified. The anterior and middle cerebral arteries are patent. The A1 segment on the left is slightly smaller in caliber than right. There is no focal stenosis or suspected thrombosis. No aneurysms are seen. CT/CT angio neck IMPRESSION: NO SIGNIFICANT VASCULAR FINDINGS. Impression dictated by: Juana Kingsley M.D. 12/20/2024 12:22 PM Dictation Location: [place] [address] Electronically authenticated by: [id number] Y Date: 12/20/2024 12:22 Dictated By: Juana Kingsley M.D. Signed By: 12/20/24 1224 DD/ 1222 TD/TT: [place]:MRSA Screening Culture Reviewed date:12/23/2024 12:59:47 PM Interpretation: Performing Lab: Notes/Report: [facility] ,MRSA Screening CultureSee Below For Report MRSA Screening Culture MRSA Screening CultureNegative MRSA Screening Culture MRSA Screening CulturePerformed at: - [facility] [place] MRSA Screening Culture MRSA Screening [address]wbf89[address] [place], [place] [id number] MRSA Screening Culture MRSA Screening CultureLab Director: Patric Lee PhD, Phone: [phone] MRSA Screening Culture Performing Lab:see note LC - [facility] LB SEE REPORT - Children'S Service Worker Id information not found for 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 [place] [address] Patient Name: JOCELYNN DANG MRN: [id number] date: 1960 Sex: M Assigned Patient Location: ER Current Patient Location: ER Accession/Order Number: [id number] Exam Date: 12/19/2024 11:20 Report Date: 12/19/2024 12:00 At the request of: BARRETT JENNINGS DO Procedure: CT head/brain wo con CT BRAIN WITHOUT CONTRAST: CLINICAL HISTORY: CARLOS, nausea vomiting COMPARISON: None TECHNIQUE: Contiguous axial unenhanced images were obtained through the brain. This CT exam was performed using one or more following dose reduction techniques: Automated exposure control, adjustment of the mA and/or kV according to patient size, or use of iterative reconstruction technique. FINDINGS: There is mild cortical atrophy. The ventricles are normal in size and position. There is subtle white matter hypodensity that may be minor chronic microvascular disease. There are no additional areas of abnormal attenuation. There is no hemorrhage, mass effect or extra-axial collections. There is potential empty sella. Postoperative changes are seen at the maxillary sinuses. There is minor mucosal thickening at the right maxillary sinus and possibly a trace amount of fluid at the sphenoid sinus on the left. There is an opacified inferior mastoid air cell on the right. CT/CT head/brain wo con IMPRESSION: AGE-RELATED CHANGES. NO ACUTE INTRACRANIAL FINDINGS. SINUS DISEASE. Impression dictated by: Juana Kingsley M.D. 12/19/2024 12:00 PM Dictation Location: [place] [address] Electronically authenticated by: [id number] Y Date: 12/19/2024 12:00 Dictated By: Juana Kingsley M.D. Signed By: 12/19/24 1203 DD/ 1200 TD/TT: [place]:Prothrombin Time INR Reviewed date:12/19/2024 07:28:30 PM Interpretation: Performing Lab: Notes/Report: [facility] ,Prothrombin Time11.99.0-11.6 secINR1.14 DESIRED INR: 2.0-3.0 CONDITIONS NOT LISTED BELOW 2.5-3.5 FOR PROSTHETIC HEART VALVE REPLACEMENT 2.5-3.5 RECURRENT THROMBOSIS Performing Lab:see noteML - [facility] LBPTT Reviewed date:12/19/2024 07:28:30 PM Interpretation: Performing Lab: Notes/Report: [facility] ,Partial Thromboplastin Time30.622.3-36.2 secPerforming Lab:see noteML - [facility] LBPROF 14(COMP METB) Reviewed date:12/19/2024 07:28:30 PM Interpretation: Performing Lab: Notes/Report: [facility] ,Dbixeh797922-486 mmol/LPotassium4.63.5-5.1 mmol/PQpuatspl8427-742 mmol/LCarbon Xgeioqf58.921.0-32.0 mmol/LAnion Gap14.7Ipsirrp24452-510 mg/dLBlood Urea Cgerzmej02.07.0-18.0 mg/dLCreatinine1.150.70-1.30 mg/dLEstimated GFR ( Katelyn>60>=60 mL/min/1.73m 2Estimated GFR (Non- Courtney>60>=60 mL/min/1.73m 2BUN Creatinine Ratio15.6Lpehdry7.88.5-10.1 mg/dLBilirubin Total0.80.2-1.0 mg/dL Aspartate Amino Wedxvyqceib3767-03 U/LAlanine Xsnrpwanxacbezjr1938-95 U/L Alkaline Ysntilhbeyv9063-069 U/LTotal Protein8.06.4-8.2 g/dLAlbumin Level3.43.4- 5.0 g/dLGlobulin4.6Albumin Globulin Ratio0.7Performing Lab:see noteML - [facility] LBLACTATE or LACTIC ACID Reviewed date:12/19/2024 07:28:30 PM Interpretation: Performing Lab: Notes/Report: [facility] ,Lactate/Lactic Acid1.60.4-2.0 mmol/LPerforming Lab:see noteML - [facility] LBTSH Reviewed date:09/10/2024 07:57:38 PM Interpretation: Performing Lab: Notes/Report: [facility] ,Thyroid Stimulating Hormone0.7010.358-3.740 uIU/mLPerforming Lab:see noteML - [facility] LBT4 Reviewed date:09/10/2024 07:57:38 PM Interpretation: Performing Lab: Notes/Report: [facility] ,T4 Thyroxine9.204.50-12.10 ug/dLPerforming Lab:see noteML - [facility] LBPSA SCREENING Reviewed date:09/10/2024 07:57:38 PM Interpretation: Performing Lab: Notes/Report: [facility] ,Prostate Specific Antigen Scrn0.31<=4.00 ng/mLPerforming Lab:see noteML - [facility] LBPROF 14(COMP METB) Reviewed date:09/10/2024 07:57:38 PM Interpretation: Performing Lab: Notes/Report: [facility] ,Rixipw375984-138 mmol/LPotassium3.83.5-5.1 mmol/CEzwjxwrh17686-947 mmol/LCarbon Hhtjlqq63.221.0-32.0 mmol/LAnion Gap10.5Exqlmxv47991-233 mg/dLBlood Urea Yngwkaqe74.07.0-18.0 mg/dLCreatinine0.790.70-1.30 mg/dLEstimated GFR ( Katelyn>60>=60 mL/min/1.73m 2Estimated GFR (Non- Courtney>60>=60 mL/min/1.73m 2BUN Creatinine Ratio15.0Bedtmzw7.78.5-10.1 mg/dLBilirubin Total0.50.2-1.0 mg/dL Aspartate Amino Transferase<515-37 U/LAlanine Oayidbanxavmpoud9327-56 U/L Alkaline Nzbgfsujaln34723-557 U/LTotal Protein6.56.4-8.2 g/dLAlbumin Level3.2 3.4-5.0 g/dLGlobulin3.3Albumin Globulin Ratio1.0Performing Lab:see noteML - [facility] LBLIPID PROFILE Reviewed date:09/10/2024 07:57:38 PM Interpretation: Performing Lab: Notes/Report: [facility] ,Ujxubgjyyksvq048<=150 mg/dHNnbqfnaagcu204<=200 mg/dLHDL Epydldbarsg9563-58 mg/dL > or =60 mg/dl - LOW CARDIOVASCULAR RISK <40 mg/dl - HIGH CARDIOVASCULAR RISK VLDL DDEUMOXOSYF651.2Chol HDL Ratio10.1 3.3 - 4.4 LOW RISK 4.4 - 7.1 AVERAGE RISK 7.1 - 11.0 MODERATE RISK >11.0 HIGH RISK Performing Lab:see noteML - [facility] LBGLYCOHEMOGLOBIN A1C Reviewed date:09/10/2024 07:57:38 PM Interpretation: Performing Lab: Notes/Report: [facility] ,Glycohemoglobin A1C6.14.5-6.2 % ADA RECOMMENDED LIMIT 4.0 - 6.0 ADA THERAPEUTIC TARGET < 7.0 ACTION SUGGESTED > 7.0 Estimated Average Ggmzcco492Hvhvnfudnc Lab:see noteML - [facility] LB FREE T3 Reviewed date:09/10/2024 07:57:38 PM Interpretation: Performing Lab: Notes/Report: [facility] ,Free T32.202.18-3.98 pg/mLPerforming Lab:see noteML - [facility] LB CBC AUTO DIFF Reviewed date:09/10/2024 07:57:38 PM Interpretation: Performing Lab: Notes/Report: [facility] ,White Blood Count8.04.0-11.0 10 3/uLRed Blood Count5.494.70-6.10 10 6/uL Hfbrrjodlw42.614.0-18.0 g/hSSprkjullub99.342.0-54.0 %Mean Corpuscular Qsfodp43.6 80.0-94.0 fLMean Corpuscular Nkqhwkxtgz37.125.9-34.0 pgMean Corpuscular HGB Conc 35.029.9-35.2 g/dLRed Cell Distribution Width12.111.0-15.0 %Platelet Hxrib736 150-450 10 3/uLMean Platelet Volume9.89.5-13.5 fLNeutrophils Percent Auto52.9 43.0-75.0 %Lymphocytes Percent Auto37.920.5-60.0 %Monocytes Percent Auto6.31.7- 12.0 %Eosinophils Percent Auto2.50.9-7.0 %Basophils Percent Auto0.30.2-2.0 % Immature Granulocytes Pct Auto0.10.0-0.5 %Neutrophils Absolute Auto4.21.4-6.5 10 3/uLLymphocytes Absolute Auto3.01.2-3.8 10 3/uLMonocytes Absolute Auto0.50.3-0.8 10 3/uLEosinophils Absolute Auto0.20.0-0.7 10 3/uLBasophils Absolute Auto0.00.0- 0.1 10 3/uLImmature Granulocytes Abs Auto0.010.00-0.03 10 3/uLPerforming Lab:see noteML - [facility] LBCT angio abdomen pelvis Reviewed date:04/16/2024 09:57:26 AM Interpretation: Performing Lab: Notes/Report: Source Facility: [facility]-[address] [place] [address] [place] [address] CT Scan Report Signed Patient: JOCELYNN DANG MR#: [id number] : 1960 Acct:[id number] Age/Sex: 63 / M ADM Date: 04/14/24 Loc: LAB Attending Dr: Taylor Lara M.D. Ordering Physician: Taylor Lara M.D. Date of Service: 04/14/24 Procedure(s): CT angio abdomen pelvis Accession Number(s): [id number] cc: Ancelmo Gann M.D. [place] [address] Patient Name: JOCELYNN DANG MRN: [id number] date: 1960 Sex: M Assigned Patient Location: LAB Current Patient Location: Accession/Order Number: [id number] Exam Date: 04/15/2024 14:14 Report Date: 04/15/2024 14:24 At the request of: TAYLOR LARA MD Procedure: CT angio abdomen pelvis [...] Rojelio Garber M.D.04/15/2024 2:24 PM Dictation Location: [employer] Electronically authenticated by: [id number] Y Date: 04/15/2024 14:24 Dictated By: Rojelio Garber D.O. Signed By: 04/15/24 1427 DD/ 1424 TD/TT: [place]:CREATININE Reviewed date:04/16/2024 09:57:26 AM Interpretation: Performing Lab: Notes/Report: [facility] ,Creatinine0.970.70-1.30 mg/dLEstimated GFR ( Katelyn>60>=60 mL/min/1.73m 2Estimated GFR (Non- Courtney>60>=60 mL/min/1.73m 2Performing Lab:see noteML - [facility] LBCOVID-19, Flu A+B IH Reviewed date:09/10/2024 07:57:38 PM Interpretation: Performing Lab: Notes/Report: COVIDnegFLU AnegFLU BnegControlpresent Reason For Referral No Information Medications Medication SIG (Take, Route, Frequency, Duration) Notes Start Date End Date Status Cytomel 5 MCG 2 tablet on an empty stomach Ora lly Once a day; Duration: 30 days 4ActiveTamsulosin HCl 0.4 MGTAKE 1 CAPSULE BY MOUTH EVERY DAY FOR 90 DAYS; Duration: 90ActiveDiclofenac Sodium 75 MGTAKE 1 TABLET BY MOUTH TWICE A DAY NEEDED; Duration: 30ActivetiZANidine HCl 4 MGTAKE 2 TABLETS BY MOUTH AT BEDTIME; Duration: 90ActiveEzetimibe 10 MG1 tablet Orally Once a day; Duration: 90 daysActiveOndansetron 4 MG1 tablet on the tongue and allow to dissolve Orally qid15ActivePantoprazole Sodium 40 MGTAKE 1 TABLET BY MOUTH EVERY DAY; Duration: 90PRNActiveAspirin Adult Low Strength 81 MGTAKE ONE TABLET BY MOUTH EVERY MORNING Oral; Duration: 30 DaysActiveClopidogrel Bisulfate 75 MGTAKE 1 TABLET BY MOUTH EVERY DAY; Duration: 90ActiveRosuvastatin Calcium 5 MG1 tablet Orally Once a dayActiveLevsin/SL 0.125 MG1 tablet under the tongue and allow to dissolve as needed Sublingual AC and HS4ActiveVenlafaxine HCl ER 150 MG TAKE 1 CAPSULE BY MOUTH EVERY DAY WITH FOOD FOR 30 DAYS; Duration: 90 daysActive Metoprolol Succinate ER 50 MGTAKE 1 TABLET BY MOUTH EVERY DAY FOR 30 DAYS; Duration: 90 daysActiveNitroglycerin 0.4 MGDISSOLVE 1 TABLET UNDER THE TONGUE EVERY 5 MINUTES NEEDED FOR CHEST PAIN. DO NOT EXCEED A TOTAL OF 3 DOSES IN 15 MINUTES. Sublingual; Duration: 5 DaysActiveOndansetron 4 MG1 tablet on the tongue and allow to dissolve Orally qid; Duration: 5 days5ActiveVascepa 1 GM2 capsules with meals Orally Twice a day; Duration: 30 days5Active Social History Tobacco Use: Social History Observation [...] in the past year?Less than monthly (1 point)Ioomjz1Lmnptynxuybyyi NegativeAUDIT-C (Standard) Question Answer Notes Did you [...] to 4 times a month (2 points) Tdksqs8RfbkhccbcjwznxUslcyezc Problems Problem Type SNOMED Code ICD Code Onset Dates Problem Status W/U Status Risk Notes Problem Hypothyroidism (04872027) Hypothyroidism, unspecified (E03.9) ActiveconfirmedProblemAcute non-ST segment elevation myocardial infarction (789315420)Non-ST elevation (NSTEMI) myocardial infarction (I21.4)Active confirmedProblemFatty liver (799740167)Fatty (change of) liver, not elsewhere classified (K76.0)ActiveconfirmedProblemDegeneration of lumbar intervertebral disc (06249466)Other intervertebral disc degeneration, lumbar region (M51.36) ActiveconfirmedProblemMeningismus (85715317)Meningismus (R29.1)Activeconfirmed ProblemHistory of percutaneous transluminal coronary angioplasty (situation) (558201771)Coronary angioplasty status (Z98.61)ActiveconfirmedProblemChest pain (03236387)Chest pain (R07.9)ActiveconfirmedProblemCervical radiculopathy (58986513)Cervical radiculopathy (M54.12)ActiveconfirmedProblemDyslipidemia (574846518)Dyslipidemia (E78.5)ActiveconfirmedProblemCoronary artery disease (43554144)CAD (coronary artery disease) (I25.10)ActiveconfirmedProblemAnxiety (69568539)Anxiety (F41.9)ActiveconfirmedProblemHistory of percutaneous transluminal coronary angioplasty (situation) (042849706)History of PTCA (Z98.61)ActiveconfirmedProblemCoronary artery disease (98685709)Coronary artery disease (I25.10)ActiveconfirmedProblemSleep apnea (65894092)Sleep apnea (G47.30) ActiveconfirmedProblemArthritis of right knee (4502663642766991)Degenerative arthritis of right knee (M17.9)ActiveconfirmedProblemGastroenteritis (95338514) Gastroenteritis (K52.9)ActiveconfirmedProblemThoracic outlet syndrome (298989924)Thoracic outlet syndrome (G54.0)ActiveconfirmedProblemErectile dysfunction (disorder) (468874012)Impotence (N52.9)ActiveconfirmedProblem Diverticular disease (206934427)Diverticular disease (K57.90)Activeconfirmed ProblemViral gastroenteritis (872701398)Viral gastroenteritis (A08.4)Active confirmedProblemViral meningitis (98274947)Viral meningitis (A87.9)Active confirmedProblemImpingement syndrome of shoulder region (978074529)Shoulder impingement syndrome, right (M75.41)ActiveconfirmedProblemRadial styloid tenosynovitis (83274862)De Quervain's disease (tenosynovitis) (M65.4)Active confirmedProblemDisplacement of cervical intervertebral disc without myelopathy (04712531)Herniated cervical disc without myelopathy (M50.20)Activeconfirmed ProblemDegenerative joint disease of knee (067698839)Degenerative joint disease of left knee (M17.9)ActiveconfirmedProblemhypercholesterolemia (disorder) (04478301)Hypercholesteremia (E78.00)ActiveconfirmedProblemDisorder of sacrum (13019335)Low back derangement syndrome (M53.86)ActiveconfirmedProblemAbdominal aortic aneurysm without rupture (disorder) (47322927)Abdominal aortic aneurysm, without rupture, unspecified (I71.40)Activeconfirmed Vital Signs Temperature 101.3 degrees Fahrenheit 12/18/2024 Blood pressure ddrhmpuyj38 mm Hg01/03/20258028Nrdtvo01 in01/03/2025lood pressure fpgvuotc429 mm Hg01/03/20251158Crckgs807.2 lbs103/05/2024BMI28.53 kg/m211/ Encounters Encounter Location Date Provider Diagnosis Electronic Health Records [address] [place] [facility] [place] [address] 01/19/2025 Chema Gann [facility] [place] [facility] [place] [address] 09/10/2024Doug HoyDyslipidemia E78.5 and Encounter for long-term current use of medication [facility] [place] [address]/12/2024Doug [facility] [place] [facility] [place] [address]/12/2024Doug [facility] [place] [facility] [place] [address]/Doug [facility] [place] [facility] [place] [address]/[facility] [address], [place] [address]/18/2025Doug [facility] [place] [facility] [place] [place] [address]/05/2024 [facility] GilyBV[facility] [place] [address] 04/18/2024Doug HoySinus congestion R09.81[facility] [place] [facility] [place] [address]/Doug HoyDyslipidemia E78.5 ; Hypothyroidism, unspecified E03.9 and CAD (coronary artery disease) I25.10 [facility] [place] [address] 08/01/2024Doug HoySinus congestion R09.81[facility] [place] [address]/Doug HoyMeningismus R29.1BN[facility] [place] [address]/ Chema HoyViral meningitis A87.9BNorthern [facility] [place] [facility] [place] [address]/Doug HoySinus congestion R09.81 ; Body aches R52 and Acute bronchitis, unspecified organism J20.9BDan[place] [address] [place] [facility] [place] [address]/11/2024Doug HoyFever R50.9 and Gastroenteritis K52.9[address] [place] [address]/Doug HoyGastroenteritis K52.9B[address] [place] [address]/10/2024Doug Hoy Erythema nodosum R18Cvqkulk[address] [place] [address]/Doug HoyShoulder impingement syndrome, right M75.41 and De Quervain's disease (tenosynovitis) M65.4 Assessments Encounter Date Diagnosis (ICD Code) Assessment [...] East back into eating by eating bland, iinz-mp-rncfck foods like crackers, toast, gelatin, bananas, rice and chicken. Try to avoid foods/substances including dairy products, caffeine, alcohol, nicotine and fatty or highly seasoned foods. Medications such as ibuprofen or tylenol can make your stomach more upset, so use sparingly if at all. Also avoid ydzy-ybs-zikfvqp anti-diarrheal medications because it can make it harder for your body to eliminate the virus.04/06/2024Sinus congestion (ICD-10 - R09.81)04/06/2024ody aches (ICD-10 - R52)12/25/2024Meningismus (ICD-10 - R29.1)01/03/2025Viral meningitis (ICD-10 - A87.9)Cleared for RTW wednesday08/16/2024Erythema nodosum (ICD-10 - L52)10/23/2024Shoulder impingement syndrome, right (ICD-10 - M75.41)10/23/2024De Quervain's disease (tenosynovitis) (ICD-10 - M65.4) 12/18/2024Fever (ICD-10 - R50.9)04/18/2024Sinus congestion (ICD-10 - R09.81) 07/06/2024Dyslipidemia (ICD-10 - E78.5)07/06/2024Hypothyroidism, unspecified (ICD-10 - E03.9)08/01/2024Sinus congestion (ICD-10 - R09.81)09/10/2024 Dyslipidemia (ICD-10 - E78.5)09/10/2024Encounter for long-term current use of medication (ICD-10 - Z79.899)07/06/2024AD (coronary artery disease) (ICD-10 - I25.10)12/18/2024Gastroenteritis (ICD-10 - K52.9)Get plenty of rest. Stay hydrated by sucking on ice chips or taking small sips of water. You can also try drinking clear soda, clear broths or noncaffeinated sports drinks. Stop eating solid foods for a few hours to let your stomach settle. East back into eating by eating bland, sqli-ns-adjupb foods like crackers, toast, gelatin, bananas, rice and chicken. Try to avoid foods/substances including dairy products, caffeine, alcohol, nicotine and fatty or highly seasoned foods. Medications such as i buprofen or tylenol can make your stomach more upset, so use sparingly if at all. Also avoid wduk-wzv-bijcrdt anti-diarrheal medications because it can make it harder for your body to eliminate the virus.5Acute bronchitis, unspecified organism (ICD-10 - J20.9)Rest and drink more liquids, especially water. You may use a humidifier or vaporizer to help keep the drainage moist. Ddtv-hct-kmvfobl Nasal Saline may help the stuffy and runny nose. Use Ibuprofen and or Tylenol as needed for fever, chills, body aches or pain. Children 5 years old should not be given wkes-ghi-gjsibky cough and cold medications such as guaifenesin and dextromethorphan. If you're over age 5, you may try ddws-ybq-qurszfi cold medications such as guaifenesin and dextromethorphan, [...] chest pain you should go to the [facility] room or call 911 Plan Of Treatment Pending Test Test Name Order Date MRI Lumbar Spine w/o contrast 05/05/2023 T3 FREE, T4 FREE and TSH 04/24/2023 COMPREHENSIVE METABOLIC PROFILE WITH GFR 07/06/2024 COMPREHENSIVE METABOLIC PROFILE WITH GFR 04/19/2023 OCCULT BLOOD, FECAL, IMMUNOASSAY 024 OCCULT BLOOD, FECAL, IMMUNOASSAY 025 CBC W/AUTO DIFF 07/06/2024 CBC W/AUTO DIFF 04/19/2023 CBC AUTO DIFF 01/20/2025 GLYCOHEMOGLOBIN A1C 07/06/2024 LIPID PROFILE 09/10/2024 LIVER PROFILE 09/10/2024 PROF 14(COMP METB) 01/20/2025 UA RANDOM W or MICROSCOPIC 01/20/2025 CT ABD and PELV WO W CON [...] Start Date Coverage End Date LUIS MIGUEL CANCINO [address] [place] [phone] [id number] 0 Minnie Dang Spouse - patient is the spouse of the insured 5 Medications Administered Medication Instructions Date of Administration Dosage Notes Kenalog-40 lq942Vmjcxggzk Mdqjskqlujqc69/25/202460 ag44Cevbfqzrj Tromethamine mgKetorolac Dgfndtmtstgg16/10/202560 mgOrphenadrine Citrate lf49Vpmczbltlpep 25mg mgTriamcinolone 40 mg/ml mg Medical (General) History Medical History History [...] drum, left H72.92 Surgical History Surgery Date(Month/Year) Hernia repair sinuscolon resectionleft rotator cuff, Dr. Barajas06/30/17Left Heart Cath 11/10/2022Hospitalization History Reason Date(Month/Year) Viral Meningitis- [facility] 12/2025 see above
--- OUTSIDE RECORDS SUMMARY | 2025-01-20 21:38 | XMS_ITS | Clinical Summary ---
Author Organization [facility] Address [address] [place] [address] Phone Care Team Providers Care Recreation Program Coordinator Name Role Phone Ancelmo Gann MD Primary Care Provider + [phone] Social History Tobacco UseTypesPacks/DayYears UsedDateSmoking Tobacco: Never AssessedSex and Gender InformationValueDate RecordedSex Assigned at BirthNot on fileLegal Sex Male01/02/2022 10:45 AM ESTGender IdentityNot on fileSexual OrientationNot on file Plan of Treatment Not on file Care Teams Team MemberRelationshipSpecialtyStart DateEnd Date Ancelom Gann MD [address] [place] [facility] [place] [address] PCP - General04/10/09
--- OUTSIDE RECORDS SUMMARY | 2025-01-20 21:39 | XMS_ITS | Clinical Summary ---
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 Do not start before November 12, 2022. 90 tablet ctive metoprolol succinate XL (Toprol-XL) 50 mg 24 hr tablet Indications:Atherosclerosis of coronary artery with other form of angina pectoris, unspecified vessel or lesiontype, unspecified whether [place] or transplanted heartTake 1 tablet (50 mg) [...] 40 mg tablet Indications:Atherosclerotic heart disease of [place] coronary artery without angina pectorisTAKE 1 TABLET BY MOUTH EVERY DAY IN THE MORNING 90 tablet 5Active Active Problems ProblemNoted DateDiagnosed DateCervical bcybrzqgpxlwk82/11/2025Disorder of npwzmz7405/19/20242519Gefcsrwjelhe18/11/2025Fatty (change of) liver, not elsewhere baskdmxinq56/11/3954Tbxhgyeyuapnkbv50/11/2025History of PTCA05/19/2024 Hypothyroidism, rrdisfgohyf03/11/2025Narrowing of intervertebral disc space 05/19/2024Viral umgxgfnfurdkkzi97/11/6561Lqivrco36rthritis of right kneehest painoronary angioplasty nadwmd89egenerative joint disease of knee Displacement of cervical intervertebral disc without efnsslxbcs49/19/2023 11/26/2022iverticular lembizq53Impotence of organic origin ure ctuneoykfhrvrwtxqcho26/19/202310/19/2023Thoracic outlet zdyiqeqr85/NSTEMI (non-ST elevated myocardial infarction) 11/09/2022bdominal aortic aneurysm (AAA) 3.0 cm to 5.5 cm in diameter in male 2021VD (peripheral vascular disease)2021tented coronary artery 11/05/2021HTN (hypertension)11/05/2021leep apnea in adult11/05/2021Nontraumatic subluxation of extensor tendon at MCP joint of hand, left11/05/2021Tobacco dependence jlmoscug33Transient ischemic dxkced9812/22/2011 11/09/2022Essential yreniiesteeg55hronic wtnihscxg93/08/2012 11/09/2022oronary rwiwvtxagyvqqnq99 Overview (11/09/2022): RCA SARY 02/2010 Vuidxcessnrioa51 Overview (11/09/2022): TGS 526 (09/18) LDL 81 [...] file11/09/2022Sex and Gender InformationValueDate RecordedSex Assigned at ZzvtgQamo14/06/2022 9:43 AM EDTLegal ExiYyhg5508/06/2021 9:09 PM EDT Gender AzbqalfpShjj39/06/2022 9:43 AM EDTSexual OrientationHeterosexual or Zindvfmh14/06/2022 9:43 AM EDT Last Filed Vital Signs Vital SignReadingTime TakenCommentsBlood Qhsivuuk744/7204 8:53 AM EDT Opmog3481 8:53 AM EXDLxvzgxkcflp12.2 ??C (97.2 ??F)11/11/2022 9:10 AM EDTRespiratory Efxu2443 4:09 AM EDTOxygen Ssycoqnasu00%05/19/2024 8:53 AM EDTInhaled Oxygen Concentration--Vpkxdq11.2 kg (201 lb)05/19/2024 8:53 AM EDT Ameccy964.3 cm (5' 9 )05/19/2024 8:53 AM EDTBody Mass Index29.68005/19/2024 8:53 AM EDT Plan of Treatment Health MaintenanceDue DateLast DoneCommentsCT Smhitnxwbylc90/31/1961Colonoscopy 1960olorectal Cancer Orqbuycmj11/31/1961FIT-DNA1960FIT1960 FOBT1960 1366Fzqanulvindqq18/31/1961epression Gdtzuwykm79/31/1973Pneumococcal Vaccine: Pediatrics (0 to 5 Years) and At-Risk Patients (6 to 64 Years) (1 of 2 - PCV)12/09/1979Adult Tjpgmur1512/08/1982Zoster Vaccines (1 of 2)2010COVID- 19 Vaccine (1 [...] / Alice Atkinson 3.50 X 38 - [id number] Implanted:Qty: 1 on 11/10/2022 by [facility] [id number]/ [id number] / / [id number],Pk Papyrus,5.0/15 - [id number] Implanted:Qty: 1 on 11/10/2022 by [id number] / / [id number] Insurance Advance Directives * Full Code (Latest Code Status on File) Date ActivatedDate ZxvmqzvugqmNaqjkpwd72/2/2023 7:03 PM10 3:51 PM Care Teams Team MemberRelationshipSpecialtyStart DateEnd Date Ancelmo Gann MD [address] [facility] [address] [address] [facility] - General11/05/21
[2025-01-20 21:57] VITALS: BP 116/77; PULSE 84; O2SAT 98
--- NOTE | 2025-01-21 02:19 | ED.GENADUL1 ---
HPI HPI - General Adult General Chief complaint: Urogenital-Male Stated complaint: POSS KIDNEY STONE Time Seen by Provider: 01/20/25 20:21 Source: patient Mode of arrival: walk-in Limitations: no limitations History of Present Illness HPI narrative: Patient is a 64-year-old male presenting to the emergency department for evaluation of right-sided flank pain. Patient states that symptoms began about 5 days ago. He states this is similar to the last time he had a kidney stone. He states the pain started in the right flank and is now located more in the front of his abdomen. He states the pain comes and goes in waves. He denies any associated nausea or vomiting. No dysuria. He does endorse bloody urine. No chest pain or shortness of breath. No fevers or chills. He currently takes Flomax daily for recurrent nephrolithiasis. Related Data Home Medications ?Medication ?Instructions ?Recorded ?Confirmed diclofenac sodium 75 mg 75 mg PO Q12H PRN pain 11/08/22 01/20/25 tablet,delayed release ezetimibe 10 mg tablet 10 mg PO DAILY 11/08/22 01/20/25 tamsulosin 0.4 mg capsule 0.4 mg PO DAILY 11/08/22 01/20/25 venlafaxine 150 mg 150 mg PO DAILY 11/08/22 01/20/25 capsule,extended release 24 hr aspirin 81 mg capsule 81 mg PO DAILY 12/19/24 01/20/25 clopidogrel 75 mg tablet 75 mg PO DAILY 12/19/24 01/20/25 icosapent ethyl 1 gram capsule 2 g PO BID 12/19/24 01/20/25 (Vascepa) metoprolol succinate 50 mg 50 mg PO DAILY 12/19/24 01/20/25 tablet,extended release 24 hr rosuvastatin 40 mg tablet 40 mg PO QAM 12/19/24 01/20/25 Previous Rx's ?Medication ?Instructions ?Recorded tizanidine 4 mg tablet 8 mg (2 x 4 mg) PO .QHS 10 days 12/21/24 #30 tabs acyclovir sodium 50 mg/mL 880 mg (17.6 mL) IV Q8H 40 doses 12/22/24 intravenous solution Allergies Allergy/AdvReac Type Severity Reaction Status Date / Time No Known Drug Allergies Allergy Verified 01/20/25 20:26 Opioid HPI Opioid Management Most Recent Opioid Data: Last Pain Scale 7 01/20/25, 21:04 Last ED Pain Assessment 01/20/25, 21:02 Last MAR Pain Assessment 01/20/25, 20:53 Last ORT Total Score 0 12/19/24, 14:05 Last ORT Risk Category Low Risk 12/19/24, 14:05 Review of Systems ROS Status of ROS 10 or more systems reviewed and unremarkable except as noted in history and below PFSH PFSH Medical History (Updated 01/20/25 @ 21:38 by Aries Macdonald DO) Headache ?R51.9 - Headache, unspecified (ICD-10) Sepsis ?A41.9 - Sepsis, unspecified organism (ICD-10) Acute hypoxic respiratory failure ?J96.01 - Acute respiratory failure with hypoxia (ICD-10) Pneumonia ?J18.9 - Pneumonia, unspecified organism (ICD-10) Dyslipidemia ?E78.5 - Hyperlipidemia, unspecified (ICD-10) CAD (coronary artery disease) ?I25.10 - Atherosclerotic heart disease of [place] coronary artery without angina pectoris (ICD-10) Hypercholesteremia ?E78.00 - Pure hypercholesterolemia, unspecified (ICD-10) Hypertension ?I10 - Essential (primary) hypertension (ICD-10) Hernia ?K46.9 - Unspecified abdominal hernia without obstruction or gangrene (ICD-10) Surgical History (Updated 12/26/24 @ 00:00 by ) History of appendectomy ?Z90.49 - Acquired absence of other specified parts of digestive tract (ICD-10) History of colon resection ?Z90.49 - Acquired absence of other specified parts of digestive tract (ICD-10) History of heart artery stent ?Z95.5 - Presence of coronary angioplasty implant and graft (ICD-10) Family History (Updated 11/09/22 @ 01:38 by Samantha Phillip) Grandmother Family history of hypertension Mother Family history of hypertension Social History (Updated 11/09/22 @ 01:46 by Samantha Phillip) Within the past year, how often did you have a drink containing alcohol: monthly or less Within the past year, how many standard drinks containing alcohol did you have on a typical day: 1 or 2 Within the past year, how often did you have six or more drinks on one occasion: never Total score: 0 Score interpretation: A score less than 4 is consistent with normal alcohol consumption. 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 Highest level of school completed/degree received: GED or equivalent Are you now , , , , never or living with a partner: In a typical week, how many times do you talk on the telephone with family, friends, or neighbors: 3 or more times per week How often do you get together with friends or relatives: 3 or more times per week How often do you attend orthodoxy or latter day services: 1-3 times per year Do you belong to any clubs or organizations such as orthodoxy groups unions, [employer] or athletic groups, or school groups: no Total score: 2 Score interpretation: A score of greater than or equal to 2 indicates the lowest level of social isolation. Little interest or pleasure in doing things: not at all Feeling down, depressed, or hopeless: not at all Feel stressed/tense/nervous/anxious/difficulty sleeping: not at all Life stressors: recent of family or friend Life stressor details: Son 1 yr ago Due to disability, difficulty making decisions: No Do you think of yourself as: straight/heterosexual Gender Identity: male Exam Narrative Exam Narrative: CONSTITUTIONAL: Well-appearing, no acute distress, answering questions and following commands appropriately SKIN: Was warm and dry. EYES: Sclerae white. EARS, NOSE, THROAT: Moist oral mucosa. RESPIRATORY: Clear to auscultation bilaterally, no wheezes, crackles, or stridor, no use of accessory muscles CARDIOVASCULAR: Normal rate and regular rhythm. There is no S3, S4, murmur, rub. GASTROINTESTINAL: Abdomen is soft, nontender, nondistended. Negative CVA tenderness bilaterally. MUSCULOSKELETAL: No peripheral edema. NEUROLOGIC: Patient is awake and alert. Facies were symmetrical. Constitutional Vital Signs, click to edit/add: Last Vital Signs Temp 97.5 F L 01/20/25 20:20 Pulse 84 01/20/25 21:57 Resp 16 01/20/25 21:57 BP 116/77 01/20/25 21:57 Pulse Ox 98 01/20/25 21:57 O2 Del Method Room Air 01/20/25 21:57 Course Vital Signs Vital signs: Vital Signs Temperature 97.5 F L 01/20/25 20:20 Pulse Rate 99 H 01/20/25 20:20 Respiratory Rate 14 01/20/25 20:20 Blood Pressure 145/87 H 01/20/25 20:20 Pulse Oximetry 97 01/20/25 20:20 Oxygen Delivery Method Room Air 01/20/25 20:20 Temperature 97.5 F L 01/20/25 20:20 Pulse Rate 84 01/20/25 21:57 Respiratory Rate 16 01/20/25 21:57 Blood Pressure 116/77 01/20/25 21:57 Pulse Oximetry 98 01/20/25 21:57 Oxygen Delivery Method Room Air 01/20/25 21:57 Medical Decision Making MDM Narrative Medical decision making narrative: Differential diagnosis includes right-sided nephrolithiasis, UTI, less likely pyelonephritis. CT abdomen/pelvis was ordered. IV was established and laboratory studies were obtained. He was given IV ketorolac, 1 L bolus normal saline, and IV Zofran for symptomatic treatment. CT abdomen/pelvis independently reviewed and interpreted by myself and radiology demonstrated mild right hydronephrosis and hydroureter due to 6 mm stone at the right UVJ. Laboratory studies were unremarkable. No significant electrolyte or metabolic derangement. No evidence of acute kidney injury. No anemia, leukocytosis, or thrombocytopenia. No transaminitis or hyperbilirubinemia. Urinalysis is positive for hematuria, negative for acute infection. On reevaluation, patient states he feels significantly improved. He rates his pain a 0/10 in severity. He is tolerating p.o. I do believe the patient is stable for discharge. Patient's presentation is most likely consistent with nephrolithiasis. They were instructed to follow up with PCP as needed. Return precautions were given including any new or worsening symptoms. Patient understands and agrees to the plan. FINAL IMPRESSION: #Acute right-sided ureterolithiasis DISPOSITION: Discharged home CONDITION: Good Medical Records Medical records reviewed: Yes I reviewed the patient's medical records Lab Data Lab results reviewed: Yes I reviewed the patient's lab results Labs: Lab Results 01/20/25 01/20/25 Range/Units 20:27 20:42 WBC 12.9 H (4.0-11.0) 10^3/uL RBC 5.18 (4.70-6.10) 10^6/uL Hgb 17.1 (14.0-18.0) g/dL Hct 49.7 (42.0-54.0) % MCV 95.9 H (80.0-94.0) fL MCH 33.0 (25.9-34.0) pg MCHC 34.4 (29.9-35.2) g/dL RDW 13.9 (11.0-15.0) % Plt Count 198 (150-450) 10^3/uL MPV 9.3 L (9.5-13.5) fL Neut % (Auto) 64.1 (43.0-75.0) % Lymph % (Auto) 26.8 (20.5-60.0) % [place] % (Auto) 6.2 (1.7-12.0) % Eos % (Auto) 2.1 (0.9-7.0) % Baso % (Auto) 0.5 (0.2-2.0) % Neut # (Auto) 8.3 H (1.4-6.5) 10^3/uL Lymph # (Auto) 3.5 (1.2-3.8) 10^3/uL [place] # (Auto) 0.8 (0.3-0.8) 10^3/uL Eos # (Auto) 0.3 (0.0-0.7) 10^3/uL Baso # (Auto) 0.1 (0.0-0.1) 10^3/uL Abs Immat Gran (auto) 0.04 H (0.00-0.03) 10^3/uL Imm/Tot Granulo (auto) 0.3 (0.0-0.5) % Sodium 137 (136-145) mmol/L Potassium 3.6 (3.5-5.1) mmol/L Chloride 104 (98-107) mmol/L Carbon Dioxide 31.6 (21.0-32.0) mmol/L Anion Gap 5.0 BUN 6.0 L (7.0-18.0) mg/dL Creatinine 0.91 (0.70-1.30) mg/dL Est GFR ( Amer) >60 (>=60 mL/min/1.73m^2) Est GFR (Non-Af Amer) >60 (>=60 mL/min/1.73m^2) BUN/Creatinine Ratio 6.6 Glucose 172 H (74-106) mg/dL Calcium 9.1 (8.5-10.1) mg/dL Total Bilirubin 0.4 (0.2-1.0) mg/dL AST 26 (15-37) U/L ALT 33 (16-63) U/L Alkaline Phosphatase 113 (46-116) U/L Total Protein 6.9 (6.4-8.2) g/dL Albumin 3.8 (3.4-5.0) g/dL Globulin 3.1 g/dL Albumin/Globulin Ratio 1.2 Urine Color Lt. yellow (YELLOW) Urine Clarity Clear (CLEAR) Urine pH 5.5 (5.0-9.0) Ur Specific [place] <=1.005 A (1.005-1.025) Urine Protein Negative (NEG/TRACE) mg/dL Urine Glucose (UA) Negative (NEGATIVE) mg/dL Urine Ketones Negative (NEGATIVE) mg/dL Urine Occult Blood Large A (NEGATIVE) Urine Nitrite Negative (NEGATIVE) Urine Bilirubin Negative (NEGATIVE) Urine Urobilinogen 0.2 (0.2-1.0) EU/dL Ur Leukocyte Esterase Negative (NEGATIVE) Urine RBC 10-20 A (0-2) #/HPF Urine WBC 0-2 A (NONE SEEN) #/HPF Ur Squamous Epith Cells None seen (NONE/RARE) #/LPF Urine Crystals None seen (None Seen) #/HPF Urine Bacteria None seen (NONE SEEN) #/HPF Urine Casts None seen (NONE SEEN) #/LPF Urine Mucus None seen (NONE SEEN) Ur Culture Indicated? No Imaging Data CT scan - abdomen: Attestation: I personally reviewed and interpreted this imaging study as follows: Discharge Plan Discharge Chief Complaint: Urogenital-Male Clinical Impression: Kidney stone on right side Patient Disposition: Home, Self-Care Mode of Transportation: Private Vehicle Prescriptions / Home Meds: No Action venlafaxine 150 mg capsule,extended release 24hr 150 mg PO DAILY tamsulosin 0.4 mg capsule 0.4 mg PO DAILY diclofenac sodium 75 mg tablet,delayed release (DR/EC) 75 mg PO Q12H PRN (Reason: pain) ezetimibe 10 mg tablet 10 mg PO DAILY clopidogrel 75 mg tablet 75 mg PO DAILY icosapent ethyl [Vascepa] 1 gram capsule 2 g PO BID metoprolol succinate 50 mg tablet extended release 24 hr 50 mg PO DAILY rosuvastatin 40 mg tablet 40 mg PO QAM aspirin 81 mg capsule 81 mg PO DAILY tizanidine 4 mg tablet 8 mg PO .QHS 10 Days Qty: 30 0RF acyclovir sodium 50 mg/mL solution 880 mg IV Q8H Print Language: Indonesian Instructions: Kidney Stones (ED) Referrals: Ancelmo Gann MD [Primary Care Provider, Family Practice] - 1 week Discharge Date/Time: 01/20/25 22:00
== END 2025-01-20 22:00 | disposition home or self-care (01) ==
PROVIDERS: Emergency Provider Student in an Organized Health Care Education/Training Program; PCP Family Medicine
DX: N13.2 Hydronephrosis with renal and ureteral calculous obstruction (principal); Z87.442 Personal history of urinary calculi; F17.200 Nicotine dependence, unspecified, uncomplicated; Z63.4 Disappearance and death of family member
CPT/HCPCS: 36415; 74176; 80053; 81001; 85025; 96374; 96375; 99284; J1885; J2405